=== PATIENT | male | born 1965 | race Caucasian/White ===

== ENCOUNTER → 2020-11-19 13:01 | Outpatient (CLI) | payer OTHER, SELFPAY ==
--- NOTE | 2020-11-19 13:12 | ECG_ITS ---
APPROVED REPORT Exam: Resting ECG HR:83 bpm ECG Measurements Heart Rate 83 AXES NE 128 P 78 QRSd 96 QRS 72 QT 342 T 61 QTc 401 Conclusion Normal sinus rhythm Minimal voltage criteria for LVH, may be normal variant Borderline ECG Electronically signed by : Emanuel Vital, 12/02/2020 16:45:05
== END ==
PROVIDERS: PCP Internal Medicine; Visit Provider Internal Medicine
DX: R07.89 Other chest pain (principal)
CPT/HCPCS: 93005

== ENCOUNTER → 2021-02-20 10:19 | Outpatient (CLI) | payer OTHER, SELFPAY ==
--- NOTE | 2021-02-20 10:23 | XR_ITS ---
PROCEDURE INFORMATION: Exam: XR Left Forearm Exam date and time: 02/20/2021 10:23 AM Age: 55 years old Clinical indication: Injury or trauma; Fall; Sprain or strain; Elbow; Left; Additional info: S/P fall on lt elbow region/lt forearm TECHNIQUE: Imaging protocol: XR Left forearm. Views: 2 views. COMPARISON: No relevant prior studies available. FINDINGS: Bones/joints: Normal. Soft tissues: Normal. IMPRESSION: No acute findings.
--- NOTE | 2021-02-20 10:23 | XR_ITS ---
PROCEDURE INFORMATION: Exam: XR Left Elbow Exam date and time: 02/20/2021 10:23 AM Age: 55 years old Clinical indication: Injury or trauma; Fall; Sprain or strain; Elbow; Left; Additional info: S/P fall on lt elbow region/lt forearm TECHNIQUE: Imaging protocol: XR Left elbow. Views: 3 or more views. COMPARISON: No relevant prior studies available. FINDINGS: Bones/joints: Normal. Soft tissues: Normal. IMPRESSION: No acute findings.
== END ==
LOC: RAD 10:20
PROVIDERS: PCP Internal Medicine; Visit Provider Internal Medicine
DX: M79.632 Pain in left forearm (principal); M25.522 Pain in left elbow; W19.XXXA Unspecified fall, initial encounter
CPT/HCPCS: 73080; 73090

== ENCOUNTER → 2021-02-26 14:11 | Outpatient (CLI) | payer OTHER, SELFPAY ==
--- NOTE | 2021-02-26 14:24 | MR_ITS ---
PROCEDURE INFORMATION: Exam: MR Right Upper Extremity Other Than Joint Without Contrast, Humerus. Exam date and time: 02/26/2021 2:24 PM Age: 55 years old Clinical indication: Pain; Additional info: Strain of bicep. Unable to lift arm and weakness in arm. Bruising on anterior aspect of arm x2wks ago. Knot on arm. Put marker on knot. No prior. TECHNIQUE: Imaging protocol: MR of the Right upper extremity other than joint without intravenous contrast. Exam focused on the Humerus. COMPARISON: No relevant prior studies available. FINDINGS: Bones/joints: Small amount of fluid involving the elbow joint. No concerning marrow signal alterations. Bursae: Small amount of fluid signal in the subacromial/subdeltoid bursa can be seen with bursitis. Tendons: Torn and retracted long head of the biceps tendon. Remaining visualized tendons are unremarkable. Muscles: Normal muscles. Soft tissues: Unremarkable. IMPRESSION: Torn and retracted long head of the biceps tendon.
== END ==
LOC: RAD 14:12
PROVIDERS: PCP Internal Medicine; Visit Provider Internal Medicine
DX: S46.211A Strain of muscle, fascia and tendon of other parts of biceps, right arm, initial encounter (principal); S50.02XA Contusion of left elbow, initial encounter
CPT/HCPCS: 73218

== ENCOUNTER 2021-06-20 14:18 | Emergency (ER) | payer OTHER, SELFPAY ==
[2021-06-20 14:19] VITALS: BP 155/95; PULSE 97; RESP 18; TEMP 36.6; O2SAT 98; BMI 23.4
--- NOTE | 2021-06-20 14:30 | HMH.EDGENADL ---
ED Disposition Clinical Impression: Postoperative pain Disposition: Home, Self-Care Condition on Discharge: Fair Additional Instructions: Continue oxycodone as prescribed. Contact your orthopedic provider if severe pain persist tomorrow or worsens or if numbness or weakness of hand or if fever or swelling of hand develops. Referrals: Emanuel Vital [Primary Care Provider] - - Critical Care Critical Care Time: No Attestation: On , the high probability of a clinically significant, sudden or life threatening deterioration of the following system(s) required my full and direct attention, intervention and personal management. The time I documented below is in addition to time spent performing reported procedures but includes the following listed in this critical care notation. Medical Decision Making - Car Inquiry Pt receiving controlled substance: Yes Car was queried for this patient: Yes Risks and benefits of using a controlled substance: were discussed with pt by me Vital Signs: 06/20/21 14:19 06/20/21 15:22 Temperature 98 F 98 F Temperature Source Oral Oral Pulse Rate 85 Pulse Rate [Radial] 97 H Respiratory Rate 18 16 Blood Pressure 152/97 H Blood Pressure [Right Arm] 155/95 H Blood Pressure Mean [Right Arm] 115 Blood Pressure Position [Right Arm] Sitting 02 Sat by Pulse Oximetry 98 Oxygen Delivery Method Room Air Room Air Orders (Tests/Meds): ED MEDICATIONS Discontinued Medications Generic Name Dose Route Start Last Admin Trade Name Leoq PRN Reason Stop Dose Admin Hydromorphone HCl 2 mg 06/20/21 14:42 06/20/21 14:49 Hydromorphone 2mg/Ml Syringe IM 06/20/21 14:43 2 mg ONCE ONE Administration Ketorolac Tromethamine 60 mg 06/20/21 14:42 06/20/21 14:48 Ketorolac 60mg/2ml Vial IM 06/20/21 14:43 60 mg ONCE ONE Administration Ondansetron HCl 4 mg 06/20/21 14:42 06/20/21 14:49 Ondansetron 4mg/2ml Vial IM 06/20/21 14:43 4 mg ONCE ONE Administration Medical Decision Narrative: Splint and bandage not removed. Patient states that he was told by his orthopedic physician not to remove the splint or bandage unless it was an emergency such as infection or loss of circulation due to it being too tight. No signs of circulatory compromise or infection at this time. I do not perform nerve blocks of the extremity and therefore this is not an option. I offered him an injection of Toradol and Dilaudid and he is agreeable with this. Advised close follow-up and keeping in contact with his orthopedic physician if symptoms are not improving or if worsening. General Adult HPI - General Stated complaint: in pain Time Seen by Provider: 06/20/21 14:30 - History of Present Illness HPI narrative: States that he had surgery yesterday at [facility] in [facility] by [facility] to repair his left biceps tendon. He had a nerve block done at the time. He was told that when his nerve block wore off that he would have severe pain, but he says the pain is worse than anything he could have imagined. He has called his orthopedic provider and I have advised him to take an extra oxycodone 5 mg that he was prescribed after surgery. He has done this without relief. They have been advised him to come to the emergency department for evaluation. His orthopedic office called beforehand and said that he could receive a dose of Toradol and a one-time nerve block . I have told him that they would see him in their office on Tuesday. He has not had any swelling of his hand. No fever. No redness. He does not have any numbness of his hands since his nerve block wore off. He is able to move all of his fingers. He states he does not feel like the splint/Jorge wrap is too tight. - Related Data Allergies Allergy/AdvReac Type Severity Reaction Status Date / Time INGREDIENT: NO KNOWN - NO Allergy Unknown Uncoded 04/26/17 15:08 KNOWN DRUG ALLERGY NO K
[2021-06-20 15:22] VITALS: BP 152/97; PULSE 85; RESP 16; TEMP 36.6; O2SAT 98
== END 2021-06-20 15:23 | disposition home or self-care (01) ==
PROVIDERS: Emergency Provider Emergency Medicine; PCP Internal Medicine
DX: G89.18 Other acute postprocedural pain (principal); S46.222D Laceration of muscle, fascia and tendon of other parts of biceps, left arm, subsequent encounter
CPT/HCPCS: 96372; 99281; J2405

== ENCOUNTER → 2021-08-25 10:26 | Outpatient (CLI) | payer OTHER, SELFPAY ==
--- NOTE | 2021-08-25 11:22 | XR_ITS ---
FINAL REPORT CLINICAL HISTORY: LUQ ABD PAIN,LT FLANK PAIN FINDINGS: Chest: Single view was obtained. The heart and mediastinum are within normal limits. Disease. There is no pneumothorax. Abdomen: 2 views were obtained. There is a nonobstructive bowel gas pattern with a moderate amount of stool in the colon. There are no abnormally dilated loops of bowel. There is no free air. There are no abnormal calcifications. IMPRESSION: Nonobstructive bowel gas pattern with a moderate amount of stool. Reviewed, Interpreted and Dictated by Manjit Up III, MD Transcribed by Dede Champion Authenticated by Manjit Up III, MD on 08/25/2021 12:36:18 PM [facility]
[2021-08-25 11:24] LABS: Basophils # 0.1 K/mm3 (0-0.2); Basophils % 0.9 % (0.1-2.0); Eosinophils # 0.2 K/mm3 (0.0-0.4); Eosinophils % 1.6 % (0.1-12.0); Hematocrit 43.3 % (42.0-52.0); Hemoglobin 13.6 g/dL (14.1-18.0); Lymphocytes # 1.2 K/mm3 (0.7-4.5); Mean Corpuscular HGB Conc 31.4 g/dL (31.8-35.4); Mean Corpuscular Hemoglobin 29.9 pg (27.0-31.2); Mean Corpuscular Volume 95.2 fl (80-94); Mean Platelet Volume 7.2 fl (7.4-10.4); Monocytes # 0.8 K/mm3 (0.1-1.0); Monocytes % 5.4 % (1.7-9.3); Neutrophils # 11.5 K/mm3 (1.8-7.8); Neutrophils % 83.1 % (37.0-80.0); Platelet Count 341 K/mm3 (142-424); Red Blood Count 4.55 M/mm3 (4.60-6.20); Red Cell Distribution Width 13.7 % (11.5-17.5); White Blood Count 13.8 K/mm3 (4.8-10.8)
[2021-08-25 12:08] LABS: Alanine Aminotransferase 22 U/L (12-78); Albumin Level 4.2 g/dl (3.5-5.0); Albumin/Globulin Ratio 1.8 (1.1-1.8); Alkaline Phosphatase 80 U/L (38-126); Amylase 71 U/L (30-110); Anion Gap 7.6 mEq/L (5-15); Aspartate Amino Transferase 27 U/L (17-59); Bilirubin,Total 0.3 mg/dl (0.2-1.3); Blood Urea Nitrogen 21 mg/dl (9-20); Calcium 8.8 mg/dl (8.4-10.2); Carbon Dioxide 29 mmol/L (22.0-30.0); Chloride 107 mmol/L (98-107); Estimated Glomerular Filt Rate 88 ml/min (>60); GFR (African American) 107 ML/MIN (>60); Globulin 2.4 g/dL (1.3-3.2); Glucose 111 mg/dl (74-100); Potassium 4.6 mmoL/L (3.5-5.1); Sodium 139 mmol/L (136-145); Total Protein,Serum 6.6 g/dl (6.3-8.2)
--- NOTE | 2021-08-25 12:38 | CT_ITS ---
FINAL REPORT CLINICAL HISTORY: LUQ ABD PAIN,LT FLANK PAIN,HEMATURIA FINDINGS: Axial CT images of the abdomen and pelvis were obtained without intravenous contrast. Coronal reformatted images were also obtained.This study was performed with techniques to keep radiation doses as low as reasonably achievable (ALARA). Individualized dose reduction techniques using automated exposure control or adjustment of mA and/or kV according to the patient's size were employed. Abdomen: The lung bases are clear. There is no renal stone. There is mild left hydronephrosis, hydroureter, and perinephric stranding. The gallbladder is present. The liver, spleen and pancreas have an unremarkable, unenhanced appearance. No mass or adenopathy is seen. No inflammatory process is identified. Pelvis: Images of the pelvis reveal a 1 mm stone at the left UVJ. No mass or abnormal fluid collection is identified. The appendix is normal. IMPRESSION: Mild left hydronephrosis, hydroureter, and perinephric stranding secondary to a 1 mm left UVJ stone. Reviewed, Interpreted and Dictated by Manjit Up III, MD Transcribed by Fco Terry Authenticated by Manjit Up III, MD on 08/25/2021 02:18:42 PM [facility]
== END ==
PROVIDERS: PCP Internal Medicine; Visit Provider Internal Medicine
DX: R10.2 Pelvic and perineal pain (principal); R10.9 Unspecified abdominal pain; R31.29 Other microscopic hematuria
CPT/HCPCS: 36415; 74021; 74176; 80053; 82150; 85025

== ENCOUNTER → 2022-06-21 10:21 | Outpatient (CLI) | payer OTHER, SELFPAY ==
--- NOTE | 2022-06-21 10:33 | ECG_ITS ---
APPROVED REPORT Exam: Resting ECG HR:89 bpm ECG Measurements Heart Rate 89 AXES RI 138 P 76 QRSd 89 QRS 69 QT 330 T 72 QTc 377 Conclusion SINUS RHYTHM WITH OCCASIONAL SUPRAVENTRICULAR PREMATURE COMPLEXES OTHERWISE NORMAL EKG Electronically signed by : Emanuel Vital MD 06/21/2022 11:37:29
== END ==
LOC: RT 10:23
PROVIDERS: PCP Internal Medicine; Visit Provider Internal Medicine
DX: R55 Syncope and collapse (principal); R42 Dizziness and giddiness
CPT/HCPCS: 93005

== ENCOUNTER → 2022-07-01 12:38 | Outpatient (CLI) | payer OTHER, SELFPAY ==
--- NOTE | 2022-07-01 | CA_ITS ---
APPROVED REPORT EXAM: Comprehensive 2D, Doppler, and color-flow Echocardiogram Joiner Helper: Korin Tipton RDCS Ht: 5 ft 10 in Wt: 180lbs BSA: 2.00 BP: 152/97 mmHg Indications: dIZZINESS, htn, pre-op 2D Dimensions LVOT 1.95 cm (M/F) 1.5-2.5 LA Volume 34.70 mL LA Volume Index 17.602568 mL/m2 (M/F) 16-34 M-Mode Dimensions RVDd 2.75 cm (0.9-2.6) LA Diam 3.39 cm (1.9-4.0) LVDd 4.95 cm (3.5-5.7) Ao Diam 3.59 cm (2.0-3.7) LVDs 3.64 cm (3.5-5.7) IVSd 1.05 cm (0.6-1.1) PWd 0.68 cm (0.6-1.1) EF (Teich) 51.60% FS 26.50% EDV (Teich) 115.50 mL TAPSE 2.34 (<1.7) ESV (Teich) 55.90 mL LV Diastology E Decel Time 190.00 (160-240 msec) E/A Ratio 0.80 MED E' 9.30 (< 7 cm/sec) MED A' 10.50 cm/s E'/MED E' Ratio 5.33 (>14) LAT E' 6.50 (<10 cm/sec) LAT A' 11.00 cm/s E/LAT E' Ratio 7.63 (>14) Aortic Valve AO Peak GR. 5.90 mmHg Mitral Valve MV A Velocity 62.00 (40-130 cm/s) E/A Ratio 0.80 MV Decel. Time 190.00 (160-240 ms) Pulmonary Valve PV Peak Velocity 104.00 (50-150 cm/s) Tricuspid Valve TR P. Velocity 174.00 cm/s RAP Estimate 10.00 mmHg RVSP 22.00 mmHg Left Ventricle Left atrium is mildly enlarged, left ventricle is normal size mild concentric left ventricular hypertrophy, estimated ejection fraction 55% with no regional wall motion abnormality, grade 1 diastolic dysfunction seen without tissue Doppler evidence of raise left atrial pressure. Right Ventricle Right atrium and right ventricular normal size and contractility. Aortic Valve Aortic valve is grossly normal there is no aortic stenosis aortic insufficiency. Mitral Valve Mitral valve is grossly normal, there is trace mitral regurgitation. Tricuspid Valve Tricuspid valve grossly normal, there is trace tricuspid regurgitation, tricuspid regurgitation jet velocity is inadequate for calculation of the right ventricular systolic pressure. Pulmonic Valve Pulmonic valve is poorly visualized. Great Vessels Aortic root is normal size. Inferior vena cava is normal size with normal inspiratory collapse. Pericardium No significant pericardial effusion noted. Conclusion 1. Mildly enlarged left atrium, normal left ventricular size, mild concentric left ventricular hypertrophy, estimated ejection fraction 55% with no regional wall motion abnormality, grade 1 diastolic dysfunction seen without tissue Doppler evidence of raise left atrial pressure. 2. Trace mitral and tricuspid regurgitation. 3. No significant pericardial effusion noted. 4. Inferior vena cava is normal size with normal inspiratory collapse. Electronically signed by : Clayton Berry MD 07/02/2022 15:08:29
--- NOTE | 2022-07-01 | CA_ITS ---
FINAL REPORT TECHNIQUE: Color Doppler, duplex Doppler and mckeon scale sonography of the bilateral neck arterial vasculature was performed. Velocities were measured in the carotid arteries. Stenosis evaluation based on the validated velocity criteria. CLINICAL HISTORY: DIZZINESS,SYNCOPE FINDINGS: The peak systolic velocity of the right common carotid artery is 80 cm/s. The peak systolic velocity of the right internal carotid artery is 79 cm/s and end diastolic velocity 35 cm/s. The ICA/CCA ratio is 1.1. A small amount of plaque is present. The right external carotid artery is patent. The right vertebral artery is patent with antegrade flow. The peak systolic velocity of the left common carotid artery is 104 cm/s. The peak systolic velocity of the left internal carotid artery is 92 cm/s and end diastolic velocity 37 cm/s. The ICA/CCA ratio is 1.3. A small amount of plaque is present. The left external carotid artery is patent.The left vertebral artery is patent with antegrade flow. IMPRESSION: Less than 50% bilateral carotid stenoses. Bilateral patent vertebral arteries with antegrade flow. If indicated, CTA or MRA could further evaluate. Reviewed, Interpreted and Dictated by Manjit Up III, MD Transcribed by Alyse Hawkins Authenticated and [facility]
== END ==
LOC: RT 12:41
PROVIDERS: PCP Internal Medicine; Visit Provider Internal Medicine
DX: R55 Syncope and collapse (principal); R42 Dizziness and giddiness
CPT/HCPCS: 93225; 93226; 93306; 93880

== ENCOUNTER → 2022-07-15 14:27 | Outpatient (CLI) | payer OTHER, SELFPAY ==
--- NOTE | 2022-07-15 | CA_ITS ---
APPROVED REPORT Exam: Exercise Treadmill Technologist: Jody Alegria Ht: 5 ft 10 in Wt: 180 lbs BSA: 2.00 m2 HR: 89 bpm BP: 160/94 mmHg Rhythm: NSR, normal Medical History Medications: Aspirin,,,,, Trazadone,,,,, Naproxen,,,,, Cardiac Risk Factors: Smoking Stress Test Details Test: Angelica HR Resting HR: 98 bpm Max Heart Rate (APMHR): 166.540958 bpm Max HR Achieved: 153 bpm Target HR (85% APMHR): 141.429358 bpm % of APMHR: 92.17 Recovery HR: 133 bpm BP Resting BP: 144/98 mmHg Max BP: 208/100 mmHg Recovery BP: 187.0/103.0 mmHg ECG Resting ECG: NSR, normal Clinical Exercise duration: 04:13 min Highest Stage Achieved: Exercise capacity: 7.0 METs Stress ECG Conclusion During angelica protocol pt walked total of 4:13 minutes into stage 2. Pt experinced dyspnea, mild dizzy at peak exercise. No arrhythmias noted. Within normal ST response to exercise. Within normal GXT. GXT only. Test Summary REST . . . . . . . Sitting REST . . . . . . . Standing REST 03:38 0.0 0.0 98 . 144/ 98 . . Stage 1 01:00 10.0 1.7 121 . . . . Stage 1 02:00 10.0 1.7 141 . . . . Stage 1 03:00 10.0 1.7 145 . 208/100 . . Stage 2 01:00 12.0 2.5 150 . . . . Stage 2 01:13 12.0 2.5 152 . . . Stop exercise at 04:13 RECOVERY 01:00 0.0 0.0 144 . . . . RECOVERY 02:00 0.0 0.0 120 . 187/103 . . RECOVERY 03:00 0.0 0.0 114 . 162/102 . . RECOVERY 04:00 0.0 0.0 109 . 162/102 . . RECOVERY 05:00 0.0 0.0 104 . 168/104 . . RECOVERY 05:18 0.0 0.0 100 . 168/104 . . Electronically signed by : Emanuel Vital MD 07/23/2022 18:04:27
== END ==
PROVIDERS: PCP Internal Medicine; Visit Provider Internal Medicine
DX: R07.9 Chest pain, unspecified (principal); R55 Syncope and collapse; R42 Dizziness and giddiness
CPT/HCPCS: 93017

== ENCOUNTER → 2022-08-27 12:04 | Outpatient (CLI) | payer OTHER, SELFPAY | LOC: LAB 12:05 | PROVIDERS: PCP Internal Medicine; Visit Provider Orthopaedic Surgery | DX: Z01.812 Encounter for preprocedural laboratory examination (principal); M54.2 Cervicalgia | CPT/HCPCS: 36415; 86850 ==

== ENCOUNTER → 2022-11-30 12:15 | Outpatient (CLI) | payer OTHER, SELFPAY ==
--- NOTE | 2022-11-30 12:22 | XR_ITS ---
FINAL REPORT CLINICAL HISTORY: consistent headache FINDINGS: SPINE CERVICAL COMPLETE/FLEXION & EXT Seven views demonstrate no acute fracture. There are postoperative changes from fusion of C3-5 There is moderate disc space narrowing at C6-7. The neural foramina are widely patent. There is no instability or malalignment with flexion and extension maneuvers. IMPRESSION: Degenerative and postoperative changes as above. Reviewed, Interpreted and Dictated by Louis Pérez MD Transcribed by Alyse Hawkins Authenticated and [facility]
== END ==
PROVIDERS: PCP Internal Medicine; Visit Provider Specialist
DX: M54.12 Radiculopathy, cervical region (principal); R51.9 Headache, unspecified
CPT/HCPCS: 72052

== ENCOUNTER → 2022-12-13 13:34 | Outpatient (CLI) | payer OTHER, SELFPAY ==
[2022-12-13 13:41] LABS: MANUAL DIFFERENTIAL MANUAL DIFFERENTIAL (MANUAL DIFF)
[2022-12-13 14:38] LABS: Basophils # 0.1 K/mm3 (0-0.2); Basophils % 0.7 % (0.1-2.0); Eosinophils # 0.2 K/mm3 (0.0-0.4); Eosinophils % 2.8 % (0.1-12.0); Hematocrit 45.7 % (42.0-52.0); Lymphocytes # 1.8 K/mm3 (0.7-4.5); Lymphocytes % 22.2 % (10-50); Mean Corpuscular HGB Conc 30.6 g/dL (31.8-35.4); Mean Corpuscular Hemoglobin 27.6 pg (27.0-31.2); Mean Corpuscular Volume 90.2 fl (80-94); Mean Platelet Volume 7.2 fl (7.4-10.4); Monocytes # 0.4 K/mm3 (0.1-1.0); Monocytes % 4.9 % (1.7-9.3); Neutrophils # 5.7 K/mm3 (1.8-7.8); Neutrophils % 69.4 % (37.0-80.0); Platelet Count 391 K/mm3 (142-424); Red Blood Count 5.07 M/mm3 (4.60-6.20); Red Cell Distribution Width 14.1 % (11.5-17.5); White Blood Count 8.3 K/mm3 (4.8-10.8)
[2022-12-13 15:05] LABS: Alanine Aminotransferase 23 U/L (12-78); Albumin Level 4.7 g/dl (3.5-5.0); Albumin/Globulin Ratio 1.7 (1.1-1.8); Alkaline Phosphatase 108 U/L (38-126); Anion Gap 13.6 mEq/L (5-15); Aspartate Amino Transferase 26 U/L (17-59); Blood Urea Nitrogen 21 mg/dl (9-20); Calcium 9.6 mg/dl (8.4-10.2); Carbon Dioxide 28 mmol/L (22.0-30.0); Chloride 105 mmol/L (98-107); Estimated Glomerular Filt Rate 100 ml/min (>60); GFR (African American) 121 ML/MIN (>60); Globulin 2.8 g/dL (1.3-3.2); Glucose 112 mg/dl (74-100); Potassium 4.6 mmoL/L (3.5-5.1); Sodium 142 mmol/L (136-145); Total Protein,Serum 7.5 g/dl (6.3-8.2)
[2022-12-13 15:07] LABS: Bilirubin,Total 0.1 mg/dl (0.2-1.3)
[2022-12-13 15:09] LABS: Eosinophils % 2 % (0-3); Lymphocytes % 21 % (10-50); Monocytes % 3 % (2-9); Neutrophils % 73 % (42-76); Total Cells Counted 100
[2022-12-13 15:10] LABS: Hypochromasia 1+; Platelet Estimate Normal
== END ==
LOC: LAB 13:35
PROVIDERS: PCP Internal Medicine; Visit Provider Specialist
DX: R51.9 Headache, unspecified (principal); M54.81 Occipital neuralgia; D58.2 Other hemoglobinopathies
CPT/HCPCS: 36415; 80053; 85007; 85014; 85018; 85048; 85049

== ENCOUNTER → 2022-12-13 13:47 | Outpatient (POV) | payer OTHER, SELFPAY ==
--- NOTE | 2022-12-13 14:37 | EXP.PAIN.OV ---
HPI Data of Consult Patient: new to practice Consult date: 12/13/22 Requesting Physician: Josie Davis APRN Primary Care Provider: Emanuel Vital MD Consult Narrative Reason for consult: Headache, neck pain History of present illness: Mr. Rosibel Rodríguez) is a 57 year old male who presents today as a new patient. He is a referral from Dr. Altman's office. Today he rates his pain a 3 out of 10. Patient states his pain is all in his neck and the back of his head along the left side. Patient states this has been going on for longer than 6 months. He states he did initially go to a doctor for his left arm pain who stated that he needed to have a procedure to remove some bone spurs however then ended up finding he had a frozen shoulder. Patient states that he later went to [facility] where Dr. Spears did do 2 injections including 1 and his upper back and one around his left shoulder. Patient states that he was then transferred over to [facility] who ended up doing a cervical fusion on C3-4 and C4-5 back in August. Patient states he did have some resolution of his neck pain after this surgery however he continued to have constant headaches. Patient has tried [id number] medications such as Tylenol and ibuprofen along with Excedrin. Patient also has tried heat and ice with no additional relief. Patient does state that he typically will take anywhere from 7 to 8 pills of the Excedrin Migraine and that previously he had been on more around 15/day. Patient does describe his pain as a constant pain that is worse with any random movements. He states it is unrelated to any specific activity and changes from 1 minute to the next. Patient has also tried physical therapy with no additional relief. Patient did go to Dr. Altman's office and had an EMG where it was found that he had carpal tunnel. Patient is currently managed on gabapentin 300 mg 3 times a day. His Car is [phone]. Its been reviewed and appropriate. Patient is interested in any help we may be able to provide. CC: Josie Davis APRN [facility] Disclaimer: The information contained in this section may have been updated after the patient was seen, as this information can be updated by other users. Medical History Anxiety Cervical radiculopathy Depression Fixation hardware in spine Frozen shoulder GERD (gastroesophageal reflux disease) Headache Heart attack Heart palpitations History of arterial dissection Osteoarthritis Surgical History History of cervical discectomy Social History (Updated 12/13/22 @ 15:07 by Radha Eastman RN) Smoking Status: Never smoker alcohol intake: never current occupational status: unemployed Travel in the last 8 weeks: None marital status: Review of Systems Review of Systems Review of systems:: pertinent systems reviewed and negative unless documented below Review of systems (narrative): Review of Systems: General: No recent weight changes, no fever, no sleep disturbances Respiratory: No cough, no shortness of air, no recurring pulmonary infections Cardiovascular/peripheral vascular: No chest pain, no palpitations, no edema, no shortness of breath Gastrointestinal: No new onset incontinence, normal bowel movements reported Genitourinary: No new onset incontinence Musculoskeletal: Left-sided occipital headaches Psychiatric: [Normal mood/affect] Neurological: [Denies weakness in extremities], [denies balance issues] Meds Home Medications and Allergies Home Medications Medication Instructions Recorded Confirmed Type bisoprolol fumarate 5 mg tablet 5 mg PO DAILY BLOOD PRESSURE 11/30/22 12/13/22 History bupropion HCl 200 mg tablet,12 hr 200 mg PO DIRECTED MOOD 11/30/22 12/13/22 History sustained-release cyclobenzaprine 5 mg tablet 5 mg PO TID PRN Pain 11/30/22 12/13/22 History escit
[2022-12-13 15:06] VITALS: BP 162/100; PULSE 91; RESP 18; O2SAT 97; BMI 25.2
== END ==
LOC: SC.PAIN 13:49
PROVIDERS: PCP Internal Medicine; Visit Provider Nurse Practitioner Family
DX: M54.81 Occipital neuralgia (principal); M50.10 Cervical disc disorder with radiculopathy, unspecified cervical region; G44.86 Cervicogenic headache
CPT/HCPCS: 99202; G0463

== ENCOUNTER 2022-12-21 09:08 | Day surgery (SDC) | payer OTHER, SELFPAY ==
[2022-12-21 09:27] VITALS: BP 158/91; PULSE 91; RESP 16; TEMP 36.9; O2SAT 97; BMI 25.1
[2022-12-21 09:53] VITALS: BP 136/88; PULSE 89; RESP 18; O2SAT 98
[2022-12-21 09:55] VITALS: BP 136/88; PULSE 89; RESP 18; O2SAT 98
[2022-12-21 10:00] VITALS: BP 162/89; PULSE 89; RESP 16; O2SAT 97
--- NOTE | 2022-12-21 10:12 | EXP.PAIN.PRO ---
Procedure Date: 12/21/22 Time: 09:50 Anesthesiologist:: Femi Temple CRNA Complications:: None Pre-procedure Diagnosis:: Left occipital neuritis. Post-procedure Diagnosis:: Same. Indications for Procedure:: Patient is a very pleasant 57-year-old male that comes our clinic today for left occipital nerve block. Patient complains of chronic headaches. Patient states headache pain typically from the left occipital area to left parietal area. Not much pain on the right according to the patient. Procedure Details:: Details of the procedure explained to the patient. Patient taken to procedure room placed in sitting position. The area over the left occipital was cleaned using chlorhexidine as a cleansing solution. Using a 25-gauge inch and half needle the left occipital nerve was accessed with ease. After negative aspiration, 10 cc of a solution containing 0.25% Marcaine +1% lidocaine and 40 mg of Depo-Medrol was injected in a fanning fashion over the left occipital nerve area. Patient tolerated procedure without difficulty. There are no complications. Plan and Disposition:: Patient was discharged without incident.
== END 2022-12-21 10:00 | disposition home or self-care (01) ==
PROVIDERS: PCP Internal Medicine; Visit Provider Nurse Anesthetist, Certified Registered
DX: M54.81 Occipital neuralgia (principal); R51.9 Headache, unspecified
CPT/HCPCS: 64405; J1040

== ENCOUNTER → 2023-01-03 12:41 | Outpatient (CLI) | payer OTHER, SELFPAY ==
--- NOTE | 2023-01-03 12:41 | CT_ITS ---
FINAL REPORT TECHNIQUE: Multiple axial CT sections were performed from the foramen magnum to the vertex. Coronal reformatted images were also obtained. Postcontrast injection images were obtained. This study was performed with technique to keep radiation doses as low as reasonably achievable, (ALARA). Individualized dose reduction techniques using automated exposure control or adjustment of mA and/or kV according to the patient size were employed. CLINICAL HISTORY: consistent headache with contrast only COMPARISON: None FINDINGS: CT HEAD WITH CONTRAST: The ventricles are normal in size and configuration. No extra-axial fluid collections are noted. The brain parenchyma is unremarkable. No evidence of intracranial hemorrhage is seen. Note is made of a small left transverse sinus, with a prominent right transverse sinus, most likely a normal variant. IMPRESSION: No acute intracranial abnormality identified. Reviewed, Interpreted and Dictated by Tha Whitt MD Transcribed by Peggy Reyez Authenticated and [facility]
== END ==
LOC: RAD 12:41
PROVIDERS: PCP Internal Medicine; Visit Provider Specialist
DX: R51.9 Headache, unspecified (principal); M54.12 Radiculopathy, cervical region
CPT/HCPCS: 70460; Q9966

== ENCOUNTER → 2023-01-06 10:44 | Outpatient (POV) | payer OTHER, SELFPAY ==
--- NOTE | 2023-01-06 11:11 | A.OFFVIS_ITS ---
[facility] Pain Management SOAP Note Subjective:: Patient is a pleasant 57-year-old male who presents today for follow-up of left occipital nerve block on 12/21/2022. We are currently treating the patient for degenerative disc disease of cervical spine with cervical radiculopathy symptoms, occipital neuralgia, headache. Today he rates his pain a 5 out of 10. Patient denies any new trauma or injury. Patient does state that he had 100% improvement following this injection however it only lasted 2 days. Patient does state that he is back to his baseline today and describes the pain as a aching sensation that does worsen his headaches. Patient does state that the constant pain does interfere with his ability perform activities of daily living such as cooking and cleaning. Patient did have a brain CT with contrast that had no acute findings. His Car is [id number]. Its been reviewed and appropriate. Review of Systems: General: No recent weight changes, no fever, no sleep disturbances Respiratory: No cough, no shortness of air, no recurring pulmonary infections Cardiovascular/peripheral vascular: No chest pain, no palpitations, no edema, no shortness of breath Gastrointestinal: No new onset incontinence, normal bowel movements reported Genitourinary: No new onset incontinence Musculoskeletal: Left occipital pain Psychiatric: [Normal mood/affect] Neurological: [Denies weakness in extremities], [denies balance issues] Objective:: Physical Exam: General: Alert and oriented x3, no acute distress, pleasant and cooperative Lungs: Respirations even and unlabored, symmetrical chest expansion Eyes: PERRL Musculoskeletal: Flexion and extension of cervical [spine] somewhat guarded secondary to pain, [antalgic gait noted] Neurological: Speech clear, no gross sensory deficit Assessment:: Degenerative disc disease of cervical spine with cervical radiculopathy symptoms, occipital neuralgia, headache Plan:: Patient had 100% improvement following his first occipital nerve block. Patient is back to his baseline today and has limited range of motion of his cervical spine with worsening pain symptoms. I have discussed with the patient that he may benefit from a repeat occipital nerve block. Risk and benefits were explained to the patient and he would like to proceed forward with this plan of care. Patient will be scheduled for his second left occipital nerve block. Patient has been instructed to contact the clinic with any concerns before the next appointment. Dr. Michaels has reviewed this note and agrees with this plan of care. This note was dictated using voice recognition software and make contain errors or omissions. [facility] Disclaimer: The information contained in this section may have been updated after the patient was seen, as this information can be updated by other users. Medical History Anxiety Cervical radiculopathy Depression Fixation hardware in spine Frozen shoulder GERD (gastroesophageal reflux disease) Headache Heart attack Heart palpitations History of arterial dissection Osteoarthritis Surgical History History of cervical discectomy Family History (Updated 12/21/22 @ 09:30 by Sharon Piedra RN) Other No significant family history Social History Smoking Status: Never smoker alcohol intake: never current occupational status: unemployed Travel in the last 8 weeks: None marital status:
[2023-01-06 13:05] VITALS: BP 130/95; PULSE 86; RESP 18; O2SAT 94; BMI 24.4
== END ==
PROVIDERS: PCP Internal Medicine; Visit Provider Nurse Practitioner Family
DX: M50.10 Cervical disc disorder with radiculopathy, unspecified cervical region (principal); M54.81 Occipital neuralgia; R51.9 Headache, unspecified
CPT/HCPCS: 99212; G0463

== ENCOUNTER 2023-01-18 09:15 | Day surgery (SDC) | payer OTHER, SELFPAY ==
[2023-01-18 09:29] VITALS: BP 154/81; PULSE 93; RESP 16; TEMP 36.8; O2SAT 98; BMI 25.1
[2023-01-18 09:40] VITALS: BP 128/91; PULSE 95; RESP 18; O2SAT 99
[2023-01-18 09:41] VITALS: BP 128/91; PULSE 95; RESP 18; O2SAT 99
--- NOTE | 2023-01-18 09:45 | EXP.PAIN.PRO ---
Procedure Date: 01/18/23 Time: 09:35 Anesthesiologist:: Femi Temple CRNA Complications:: None Pre-procedure Diagnosis:: Left greater occipital neuralgia Post-procedure Diagnosis:: Same Indications for Procedure:: Patient is a very pleasant 57-year-old male that comes our clinic today for repeat left occipital nerve block. Patient had bilateral occipital nerve blocks several months ago with significant improvement in his overall occipital pain as well as frequent headaches. Procedure Details:: Details of the procedure explained to the patient. The patient taken to procedure room placed in the sitting position. The area over the left occipital area was cleaned using chlorhexidine as a cleansing solution. Using a 25-gauge inch and half needle the left occipital area was infiltrated after negative aspiration with a solution containing 0.25% Marcaine +1% lidocaine and 40 mg of Depo-Medrol. Patient tolerated procedure without difficulty. There are no complications. Plan and Disposition:: Patient was discharged without incident.
[2023-01-18 09:51] VITALS: BP 149/77; PULSE 95; RESP 20
== END 2023-01-18 09:52 | disposition home or self-care (01) ==
PROVIDERS: PCP Internal Medicine; Visit Provider Nurse Anesthetist, Certified Registered
DX: M54.81 Occipital neuralgia (principal)
CPT/HCPCS: 64405; J1040

== ENCOUNTER → 2023-02-02 10:36 | Outpatient (POV) | payer OTHER, SELFPAY ==
[2023-02-02 11:28] VITALS: BP 132/89; PULSE 86; RESP 20; O2SAT 99; BMI 24.7
--- NOTE | 2023-02-02 11:57 | EXP.PAIN.SOA ---
[facility] Pain Management SOAP Note Subjective:: Patient is a pleasant 57-year-old male who presents today for follow-up of left occipital nerve block on 01/18/2023. We are currently treating the patient for degenerative disc disease of cervical spine with cervical radiculopathy symptoms, occipital neuralgia, headache. Today he rates his pain a 6 out of 10. Patient states that he had no additional improvement with the second occipital nerve block. Patient did have 100% relief lasting 2 days with his first occipital nerve block. Patient denies any new trauma or injury or any change to location or type of pain he experiences. Patient does state that he continues to have daily pain in his neck with numbness and tingling into his upper arms and hands as well as the headaches every day. Patient has continued to neurologist with no acute findings. His Car is [id number]. Its been reviewed and appropriate. Review of Systems: General: No recent weight changes, no fever, no sleep disturbances Respiratory: No cough, no shortness of air, no recurring pulmonary infections Cardiovascular/peripheral vascular: No chest pain, no palpitations, no edema, no shortness of breath Gastrointestinal: No new onset incontinence, normal bowel movements reported Genitourinary: No new onset incontinence Musculoskeletal: Neck pain, headache bilateral arm pain Psychiatric: [Normal mood/affect] Neurological: [Denies weakness in extremities], [denies balance issues] Objective:: physical Exam: General: Alert and oriented x3, no acute distress, pleasant and cooperative Lungs: Respirations even and unlabored, symmetrical chest expansion Eyes: PERRL Musculoskeletal: Flexion and extension of cervical [spine] somewhat guarded secondary to pain, [antalgic gait noted] Neurological: Speech clear, no gross sensory deficit Assessment:: Degenerative disc disease of cervical spine with cervical radiculopathy symptoms, occipital neuralgia, headache Plan:: Patient continues to experience significant pain in his neck and upper extremities along with daily headaches. I have discussed with the patient that he may benefit from a spinal cord stimulator trial. Risk and benefits and educational handouts were given during today's visit. Patient would like to proceed forward with this plan of care. I will order the patient a psychological evaluation and if he is deemed an appropriate candidate for the device we will proceed forward with a trial in the future. Patient will return to clinic in 1 month following his psych eval for reevaluation of symptoms and plan of care. Patient has been instructed to contact the clinic with any concerns before the next appointment. Dr. Michaels has reviewed this note and agrees with this plan of care. This note was dictated using voice recognition software and make contain errors or omissions. [facility] Disclaimer: The information contained in this section may have been updated after the patient was seen, as this information can be updated by other users. Medical History Analgesic overuse headache Anxiety Cervical radiculopathy Depression Fixation hardware in spine Frozen shoulder GERD (gastroesophageal reflux disease) Headache Heart attack Heart palpitations History of arterial dissection Osteoarthritis Surgical History History of cervical discectomy Family History Other No significant family history Social History (Updated 02/01/23 @ 09:32 by Mattie Penaloza) Smoking Status: Former smoker alcohol intake: never substance use type: denies use current occupational status: other Travel in the last 8 weeks: None household members: spouse housing: house marital status:
== END ==
PROVIDERS: PCP Internal Medicine; Visit Provider Nurse Practitioner Family
DX: M50.10 Cervical disc disorder with radiculopathy, unspecified cervical region (principal); M54.81 Occipital neuralgia; R51.9 Headache, unspecified
CPT/HCPCS: 99212; G0463

== ENCOUNTER → 2023-03-03 10:00 | Outpatient (POV) | payer OTHER, SELFPAY ==
--- NOTE | 2023-03-03 10:32 | EXP.PAIN.SOA ---
[facility] Pain Management SOAP Note Subjective:: Patient is a pleasant 57-year-old male who presents today for follow-up. We are currently treating the patient for degenerative disc disease of cervical spine with cervical radiculopathy symptoms, occipital neuralgia, headache. Today he rates his pain a 5 out of 10. Patient denies any new trauma or injury from our last visit. He states he continues to have headaches on a regular basis and soreness into his neck with radiating symptoms. He does describe this as an aching, throbbing sensation with pressure along the left side of his head. Patient does state the pain interferes with his ability perform activities of daily living such as cooking and cleaning. Patient did previously have a left occipital nerve block back at the middle of January that did provide 100% relief lasting 2 days. Patient is interested in repeating this injection. Patient states that he did go see the neurologist Dr. Altman yesterday and that she is wanting to make some adjustments to help with his anxiety and states that she would like to hold off on the spinal cord stimulator if possible. At her last visit we did send him for a psych eval for possible spinal cord stimulator trial in the future. Patient states he has not heard from this office. Patient is currently prescribed gabapentin 300 mg 3 times a day, Arona 5 mg up to 6 times per day with a 7-day supply and temazepam 15 mg daily from outside providers. He denies any side effects from this medication. His Car has been reviewed and is appropriate. Review of Systems: General: No recent weight changes, no fever, no sleep disturbances Respiratory: No cough, no shortness of air, no recurring pulmonary infections Cardiovascular/peripheral vascular: No chest pain, no palpitations, no edema, no shortness of breath Gastrointestinal: No new onset incontinence, normal bowel movements reported Genitourinary: No new onset incontinence Musculoskeletal: Left occipital neuralgia, neck pain Psychiatric: [Normal mood/affect] Neurological: [Denies weakness in extremities], [denies balance issues] Objective:: Physical Exam: General: Alert and oriented x3, no acute distress, pleasant and cooperative Lungs: Respirations even and unlabored, symmetrical chest expansion Eyes: PERRL Musculoskeletal: Flexion and extension of cervical [spine] somewhat guarded secondary to pain, [antalgic gait noted] Neurological: Speech clear, no gross sensory deficit Assessment:: Degenerative disc disease of cervical spine with cervical radiculopathy symptoms, left-sided occipital neuralgia, headache Plan:: Patient continues to experience significant pain related to occipital neuralgia. Patient did have limited range of motion of his cervical spine during today's visit. I have discussed with the patient that he may benefit from a repeat occipital neuralgia nerve block. Risk and benefits were discussed with patient and he would like to proceed forward with this plan of care. Patient did previously have 100% relief from his last occipital nerve block. I have also discussed with the patient that we will follow-up for his psych eval between now and his next visit. I have went over the risk and benefits of the trial and explained to him that if he is an appropriate candidate we can proceed forward with this at a later date. Patient will be scheduled for a left occipital nerve block. Patient has been instructed to contact the clinic with any concerns before the next appointment. Dr. Michaels has reviewed this note and agrees with this plan of care. This note was dictated using voice recognition software and make contain errors or omissions. [facility] Disclaimer: The information contained in this section may have been updated after the patient was seen, as this information can be updated by other users. Medical History Analgesic overuse headache Anxiety Cervical radiculopat
[2023-03-03 12:05] VITALS: BP 145/82; PULSE 87; RESP 18; O2SAT 97; BMI 24.1
== END ==
PROVIDERS: PCP Internal Medicine; Visit Provider Nurse Practitioner Family
DX: M50.10 Cervical disc disorder with radiculopathy, unspecified cervical region (principal); M54.81 Occipital neuralgia; R51.9 Headache, unspecified
CPT/HCPCS: 99212; G0463

== ENCOUNTER 2023-03-15 08:15 | Day surgery (SDC) | payer OTHER, SELFPAY ==
[2023-03-15 08:43] VITALS: BP 139/76; PULSE 85; RESP 18; TEMP 36.5; O2SAT 98; BMI 24.0
[2023-03-15 08:48] VITALS: BP 127/85; PULSE 80; RESP 18; O2SAT 96
[2023-03-15 08:55] VITALS: BP 127/85; PULSE 82; RESP 20; O2SAT 98
--- NOTE | 2023-03-15 08:59 | EXP.PAIN.PRO ---
Procedure Date: 03/15/23 Time: 08:50 Anesthesiologist:: Femi Temple CRNA Complications:: None Pre-procedure Diagnosis:: Myofascial pain left cervical paraspinous muscle. Post-procedure Diagnosis:: Same. Indications for Procedure:: Very pleasant 57-year-old male that responded very well to previous trigger point injections of the left cervical paraspinous muscle. Patient reports having 2 days of complete relief. Patient's main complaint is superior margin of the left cervical paraspinous muscle near the occipital area. He rates his pain 7/10. Procedure Details:: Details of the procedure explained to the patient. The patient taken to procedure room placed in the sitting position. The area over the superior left cervical paraspinous muscle was cleaned using chlorhexidine as a cleansing solution. Using a 25-gauge 1 inch needle the superior margin of the left cervical paraspinous muscle was accessed. After negative aspiration 3 cc of 1% lidocaine and 20 mg of Depo-Medrol was injected. Patient tolerated procedure without difficulty. There are no complications. Plan and Disposition:: Patient was discharged without incident.
[2023-03-15 09:00] VITALS: BP 140/81; PULSE 78; RESP 18; O2SAT 98
== END 2023-03-15 09:00 | disposition home or self-care (01) ==
PROVIDERS: PCP Internal Medicine; Visit Provider Nurse Anesthetist, Certified Registered
DX: M79.18 Myalgia, other site (principal)
CPT/HCPCS: 20552; J1040

== ENCOUNTER → 2023-04-06 08:52 | Outpatient (POV) | payer OTHER, SELFPAY ==
[2023-04-06 09:07] VITALS: BP 120/92; PULSE 92; RESP 18; O2SAT 96; BMI 23.7
--- NOTE | 2023-04-06 09:31 | EXP.PAIN.SOA ---
[facility] Pain Management SOAP Note Subjective:: Patient is a pleasant 57-year-old male who presents today for follow-up of trigger point injections of left cervical paraspinous muscles on 03/15/2023. We are currently treating the patient for degenerative disc disease of cervical spine with cervical radiculopathy symptoms, occipital neuralgia, headache. Today he rates his pain a 5 out of 10. Patient denies any new injury or trauma. He does state that he has not noticed any improvement following these trigger point injections. He states from our last visit he did go to Dr. Altman's office who took him off of his naproxen and added tizanidine 2 mg at night. He states he has not noticed any additional improvement from this medication. He states that he did feel like his pain is worsened due to being no longer on the naproxen. He states he does have a follow-up appointment with her office coming up in April. Patient does state that his pain continues to be throughout his neck with radiating numbness and tingling into his upper extremities and increased headaches. Patient does state today is a pretty bad day and has been interfering with his ability perform activities of daily living such as cooking and cleaning. Patient has previously had 2 occipital nerve blocks that did provide significant relief however only short-term. Patient was sent for a psychological evaluation for possible spinal cord stimulator trial however he has not heard from this office. Patient has been tried on gabapentin and Rincon in the past. His Car has been reviewed and is appropriate. Review of Systems: General: No recent weight changes, no fever, no sleep disturbances Respiratory: No cough, no shortness of air, no recurring pulmonary infections Cardiovascular/peripheral vascular: No chest pain, no palpitations, no edema, no shortness of breath Gastrointestinal: No new onset incontinence, normal bowel movements reported Genitourinary: No new onset incontinence Musculoskeletal: Neck pain, bilateral arm pain numbness tingling/pain, headache Psychiatric: [Normal mood/affect] Neurological: [Denies weakness in extremities], [denies balance issues] Objective:: Physical Exam: General: Alert and oriented x3, no acute distress, pleasant and cooperative Lungs: Respirations even and unlabored, symmetrical chest expansion Eyes: PERRL Musculoskeletal: Flexion and extension of cervical [spine] somewhat guarded secondary to pain, [antalgic gait noted] Neurological: Speech clear, no gross sensory deficit Assessment:: Degenerative disc disease of cervical spine with cervical radiculopathy symptoms, headache, occipital neuralgia Plan:: Patient continues to experience significant pain in his neck and upper extremities with weakness. Patient did have limited range of motion of his cervical spine during today's visit. Previous x-ray imaging did show disc loss most prominent at C6-C7. I have discussed with the patient that he may benefit from a cervical epidural. Risk and benefits were discussed with patient and he would like to proceed forward with this plan of care. Patient is not on any blood thinners. We will schedule the patient for a NAUN C6-C7. All epidurals are done under fluoroscopic guidance to confirm placement. Patient has been counseled to contact our office with any questions or concerns before their next appointment date. This note has been dictated using voice recognition software and may contain errors or omissions. Dr. Michaels has read this note and agrees with this plan of care. [facility] Disclaimer: The information contained in this section may have been updated after the patient was seen, as this information can be updated by other users. Medical History Analgesic overuse headache Anxiety Cervical radiculopathy Depression Fixation hardware in spine Frozen shoulder GERD (gastroesophageal reflux disease) Headache Transformed aldo
== END ==
PROVIDERS: PCP Internal Medicine; Visit Provider Nurse Practitioner Family
DX: M50.123 Cervical disc disorder at C6-C7 level with radiculopathy (principal); R51.9 Headache, unspecified; M54.81 Occipital neuralgia
CPT/HCPCS: 99212; G0463

== ENCOUNTER → 2023-04-18 11:36 | Outpatient (CLI) | payer OTHER, SELFPAY ==
[2023-04-18 12:28] LABS: Basophils % 0.6 % (0.1-2.0); Eosinophils # 0.2 K/mm3 (0.0-0.4); Eosinophils % 2.5 % (0.1-12.0); Hematocrit 41.4 % (42.0-52.0); Hemoglobin 13.9 g/dL (14.1-18.0); Lymphocytes # 1.8 K/mm3 (0.7-4.5); Lymphocytes % 25.2 % (10-50); Mean Corpuscular HGB Conc 33.6 g/dL (31.8-35.4); Mean Corpuscular Hemoglobin 30.3 pg (27.0-31.2); Mean Corpuscular Volume 90.3 fl (80-94); Mean Platelet Volume 7.4 fl (7.4-10.4); Monocytes # 0.5 K/mm3 (0.1-1.0); Monocytes % 6.9 % (1.7-9.3); Neutrophils # 4.5 K/mm3 (1.8-7.8); Neutrophils % 64.8 % (37.0-80.0); Platelet Count 298 K/mm3 (142-424); Red Blood Count 4.59 M/mm3 (4.60-6.20); Red Cell Distribution Width 13.9 % (11.5-17.5)
[2023-04-18 12:31] LABS: Activated Partial Thrombo Time 27.1 seconds (22.8-30.6); INR 0.96 (0.9-1.1); Prothrombin Time 10.4 seconds (10.1-12.5)
== END ==
PROVIDERS: PCP Internal Medicine; Visit Provider Internal Medicine
DX: R23.8 Other skin changes (principal); R55 Syncope and collapse
CPT/HCPCS: 85025; 85610; 85730

== ENCOUNTER 2023-04-22 08:46 | Day surgery (SDC) | payer OTHER, SELFPAY ==
[2023-04-22 08:55] VITALS: BP 143/90; RESP 16; BMI 25.1
[2023-04-22 08:57] VITALS: BP 145/98; PULSE 93; PULSE 96; O2SAT 98; O2SAT 99
[2023-04-22 09:05] VITALS: BP 162/89; PULSE 89; RESP 18; O2SAT 99
--- NOTE | 2023-04-22 09:10 | P.PCN_ITS ---
Procedure Date: 04/22/23 Time: 09:00 Anesthesiologist:: Femi Temple CRNA Complications:: None Pre-procedure Diagnosis:: Degenerative disc cervical spine multilevels. Cervical radiculopathy. Cervical postlaminectomy syndrome. Cervical spondylosis Post-procedure Diagnosis:: Same. Indications for Procedure:: Patient is a pleasant 57-year-old male comes our clinic today for cervical epidural steroid injection. Patient complains of posterior cervical spine pain as well as bilateral arm radicular symptoms. Patient is status post 3 level anterior cervical fusion. Patient rates his pain 6/10. Procedure Details:: Procedure:Cervical epidural steroid injection Informed consent was obtained and the risks and benefits of the procedure were explained to the patient. The patient was taken to the procedure room and noninvasive monitors placed, including noninvasive blood pressure cuff and pulse oximeter. The neck was prepped using Chloraprep as a cleansing solution. The C6- C7 interspace was viewed using fluroscopy. The skin and subcutaneous tissues were anesthetized using lidocaine 1.5% and a 25-gauge needle. After this an 18- gauge Touhy epidural needle was placed into the C6-C7 interspace under fluroscopy guidance and advanced using loss of resistance to air until the epidural space was encountered. After confirmation of needle placement in the epidural space using contrast dye, a solution containing normal saline, 2 mL and Depo-Medrol 80 mg was incrementally injected into the cervical epidural space.~ The patient tolerated the procedure well with no complications. The patient was observed in the Pain Clinic and then discharged home neurologically intact. Plan and Disposition:: Patient was discharged without incident.
== END 2023-04-22 09:05 | disposition home or self-care (01) ==
PROVIDERS: PCP Internal Medicine; Visit Provider Nurse Anesthetist, Certified Registered
DX: M50.123 Cervical disc disorder at C6-C7 level with radiculopathy (principal); M47.22 Other spondylosis with radiculopathy, cervical region; M96.1 Postlaminectomy syndrome, not elsewhere classified
CPT/HCPCS: 62321; J1040; Q9966

== ENCOUNTER → 2023-05-04 16:09 | Outpatient (CLI) | payer OTHER, SELFPAY | LOC: RT 16:10 | PROVIDERS: PCP Internal Medicine; Visit Provider Physician Assistant | DX: R55 Syncope and collapse (principal) | CPT/HCPCS: 93270 ==

== ENCOUNTER → 2023-05-10 10:15 | Outpatient (POV) | payer OTHER, SELFPAY ==
[2023-05-10 11:00] VITALS: BP 137/106; PULSE 92; RESP 18; O2SAT 98; BMI 25.1
--- NOTE | 2023-05-10 11:02 | A.OFFVIS_ITS ---
[facility] Pain Management SOAP Note Subjective:: This patient is a very pleasant 57-year-old male that comes to clinic today for follow-up visit after receiving cervical epidural steroid injection on 04/22/2023. Patient reports significant improvement terms of his overall cervical neck pain, bilateral arm radiculopathy. However, patient continues with multiple headaches daily. Injection did not improve severity of headaches. Patient describes the headaches as intermittent, dull, sharp, stabbing, occipital and parietal in nature. He reports pain is overall 6/10. We are awaiting for spinal cord stimulator psychiatric evaluation and approval. My recommendation is repeat cervical epidural for some increased improvement while waiting for spinal cord stimulator. Discussed in detail with the patient regarding the second injection. He wishes to proceed. Objective:: Patient is awake alert [place] x 3. No acute distress. Flexion-extension cervical spine somewhat guarded secondary to pain. Deep tendon reflexes upper and lower extremities normal. Motor strength upper and lower extremities normal. There is no gross sensory deficit. Gait is normal. Assessment:: Degenerative disc cervical spine multilevels. Cervical radiculopathy. Cervical postlaminectomy syndrome. Occipital neuritis. Plan:: Patient has tried and failed multiple occipital nerve blocks. However, patient did receive 50 to 75% improvement terms of his overall cervical spine symptoms as well as bilateral arm radicular symptoms with 1 cervical epidural steroid injection C6-7 level. I recommend a second cervical epidural steroid injection while waiting for spinal cord stimulator approval. He wishes to proceed. Patient's Car #[id number] has been reviewed and appropriate. Patient continues with naproxen and tizanidine daily from his PCP. [facility] Disclaimer: The information contained in this section may have been updated after the patient was seen, as this information can be updated by other users. Medical History Analgesic overuse headache Anxiety Cervical radiculopathy Depression Fixation hardware in spine Frozen shoulder GERD (gastroesophageal reflux disease) Headache Transformed migraine. Heart attack Heart palpitations History of arterial dissection Osteoarthritis Surgical History History of cervical discectomy Family History Other No significant family history Social History (Reviewed 05/04/23 @ 15:11 by Lisa Denise Smoking Status: Former smoker alcohol intake: never substance use type: denies use current occupational status: other Travel in the last 8 weeks: None household members: spouse housing: house marital status:
== END ==
LOC: SC.PAIN 10:16
PROVIDERS: PCP Internal Medicine; Visit Provider Nurse Anesthetist, Certified Registered
DX: M50.123 Cervical disc disorder at C6-C7 level with radiculopathy (principal); M96.1 Postlaminectomy syndrome, not elsewhere classified; M54.81 Occipital neuralgia
CPT/HCPCS: 99212; G0463

== ENCOUNTER 2023-05-11 13:13 | Outpatient (CLI) | payer OTHER, SELFPAY ==
[2023-05-11 17:30] LABS: Anion Gap 12.4 mEq/L (5-15); Blood Urea Nitrogen 22 mg/dl (9-20); Calcium 8.4 mg/dl (8.4-10.2); Carbon Dioxide 28 mmol/L (22.0-30.0); Chloride 101 mmol/L (98-107); Estimated Glomerular Filt Rate 88 ml/min (>60); GFR (African American) 106 ML/MIN (>60); Glucose 87 mg/dl (74-100); Potassium 4.4 mmoL/L (3.5-5.1); Sodium 137 mmol/L (136-145)
== END 2023-05-11 23:59 ==
LOC: LAB.DROPOF 13:14
PROVIDERS: PCP Internal Medicine; Visit Provider Internal Medicine
DX: K59.00 Constipation, unspecified (principal); R07.9 Chest pain, unspecified; S20.219A Contusion of unspecified front wall of thorax, initial encounter; Y99.9 Unspecified external cause status
CPT/HCPCS: 80048

== ENCOUNTER 2023-05-31 12:41 | Day surgery (SDC) | payer OTHER, SELFPAY ==
[2023-05-31 12:53] VITALS: BP 137/84; BP 144/94; PULSE 97; PULSE 98; RESP 16; RESP 18; TEMP 36.9; O2SAT 97; O2SAT 98; BMI 25.0
[2023-05-31] MEDS: methylPREDNISolone ACETATE 80MG/ML VIAL 80 MG (12:59)
--- NOTE | 2023-05-31 13:03 | P.PCN_ITS ---
Procedure Date: 05/31/23 Time: 13:00 Anesthesiologist:: Femi Temple CRNA Complications:: None Pre-procedure Diagnosis:: Degenerative disc cervical spine multilevels. Cervical radiculopathy. Cervical postlaminectomy syndrome. Cervical disc bulge multilevel. Cervical spondylosis Post-procedure Diagnosis:: Same. Indications for Procedure:: Patient is a very pleasant 57-year-old male that comes our clinic today for cervical epidural steroid injection C6-7 level. Patient responded well in the past to this injection. He has gone through a plethora of occipital nerve blocks as well. He reports posterior cervical neck pain as well as bilateral arm radicular symptoms at times. Chronic headaches. Procedure Details:: Procedure:Cervical epidural steroid injection Informed consent was obtained and the risks and benefits of the procedure were explained to the patient. The patient was taken to the procedure room and noninvasive monitors placed, including noninvasive blood pressure cuff and pulse oximeter. The neck was prepped using Chloraprep as a cleansing solution. The C6- C7 interspace was viewed using fluroscopy. The skin and subcutaneous tissues were anesthetized using lidocaine 1.5% and a 25-gauge needle. After this an 18- gauge Touhy epidural needle was placed into the C6-C7 interspace under fluroscopy guidance and advanced using loss of resistance to air until the epidural space was encountered. After confirmation of needle placement in the epidural space using contrast dye, a solution containing normal saline, 2 mL and Depo-Medrol 80 mg was incrementally injected into the cervical epidural space.~ The patient tolerated the procedure well with no complications. The patient was observed in the Pain Clinic and then discharged home neurologically intact. Plan and Disposition:: Patient was discharged without incident.
[2023-05-31] MEDS: IOPAMIDOL-200 (41%);10ML VIAL 10 ML IV (13:04)
[2023-05-31 13:15] VITALS: BP 146/90; PULSE 95; RESP 18; O2SAT 98
== END 2023-05-31 13:15 | disposition home or self-care (01) ==
PROVIDERS: PCP Internal Medicine; Visit Provider Nurse Anesthetist, Certified Registered
DX: M50.123 Cervical disc disorder at C6-C7 level with radiculopathy (principal); M96.1 Postlaminectomy syndrome, not elsewhere classified; M50.20 Other cervical disc displacement, unspecified cervical region; M47.22 Other spondylosis with radiculopathy, cervical region
CPT/HCPCS: 62321; J1040; Q9966

== ENCOUNTER 2023-06-03 09:24 | Outpatient (CLI) | payer OTHER, SELFPAY ==
[2023-06-02 16:30] VITALS: BMI 24.3
--- NOTE | 2023-06-03 09:25 | CT_ITS ---
APPROVED REPORT Compressor Service Technician: CLINICAL INDICATION Chest Pain TECHNIQUE Image Acquisition: A 128 slice MDCT scanner (Venturepaxa View) was used for data acquisition. A noncontrast coronary calcium scan was performed. A CT attenuation threshold of 130 Hounsfield units (HU) was used for the detection of calcium in contiguous voxels of 1 sq mm in area to be counted as individual lesions. Bolus tracking in the ascending aorta with a threshold of 180 HU was performed. Immediately afterwards, ECG synchronized cardiac CT was then performed from the cardiac base to apex using retrospective gating with ECG tube current modulation. A total of 85 mL of Isovue 370 mg/mL contrast medium was administered at 5 mL/sec followed by a saline flush using a biphasic injection protocol. A tube voltage of 120 KVp was used. The patient received the following medications prior to the cardiac CT. 75 mg of oral metoprolol 10 mg of intravenous metoprolol 15 mg of oral ivabradine 0.8 mg of sublingual nitroglycerin The average heart rate at the time of acquisition was 62 bpm and regular. Image Reconstruction Transaxial images were reconstructed at 0.67 mm slide thickness. Data was reviewed interactively on an advanced workstation capable of 2 and 3-dimensional displays in all conventional reconstruction formats, including multiplanar reformations, maximum intensity projections, curved multiplanar reformations, and volume rendered reconstructions. When applicable, selected routine images describing the relevant coronary anatomy and pathology were saved and sent to PACS. Complications None Technical Quality Overall image quality was good. Coronary artery opacification was adequate. Total DLP (Dose-Length Product) is 1343.7 mGy-cm. The reported value represents the total of one or more individual components during the CT acquisition of this date and at this time, and as such, the same value may appear in more than one CT report depending on the interpreting/reporting physicians. COMPARISON None FINDINGS CT Coronary Calcium Scoring LMA (Left Main Artery) = 14 LAD (Left Anterior Descending) = 55 LCX (Left Coronary Circumflex) = 16 RCA (Right Coronary Artery) = 112 Total Calcium Score = 197 using the AJ-130 method. The observed calcium score of 197 is at 88th percentile for subjects of the same age, sex, and race/ethnicity. The interpretation of the calcium heart score is based on the following continuum*: 0 = no calcified plaque detected (risk of coronary artery disease is very low ??? less than 5%) 1-10 = calcium detected in extremely minimal levels (risk of coronary diseases is still low ??? less than 10%) 11-100 = mild levels of plaque detected with certainty (mild or minimal narrowing of heart arteries is likely) 101-400 = definite,at least moderate levels of plaque detected (relatively high risk of a heart attack within 3-5 years) >401-999 = extensive levels of plaque detected (high risk of heart attack, high levels of vascular disease are present, high likelihood of at least one significant coronary narrowing) *The calcium heart score quantifies the burden of coronary calcification/plaque in the coronary arteries. The calcium heart score is not able to evaluate the presence or burden of non-calcified (i.e. soft) plaque. There is no identifiable calcification in the aortic valve, mitral annulus or mitral valve, pericardium, or myocardium. Coronary CT Angiography The coronary arterial system is right dominant. Quantitative Stenosis Grading: Left Main (LM): The left main originates normally from the left sinus of Valsalva. The LM bifurcates into the left anterior descending artery and left circumflex artery. There is calcified plaque in the distal LM, but no evidence of luminal stenosis. Left Anterior Descending (LAD) and Diagonal Branches: The LAD gives off 2 diagonal branch(es). There is mixed plaque in the proximal and mid-LAD, with mild 30-50% luminal stenosis in the mid-segment. There is no evidence of LAD bridge. Ramus-intermedius (RI): The RI is calcified at the ostial and proximal segment, but with no evidence of luminal stenosis. Left Circumflex (LCX) and Obtuse Marginals (OM): The LCX gives off 2 Obtuse Marginal (OM) branch(es). There is mixed plaque in the proximal LCX with approximately 30-50% luminal stenosis. Right Coronary Artery (RCA): The RCA originates normally from the right sinus of Valsalva. The RCA gives off a posterior descending artery (PDA) and posterolateral (PL) branches. There is mixed plaque in the ostial RCA, as well as in the proximal and mid-RCA segments with up to 30-50% luminal stenosis. Non-Coronary Cardiac Findings: Analysis of the left ventricular (LV) structure and function was performed after 3-D reconstruction of the LV from axial images, with user-corrected automatic contouring for assessment of LV volumes and user-defined reconstruction from oblique planes for measurement of 3-D cardiac structure and function. LVEDV: 183 mL LVESV: 105 mL SV: 78 mL LVEF: 43% -The left ventricle is normal in size with mildly reduced left ventricular systolic function. There is moderate hypokinesis of the septal and anteroseptal LV farrell. -Filling defec in the distal LA appendage. This likely represents absence of distal contrast flow during image acquisition, but true MANPREET thrombus cannot be entirely ruled out. Two right pulmonary veins and two left pulmonary veins drain normally into the left atrium. -No pericardial thickening or calcification. -Central and branch pulmonary arteries in the [id number] are unremarkable. -Thoracic aorta within the visualized thoracic aortic-branches in the [id number] is unremarkable. Extracardiac Structures No significant extra-cardiac findings. Note, however, that this study is focused on the cardiac findings. IMPRESSION -Presence of coronary calcification with an Agatston score = 197 using the AJ-130 method. -The observed calcium score of 197 is at 88th percentile for subjects of the same age, sex, and race/ethnicity. -Multivessel disease with plaque up to 50% luminal stenosis, but no CT evidence of significant flow-limiting atherosclerosis of the coronary arteries. -CAD-RADS 3 (functional testing is recommended in the setting of multivessel disease along with possible reduced LVEF). Management recommendations per ACC/AHA guidelines*, as clinically appropriate. -Mildly reduced left ventricular systolic function (LVEF 43%). There is moderate hypokinesis of the septal and anteroseptal LV farrell. Correlation with new or recent TTE is recommended. *Recommendations: CAD RADS 0: Reassurance. Consider non-atherosclerotic causes of chest pain. CAD RADS 1: Consider non-atherosclerotic causes of chest pain. Consider preventive therapy and risk factor modification. CAD RADS 2: Consider non-atherosclerotic causes of chest pain. Consider preventive therapy and risk factor modification, particularly for patients with nonobstructive plaque in multiple segments. CAD RADS 3: Consider further functional testing. Consider symptom-guided anti-ischemic and preventive pharmacotherapy as well as risk factor modification per published guideline statements. CAD RADS 4A: Consider further functional testing or invasive coronary angiography with revascularization per published guideline statements. Consider symptom-guided anti-ischemic and preventive pharmacotherapy as well as risk factor modification per published guideline statements. CAD RADS 4B: Invasive coronary angiography recommended with revascularization per published guideline statements. Consider symptom-guided anti-ischemic and preventive pharmacotherapy as well as risk factor modification per published guideline statements. CAD RADS 5: Consider invasive angiography and/or viability assessment with revascularization per published guideline statements. Consider symptom-guided anti-ischemic and preventive pharmacotherapy as well as risk factor modification per published guideline statements. CRITICAL RESULT None COMMUNICATION Per this written report The coronary and cardiac findings of this CCTA were reviewed, reported, and signed by Bridger Dubon MD (Security Systems Administrator) Conclusion Electronically signed by : Zandra Dubon MD 06/09/2023 16:21:37
[2023-06-03 09:46] VITALS: BP 132/83; PULSE 75; RESP 18; TEMP 36.3; O2SAT 98
[2023-06-03] MEDS: IVABRADINE HCL 7.5MG TABLET *IVABRADINE+METOPROLOL REGIMINE 15 MG PO (09:58)
[2023-06-03] MEDS: METOPROLOL TARTRATE 50MG TABLET *IVABRADINE+METOPROLOL REGIMINE 75 MG PO (09:59)
[2023-06-03 10:01] VITALS: PULSE 88
--- NOTE | 2023-06-03 10:02 | PC.NURSE ---
PT'S HR IS 88, PER CTA PROTOCOL IVABRADINE 15MG PO AND METOPROLOL 75MG PO GIVEN.
[2023-06-03 11:10] VITALS: BP 160/107; PULSE 68
[2023-06-03] MEDS: METOPROLOL TARTRATE 5MG/5ML VIAL *IVABRADINE+METOPROLOL REGIMINE 5 MG IV ×2 (11:10→11:19)
[2023-06-03] MEDS: 0.9 % SODIUM CHLORIDE 50 ML VIAL IV (11:15)
[2023-06-03] MEDS: SODIUM CHLORIDE 0.9% 10ML SYR (RAD ONLY) 10 ML IV (11:15)
[2023-06-03] MEDS: IOPAMIDOL-370 (76%);100ML BOTTLE 85 ML IV (11:16)
[2023-06-03] MEDS: NITROGLYCERIN 0.4MG SL TABLET 0.400000000000000022 MG SL (11:19)
[2023-06-03 11:28] VITALS: BP 117/80; PULSE 57; RESP 18; O2SAT 98
--- NOTE | 2023-06-03 11:35 | PC.NURSE ---
NITRO 0.8MG GIVEN IN CT ROOM AT 1119, MAR WOULD NOT ALLOW ME TO DOCUMENT 0.8 ONLY 0.4MG SL
--- NOTE | 2023-06-03 11:37 | PC.NURSE ---
PT ARRIVED TO POST OP FOR RECOVERY. VSS, NO C/O OF ANY KIND. DRINKING MT DEW.
[2023-06-03 11:45] VITALS: BP 134/83; PULSE 57; RESP 18
[2023-06-03 12:07] VITALS: BP 135/87; PULSE 59; O2SAT 98
--- NOTE | 2023-06-03 12:07 | PC.NURSE ---
NO C/O OF ANY KIND, VSS. DISCHARGED.
== END 2023-06-03 23:59 | disposition home or self-care (01) ==
PROVIDERS: PCP Internal Medicine; Visit Provider Physician Assistant
DX: R55 Syncope and collapse (principal)
CPT/HCPCS: 75571; 75574; Q9967

== ENCOUNTER → 2023-06-22 13:09 | Outpatient (POV) | payer OTHER, SELFPAY ==
--- NOTE | 2023-06-22 14:14 | A.OFFVIS_ITS ---
[facility] Pain Management SOAP Note Subjective:: Patient is a pleasant 57-year-old male who presents today for follow-up of cervical epidural steroid injection C6-C7 on 05/31/2023. We are currently treating the patient for degenerative disc disease of cervical spine with cervical radiculopathy symptoms, cervical spondylosis, cervical postlaminectomy syndrome. Today he rates his pain a 4 out of 10. Patient does state that he had approximately 60 to 70% improvement following this injection and that it did provide really good relief at least 8 days but by around 12 it was starting to wear off. Patient does state that he is basically back to his baseline today. He does state that for the first week after this injection he did feel much more functional with no headaches for that entire week. He states today that he does have more tightness and pulling sensations into his shoulders which typically aggravates his headache symptoms. Patient was sent for psychological evaluation however he states that the online eval was rather extensive and did not give for additional responses for some of the questions. He states he would like to see the provider here at [facility] instead for this psychological evaluation. His Car has been reviewed and is appropriate. Review of Systems: General: No recent weight changes, no fever, no sleep disturbances Respiratory: No cough, no shortness of air, no recurring pulmonary infections Cardiovascular/peripheral vascular: No chest pain, no palpitations, no edema, no shortness of breath Gastrointestinal: No new onset incontinence, normal bowel movements reported Genitourinary: No new onset incontinence Musculoskeletal: Neck pain, shoulder pain, headache Psychiatric: [Normal mood/affect] Neurological: [Denies weakness in extremities], [denies balance issues] Objective:: Physical Exam: General: Alert and oriented x3, no acute distress, pleasant and cooperative Lungs: Respirations even and unlabored, symmetrical chest expansion Eyes: PERRL Musculoskeletal: Flexion and extension of cervical [spine] somewhat guarded secondary to pain, [antalgic gait noted] Neurological: Speech clear, no gross sensory deficit Assessment:: Degenerative disc disease of cervical spine with cervical radiculopathy symptoms, cervical spondylosis, cervical postlaminectomy syndrome Plan:: Patient continues to experience significant pain in his neck with radiating symptoms to his shoulders and increased headaches. I have discussed with patient that I will order him a compounded cream and I will also resend the psychological evaluation to the provider here at [facility]. Patient will return to clinic in 1 month for reevaluation of symptoms and plan of care. Patient has been instructed to contact the clinic with any concerns before the next appointment. Dr. Michaels has reviewed this note and agrees with this plan of care. This note was dictated using voice recognition software and make contain errors or omissions. [facility] Disclaimer: The information contained in this section may have been updated after the patient was seen, as this information can be updated by other users. Medical History Analgesic overuse headache Anxiety Cervical radiculopathy Depression Fixation hardware in spine Frozen shoulder GERD (gastroesophageal reflux disease) Headache Transformed migraine. Heart attack Heart palpitations History of arterial dissection Osteoarthritis Surgical History History of cervical discectomy Family History Other No significant family history Social History Smoking Status: Former smoker alcohol intake: never substance use type: denies use current occupational status: other Travel in the last 8 weeks: None household members: spouse housing: house marital status:
[2023-06-22 14:31] VITALS: BP 142/103; PULSE 99; RESP 20; O2SAT 98; BMI 11.2
== END ==
LOC: SC.PAIN 13:09
PROVIDERS: PCP Internal Medicine; Visit Provider Nurse Practitioner Family
DX: M50.123 Cervical disc disorder at C6-C7 level with radiculopathy (principal); M47.22 Other spondylosis with radiculopathy, cervical region; M96.1 Postlaminectomy syndrome, not elsewhere classified; R51.9 Headache, unspecified
CPT/HCPCS: 99212; G0463

== ENCOUNTER 2023-06-23 08:44 | Day surgery (SDC) | payer OTHER, SELFPAY ==
[2023-06-23] VITALS (11 sets, daily range): BP systolic 117–143; BP diastolic 57–92; PULSE 75–93; RESP 15–18; TEMP 36.7; O2SAT 93–100; BMI 22.9
--- NOTE | 2023-06-23 07:20 | IR_ITS ---
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 COMPLICATIONS NONE Estimated Blood Loss: LESS THAN 10 ML TECHNIQUE One percent lidocaine used to anesthetize the right anterior aspect of the wrist. The right radial artery was accessed via the Seldinger technique. A 6 Arabic sheath was placed in the right radial artery. 2.5 mg of Verapamil, 800 mcg of nitroglycerin, 1mg Lidocaine and 5000 U Heparin were given through the arterial sheath. The papa catheter was also used to perform left heart catheterization, left ventriculogram and selective coronary angiogram. At the end of the procedure the sheath was removed good hemostasis was achieved using Traclet band, patient was transferred to the postop holding area in stable condition. ANGIOGRAPHIC RESULTS The left main artery Normal The left anterior descending artery Has proximal and mid vessel 10 to 20% luminal irregularities The circumflex artery There is a medium sized ramus intermedius which appears to originate from the LAD side of the vessel. This vessel has mild 10% luminal irregularities. The circumflex artery is nondominant and has an ostial concentric 80% to 90% stenosis followed by a proximal calcified 30% stenosis The right coronary artery Is dominant and has proximal mid vessel and distal eccentric 30% stenoses. The posterior descending artery is a large vessel and has an ostial concentric 40% calcified stenosis The REY ventriculogram reveals Normal 65% The left ventricular end-diastolic pressure 10 mmHg IMPRESSION Coronary disease as described above most notably with severe stenosis and a fairly large nondominant ostial circumflex artery. Normal ejection fraction Normal left ventricular end-diastolic pressure PLAN 1. I strongly favor medical management. Although an ostial stent could be placed in the nondominant circumflex artery this should be a last resort and only performed should recalcitrant and intolerable angina the present 2. A stent could be placed in the ostial circumflex artery and probably would not encroach upon the ramus intermedius. While technically feasible I would still prefer medical management 3. LDL less than 55 to be achieved with high intensity statin 4. Avoidance of tobacco products 5. Risk factor modification Electronically signed by : Fernie Jama MD 06/23/2023 12:05:22
[2023-06-23 09:17] LABS: Basophils # 0.1 K/mm3 (0-0.2); Basophils % 0.7 % (0.1-2.0); Eosinophils # 0.2 K/mm3 (0.0-0.4); Eosinophils % 2.9 % (0.1-12.0); Hematocrit 45.3 % (42.0-52.0); Hemoglobin 15.1 g/dL (14.1-18.0); Lymphocytes # 2.2 K/mm3 (0.7-4.5); Lymphocytes % 30.5 % (10-50); Mean Corpuscular HGB Conc 33.3 g/dL (31.8-35.4); Mean Corpuscular Hemoglobin 29.9 pg (27.0-31.2); Mean Corpuscular Volume 89.7 fl (80-94); Mean Platelet Volume 7.2 fl (7.4-10.4); Monocytes # 0.4 K/mm3 (0.1-1.0); Monocytes % 5.1 % (1.7-9.3); Neutrophils # 4.4 K/mm3 (1.8-7.8); Neutrophils % 60.8 % (37.0-80.0); Platelet Count 281 K/mm3 (142-424); Red Blood Count 5.06 M/mm3 (4.60-6.20); Red Cell Distribution Width 13.8 % (11.5-17.5); White Blood Count 7.3 K/mm3 (4.8-10.8)
[2023-06-23 09:31] LABS: Anion Gap 10.9 mEq/L (5-15); Blood Urea Nitrogen 21 mg/dl (9-20); Calcium 9.1 mg/dl (8.4-10.2); Carbon Dioxide 30 mmol/L (22.0-30.0); Chloride 105 mmol/L (98-107); Creatinine Clearance Estimated 93 mL/min (50-200); Estimated Glomerular Filt Rate 78 ml/min (>60); GFR (African American) 94 ML/MIN (>60); Glucose 112 mg/dl (74-100); Potassium 3.9 mmoL/L (3.5-5.1); Sodium 142 mmol/L (136-145)
[2023-06-23] MEDS: diphenhydrAMINE 50MG/ML VIAL 50 MG IV (11:21)
[2023-06-23] MEDS: LIDOCAINE 1% 10ML MDV 20 ML IJ (11:21)
[2023-06-23] MEDS: NITROGLYCERIN 800MCG/8ML SYR (CATH LAB) 800 MCG IA (11:22)
[2023-06-23] MEDS: HEPARIN 1,000 UNITS/ML 10ML VIAL (CATH LAB) 10000 UNIT IV (11:22)
[2023-06-23] MEDS: VERAPAMIL 2.5MG/ML 2ML VIAL 2.5 MG IV (11:22)
[2023-06-23] MEDS: 0.9 % SODIUM CHLORIDE 500 ML 25 ML IV (11:22)
[2023-06-23] MEDS: HEPARIN 1,000 UNITS/500ML NS (CATH LAB) 3000 UNIT IV (11:22)
[2023-06-23] MEDS: MIDAZOLAM HCL 1MG/1ML 5ML VIAL 1 MG IV (12:02)
[2023-06-23] MEDS: FENTANYL 100MCG/2ML VIAL 50 MCG IV (12:03)
[2023-06-23] MEDS: IOPAMIDOL-370 (76%);100ML BOTTLE 70 ML IV (12:50)
== END 2023-06-23 14:56 | disposition home or self-care (01) ==
PROVIDERS: PCP Internal Medicine; Visit Provider Internal Medicine
DX: R93.1 Abnormal findings on diagnostic imaging of heart and coronary circulation (principal); Z87.891 Personal history of nicotine dependence; I25.118 Atherosclerotic heart disease of native coronary artery with other forms of angina pectoris; Z79.899 Other long term (current) drug therapy; M54.81 Occipital neuralgia; F41.9 Anxiety disorder, unspecified; R55 Syncope and collapse; R06.00 Dyspnea, unspecified
CPT/HCPCS: 80048; 85025; 93458; 99152; C1725; C1769; J1644; Q9967

== ENCOUNTER 2023-07-06 10:04 | Outpatient (CLI) | payer OTHER, SELFPAY ==
--- NOTE | 2023-07-06 10:05 | CT_ITS ---
FINAL REPORT TECHNIQUE: Thin section axial images were obtained from the lung apices through the upper abdomen without contrast. This study was performed with techniques to keep radiation doses as low as reasonably achievable (ALARA). Individualized dose reduction techniques using automated exposure control or adjustment of mA and/or kV according to the patient's size were employed. CLINICAL HISTORY: ex smoker COMPARISON: None FINDINGS: There is no mediastinal or hilar lymphadenopathy. Small bilateral axillary nodes are present. No pleural or pericardial effusion. Severe changes of emphysema are present. Biapical pleural scarring is noted. There is a 4 mm left upper lobe nodule seen on image #28. There is a 5 mm left lower lobe nodule seen on image #63. There is evidence of prior granulomatous disease. There is a small hypodense lesion in the anterior aspect of the right lobe of the liver, favor a cyst. There is no acute osseous abnormality. IMPRESSION: Severe changes of emphysema with biapical pleural scarring. 2 noncalcified nodules as described, recommend 6 to 12-month follow-up CT of the chest for further evaluation. Reviewed, Interpreted and Dictated by Zoya Iglesias MD Transcribed by Peggy Reyez Authenticated and [facility]
== END 2023-07-06 23:59 ==
LOC: RAD 10:05
PROVIDERS: PCP Internal Medicine; Visit Provider Physician Assistant
DX: R55 Syncope and collapse (principal); R06.00 Dyspnea, unspecified; M54.81 Occipital neuralgia; R93.1 Abnormal findings on diagnostic imaging of heart and coronary circulation; F41.9 Anxiety disorder, unspecified; Z87.891 Personal history of nicotine dependence
CPT/HCPCS: 71250

== ENCOUNTER 2023-07-18 06:33 | Outpatient (CLI) | payer OTHER, SELFPAY ==
--- NOTE | 2023-07-18 06:37 | CT_ITS ---
FINAL REPORT TECHNIQUE: Thin-section axial CT with IV contrast supplemented with multi planar reconstruction under CT angiogram protocol was performed of the neck. This study was performed technique to keep radiation doses as low as reasonably achievable, (ALARA). NASCET criteria was utilized during interpretation. CLINICAL HISTORY: syncope COMPARISON: None FINDINGS: Aortic arch: Arch shows no significant narrowing. Great vessel origins are widely patent. Right carotid: No significant stenosis is seen at the cervical common or internal carotid artery. Left carotid: No significant stenosis is seen at the cervical common or internal carotid artery. Vertebrals: The vertebral arteries are codominant. No significant stenosis is present. Severe changes of emphysema are noted in the lung apices. There has been a prior anterior cervical fusion at the C3-4 and C4-5 levels. There is bilateral degenerative change present in the cervical spine. There is a skin and subcutaneous nodule in the posterior midline of the upper neck that measures up to 12 mm in greatest diameter. IMPRESSION: No evidence of significant stenosis or major branch occlusion. Severe changes of emphysema. Skin and subcutaneous nodule in the posterior midline of the upper neck that measures up to 12 mm in greatest diameter. Reviewed, Interpreted and Dictated by Manjit Up III, MD Transcribed by Peggy Reyez Authenticated and [facility]
[2023-07-18] MEDS: 0.9 % SODIUM CHLORIDE 50 ML VIAL IV (07:24)
[2023-07-18] MEDS: SODIUM CHLORIDE 0.9% 10ML SYR (RAD ONLY) 10 ML IV (07:24)
[2023-07-18] MEDS: IOPAMIDOL-370 (76%);100ML BOTTLE 100 ML IV (07:24)
--- NOTE | 2023-07-18 07:27 | US_ITS ---
FINAL REPORT CLINICAL HISTORY: .VARIANT B/P IN ARMS FINDINGS: BILATERAL ANKLE BRACHIAL INDICES Pressure indices are as follows are: RIGHT LOWER EXTREMITY Ankle brachial pressure index: 1.0 Toe brachial pressure index: 0.79 COMMENTS: Normal LEFT LOWER EXTREMITY Ankle brachial pressure index: 1.0 Toe brachial pressure index: 0.70 COMMENTS: Normal IMPRESSION: No evidence of significant obstructive peripheral vascular disease of the lower extremities. Reviewed, Interpreted and Dictated by Manjit Up III, MD Transcribed by Dede Champion Authenticated and [facility]
== END 2023-07-18 23:59 ==
LOC: RAD 06:33
PROVIDERS: PCP Internal Medicine; Visit Provider Nurse Practitioner
DX: R55 Syncope and collapse (principal)
CPT/HCPCS: 70498; 93923; Q9967

== ENCOUNTER 2023-07-21 13:32 | Outpatient (POV) | payer OTHER, SELFPAY ==
[2023-07-21 14:20] VITALS: BP 117/80; PULSE 92; RESP 20; O2SAT 98; BMI 24.1
--- NOTE | 2023-07-21 14:58 | EXP.PAIN.SOA ---
[facility] Pain Management SOAP Note Subjective:: Patient is a pleasant 57-year-old male who presents today for psychological follow-up. Today he rates his pain a 4 out of 10. Patient denies any nasal trauma or injury. He does state he continues to have his neck pain with radiating symptoms to his upper extremities and headaches. Patient at our last visit was ordered compounded cream and he states this does help. He does also states that he has reviewed over the material for the spinal cord stimulator trial and he still would like to proceed forward with this plan of care. Patient has tried and failed conservative treatment such as oral medication, heat and ice, topicals, injection therapy, physical therapy, at home stretching exercise for longer than 12 weeks. His Car has been reviewed and is appropriate. Review of Systems: General: No recent weight changes, no fever, no sleep disturbances Respiratory: No cough, no shortness of air, no recurring pulmonary infections Cardiovascular/peripheral vascular: No chest pain, no palpitations, no edema, no shortness of breath Gastrointestinal: No new onset incontinence, normal bowel movements reported Genitourinary: No new onset incontinence Musculoskeletal: Neck pain, bilateral shoulder pain, headaches Psychiatric: [Normal mood/affect] Neurological: [Denies weakness in extremities], [denies balance issues] Objective:: Physical Exam: General: Alert and oriented x3, no acute distress, pleasant and cooperative Lungs: Respirations even and unlabored, symmetrical chest expansion Eyes: PERRL Musculoskeletal: Flexion and extension of cervical [spine] somewhat guarded secondary to pain, [antalgic gait noted] positive Spurling test Neurological: Speech clear, no gross sensory deficit Assessment:: Chronic pain syndrome, degenerative disc disease of cervical spine with cervical radiculopathy symptoms, cervical postlaminectomy syndrome, cervical spondylosis, shoulder pain Plan:: Patient continues to have chronic pain throughout his cervical spine with radiating symptoms and worsening headaches. I have reviewed over the risk and benefits of the spinal cord stimulator trial and gone over the findings of his psychological evaluation. Patient was deemed an appropriate candidate and would like to proceed forward with the spinal cord stimulator trial. Patient will be submitted to insurance for the spinal cord stimulator trial and we will contact the patient with official date and time once we have approval. Patient is not on any blood thinners. Patient has tried and failed conservative therapy included oral medication, heat and ice, topicals, physical therapy, at home stretching exercise longer than 12 weeks and injection therapy and previous back surgery. Patient has been instructed to contact the clinic with any concerns before the next appointment. Dr. Michaels has reviewed this note and agrees with this plan of care. This note was dictated using voice recognition software and make contain errors or omissions. [facility] Disclaimer: The information contained in this section may have been updated after the patient was seen, as this information can be updated by other users. Medical History Analgesic overuse headache Headache Transformed migraine. Fixation hardware in spine Frozen shoulder History of arterial dissection GERD (gastroesophageal reflux disease) Depression Heart palpitations Heart attack Anxiety Cervical radiculopathy Osteoarthritis Surgical History History of cervical discectomy Family History Other No significant family history Social History Smoking Status: Former smoker alcohol intake: never substance use type: denies use current occupational status: other Travel in the last 8 weeks: None household members: spouse housing: house marital status:
== END 2023-07-21 23:59 ==
LOC: SC.PAIN 13:32
PROVIDERS: PCP Internal Medicine; Visit Provider Nurse Practitioner Family
DX: G89.4 Chronic pain syndrome (principal); M50.10 Cervical disc disorder with radiculopathy, unspecified cervical region; M96.1 Postlaminectomy syndrome, not elsewhere classified; M47.22 Other spondylosis with radiculopathy, cervical region; M25.519 Pain in unspecified shoulder
CPT/HCPCS: 99212; G0463

== ENCOUNTER 2023-08-09 07:43 | Day surgery (SDC) | payer OTHER, SELFPAY ==
[2023-08-09 08:04] VITALS: BMI 24.1
[2023-08-09] MEDS: LACTATED RINGERS 1000ML 1,000 ML 25 ML IV (08:07)
[2023-08-09] MEDS: VANCOMYCIN/WATER FOR INJ (PEG) 1.25 GM/250 ML PIGGYBACK IV (08:08)
[2023-08-09 08:12] VITALS: BP 124/77; PULSE 72; RESP 18; TEMP 36.4; O2SAT 98
[2023-08-09 08:17] LABS: Basophils # 0.1 K/mm3 (0-0.2); Basophils % 1.6 % (0.1-2.0); Eosinophils # 0.2 K/mm3 (0.0-0.4); Eosinophils % 2.9 % (0.1-12.0); Hematocrit 41.3 % (42.0-52.0); Hemoglobin 12.8 g/dL (14.1-18.0); Lymphocytes % 26.3 % (10-50); Mean Corpuscular Hemoglobin 29.3 pg (27.0-31.2); Mean Corpuscular Volume 94.5 fl (80-94); Mean Platelet Volume 7.3 fl (7.4-10.4); Monocytes # 0.4 K/mm3 (0.1-1.0); Monocytes % 5.4 % (1.7-9.3); Neutrophils # 4.9 K/mm3 (1.8-7.8); Neutrophils % 63.8 % (37.0-80.0); Platelet Count 387 K/mm3 (142-424); Red Blood Count 4.37 M/mm3 (4.60-6.20); White Blood Count 7.7 K/mm3 (4.8-10.8)
[2023-08-09 08:23] LABS: Chloride 110 mmol/L (98-107); Potassium 3.9 mmoL/L (3.5-5.1); Sodium 140 mmol/L (136-145)
[2023-08-09 08:26] LABS: Blood Urea Nitrogen 20 mg/dl (9-20); Creatinine Clearance Estimated 116 mL/min (50-200); Estimated Glomerular Filt Rate 100 ml/min (>60); GFR (African American) 121 ML/MIN (>60)
[2023-08-09 08:27] LABS: Anion Gap 4.9 mEq/L (5-15); Calcium 8.9 mg/dl (8.4-10.2); Carbon Dioxide 29 mmol/L (22.0-30.0); Glucose 111 mg/dl (74-100)
--- NOTE | 2023-08-09 09:31 | EXP.ANES.CKL ---
[facility] Disclaimer: The information contained in this section may have been updated after the patient was seen, as this information can be updated by other users. Medical History Analgesic overuse headache Headache Fixation hardware in spine Frozen shoulder History of arterial dissection GERD (gastroesophageal reflux disease) Depression Heart palpitations Heart attack Anxiety Cervical radiculopathy Osteoarthritis Surgical History History of surgery on arm History of cervical discectomy Family History Other No significant family history Social History Smoking Status: Former smoker alcohol intake: never substance use type: denies use current occupational status: disabled and other Travel in the last 8 weeks: None household members: spouse housing: house marital status: [facility] Anesthesia Checklist Patient Identification Patient Identification: Arm Band and Verbal (Name & ) Structural Data Admitted From: Home Planned Operative Procedure/s: Spinal cord trial stimulator Consent for Planned Operative Procedure(s) Verified: Yes NPO Status Verified Time NPO: 00:00 Additional verifications Anesthesia Reactions: No Hx Blood Transfusions: No Blood Transfusion Reaction: No Airway Assessment Mallampati Score:: Class II C-Spine Mobility Assessed: Yes TMJ Mobility Assessed: Yes Dentition: Edentulous Neurological Assessment Level of Consciousness: Awake Hx Seizures: No Numbness or tingling in extremities: No Anesthesia Plan Anesthesia Risk discussed: Yes Anesthesia Plan: Verified ASA Class: III Anesthesia Type: MAC
[2023-08-09] MEDS: LIDOCAINE 1% W/EPI 1:100,000 20ML VIAL 40 ML (10:23)
[2023-08-09 10:50] VITALS: BP 123/70; BP 123/74; PULSE 85; PULSE 87; RESP 18; TEMP 36.6; O2SAT 94
[2023-08-09 11:00] VITALS: BP 115/54; PULSE 73; RESP 18; TEMP 36.6; O2SAT 95
[2023-08-09 11:10] VITALS: BP 125/67; PULSE 81; RESP 18; TEMP 36.6; O2SAT 95
[2023-08-09 11:20] VITALS: BP 130/70; PULSE 86; RESP 18; TEMP 36.6; O2SAT 95
[2023-08-09 11:30] VITALS: BP 121/69; PULSE 81; RESP 18; TEMP 36.6; O2SAT 95
--- NOTE | 2023-08-09 13:22 | P.OP_ITS ---
Date of procedure: 08/09/23 Pre-op Diagnosis:: Degenerative disc disease of cervical spine with previous anterior cervical disc fusion and headaches with cervical radiculopathy symptoms Post-op Diagnosis:: Same Procedure performed:: Spinal cord stimulator trial with epidural lead placement x 2 Surgeon:: Eder Michaels MD SLIVER HANDLER:: Marilin Dunbar Anesthesia: MAC Estimated blood loss (mL): 1 Clinical Note:: This patient is a pleasant 57-year-old white male who we have been treating for neck pain with cervical radiculopathy symptoms and headaches. He has failed all previous conservative treatments including injections, oral medications, physical therapy and he is not a candidate for any further surgery. He has had a previous anterior cervical disc fusion. He had a successful psychological evaluation. He presents for spinal cord stimulator trial today. Operative findings:: None Operative note:: Informed consent was obtained risk and benefits of the procedure were explained to the patient. Patient was taken the operating room placed prone on the procedure table. He was prepped and draped in sterile fashion. C-arm fluoroscopy was used to view the lumbar spine. The skin and subcutaneous tissues were anesthetized using lidocaine. A 17-gauge epidural needle was inserted and advanced into the L1-L2 interspace. After confirmation of needle placement in the epidural space a stimulating lead was inserted and advanced very easily to the C2-C3-C4 interspace. A second needle was inserted advanced again into the L1-L2 interspace. Again after confirmation of needle placement in the epidural space a second stimulating lead was inserted and advanced again very easily to the C2-C3-C4 interspace. Leads were checked in AP and lateral view and found to be posterior and in good position. The stylette's and needles were removed. The leads were secured in place. The patient was taken recovery and programmed by the [employer] parts sales representative. The patient had good stimulation in all areas of pain. He was put on several different programs including a combo program to help with headaches. Patient was discharged home neurologic intact with good relief of pain symptoms. Will follow-up with this patient in 1 week for lead pull. Will assess efficacy of this trial at that time. Condition: stable Disposition: PACU Complications:: None
== END 2023-08-09 11:45 | disposition home or self-care (01) ==
PROVIDERS: PCP Internal Medicine; Visit Provider Anesthesiology
PROC: (CPT 63650; principal; 2023-08-09 09:30)
DX: M54.12 Radiculopathy, cervical region (principal); M43.22 Fusion of spine, cervical region; R51.9 Headache, unspecified
CPT/HCPCS: 63650; 80048; 85025; 96374; C1778

== ENCOUNTER 2023-08-15 14:23 | Outpatient (POV) | payer OTHER, SELFPAY ==
[2023-08-15 14:28] VITALS: BP 141/83; PULSE 70; RESP 20; O2SAT 96; BMI 24.1
--- NOTE | 2023-08-15 15:02 | EXP.PAIN.SOA ---
[facility] Pain Management SOAP Note Subjective:: Patient is a pleasant 57-year-old male who presents today for follow-up of spinal cord stimulator trial on 08/09/2023. Today he rates his pain a 4 out of 10. Patient denies any new trauma or injury. He does state that he has had significant improvement following this procedure. He states that he would at least state 75 to 80% relief following the trial. He states that he has been able to increase his activity and even go walk around without requiring him to stop and lay down multiple times during the day due to worsening neck and headache pains. He states that overall this has given him better quality of life and he feels more functional and would like to proceed forward with the spinal cord stimulator implant. Patient has tried and failed conservative therapies including oral medications, heat and ice, topicals, physical therapy and at home stretching exercise for longer than 6 weeks. Patient has had prior cervical fusions and is not a surgical candidate at this time. His Car has been reviewed and is appropriate. Review of Systems: General: No recent weight changes, no fever, no sleep disturbances Respiratory: No cough, no shortness of air, no recurring pulmonary infections Cardiovascular/peripheral vascular: No chest pain, no palpitations, no edema, no shortness of breath Gastrointestinal: No new onset incontinence, normal bowel movements reported Genitourinary: No new onset incontinence Musculoskeletal: Neck pain, headaches Psychiatric: [Normal mood/affect] Neurological: [Denies weakness in extremities], [denies balance issues] Objective:: Physical Exam: General: Alert and oriented x3, no acute distress, pleasant and cooperative Lungs: Respirations even and unlabored, symmetrical chest expansion Eyes: PERRL Musculoskeletal: Flexion and extension of cervical [spine] somewhat guarded secondary to pain, [antalgic gait noted] Neurological: Speech clear, no gross sensory deficit Assessment:: Degenerative disc disease of cervical spine with cervical radiculopathy symptoms, prior cervical fusion, headaches Plan:: Patient has had significant improvement following his spinal cord stimulator trial with at least 75 to 80% improvement in his overall neck and headache symptoms. Patient has been able to increase his activity with decreased pains and would like to proceed forward with the implant. Risk and benefits of this procedure were explained to the patient and he would like to proceed forward with this plan of care. Patient is not on any blood thinners. We will submit to insurance for the spinal cord stimulator implant and contact the patient with official date and time of this procedure once we have approval. Patient has tried and failed conservative therapy as well as previous neck surgery. Patient has been instructed to contact the clinic with any concerns before the next appointment. Dr. Michaels has reviewed this note and agrees with this plan of care. This note was dictated using voice recognition software and make contain errors or omissions. [facility] Disclaimer: The information contained in this section may have been updated after the patient was seen, as this information can be updated by other users. Medical History Analgesic overuse headache Headache Fixation hardware in spine Frozen shoulder History of arterial dissection GERD (gastroesophageal reflux disease) Depression Heart palpitations Heart attack Anxiety Cervical radiculopathy Osteoarthritis Surgical History History of surgery on arm History of cervical discectomy Family History Other No significant family history Social History Smoking Status: Former smoker alcohol intake: never substance use type: denies use current occupational status: unemployed Travel in the last 8 weeks: None household members: spouse housing: house marital status:
== END 2023-08-15 23:59 ==
LOC: SC.PAIN 14:23
PROVIDERS: PCP Internal Medicine; Visit Provider Nurse Practitioner Family
DX: M50.10 Cervical disc disorder with radiculopathy, unspecified cervical region (principal); M43.22 Fusion of spine, cervical region; R51.9 Headache, unspecified
CPT/HCPCS: 99212; G0463

== ENCOUNTER 2023-09-06 14:49 | Outpatient (CLI) | payer OTHER, SELFPAY ==
[2023-09-06 15:49] LABS: Basophils # 0.1 K/mm3 (0-0.2); Basophils % 1.2 % (0.1-2.0); Eosinophils # 0.1 K/mm3 (0.0-0.4); Eosinophils % 1.9 % (0.1-12.0); Hematocrit 41.1 % (42.0-52.0); Hemoglobin 13.3 g/dL (14.1-18.0); Lymphocytes # 1.8 K/mm3 (0.7-4.5); Lymphocytes % 25.4 % (10-50); Mean Corpuscular HGB Conc 32.4 g/dL (31.8-35.4); Mean Corpuscular Hemoglobin 29.6 pg (27.0-31.2); Mean Corpuscular Volume 91.3 fl (80-94); Mean Platelet Volume 7.8 fl (7.4-10.4); Monocytes # 0.4 K/mm3 (0.1-1.0); Monocytes % 5.8 % (1.7-9.3); Neutrophils # 4.7 K/mm3 (1.8-7.8); Neutrophils % 65.7 % (37.0-80.0); Platelet Count 274 K/mm3 (142-424); Red Cell Distribution Width 14.3 % (11.5-17.5); White Blood Count 7.1 K/mm3 (4.8-10.8)
[2023-09-06 16:16] LABS: Alanine Aminotransferase 23 U/L (12-78); Albumin Level 4.5 g/dl (3.5-5.0); Alkaline Phosphatase 85 U/L (38-126); Aspartate Amino Transferase 28 U/L (17-59); Bilirubin,Direct 0.1 mg/dl (0.0-0.4); Bilirubin,Indirect 0.4 mg/dL (0.0-0.9); Bilirubin,Total 0.5 mg/dl (0.2-1.3); Bilirubin,Unconjugated 0.4 mg/dL (0.0-1.1); Blood Urea Nitrogen 18 mg/dl (9-20); Calcium 9.8 mg/dl (8.4-10.2); Carbon Dioxide 28 mmol/L (22.0-30.0); Chloride 108 mmol/L (98-107); Chol/HDL Ratio 2.2 (1-3.5); Cholesterol 114 mg/dl (140-200); Estimated Glomerular Filt Rate 100 ml/min (>60); GFR (African American) 121 ML/MIN (>60); Glucose 99 mg/dl (74-100); HDL Cholesterol 52 mg/dl (40-60); Magnesium 1.8 mg/dl (1.6-2.3); Sodium 144 mmol/L (136-145); Total Protein,Serum 6.9 g/dl (6.3-8.2); Triglycerides 107 mg/dl (30-150); VLDL Cholesterol 21 mg/dL (0-40)
[2023-09-06 16:27] LABS: Direct LDL Cholesterol 57.08 mg/dL (100-129)
[2023-09-06 16:30] LABS: Free T4 (Free Thyroxine) 1.25 ng/dl (0.78-2.19)
[2023-09-06 16:46] LABS: Thyroid Stimulating Hormone 0.35 uIU/mL (0.465-4.68)
[2023-09-12 16:12] LABS: Alpha-1-Antitrypsin 168 mg/dL (101-187)
== END 2023-09-06 23:59 | disposition home or self-care (01) ==
LOC: LAB 14:50
PROVIDERS: Nurse Practitioner; PCP Internal Medicine; Visit Provider Internal Medicine Pulmonary Disease
DX: I25.10 Atherosclerotic heart disease of native coronary artery without angina pectoris (principal); J43.9 Emphysema, unspecified; Z87.891 Personal history of nicotine dependence
CPT/HCPCS: 36415; 80048; 80061; 80076; 82103; 82104; 83735; 84439; 84443; 85025

== ENCOUNTER 2023-09-16 06:31 | Day surgery (SDC) | payer OTHER, SELFPAY ==
[2023-09-15 10:05] VITALS: BP 149/86; PULSE 96; RESP 14; TEMP 37; O2SAT 96
[2023-09-15 12:06] VITALS: BMI 24.5
[2023-09-16 07:23] VITALS: BP 125/72; PULSE 70; RESP 18; TEMP 36.5; O2SAT 98; BMI 24.4
[2023-09-16] MEDS: LACTATED RINGERS 1000ML 1,000 ML 25 ML IV (07:34)
[2023-09-16] MEDS: VANCOMYCIN/WATER FOR INJ (PEG) 1.5 GM/300 ML PIGGYBACK IV (07:34)
[2023-09-16] MEDS: LIDOCAINE 1% W/EPI 1:100,000 20ML VIAL 40 ML (09:00)
[2023-09-16] MEDS: SODIUM CHLORIDE 0.9% 20ML VIAL 40 ML IV (09:01)
[2023-09-16] MEDS: GENTAMICIN 80 MG/2 ML VIAL (09:02)
[2023-09-16 09:55] VITALS: BP 164/76; PULSE 103; RESP 18; TEMP 37; O2SAT 97
[2023-09-16 10:05] VITALS: BP 149/86; PULSE 96; RESP 14; TEMP 37; O2SAT 96
[2023-09-16 10:15] VITALS: BP 152/84; PULSE 89; RESP 14; TEMP 37; O2SAT 98
--- NOTE | 2023-09-16 10:18 | P.OP_ITS ---
Date of procedure: 09/16/23 Pre-op Diagnosis:: Degenerative disc disease of cervical spine with cervical radiculopathy symptoms and headaches Post-op Diagnosis:: Same Procedure performed:: Permanent placement spinal cord stimulator with epidural lead placement x 2 and stimulator generator placement Surgeon:: Eder Michaels MD DRAWING CHECKER:: Marilin Dunbar Anesthesia: MAC Estimated blood loss (mL): 25 Clinical Note:: This patient is a pleasant 58-year-old white male who we are treating for neck pain with cervical radicular symptoms and headaches. He has failed all previous conservative treatments including injections, oral medications, physical therapy and he is not a candidate for surgery. He had a successful psychological evaluation and a successful spinal cord stimulator trial. He presents for permanent placement of his spinal cord stimulator today. Operative findings:: None Operative note:: Informed consent was obtained risk and benefits of the procedure were explained to the patient. Patient was taken the operating room placed prone on the procedure table. He was prepped and draped in sterile fashion. C-arm fluoroscopy was used to view the lumbar spine. The skin and subcutaneous tissues adjacent to the L1-2 and L2-L3 interspace were anesthetized using lidocaine. I made an incision dissected down to the lumbar paraspinous fascia. A 17-gauge epidural needle was inserted and advanced into the L1-L2 interspace. After confirmation needle placement in the epidural space a stimulating lead was inserted and advanced very easily to the C2-C3-C4 vertebral bodies. A second needle was inserted advanced again into the L1-L2 interspace. Again after confirmation of needle placement in the epidural space a second stimulating lead was inserted and advanced very easily to the C2-C3-C4 vertebral levels. This was done with the aid of a percutaneous lead introducer kit. The leads were found to be in good position. There are posterior and 1 was midline and one was left of midline. The needles and stylets were removed. The leads were secured to the fascia with anchor device and 2-0 Prolene. I tunneled leads from the back to the generator pocket created on the right flank. I attached the leads to the generator. Impedances were checked and found to be okay. Both incisions were then irrigated with antibiotic solution and closed with 2-0 Vicryl followed by winnie. Patient tolerated procedure well no complications Patient was programmed by the [employer] reimbursement representative with good stimulation in all areas pain. Patient was discharged home neurologic intact with good relief of pain symptoms. Plan and disposition: We will follow-up with this patient in 1 week for wound check and reprogram. Will follow-up in 2 to 3 weeks for staple removal. Condition: stable Disposition: PACU Complications:: None
[2023-09-16 10:25] VITALS: BP 146/90; PULSE 90; RESP 14; TEMP 37; O2SAT 97
[2023-09-16 10:35] VITALS: BP 139/95; PULSE 75; RESP 14; TEMP 37; O2SAT 95
== END 2023-09-16 10:43 | disposition home or self-care (01) ==
PROVIDERS: PCP Internal Medicine; Visit Provider Anesthesiology
PROC: (CPT 63685; principal; 2023-09-16 08:30)
DX: M50.10 Cervical disc disorder with radiculopathy, unspecified cervical region (principal); R51.9 Headache, unspecified
CPT/HCPCS: 63685; 63650 ×2; 96374; C1778; C1820

== ENCOUNTER 2023-09-22 08:07 | Outpatient (POV) | payer OTHER, SELFPAY ==
[2023-09-22 08:27] VITALS: BP 116/75; PULSE 61; RESP 18; O2SAT 98; BMI 24.0
--- NOTE | 2023-09-22 08:47 | A.OFFVIS_ITS ---
[facility] Pain Management SOAP Note Subjective:: Patient is a pleasant 58-year-old male who presents today for 1 week postop spinal cord stimulator implant on 09/16/2023. Today he rates his pain a 3 out of 10. Patient denies any new trauma or injury from this procedure. He does state that this has been a game changer and he feels like his quality of life is much better. Patient does present today for additional reprogramming with [employer] sales representative. Patient does state that he has been using his abdominal binder and brace and even sleeping in the 80s. Patient states that the brace did cause a lot of discomfort while sleeping. He is prescribed compounded cream from our office. His Car has been reviewed and is [employer]. Review of Systems: General: No recent weight changes, no fever, no sleep disturbances Respiratory: No cough, no shortness of air, no recurring pulmonary infections Cardiovascular/peripheral vascular: No chest pain, no palpitations, no edema, no shortness of breath Gastrointestinal: No new onset incontinence, normal bowel movements reported Genitourinary: No new onset incontinence Musculoskeletal: Neck pain Psychiatric: [Normal mood/affect] Neurological: [Denies weakness in extremities], [denies balance issues] Objective:: Physical Exam: General: Alert and oriented x3, no acute distress, pleasant and cooperative Lungs: Respirations even and unlabored, symmetrical chest expansion Eyes: PERRL Musculoskeletal: Flexion and extension of cervical [spine] somewhat guarded secondary to pain, [antalgic gait noted] Neurological: Speech clear, no gross sensory deficit Assessment:: Degenerative disc disease of cervical spine with cervical radiculopathy symptoms, prior cervical fusion, headaches Plan:: Patient has had significant improvement following his stimulator implant. Patient was able to be reprogrammed by [employer] sales representative with better coverage. I have counseled the patient that he is to continue his full 6-week postop restrictions of minimal bending, twisting or lifting, no submerging in water until his incisions are fully healed and to continue to use his abdominal binder to prevent seroma formation. Patient was counseled that he does not have to sleep in his brace and that he can take breaks with this even during the day. Patient's incision is clean, dry, well-approximated with winnie intact and minimal erythema noted. I have counseled the patient that he will return to clinic in 2 weeks for staple removal. Patient acknowledges understanding and agrees with plan of care. Patient will return to clinic in 2 weeks for reevaluation of symptoms and plan of care. Patient has been instructed to contact the clinic with any concerns before the next appointment. Dr. Michaels has reviewed this note and agrees with this plan of care. This note was dictated using voice recognition software and make contain errors or omissions. [facility] Disclaimer: The information contained in this section may have been updated after the patient was seen, as this information can be updated by other users. Medical History COPD (chronic obstructive pulmonary disease) Multiple lung nodules on CT Dyspnea on exertion History of smoking 30 or more pack years Pulmonary emphysema Analgesic overuse headache Headache Fixation hardware in spine Frozen shoulder History of arterial dissection GERD (gastroesophageal reflux disease) Depression Heart palpitations Heart attack Anxiety Cervical radiculopathy Osteoarthritis Surgical History History of surgery on arm History of cervical discectomy Family History Other No significant family history Social History Smoking Status: Former smoker smoking status stop date: 08/27/2022 alcohol intake: never substance use type: denies use current occupational status: other Travel in the last 8 weeks: None household members: spouse housing: house marital status:
== END 2023-09-22 23:59 | disposition home or self-care (01) ==
LOC: SC.PAIN 08:07
PROVIDERS: PCP Internal Medicine; Visit Provider Nurse Practitioner Family
DX: M50.10 Cervical disc disorder with radiculopathy, unspecified cervical region (principal); M43.22 Fusion of spine, cervical region; R51.9 Headache, unspecified
CPT/HCPCS: 99212; G0463

== ENCOUNTER 2023-10-10 08:27 | Outpatient (POV) | payer OTHER, SELFPAY ==
[2023-10-10 08:37] VITALS: BP 136/79; PULSE 85; RESP 18; O2SAT 100; BMI 23.0
--- NOTE | 2023-10-10 08:47 | A.OFFVIS_ITS ---
[facility] Pain Management SOAP Note Subjective:: Patient is a pleasant 58-year-old male who presents today for follow-up. Today he rates his pain a 5 out of 10. Patient states he continues to do well with his stimulator implant. He states that 100% of his headaches are completely gone since having this device implanted. He states he has more quality of life and feels like he can do more with the decreased pain. He does state recently he did have an episode where he was outside and got hot and he is unsure if this played a role in it or not but he did pass out. Patient does state he has a history of passing out however normally he comes to rather quickly and this time he did not even really remember being on the ground. Patient denies any other episodes. He does state that neurology and cardiology are both reviewing possible causes. He is prescribed compounded cream from our office. His Car has been reviewed and is appropriate. Review of Systems: General: No recent weight changes, no fever, no sleep disturbances Respiratory: No cough, no shortness of air, no recurring pulmonary infections Cardiovascular/peripheral vascular: No chest pain, no palpitations, no edema, no shortness of breath Gastrointestinal: No new onset incontinence, normal bowel movements reported Genitourinary: No new onset incontinence Musculoskeletal: Neck pain Psychiatric: [Normal mood/affect] Neurological: [Denies weakness in extremities], [denies balance issues] Objective:: Physical Exam: General: Alert and oriented x3, no acute distress, pleasant and cooperative Lungs: Respirations even and unlabored, symmetrical chest expansion Eyes: PERRL Musculoskeletal: Flexion and extension of cervical [spine] somewhat guarded secondary to pain, [antalgic gait noted] Neurological: Speech clear, no gross sensory deficit Skin: Incisions are clean, dry, well-approximated with winnie intact Assessment:: Degenerative disc disease of cervical spine with cervical radiculopathy symptoms, prior cervical fusion, headaches Plan:: We did remove all of his winnie except for about 5. I have counseled the patient to continue his postop restrictions and that we will see him back in 1 week to remove the remainder winnie. We will plan on applying Steri-Strips at this visit. Patient agrees with this plan of care. I have also discussed with the patient to keep us posted if he has any more episodes of passing out. Patient was counseled to make sure that he is drinking plenty of fluids during the warmer weather and to pay attention so he does not get overheated which may possibly aggravate his prior symptoms. Patient will return to clinic in 1 week for reevaluation of symptoms and plan of care. Patient has been instructed to contact the clinic with any concerns before the next appointment. Dr. Michaels has reviewed this note and agrees with this plan of care. This note was dictated using voice recognition software and make contain errors or omissions. [facility] Disclaimer: The information contained in this section may have been updated after the patient was seen, as this information can be updated by other users. Medical History COPD (chronic obstructive pulmonary disease) Multiple lung nodules on CT Dyspnea on exertion History of smoking 30 or more pack years Pulmonary emphysema Analgesic overuse headache Headache Fixation hardware in spine Frozen shoulder History of arterial dissection GERD (gastroesophageal reflux disease) Depression Heart palpitations Heart attack Anxiety Cervical radiculopathy Osteoarthritis Surgical History History of surgery on arm History of cervical discectomy Family History Other No significant family history Social History Smoking Status: Former smoker smoking status stop date: 08/27/2022 alcohol intake: never substance use type: denies use current occupational status: other Travel in the last 8 weeks: None household members: spouse housing: house marital status:
== END 2023-10-10 23:59 | disposition home or self-care (01) ==
LOC: SC.PAIN 08:28
PROVIDERS: PCP Internal Medicine; Visit Provider Nurse Practitioner Family
DX: M50.10 Cervical disc disorder with radiculopathy, unspecified cervical region (principal); M43.22 Fusion of spine, cervical region; R51.9 Headache, unspecified
CPT/HCPCS: 99212; 99213; G0463

== ENCOUNTER 2023-10-27 10:25 | Outpatient (POV) | payer OTHER, SELFPAY ==
--- NOTE | 2023-10-27 10:44 | A.OFFVIS_ITS ---
[facility] Pain Management SOAP Note Subjective:: Is a pleasant 58-year-old male who presents today for follow-up. Today he rates his pain a 3 out of 10. Patient states he continues to do well with his stimulation of his [place] [employer] stimulator. He does state he has a history of left frozen shoulder and that it is starting to bother him a little bit more. Patient is asking whether or not if we can possibly alter his stimulation to include that. Patient states he did have an intra-articular injection in the past with [facility] and did not really get significant relief with it. Patient does state that they have talked about having to have surgery however he would really like to avoid this option. Patient states that he does have some lung issues due to chronic smoking and that he does see a dental biller for. His Car has been reviewed and is appropriate. Review of Systems: General: No recent weight changes, no fever, no sleep disturbances Respiratory: No cough, no shortness of air, no recurring pulmonary infections Cardiovascular/peripheral vascular: No chest pain, no palpitations, no edema, no shortness of breath Gastrointestinal: No new onset incontinence, normal bowel movements reported Genitourinary: No new onset incontinence Musculoskeletal: Left shoulder pain Psychiatric: [Normal mood/affect] Neurological: [Denies weakness in extremities], [denies balance issues] Objective:: Physical Exam: General: Alert and oriented x3, no acute distress, pleasant and cooperative Lungs: Respirations even and unlabored, symmetrical chest expansion Eyes: PERRL Musculoskeletal: Flexion and extension of left shoulder somewhat guarded secondary to pain, [antalgic gait noted] Neurological: Speech clear, no gross sensory deficit Skin: Incision sites are clean, dry, well-approximated with mild erythema noted Assessment:: Degenerative disc disease of cervical spine with cervical radiculopathy symptoms, cervical fusion history, headaches, left shoulder pain Plan:: Patient is experiencing worsening pain in his left shoulder due to prior injury. I have discussed with patient that I will reach out to [employer] [facility] to make sure they are here at his next follow-up to see if they can include his left shoulder and the stimulation. I am also discussed with patient in future he may benefit from suprascapular nerve block. We will follow-up with this at his next visit. Patient will return to clinic in 2 weeks for reevaluation of symptoms and spinal cord stimulator reprogramming. Patient has been instructed to contact the clinic with any concerns before the next appointment. Dr. Michaels has reviewed this note and agrees with this plan of care. This note was dictated using voice recognition software and make contain errors or omissions. [facility] Disclaimer: The information contained in this section may have been updated after the patient was seen, as this information can be updated by other users. Medical History COPD (chronic obstructive pulmonary disease) Multiple lung nodules on CT Dyspnea on exertion History of smoking 30 or more pack years Pulmonary emphysema Analgesic overuse headache Headache Fixation hardware in spine Frozen shoulder History of arterial dissection GERD (gastroesophageal reflux disease) Depression Heart palpitations Heart attack Anxiety Cervical radiculopathy Osteoarthritis Surgical History History of surgery on arm History of cervical discectomy Family History Other No significant family history Social History Smoking Status: Former smoker smoking status stop date: 08/27/2022 alcohol intake: never substance use type: denies use current occupational status: other Travel in the last 8 weeks: None household members: spouse housing: house marital status:
[2023-10-27 10:58] VITALS: BP 154/92; PULSE 111; RESP 19; O2SAT 98; BMI 23.3
== END 2023-10-27 23:59 | disposition home or self-care (01) ==
LOC: SC.PAIN 10:26
PROVIDERS: PCP Internal Medicine; Visit Provider Nurse Practitioner Family
DX: M50.10 Cervical disc disorder with radiculopathy, unspecified cervical region (principal); M43.22 Fusion of spine, cervical region; R51.9 Headache, unspecified; M25.512 Pain in left shoulder; Z96.82 Presence of neurostimulator
CPT/HCPCS: 99213; G0463

== ENCOUNTER 2023-11-17 10:56 | Outpatient (CLI) | payer OTHER, SELFPAY ==
[2023-11-17 10:20] LABS: Basophils # 0.1 K/mm3 (0-0.2); Basophils % 1.7 % (0.1-2.0); Eosinophils # 0.2 K/mm3 (0.0-0.4); Eosinophils % 2.7 % (0.1-12.0); Hematocrit 41.3 % (42.0-52.0); Hemoglobin 13.3 g/dL (14.1-18.0); Lymphocytes # 1.4 K/mm3 (0.7-4.5); Lymphocytes % 20.6 % (10-50); Mean Corpuscular HGB Conc 32.2 g/dL (31.8-35.4); Mean Corpuscular Hemoglobin 29.7 pg (27.0-31.2); Mean Corpuscular Volume 92.5 fl (80-94); Mean Platelet Volume 7.4 fl (7.4-10.4); Monocytes # 0.5 K/mm3 (0.1-1.0); Monocytes % 7.2 % (1.7-9.3); Neutrophils # 4.5 K/mm3 (1.8-7.8); Platelet Count 271 K/mm3 (142-424); Red Blood Count 4.47 M/mm3 (4.60-6.20); Red Cell Distribution Width 14.3 % (11.5-17.5); White Blood Count 6.6 K/mm3 (4.8-10.8)
[2023-11-17 11:08] LABS: Alanine Aminotransferase 24 U/L (12-78); Albumin Level 4.1 g/dl (3.5-5.0); Alkaline Phosphatase 76 U/L (38-126); Anion Gap 9.3 mEq/L (5-15); Aspartate Amino Transferase 26 U/L (17-59); Bilirubin,Indirect 0.2 mg/dL (0.0-0.9); Bilirubin,Total 0.2 mg/dl (0.2-1.3); Bilirubin,Unconjugated 0.3 mg/dL (0.0-1.1); Blood Urea Nitrogen 17 mg/dl (9-20); Calcium 9.4 mg/dl (8.4-10.2); Carbon Dioxide 28 mmol/L (22.0-30.0); Chloride 108 mmol/L (98-107); Chol/HDL Ratio 3.9 (1-3.5); Cholesterol 158 mg/dl (140-200); Estimated Glomerular Filt Rate 87 ml/min (>60); GFR (African American) 106 ML/MIN (>60); Glucose 110 mg/dl (74-100); HDL Cholesterol 41 mg/dl (40-60); Potassium 4.3 mmoL/L (3.5-5.1); Sodium 141 mmol/L (136-145); Total Protein,Serum 6.7 g/dl (6.3-8.2); Triglycerides 274 mg/dl (30-150); VLDL Cholesterol 55 mg/dL (0-40)
[2023-11-17 11:20] LABS: Direct LDL Cholesterol 77.98 mg/dL (100-129)
[2023-11-17 11:40] LABS: Thyroid Stimulating Hormone 1.92 uIU/mL (0.465-4.68)
== END 2023-11-17 23:59 | disposition home or self-care (01) ==
LOC: LAB.DROPOF 11-21 10:56
PROVIDERS: PCP Internal Medicine; Visit Provider Nurse Practitioner
DX: R55 Syncope and collapse (principal); R06.09 Other forms of dyspnea; R93.1 Abnormal findings on diagnostic imaging of heart and coronary circulation; F41.9 Anxiety disorder, unspecified; Z87.891 Personal history of nicotine dependence; I25.10 Atherosclerotic heart disease of native coronary artery without angina pectoris
CPT/HCPCS: 36415; 80048; 80061; 80076; 83735; 84439; 84443; 85025

== ENCOUNTER → 2023-11-30 09:57 | Day surgery (SDC) | payer OTHER, SELFPAY ==
[2023-11-30 10:06] VITALS: BP 141/96; PULSE 70; RESP 18; TEMP 36.8; O2SAT 97
--- NOTE | 2023-11-30 11:46 | EXP.TILT ---
Findings:: PROCEDURE: Tilt table test REQUESTING PROVIDER: Amina Altman MD INDICATION: Recurrent syncope and near syncope BETA BLOCKERS: Held for 2 days prior to procedure PRE-TEST VITAL SIGNS (supine): BP 167/91, HR 76 and sinus rhythm, O2 Sats 98% PROCEDURE SUMMARY: Patient was prepped per protocol, IV started, connected to heart, blood pressure and oxygen saturation monitors. Safety straps were applied and he was then tilted upright at 70 degrees for a total of 30 minutes. He complained of being briefly and mildly dizzy when initially raised to the upright position. He was otherwise asymptomatic during the test except for feeling mildly dizzy again, when he was returned to the supine position at the end of the test. He had not episodes of syncope or near syncope. His blood pressure dropped from 167/91 (HR 76 bpm) in the supine position to 120/92 (HR 88 bpm) when he was tilted upright. This corresponded with his initial complaints of mild dizziness. Still in the upright position, his blood pressure serene to 138/90 (HR 88 bpm) two minutes later and then to 147/95 (HR 95 bpm) five minutes after that. His blood pressure remained relatively unchanged for the next 15 minutes while upright, ranging from 139/94 (HR 93 bpm) to 145/96 (HR 95 bpm). His last blood pressure while in the upright position had risen to 160/98 (HR 95 bpm). After being returned to the supine position and experiencing some mild dizziness, his blood pressure was 157/93 (HR 68 bpm). Five minutes after being returned to the supine position his blood pressure was 157/92 (HR 67 bpm). His heart rhythm was normal sinus throughout and his oxygen saturation was 96 - 99% during the test. CONCLUSIONS: Profound drop in systolic blood pressure, after being raised from supine to upright position, indicative of initial orthostatic hypotension.
== END | disposition home or self-care (01) ==
PROVIDERS: PCP Internal Medicine; Visit Provider Specialist
DX: R55 Syncope and collapse (principal)

== ENCOUNTER 2023-12-08 07:30 | Day surgery (SDC) | payer OTHER, SELFPAY ==
--- NOTE | 2023-12-08 07:16 | SUR.PREOP ---
attempted to call patient in regards to not being here for procedure, no answer.
[2023-12-08 07:48] VITALS: BP 131/81; PULSE 84; RESP 18; O2SAT 96
[2023-12-08 08:42] VITALS: BMI 24.1
[2023-12-08 08:45] VITALS: BP 143/69; PULSE 83; RESP 17; TEMP 36.6; O2SAT 98
--- NOTE | 2023-12-08 10:26 | EXP.LOOP ---
[facility] Loop Recorder Date: 12/08/23 Time: 10:26 Procedure Performed:: Implantation of loop recorder Indication:: Syncope Technique:: Patient was brought to the cardiac Pickle Cutter. After informed consent obtained, 1% lidocaine with epinephrine was used to anesthetize the site along the left anterior aspect of the chest near the sternal border. Using the preformed scalpel, an incision was made and using the supplied preloaded apparatus, the loop recorder was placed subcutaneously without difficulty. Following the deployment of the loop recorder interrogation of the device was performed to ensure appropriate voltage was being detected. Once this was verified, Steri-Strips were placed over the incision and the patient was prepped to discharge home. Patient tolerated the procedure well with minimal discomfort. Impression:: Successful implantation of loop recorder Serial Number:: [employer]-IQ EL plus Model number [id number] Serial #[id number] Plan:: Routine postop care
== END 2023-12-08 09:21 | disposition home or self-care (01) ==
PROVIDERS: PCP Internal Medicine; Visit Provider Internal Medicine
DX: R55 Syncope and collapse (principal); R07.89 Other chest pain; Z79.899 Other long term (current) drug therapy; J44.9 Chronic obstructive pulmonary disease, unspecified; I25.10 Atherosclerotic heart disease of native coronary artery without angina pectoris; Z87.891 Personal history of nicotine dependence
CPT/HCPCS: 33285; C1764

== ENCOUNTER 2023-12-13 09:38 | Outpatient (CLI) | payer OTHER, SELFPAY ==
[2023-12-13] MEDS: ALBUTEROL 0.083% 2.5 MG/3 ML NEB IH (10:29)
--- NOTE | 2023-12-13 10:29 | PC.NURSE ---
PFT and 6 Minute Walk Test completed without incident. Albuterol 0.083% given via HHN, per written protocol, Pt tolerated tx well.
== END 2023-12-13 23:59 | disposition home or self-care (01) ==
LOC: RT 09:38
PROVIDERS: PCP Internal Medicine; Visit Provider Internal Medicine Pulmonary Disease
DX: R06.09 Other forms of dyspnea (principal)
CPT/HCPCS: 94060; 94618; 94726; 94729; J7613

== ENCOUNTER 2023-12-21 09:50 | Outpatient (POV) | payer OTHER, SELFPAY ==
[2023-12-21 10:13] VITALS: BP 140/88; PULSE 83; RESP 18; O2SAT 99; BMI 24.4
--- NOTE | 2023-12-21 12:12 | EXP.PAIN.SOA ---
[facility] Disclaimer: The information contained in this section may have been updated after the patient was seen, as this information can be updated by other users. Medical History Hyperlipidemia Hypertension COPD (chronic obstructive pulmonary disease) Multiple lung nodules on CT Dyspnea on exertion History of smoking 30 or more pack years Pulmonary emphysema Analgesic overuse headache Headache Transformed migraine. Fixation hardware in spine Frozen shoulder History of arterial dissection GERD (gastroesophageal reflux disease) Depression Heart palpitations Heart attack Anxiety Cervical radiculopathy Osteoarthritis Surgical History History of back surgery History of surgery on arm History of cervical discectomy Family History Other No significant family history Social History Smoking Status: Former smoker smoking status stop date: 08/27/2022 alcohol intake: never substance use type: denies use current occupational status: other Travel in the last 8 weeks: None household members: spouse housing: house marital status: PM Subjective & Objective Subjective Subjective:: Patient is a pleasant 58-year-old male who presents today for spinal cord stimulator reprogramming and follow-up. Today he rates his pain a 5 out of 10. Patient denies any new trauma or injury. He does state that he still having the right shoulder pain as well as some low back pain. He does state that the low back pain is more prominent with bending, twisting. He does state that it will come and go however when it is more severe it is very bothersome. He is interested in any options we may be able to provide. Patient does also state that he is still experiencing difficulty eating certain foods due to swallowing issues. Patient did previously have a ACDF procedure from [facility] and states that they did end up having to go in and stretch some of that area but he is having to watch what he eats and do more applesauce or foods of that consistency rather than hamburger.. His Car has been reviewed and is appropriate. Review of Systems: General: No recent weight changes, no fever, no sleep disturbances Respiratory: No cough, no shortness of air, no recurring pulmonary infections Cardiovascular/peripheral vascular: No chest pain, no palpitations, no edema, no shortness of breath Gastrointestinal: No new onset incontinence, normal bowel movements reported Genitourinary: No new onset incontinence Musculoskeletal: Low back pain Psychiatric: [Normal mood/affect] Neurological: [Denies weakness in extremities], [denies balance issues] Pain at rest (0-10 scale): 5 Objective Objective:: Physical Exam: General: Alert and oriented x3, no acute distress, pleasant and cooperative Lungs: Respirations even and unlabored, symmetrical chest expansion Eyes: PERRL Musculoskeletal: Flexion and extension of lumbar [spine] somewhat guarded secondary to pain, [antalgic gait noted] Neurological: Speech clear, no gross sensory deficit Has patient had previous pain injection?: No Conservative treatment options previously tried: Home exercise plan Length of treatment: Longer than 6 weeks Meds Home Medications and Allergies Home Medications ?Medication ?Instructions ?Recorded ?Confirmed ?Type escitalopram oxalate 10 mg tablet 10 mg PO DAILY MOOD 11/30/22 12/21/23 History famotidine 20 mg tablet 20 mg PO DAILY 05/18/23 12/21/23 History mecobalamin (vitamin B12) 500 mcg 500 mcg PO DAILY 08/25/23 12/21/23 History chewable tablet trazodone 100 mg tablet 200 mg (2 x 100 mg) PO HS SLEEP 10/24/23 12/21/23 Rx #30 tabs bisoprolol fumarate 5 mg tablet See Rx Instructions .Route 11/01/23 12/21/23 Rx .COMPLEX #90 tabs bupropion HCl 200 mg tablet,12 hr See Rx Instructions .Route 11/01/23 12/21/23 Rx sustained-release .COMPLEX #60 tabs cetirizine 10 mg tablet 10 mg PO DAILY PRN ALLERGIES 11/17/23 12/21/23 History aspirin 81 mg tablet,delayed See Rx Instructions .Route 12/05/23 12/21/23 Rx release .COMPLEX #90 tabs rosuvastatin 40 mg tablet See Rx Instructions .Route 12/05/23 12/21/23 Rx .COMPLEX #90 tabs sildenafil 100 mg tablet 100 mg PO NEEDED PRN Edema #30 12/09/23 12/21/23 Rx tabs Spiriva with HandiHaler 18 mcg and 1 cap inhalation DAILY #90 puffs 12/14/23 12/21/23 Rx inhalation capsules (tiotropium bromide) albuterol sulfate 90 mcg/actuation See Rx Instructions .Route 12/15/23 12/21/23 Rx aerosol inhaler (Ventolin HFA) .COMPLEX #18 grams New Prescriptions to Start Prescriptions: Allergies Allergy/AdvReac Type Severity Reaction Status Date / Time No Known Allergies Allergy Verified 12/20/23 13:31 Assessment and Plan *Assessment and plan (1) Difficulty swallowing: Status: Acute Qualifiers: Dysphagia type: unspecified Qualified Code(s): R13.10 - Dysphagia, unspecified Category: Medical Code(s): R13.10 - Dysphagia, unspecified (2) Cervical spondylosis without myelopathy: Status: Acute Category: Medical Code(s): M47.812 - Spondylosis without myelopathy or radiculopathy, cervical region (3) Low back pain: Status: Acute Qualifiers: Chronicity: chronic Back pain laterality: bilateral Sciatica presence: without sciatica Qualified Code(s): M54.50 - Low back pain, unspecified; G89.29 - Other chronic pain Category: Medical Code(s): M54.50 - Low back pain, unspecified Plan I did discuss at length with the patient that he may benefit from lumbar medial branch blocks in the future. Patient does have consistent symptoms for axial pain that does not radiate into his lower extremities. We will follow-up with this at future visits. I did discuss with the patient due to his difficulty swallowing and symptoms of dysphagia that I would recommend he follow-up with a GI specialist for possible EGD with dilation. Patient states he would like to proceed forward with this option. I will refer him to a GI specialist here at [facility] to rule out possible esophageal stricture. I will send in a temporary dose of baclofen 5 mg 3 times daily as needed to see if this helps with his overall back pain at this time. Patient will return to clinic in 1 month for reevaluation of symptoms and plan of care. Patient has been instructed to contact the clinic with any concerns before the next appointment. Dr. Michaels has reviewed this note and agrees with this plan of care. This note was dictated using voice recognition software and make contain errors or omissions. All injections are used with Lidocaine or Bupivacaine and Depo Medrol.
== END 2023-12-21 23:59 | disposition home or self-care (01) ==
PROVIDERS: PCP Internal Medicine; Visit Provider Nurse Practitioner Family
DX: R13.10 Dysphagia, unspecified (principal); M47.812 Spondylosis without myelopathy or radiculopathy, cervical region; M54.50 Low back pain, unspecified; G89.29 Other chronic pain; Z79.899 Other long term (current) drug therapy; Z96.82 Presence of neurostimulator
CPT/HCPCS: 99212; G0463

== ENCOUNTER 2024-01-19 09:37 | Outpatient (POV) | payer OTHER, SELFPAY ==
[2024-01-19 09:42] VITALS: BP 128/57; PULSE 81; RESP 18; O2SAT 98; BMI 23.6
--- NOTE | 2024-01-19 09:58 | EXP.PAIN.SOA ---
[facility] Disclaimer: The information contained in this section may have been updated after the patient was seen, as this information can be updated by other users. Medical History (Updated 01/19/24 @ 10:00 by Josie Davis APRN) Hyperlipidemia Hypertension COPD (chronic obstructive pulmonary disease) Multiple lung nodules on CT Dyspnea on exertion History of smoking 30 or more pack years Pulmonary emphysema Analgesic overuse headache Headache Fixation hardware in spine Frozen shoulder History of arterial dissection GERD (gastroesophageal reflux disease) Depression Heart palpitations Heart attack Anxiety Cervical radiculopathy Osteoarthritis Surgical History History of back surgery History of surgery on arm History of cervical discectomy Family History Other No significant family history Social History Smoking Status: Former smoker smoking status stop date: 08/27/2022 alcohol intake: never substance use type: denies use current occupational status: other Travel in the last 8 weeks: None household members: spouse housing: house marital status: PM Subjective & Objective Subjective Subjective:: Patient is a pleasant 58-year-old male who presents today for follow-up. Today he rates his pain a 6 out of 10. Patient does state that he is continue to have significant improvement with his headaches and really has not had any since the implant of his [employer] spinal cord stimulator. He does state that he is still having the same swallowing issues however he states that from our referral to that he does have an appointment scheduled on February [address] Pedroza. Patient does also state he has been still having more low back pain that does go into his hips and buttocks area. He describes this as a fairly constant pain that is worse with increased activity or certain positions. Patient does state the pain interferes with his ability perform activities of daily living such as cooking and cleaning. 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 Patient does also state from her last visit he did get reprogrammed however the programming did not seem to work as well to include his shoulder. He is planning on meeting back with sales representative [employer] here soon for additional reprogramming. Patient does state that the baclofen we tried him on did not seem to work as well for him and caused more fatigue. His Car has been reviewed and is appropriate. Review of Systems: General: No recent weight changes, no fever, no sleep disturbances Respiratory: No cough, no shortness of air, no recurring pulmonary infections Cardiovascular/peripheral vascular: No chest pain, no palpitations, no edema, no shortness of breath Gastrointestinal: No new onset incontinence, normal bowel movements reported Genitourinary: No new onset incontinence Musculoskeletal: Low back pain, hip pain Psychiatric: [Normal mood/affect] Neurological: [Denies weakness in extremities], [denies balance issues] Pain at rest (0-10 scale): 6 Objective Objective:: Physical Exam: General: Alert and oriented x3, no acute distress, pleasant and cooperative Lungs: Respirations even and unlabored, symmetrical chest expansion Eyes: PERRL Musculoskeletal: Flexion and extension of lumbar [spine] somewhat guarded secondary to pain, [antalgic gait noted] point tenderness along bilateral SIs with positive bilateral Luann's, Sadia's, Gaenslen's, compression and distraction exam Neurological: Speech clear, no gross sensory deficit Has patient had previous pain injection?: No Conservative treatment options previously tried: Home exercise plan Length of treatment: Longer than 12 weeks Meds Home Medications and Allergies Home Medications ?Medication ?Instructions ?Recorded ?Confirmed ?Type escitalopram oxalate 10 mg tablet 10 mg PO DAILY MOOD 11/30/22 12/22/23 History famotidine 20 mg tablet 20 mg PO DAILY 05/18/23 12/22/23 History mecobalamin (vitamin B12) 500 mcg 500 mcg PO DAILY 08/25/23 12/22/23 History chewable tablet bisoprolol fumarate 5 mg tablet See Rx Instructions .Route 11/01/23 12/22/23 Rx .COMPLEX #90 tabs bupropion HCl 200 mg tablet,12 hr See Rx Instructions .Route 11/01/23 12/22/23 Rx sustained-release .COMPLEX #60 tabs cetirizine 10 mg tablet 10 mg PO DAILY PRN ALLERGIES 11/17/23 12/22/23 History aspirin 81 mg tablet,delayed See Rx Instructions .Route 12/05/23 12/21/23 Rx release .COMPLEX #90 tabs rosuvastatin 40 mg tablet See Rx Instructions .Route 12/05/23 12/22/23 Rx .COMPLEX #90 tabs sildenafil 100 mg tablet 100 mg PO NEEDED PRN Edema #30 12/09/23 12/22/23 Rx tabs Spiriva with HandiHaler 18 mcg and 1 cap inhalation DAILY #90 puffs 12/14/23 12/22/23 Rx inhalation capsules (tiotropium bromide) albuterol sulfate 90 mcg/actuation See Rx Instructions .Route 12/15/23 12/21/23 Rx aerosol inhaler (Ventolin HFA) .COMPLEX #18 grams baclofen 5 mg tablet 5 mg PO TID PRN muscle spasm #42 12/21/23 12/22/23 Rx tabs polyethylene glycol 3350 17 17 g PO DAILY #510 grams 12/22/23 12/22/23 Rx gram/dose oral powder trazodone 100 mg tablet See Rx Instructions PO HS SLEEP 12/30/23 Rx #60 tabs New Prescriptions to Start Prescriptions: Allergies Allergy/AdvReac Type Severity Reaction Status Date / Time No Known Allergies Allergy Verified 12/22/23 10:56 Assessment and Plan *Assessment and plan (1) Bilateral sacroiliitis: Status: Acute Category: Medical Code(s): M46.1 - Sacroiliitis, not elsewhere classified Plan Patient had extreme point tenderness along his bilateral SIs and a positive bilateral Luann's, Sadia's, Gaenslen's, compression and distraction exam. I did discuss with the patient that he may benefit from bilateral SI injections. Risk and benefits were discussed with patient and he would like to proceed forward with this plan of care. Patient has tried and failed conservative therapy including continued at home stretching exercise for longer than 12 weeks. We will schedule the patient for bilateral SI injections under fluoroscopy. I will also send in a 2-week dose of methocarbamol 500 mg twice daily as needed. Patient has been instructed to contact the clinic with any concerns before the next appointment. Dr. Michaels has reviewed this note and agrees with this plan of care. This note was dictated using voice recognition software and make contain errors or omissions. All injections are used with Lidocaine or Bupivacaine and Depo Medrol.
== END 2024-01-19 23:59 | disposition home or self-care (01) ==
PROVIDERS: PCP Internal Medicine; Visit Provider Nurse Practitioner Family
DX: M46.1 Sacroiliitis, not elsewhere classified (principal); Z96.82 Presence of neurostimulator; Z95.811 Presence of heart assist device; Z87.891 Personal history of nicotine dependence; Z73.89 Other problems related to life management difficulty; Z79.899 Other long term (current) drug therapy
CPT/HCPCS: 99212; G0463

== ENCOUNTER 2024-01-31 08:17 | Day surgery (SDC) | payer OTHER, SELFPAY ==
[2024-01-31 08:39] VITALS: BP 123/84; PULSE 73; RESP 16; TEMP 36.2; O2SAT 98; BMI 24.1
[2024-01-31] MEDS: methylPREDNISolone ACETATE 80MG/ML VIAL 80 MG (08:47)
[2024-01-31 08:48] VITALS: BP 154/82; PULSE 81; RESP 18; O2SAT 98
[2024-01-31] MEDS: BUPIVACAINE 0.25% 10ML INJ 25 MG IJ (08:48)
[2024-01-31] MEDS: LIDOCAINE 1% 5ML PF VIAL 5 ML (08:48)
--- NOTE | 2024-01-31 08:51 | P.PCN_ITS ---
Procedure Date: 01/31/24 Time: 08:25 Anesthesiologist:: Femi Temple CRNA Complications:: None Pre-procedure Diagnosis:: Bilateral sacroiliitis Post-procedure Diagnosis:: Same Indications for Procedure:: Patient is a very pleasant 58-year-old male comes our clinic today for bilateral sacroiliac joint injection cortisone and local anesthetic. Patient describes low lumbar back pain off the midline bilaterally. Bilateral posterior hip pain. Difficulty transitioning from sitting to standing. He rates his pain 8/10. Procedure Details:: Procedure: Bilateral sacroiliac joint injections under fluoroscopy Informed consent was obtained and the risks and benefits of the procedure were explained to the patient.~ The patient was taken to the procedure room and noninvasive monitors were placed including a noninvasive blood pressure cuff and pulse oximeter.~ The patient was placed prone on the procedure table. Both hips were cleansed using Betadine as a cleansing solution. C-arm fluoroscopy was used to view the right sacroiliac joint.~ The skin and subcutaneous tissues were anesthetized using lidocaine 1.5% and a 25-gauge needle.~ After this, a 22-gauge spinal needle was inserted under fluoroscopic guidance into the inferior aspect of the right sacroiliac joint.~ Omnipaque dye was injected and good spread was seen throughout the joint.~ After this, approximately 5 mL of bupivacaine, 0.25% and Depo-Medrol, 40 mg was incrementally injected into the right sacroiliac joint. We then moved to the left sacroiliac joint.~ The skin and subcutaneous tissues were anesthetized using lidocaine 1.5% and a 25-gauge needle.~ After this, a 22- gauge spinal needle was inserted under fluoroscopic guidance into the inferior aspect of the left sacroiliac joint.~ Omnipaque dye was injected and good spread was seen throughout the joint. After this, approximately 5 mL of bupivacaine, 0.25% and Depo-Medrol, 40 mg was incrementally injected into the left sacroiliac joint.~ The patient tolerated the procedure well with no complications. The patient was observed in the Pain Clinic and then was discharged home neurologically intact. Plan and Disposition:: Patient was discharged without incident.
[2024-01-31 08:52] VITALS: BP 149/95; PULSE 79; RESP 18; O2SAT 97
[2024-01-31 08:53] VITALS: BP 154/82; PULSE 81; RESP 18; O2SAT 98
== END 2024-01-31 08:52 | disposition home or self-care (01) ==
PROVIDERS: PCP Internal Medicine; Visit Provider Nurse Anesthetist, Certified Registered
DX: M46.1 Sacroiliitis, not elsewhere classified (principal)
CPT/HCPCS: 27096; G0260; J1010

== ENCOUNTER 2024-02-22 12:47 | Outpatient (POV) | payer OTHER, SELFPAY ==
--- NOTE | 2024-02-22 14:05 | EXP.PAIN.SOA ---
[facility] Disclaimer: The information contained in this section may have been updated after the patient was seen, as this information can be updated by other users. Medical History (Updated 02/14/24 @ 09:47 by Jose Pedroza II, MD) Difficulty swallowing Hyperlipidemia Hypertension COPD (chronic obstructive pulmonary disease) Multiple lung nodules on CT Dyspnea on exertion History of smoking 30 or more pack years Pulmonary emphysema Analgesic overuse headache Headache Fixation hardware in spine Frozen shoulder History of arterial dissection GERD (gastroesophageal reflux disease) Depression Heart palpitations Heart attack Anxiety Cervical radiculopathy Osteoarthritis Surgical History History of back surgery History of surgery on arm History of cervical discectomy Family History Other No significant family history Social History Smoking Status: Former smoker smoking status stop date: 08/27/2022 alcohol intake: never substance use type: denies use current occupational status: other Travel in the last 8 weeks: None household members: spouse housing: house marital status: PM Subjective & Objective Subjective Subjective:: Patient is a pleasant 58-year-old male who presents today for follow-up of bilateral SI injections on 01/31/2024. Today he rates his pain a 5 out of 10. He states that he has had at least 80% improvement and that these injections are still helping. He states he has been able to move around easier with overall decreased pain and that his low back is doing much better. He did state that it took about 3 days for them really to kick in. Patient does state he still been having some issues with dizziness and passing out. Patient is going through a complete cardiac workup and does have a loop recorder in place currently. Patient states that his last visit with Dr. Jama they did add a new medication to help with a blockage he does have. He states that Dr. Jama's office was not recommending any stent placement. Patient does also state he has had a lot going on and was even diagnosed with the orthostatic hypotension as well as COPD. Patient does state that his stimulator is still working well and he has no headaches. Patient does state he really did not seem to get much additional coverage on his right shoulder but overall it is doing well. Patient denies any other changes. Patient was prescribed methocarbamol 500 mg twice a day from our office. His Car has been reviewed and is appropriate. Review of Systems: General: No recent weight changes, no fever, no sleep disturbances Respiratory: No cough, no shortness of air, no recurring pulmonary infections Cardiovascular/peripheral vascular: No chest pain, no palpitations, no edema, no shortness of breath Gastrointestinal: No new onset incontinence, normal bowel movements reported Genitourinary: No new onset incontinence Musculoskeletal: Right shoulder pain Psychiatric: [Normal mood/affect] Neurological: [Denies weakness in extremities], [denies balance issues] Pain at rest (0-10 scale): 5 Objective Objective:: Physical Exam: General: Alert and oriented x3, no acute distress, pleasant and cooperative Lungs: Respirations even and unlabored, symmetrical chest expansion Eyes: PERRL Musculoskeletal: Flexion and extension of right shoulder somewhat guarded secondary to pain, [antalgic gait noted] Neurological: Speech clear, no gross sensory deficit Has patient had previous pain injection?: Yes Percent improvement in pain since last injection: 80% Conservative treatment options previously tried: Home exercise plan Length of treatment: Longer than 6 weeks Meds Home Medications and Allergies Home Medications ?Medication ?Instructions ?Recorded ?Confirmed ?Type escitalopram oxalate 10 mg tablet 10 mg PO DAILY MOOD 11/30/22 02/14/24 History famotidine 20 mg tablet 20 mg PO DAILY 05/18/23 02/14/24 History mecobalamin (vitamin B12) 500 mcg 500 mcg PO DAILY 08/25/23 02/14/24 History chewable tablet bisoprolol fumarate 5 mg tablet See Rx Instructions .Route 11/01/23 02/14/24 Rx .COMPLEX #90 tabs bupropion HCl 200 mg tablet,12 hr See Rx Instructions .Route 11/01/23 02/14/24 Rx sustained-release .COMPLEX #60 tabs cetirizine 10 mg tablet 10 mg PO DAILY PRN ALLERGIES 11/17/23 02/14/24 History aspirin 81 mg tablet,delayed See Rx Instructions .Route 12/05/23 02/14/24 Rx release .COMPLEX #90 tabs rosuvastatin 40 mg tablet See Rx Instructions .Route 12/05/23 02/14/24 Rx .COMPLEX #90 tabs sildenafil 100 mg tablet 100 mg PO NEEDED PRN Edema #30 12/09/23 02/14/24 Rx tabs Spiriva with HandiHaler 18 mcg and 1 cap inhalation DAILY #90 puffs 12/14/23 02/14/24 Rx inhalation capsules (tiotropium bromide) albuterol sulfate 90 mcg/actuation See Rx Instructions .Route 12/15/23 02/14/24 Rx aerosol inhaler (Ventolin HFA) .COMPLEX #18 grams baclofen 5 mg tablet 5 mg PO TID PRN muscle spasm #42 12/21/23 02/14/24 Rx tabs polyethylene glycol 3350 17 17 g PO DAILY #510 grams 12/22/23 02/14/24 Rx gram/dose oral powder trazodone 100 mg tablet See Rx Instructions PO HS SLEEP 12/30/23 02/14/24 Rx #60 tabs methocarbamol 500 mg tablet 500 mg PO BID PRN muscle pain #28 01/19/24 02/14/24 Rx tabs omeprazole 40 mg capsule,delayed 40 mg PO DAILY #30 caps 02/14/24 02/14/24 Rx release New Prescriptions to Start Prescriptions: Allergies Allergy/AdvReac Type Severity Reaction Status Date / Time No Known Allergies Allergy Verified 02/14/24 09:17 Assessment and Plan *Assessment and plan (1) Frozen shoulder: Status: Acute Category: Medical Code(s): M75.00 - Adhesive capsulitis of unspecified shoulder Plan Patient has had significant improvement following his SI injections and does not require any additional injection therapy at this time. Patient will return to clinic in 2 months for reevaluation of symptoms and plan of care. Patient has been instructed to contact the clinic with any concerns before the next appointment. Dr. Michaels has reviewed this note and agrees with this plan of care. This note was dictated using voice recognition software and make contain errors or omissions. All injections are used with Lidocaine or Bupivacaine and Depo Medrol.
[2024-02-22 14:07] VITALS: BP 123/71; PULSE 76; RESP 16; O2SAT 98; BMI 23.7
== END 2024-02-22 23:59 | disposition home or self-care (01) ==
LOC: SC.PAIN 12:47
PROVIDERS: PCP Internal Medicine; Visit Provider Nurse Practitioner Family
DX: M75.00 Adhesive capsulitis of unspecified shoulder (principal); Z79.899 Other long term (current) drug therapy
CPT/HCPCS: 99212; G0463

== ENCOUNTER 2024-04-12 07:22 | Day surgery (SDC) | payer OTHER, SELFPAY ==
[2024-04-11 14:44] VITALS: BMI 24.3
[2024-04-12] MEDS: LACTATED RINGERS 1000ML 1,000 ML 25 ML IV (07:54)
--- NOTE | 2024-04-12 07:54 | P.PNANES_ITS ---
[facility] Disclaimer: The information contained in this section may have been updated after the patient was seen, as this information can be updated by other users. Medical History Dizziness Difficulty swallowing Hyperlipidemia Hypertension COPD (chronic obstructive pulmonary disease) Multiple lung nodules on CT Dyspnea on exertion History of smoking 30 or more pack years Pulmonary emphysema Analgesic overuse headache Headache Transformed migraine. Fixation hardware in spine Frozen shoulder History of arterial dissection GERD (gastroesophageal reflux disease) Depression Heart palpitations Heart attack Anxiety Cervical radiculopathy Osteoarthritis Surgical History History of loop recorder History of back surgery History of surgery on arm History of cervical discectomy Family History Other No significant family history Social History (Updated 04/11/24 @ 14:41 by Paty Melgar RN) Smoking Status: Former smoker smoking status stop date: 08/27/2022 alcohol intake: never substance use type: denies use current occupational status: other Travel in the last 8 weeks: None household members: spouse housing: house marital status: [facility] Anesthesia Checklist Patient Identification Patient Identification: Arm Band and Verbal (Name & ) Structural Data Admitted From: Home Planned Operative Procedure/s: EGD Consent for Planned Operative Procedure(s) Verified: Yes Verified Documents: Surgical Consent and History and Physical NPO Status Verified Time NPO: 06:30 Chart Verification Results Verified: CBC, BMP and ECG Additional verifications Patient : No Anesthesia Reactions: No Hx Blood Transfusions: No Blood Transfusion Reaction: No Cardiovascular Assessment Heart Sounds: S1 & S2 Pulse Rhythm: Irregular Peripheral Edema: No Airway Assessment Mallampati Score:: Class II C-Spine Mobility Assessed: Yes (Limited flexion/extension d/t ACDF) TMJ Mobility Assessed: Yes Dentition: Edentulous Neurological Assessment Level of Consciousness: Awake, Alert, Appropriate and Follows Commands Hx Seizures: No Numbness or tingling in extremities: No Anesthesia Plan Anesthesia Risk discussed: Yes Anesthesia Plan: Verified ASA Class: III Anesthesia Type: MAC
[2024-04-12 07:56] VITALS: BP 147/92; PULSE 90; RESP 18; TEMP 36.9; O2SAT 98
--- NOTE | 2024-04-12 08:23 | P.HP_ITS ---
History of Present Illness *Admission Date: 04/12/24 *Reason for visit:: Dysphagia *History of present illness: Mr. Gleason is a 58-year-old gentleman who is here for dysphagia. The examination is deemed medically necessary for EGD. The patient has been seen, interviewed and examined prior to the procedure by both myself and the anesthesia provider. [facility] Disclaimer: The information contained in this section may have been updated after the patient was seen, as this information can be updated by other users. Medical History Dizziness Difficulty swallowing Hyperlipidemia Hypertension COPD (chronic obstructive pulmonary disease) Multiple lung nodules on CT Dyspnea on exertion History of smoking 30 or more pack years Pulmonary emphysema Analgesic overuse headache Headache Transformed migraine. Fixation hardware in spine Frozen shoulder History of arterial dissection GERD (gastroesophageal reflux disease) Depression Heart palpitations Heart attack Anxiety Cervical radiculopathy Osteoarthritis Surgical History History of loop recorder History of back surgery History of surgery on arm History of cervical discectomy Family History Other No significant family history Social History Smoking Status: Former smoker smoking status stop date: 08/27/2022 alcohol intake: never substance use type: denies use current occupational status: other Travel in the last 8 weeks: None household members: spouse housing: house marital status: Other Medical History Have you received the Flu Vaccine for this season: Yes Have you received the Pneumonia Vaccine: No Review of Systems Review of Systems Review of systems (narrative): Negative *Cardiovascular Comments: Negative *Gastrointestinal Comments: Negative *Genitourinary Comments: Negative *Musculoskeletal Comments: Negative *Neurologic Comments: Negative Meds Home Medications and Allergies Home Medications ?Medication ?Instructions ?Recorded ?Confirmed ?Type escitalopram oxalate 10 mg tablet 10 mg PO DAILY MOOD 11/30/22 04/11/24 History (Lexapro) famotidine 20 mg tablet 20 mg PO DAILY 05/18/23 04/11/24 History mecobalamin (vitamin B12) 500 mcg 500 mcg PO DAILY 08/25/23 04/11/24 History chewable tablet bisoprolol fumarate 5 mg tablet See Rx Instructions .Route 11/01/23 04/11/24 Rx .COMPLEX #90 tabs aspirin 81 mg tablet,delayed See Rx Instructions .Route 12/05/23 03/26/24 Rx release .COMPLEX #90 tabs rosuvastatin 40 mg tablet See Rx Instructions .Route 12/05/23 04/11/24 Rx .COMPLEX #90 tabs Spiriva with HandiHaler 18 mcg and 1 cap inhalation DAILY #90 puffs 12/14/23 03/26/24 Rx inhalation capsules (tiotropium bromide) baclofen 5 mg tablet 5 mg PO TID PRN muscle spasm #42 12/21/23 04/11/24 Rx tabs polyethylene glycol 3350 17 17 g PO DAILY #510 grams 12/22/23 04/11/24 Rx gram/dose oral powder methocarbamol 500 mg tablet 500 mg PO BID PRN muscle pain #28 01/19/24 04/11/24 Rx tabs omeprazole 40 mg capsule,delayed 40 mg PO DAILY #30 caps 02/14/24 04/11/24 Rx release albuterol sulfate 90 mcg/actuation See Rx Instructions .Route 03/26/24 04/11/24 Rx aerosol inhaler (Ventolin HFA) .COMPLEX #18 grams cetirizine 10 mg tablet See Rx Instructions .Route 03/26/24 04/11/24 Rx .COMPLEX #90 tabs trazodone 100 mg tablet See Rx Instructions PO HS SLEEP 03/29/24 04/11/24 Rx #60 tabs bupropion HCl 200 mg tablet,12 hr See Rx Instructions .Route .COMPLEX 04/11/24 04/11/24 History sustained-release (Wellbutrin SR) sildenafil 100 mg tablet (Viagra) 100 mg PO NEEDED PRN Edema 04/11/24 04/11/24 History New Prescriptions to Start Prescriptions: Allergies Allergy/AdvReac Type Severity Reaction Status Date / Time No Known Allergies Allergy Verified 03/26/24 10:21 Exam Data for Last 24 hours Vital signs and Labs for Last 24 Hours: Temp Pulse Resp BP Pulse Ox O2 Del Method 98.5 F 90 18 147/92 H 98 Room Air 04/12/24 07:56 04/12/24 07:56 04/12/24 07:56 04/12/24 07:56 04/12/24 07:56 04/12/24 07:56 I & O for Last 24 hours: Intake & Output 04/09/24 04/10/24 04/11/24 04/12/24 23:59 23:59 23:59 23:59 Weight 170 lb *Routine HEENT Exam Head: Present normocephalic Eye: Present EOMI and PERRL ENT: Present mucous membranes moist *Routine Neck Exam Neck: Present supple *Routine Respiratory Exam Respiratory: Present CTA bilaterally *Routine Cardiovascular Exam Cardiovascular: Present RRR *Routine Abdominal Exam Abdominal: Present soft and normoactive bowel sounds; Absent tenderness *Routine Rectal Exam Rectal:: deferred *Routine Genitalia Exam Genitalia:: deferred *Routine Extremities Exam Extremities: Absent cyanosis, clubbing or edema *Routine Skin Exam Skin: Present warm; Absent rash *Routine Neurological Exam Neurological: Present alert and oriented X3 Assessment and Plan *Assessment and plan (1) Dysphagia: Status: Acute Category: Medical Code(s): R13.10 - Dysphagia, unspecified Plan A/P: 1. Dysphagia is the preprocedural diagnosis. The patient will be anesthetized/sedated using MAC sedation. The patient has been seen and examined. Cardiac and lung assessment prior to the examination is stable. Proceed with planned EGD
[2024-04-12 08:25] VITALS: O2SAT 100
--- NOTE | 2024-04-12 08:28 | P.PCN_ITS ---
[facility] Procedure Note Date: 04/12/24 Time: 08:38 Procedure Note:: Upper Endoscopy Procedure Report: Esophagogastroduodenoscopy with cold biopsies and TTS balloon dilation Endoscopost: Jose Pedroza II, MD Referring Physician: Emanuel Vital MD Date of Procedure: April 12, 2024 Equipment: Olympus GIF 190 standard upper endoscope Sedation: MAC sedation Indications: Mr. Gleason is a 58-year-old gentleman who is here for diagnostic upper endoscopy secondary to dysphagia. He did have Anterior cervical neck surgery (ACDF) in 2022 and this began subsequently and has not improved. He also has had longstanding GERD for 10 to 12 years that occurs primarily when he lies supine but also happens after certain foods. He has been on famotidine. He has never had an EGD. He quit smoking in 2022 and reports no alcohol. He does get moderate belching with some bloating. He also has some chronic constipation and started MiraLAX. He has never had a colonoscopy. He had a negative Cologuard in 2021. His mother had Crohn's disease and he is uncertain whether there is any family history of colon cancer. The patient does report regular heartburn and bitter bilious taste regularly. He does get some globus sensation or lump in the throat. He reports no weight loss. He has no abdominal pain. In the office, I did place him on omeprazole. Procedure: Prior to the procedure, a history and physical exam was performed, and patient's medications and allergies were reviewed. The risks, benefits and alternatives of the sedation and procedure were discussed with the patient. All questions were answered and informed consent was obtained. The patient was brought to the procedure room. Patient identification and proposed procedure were verified by the physician and the nurse. The patient was placed in a left lateral decubitus position and the scope was passed under direct vision. Throughout the procedure, the patient's blood pressure, pulse, and oxygen saturations were monitored continuously. The upper GI endoscopy was accomplished without difficulty. The patient tolerated the procedure well. Findings: The scope was passed directly into the upper esophagus and advanced to the third portion of the duodenum. There was evidence of mild duodenal lymphoid stasis of the post bulbar duodenum. Biopsies were obtained. There was no scalloping of the conniventes. The duodenal bulb was normal. The ampulla appeared normal. The scope was withdrawn through a normal bulb and pylorus into the stomach. There was very mild linear reactive gastropathy of the antrum with bile reflux. The remainder of the body and fundus of the stomach were normal. Upon retroflexion there was a small 2 cm hiatal hernia. Biopsies were taken from the antrum. The scope was then withdrawn into the esophagus. There was no evidence of reflux esophagitis or Mora's. There was no rings, webs, corrugation or furrowing. Biopsies were taken from the distal and proximal esophagus to rule out EOE. The entire esophagus was dilated to 60 Kisw[place]ili/20 mm with a TTS hydrostatic balloon. There was mild resistance at the cricopharyngeus. There was no proximal esophageal inlet patch. There were tertiary contractions and mild esophageal dysmotility. The remainder of the esophageal mucosa was normal. Impression: 1. Nonerosive GERD with mild esophageal dysmotility, cricopharyngeal spasm and small 2 cm hiatal hernia 2. Bile reflux with mild linear reactive gastropathy Plan: I will follow-up the biopsies. The patient does have some functional GERD/nonerosive uncomplicated GERD. We will discuss additional treatment options for this and his globus sensation. I would encourage him to continue the fiber bowel regimen (MiraLAX plus Citrucel). I will have him initiate Iberogast.
[2024-04-12 08:40] VITALS: BP 123/76; PULSE 88; RESP 16; TEMP 36.8; O2SAT 96
[2024-04-12 08:50] VITALS: BP 122/78; PULSE 88; RESP 18; O2SAT 97
[2024-04-12 09:00] VITALS: BP 138/73; PULSE 82; RESP 18; O2SAT 98
[2024-04-12 09:10] VITALS: BP 137/76; PULSE 80; RESP 16; TEMP 36.6; O2SAT 98
== END 2024-04-12 09:12 | disposition home or self-care (01) ==
PROVIDERS: PCP Internal Medicine; Visit Provider Internal Medicine Gastroenterology
PROC: 0DJ08ZZ Inspection of Upper Intestinal Tract, Via Natural or Artificial Opening Endoscopic (ICD-10-PCS; CPT 43235; principal; 2024-04-12 09:00)
DX: R13.10 Dysphagia, unspecified (principal); K21.9 Gastro-esophageal reflux disease without esophagitis; K44.9 Diaphragmatic hernia without obstruction or gangrene; K22.4 Dyskinesia of esophagus; J39.2 Other diseases of pharynx; K31.9 Disease of stomach and duodenum, unspecified
CPT/HCPCS: 43239; 43249; C1726; J7120

== ENCOUNTER 2024-04-23 11:01 | Outpatient (POV) | payer OTHER, SELFPAY ==
--- NOTE | 2024-04-23 11:25 | A.OFFVIS_ITS ---
[facility] Disclaimer: The information contained in this section may have been updated after the patient was seen, as this information can be updated by other users. Medical History Dizziness Difficulty swallowing Hyperlipidemia Hypertension COPD (chronic obstructive pulmonary disease) Multiple lung nodules on CT Dyspnea on exertion History of smoking 30 or more pack years Pulmonary emphysema Analgesic overuse headache Headache Transformed migraine. Fixation hardware in spine Frozen shoulder History of arterial dissection GERD (gastroesophageal reflux disease) Depression Heart palpitations Heart attack Anxiety Cervical radiculopathy Osteoarthritis Surgical History History of loop recorder History of back surgery History of surgery on arm History of cervical discectomy Family History Other No significant family history Social History Smoking Status: Former smoker smoking status stop date: 08/27/2022 alcohol intake: never substance use type: denies use current occupational status: other Travel in the last 8 weeks: None household members: spouse housing: house marital status: PM Subjective & Objective Subjective Subjective:: Patient is a pleasant 58-year-old male who presents today for 2 months follow- up. He rates his pain today a 6 out of 10. Patient did previously have SI injections that did provide at least 80% improvement back in January however states that it has officially worn off. Patient does describe it as an aching, throbbing sensation that is worse with prolonged positioning such as sitting, standing or walking. Patient does state it is the same pain that he had prior to and that he would like to see about getting back in for injections because they did provide such significant relief and lasted nearly the full 3 months. Patient does state the pain is getting much worse and is starting to interfere with his ability to perform activities of daily living such as cooking and cleaning. Patient does have a [id number] spinal cord stimulator in place and states this is working well with the current programming. He states he still has had significant relief of his daily headaches. Patient states the only other things going on is that he does have occasional lung follow-ups to monitor some nodules. Patient was prescribed methocarbamol 500 mg twice a day from our office. His Car has been reviewed and is appropriate. Review of Systems: General: No recent weight changes, no fever, no sleep disturbances Respiratory: No cough, no shortness of air, no recurring pulmonary infections Cardiovascular/peripheral vascular: No chest pain, no palpitations, no edema, no shortness of breath Gastrointestinal: No new onset incontinence, normal bowel movements reported Genitourinary: No new onset incontinence Musculoskeletal: Low back pain, bilateral hip pain Psychiatric: Normal mood/affect Neurological: Denies weakness in extremities, denies balance issues Pain at rest (0-10 scale): 6 Objective Objective:: Physical Exam: General: Alert and oriented x3, no acute distress, pleasant and cooperative Lungs: Respirations even and unlabored, symmetrical chest expansion Eyes: PERRL Musculoskeletal: Flexion and extension of lumbar [spine] somewhat guarded secondary to pain, [antalgic gait noted] point tenderness along bilateral SIs with positive bilateral Luann's, Sadia's, Gaenslen's, compression and distraction exam Neurological: Speech clear, no gross sensory deficit Has patient had previous pain injection?: No Conservative treatment options previously tried: Home exercise plan Length of treatment: Longer than 12 weeks Meds Home Medications and Allergies Home Medications ?Medication ?Instructions ?Recorded ?Confirmed ?Type escitalopram oxalate 10 mg tablet 10 mg PO DAILY MOOD 11/30/22 04/11/24 History (Lexapro) famotidine 20 mg tablet 20 mg PO DAILY 05/18/23 04/11/24 History mecobalamin (vitamin B12) 500 mcg 500 mcg PO DAILY 08/25/23 04/11/24 History chewable tablet bisoprolol fumarate 5 mg tablet See Rx Instructions .Route 11/01/23 04/11/24 Rx .COMPLEX #90 tabs aspirin 81 mg tablet,delayed See Rx Instructions .Route 12/05/23 03/26/24 Rx release .COMPLEX #90 tabs rosuvastatin 40 mg tablet See Rx Instructions .Route 12/05/23 04/11/24 Rx .COMPLEX #90 tabs Spiriva with HandiHaler 18 mcg and 1 cap inhalation DAILY #90 puffs 12/14/23 03/26/24 Rx inhalation capsules (tiotropium bromide) baclofen 5 mg tablet 5 mg PO TID PRN muscle spasm #42 12/21/23 04/11/24 Rx tabs polyethylene glycol 3350 17 17 g PO DAILY #510 grams 12/22/23 04/11/24 Rx gram/dose oral powder methocarbamol 500 mg tablet 500 mg PO BID PRN muscle pain #28 01/19/24 04/11/24 Rx tabs omeprazole 40 mg capsule,delayed 40 mg PO DAILY #30 caps 02/14/24 04/11/24 Rx release albuterol sulfate 90 mcg/actuation See Rx Instructions .Route 03/26/24 04/11/24 Rx aerosol inhaler (Ventolin HFA) .COMPLEX #18 grams cetirizine 10 mg tablet See Rx Instructions .Route 03/26/24 04/11/24 Rx .COMPLEX #90 tabs trazodone 100 mg tablet See Rx Instructions PO HS SLEEP 03/29/24 04/11/24 Rx #60 tabs bupropion HCl 200 mg tablet,12 hr See Rx Instructions .Route .COMPLEX 04/11/24 04/11/24 History sustained-release (Wellbutrin SR) sildenafil 100 mg tablet (Viagra) 100 mg PO NEEDED PRN Edema 04/11/24 04/11/24 History New Prescriptions to Start Prescriptions: Allergies Allergy/AdvReac Type Severity Reaction Status Date / Time No Known Allergies Allergy Verified 03/26/24 10:21 Assessment and Plan *Assessment and plan (1) Low back pain: Status: Chronic Qualifiers: Back pain laterality: bilateral Chronicity: chronic Sciatica presence: without sciatica Qualified Code(s): M54.50 - Low back pain, unspecified; G89.29 - Other chronic pain Category: Medical Code(s): M54.50 - Low back pain, unspecified (2) Bilateral sacroiliitis: Status: Acute Category: Medical Code(s): M46.1 - Sacroiliitis, not elsewhere classified (3) Degenerative disc disease, cervical: Status: Chronic Category: Medical Code(s): M50.30 - Other cervical disc degeneration, unspecified cervical region (4) Occipital neuralgia: Status: Chronic Qualifiers: Laterality: left Qualified Code(s): M54.81 - Occipital neuralgia Category: Medical Code(s): M54.81 - Occipital neuralgia Plan Patient is experiencing worsening pain along the low back and bilateral hips. They did have limited range of motion of the lumbar spine along with point tenderness along bilateral SI joints and a positive bilateral Luann's, Sadia's, Gaenslen's, compression and distraction exam. I did discuss with the patient that I do believe they would benefit from bilateral SI injections. Risk and benefits were discussed with the patient and they would like to proceed forward with this option. Patient has tried and failed conservative therapy including continued at home stretching exercise for longer than 12 weeks. Patient had his last SI injections on 01/31/2024 that did provide 80% relief and have lasted up until the last week. Patient had improved function with overall decreased pain through these interventions. Patient will be scheduled for bilateral SI injections under fluoroscopy. Patient has been instructed to contact the clinic with any concerns before the next appointment. Dr. Michaels has reviewed this note and agrees with this plan of care. This note was dictated using voice recognition software and make contain errors or omissions. All injections are used with Lidocaine or Bupivacaine and Depo Medrol. Patient has been instructed to contact the clinic with any concerns before the next appointment. Dr. Michaels has reviewed this note and agrees with this plan of care. This note was dictated using voice recognition software and make contain errors or omissions. All injections are used with Lidocaine, Bupivacaine and Depo Medrol. Occasionally urine drug screen is needed to verify patient's compliance with our office pain contract. This is ordered based off specific treatments related to chronic pain with the potential to abuse certain medications.
[2024-04-23 13:06] VITALS: BP 106/84; PULSE 92; RESP 14; O2SAT 97; BMI 22.8
== END 2024-04-23 23:59 | disposition home or self-care (01) ==
LOC: SC.PAIN 11:02
PROVIDERS: PCP Internal Medicine; Visit Provider Nurse Practitioner Family
DX: M54.50 Low back pain, unspecified (principal); G89.29 Other chronic pain; M46.1 Sacroiliitis, not elsewhere classified; M50.30 Other cervical disc degeneration, unspecified cervical region; Z73.89 Other problems related to life management difficulty; Z79.899 Other long term (current) drug therapy
CPT/HCPCS: 99212; G0463

== ENCOUNTER 2024-05-15 11:30 | Day surgery (SDC) | payer OTHER, SELFPAY ==
[2024-05-15 11:58] VITALS: BP 159/83; PULSE 75; RESP 15; TEMP 36.7; O2SAT 97; BMI 19.6
[2024-05-15] MEDS: methylPREDNISolone ACETATE 80MG/ML VIAL 80 MG (12:17)
[2024-05-15 12:18] VITALS: BP 180/88; PULSE 87; RESP 18; O2SAT 97
[2024-05-15] MEDS: LIDOCAINE 1% 5ML PF VIAL 5 ML (12:18)
[2024-05-15] MEDS: BUPIVACAINE 0.25% 10ML INJ 25 MG IJ (12:18)
[2024-05-15 12:20] VITALS: BP 180/88; PULSE 87; RESP 18; O2SAT 97
--- NOTE | 2024-05-15 12:24 | P.PCN_ITS ---
Procedure Date: 05/15/24 Time: 12:15 Anesthesiologist:: Femi Temple CRNA Complications:: None Pre-procedure Diagnosis:: Bilateral sacroiliitis Post-procedure Diagnosis:: Same Indications for Procedure:: Patient is a pleasant 58-year-old male who comes our clinic today for bilateral sacroiliac joint injection of cortisone and local anesthetic. He describes low lumbar back pain off the midline bilaterally. Bilateral posterior hip pain. Upon examination he has extreme point tenderness over the bilateral sacroiliac joints. He rates his pain 8/10. Procedure Details:: Procedure: Bilateral sacroiliac joint injections under fluoroscopy Informed consent was obtained and the risks and benefits of the procedure were explained to the patient.~ The patient was taken to the procedure room and noninvasive monitors were placed including a noninvasive blood pressure cuff and pulse oximeter.~ The patient was placed prone on the procedure table. Both hips were cleansed using Betadine as a cleansing solution. C-arm fluoroscopy was used to view the right sacroiliac joint.~ The skin and subcutaneous tissues were anesthetized using lidocaine 1.5% and a 25-gauge needle.~ After this, a 22-gauge spinal needle was inserted under fluoroscopic guidance into the inferior aspect of the right sacroiliac joint.~ Omnipaque dye was injected and good spread was seen throughout the joint.~ After this, approximately 5 mL of bupivacaine, 0.25% and Depo-Medrol, 40 mg was incrementally injected into the right sacroiliac joint. We then moved to the left sacroiliac joint.~ The skin and subcutaneous tissues were anesthetized using lidocaine 1.5% and a 25-gauge needle.~ After this, a 22- gauge spinal needle was inserted under fluoroscopic guidance into the inferior aspect of the left sacroiliac joint.~ Omnipaque dye was injected and good spread was seen throughout the joint. After this, approximately 5 mL of bupivacaine, 0.25% and Depo-Medrol, 40 mg was incrementally injected into the left sacroiliac joint.~ The patient tolerated the procedure well with no complications. The patient was observed in the Pain Clinic and then was discharged home neurologically intact. Plan and Disposition:: Patient was discharged without incident.
[2024-05-15 12:25] VITALS: BP 166/93; PULSE 77; RESP 16; TEMP 36.8; O2SAT 98
== END 2024-05-15 12:25 | disposition home or self-care (01) ==
PROVIDERS: PCP Internal Medicine; Visit Provider Nurse Anesthetist, Certified Registered
DX: M46.1 Sacroiliitis, not elsewhere classified (principal)
CPT/HCPCS: 27096; G0260; J1010

== ENCOUNTER 2024-05-29 13:33 | Outpatient (POV) | payer OTHER, SELFPAY ==
[2024-05-29 14:10] VITALS: BP 131/87; PULSE 85; RESP 16; TEMP 36.8; O2SAT 98; BMI 23.7
--- NOTE | 2024-05-29 14:21 | EXP.PAIN.SOA ---
[facility] Disclaimer: The information contained in this section may have been updated after the patient was seen, as this information can be updated by other users. Medical History Dizziness Difficulty swallowing Hyperlipidemia Hypertension COPD (chronic obstructive pulmonary disease) Multiple lung nodules on CT Dyspnea on exertion History of smoking 30 or more pack years Pulmonary emphysema Analgesic overuse headache Headache Transformed migraine. Fixation hardware in spine Frozen shoulder History of arterial dissection GERD (gastroesophageal reflux disease) Depression Heart palpitations Heart attack Anxiety Cervical radiculopathy Osteoarthritis Surgical History History of loop recorder History of back surgery History of surgery on arm History of cervical discectomy Family History Other No significant family history Social History Smoking Status: Former smoker smoking status stop date: 08/27/2022 alcohol intake: never substance use type: denies use current occupational status: other Travel in the last 8 weeks: None household members: spouse housing: house marital status: PM Subjective & Objective Subjective Subjective:: Patient is a pleasant 58-year-old male who presents today for follow-up of bilateral SI injections on 05/15/2024. He does state that he has had at least 80% improvement following these injections and feels like it is still working well. He does state that in this cold weather the snow and ice he did end up having a fall. He does state that he feels like that may have aggravated some of his headache symptoms in addition to the cold weather itself. He states that he is not having them daily but is having a little bit more increased frequency. He does state due to that he would rate his pain more of an 8 out of 10. He denies any other changes. Patient does have a [employer] spinal cord stimulator in place and denies reaching out to see about reprogramming. His Car has been reviewed and is appropriate. Review of Systems: General: No recent weight changes, no fever, no sleep disturbances Respiratory: No cough, no shortness of air, no recurring pulmonary infections Cardiovascular/peripheral vascular: No chest pain, no palpitations, no edema, no shortness of breath Gastrointestinal: No new onset incontinence, normal bowel movements reported Genitourinary: No new onset incontinence Musculoskeletal: Increased headaches Psychiatric: [Normal mood/affect] Neurological: [Denies weakness in extremities], [denies balance issues] Pain at rest (0-10 scale): 8 Objective Objective:: Physical Exam: General: Alert and oriented x3, no acute distress, pleasant and cooperative Lungs: Respirations even and unlabored, symmetrical chest expansion Eyes: PERRL Musculoskeletal: Flexion and extension of cervical [spine] somewhat guarded secondary to pain, [antalgic gait noted] Neurological: Speech clear, no gross sensory deficit Has patient had previous pain injection?: Yes Percent improvement in pain since last injection: 80% Conservative treatment options previously tried: Home exercise plan Length of treatment: Longer than 12 weeks Meds Home Medications and Allergies Home Medications ?Medication ?Instructions ?Recorded ?Confirmed ?Type famotidine 20 mg tablet 20 mg PO DAILY 05/18/23 05/29/24 History mecobalamin (vitamin B12) 500 mcg 500 mcg PO DAILY 08/25/23 05/29/24 History chewable tablet bisoprolol fumarate 5 mg tablet See Rx Instructions .Route 11/01/23 05/29/24 Rx .COMPLEX #90 tabs aspirin 81 mg tablet,delayed See Rx Instructions .Route 12/05/23 05/29/24 Rx release .COMPLEX #90 tabs rosuvastatin 40 mg tablet See Rx Instructions .Route 12/05/23 05/29/24 Rx .COMPLEX #90 tabs Spiriva with HandiHaler 18 mcg and 1 cap inhalation DAILY #90 puffs 12/14/23 05/29/24 Rx inhalation capsules (tiotropium bromide) baclofen 5 mg tablet 5 mg PO TID PRN muscle spasm #42 12/21/23 05/29/24 Rx tabs polyethylene glycol 3350 17 17 g PO DAILY #510 grams 12/22/23 05/29/24 Rx gram/dose oral powder methocarbamol 500 mg tablet 500 mg PO BID PRN muscle pain #28 01/19/24 05/29/24 Rx tabs omeprazole 40 mg capsule,delayed 40 mg PO DAILY #30 caps 02/14/24 05/29/24 Rx release albuterol sulfate 90 mcg/actuation See Rx Instructions .Route 03/26/24 05/29/24 Rx aerosol inhaler (Ventolin HFA) .COMPLEX #18 grams cetirizine 10 mg tablet See Rx Instructions .Route 03/26/24 05/29/24 Rx .COMPLEX #90 tabs trazodone 100 mg tablet See Rx Instructions PO HS SLEEP 03/29/24 05/29/24 Rx #60 tabs sildenafil 100 mg tablet (Viagra) 100 mg PO NEEDED PRN Edema 04/11/24 05/29/24 History escitalopram oxalate 10 mg tablet See Rx Instructions .Route 05/11/24 05/29/24 Rx .COMPLEX #90 tabs bupropion HCl 200 mg tablet,12 hr See Rx Instructions .Route 05/14/24 05/29/24 Rx sustained-release (Wellbutrin SR) .COMPLEX #180 ea New Prescriptions to Start Prescriptions: Allergies Allergy/AdvReac Type Severity Reaction Status Date / Time No Known Allergies Allergy Verified 03/26/24 10:21 Assessment and Plan *Assessment and plan (1) Occipital neuralgia: Status: Chronic Qualifiers: Laterality: left Qualified Code(s): M54.81 - Occipital neuralgia Category: Medical Code(s): M54.81 - Occipital neuralgia (2) Headache: Problem Comment: Transformed migraine. Status: Chronic Qualifiers: Headache type: cervicogenic headache Qualified Code(s): G44.86 - Cervicogenic headache Category: Medical Code(s): R51.9 - Headache, unspecified Plan Patient has had significant improvement following his SI injections and does not require any additional injection therapy at this time. I did discuss with him that I will reach out to [employer] and have them come for his appointment next week for reprogramming. I did also discuss with him that if the headaches do not improve we can look at doing occipital nerve blocks which she has had in the past with significant relief. Patient agrees with this plan of care. Patient has been instructed to contact the clinic with any concerns before the next appointment. Dr. Michaels has reviewed this note and agrees with this plan of care. This note was dictated using voice recognition software and make contain errors or omissions. All injections are used with Lidocaine, Bupivacaine and Depo Medrol. Occasionally urine drug screen is needed to verify patient's compliance with our office pain contract. This is ordered based off specific treatments related to chronic pain with the potential to abuse certain medications.
== END 2024-05-29 23:59 | disposition home or self-care (01) ==
LOC: SC.PAIN 13:33
PROVIDERS: PCP Internal Medicine; Visit Provider Nurse Practitioner Family
DX: M54.81 Occipital neuralgia (principal); G44.86 Cervicogenic headache; Z87.891 Personal history of nicotine dependence; Z79.899 Other long term (current) drug therapy
CPT/HCPCS: 99212; G0463

== ENCOUNTER 2024-06-04 10:08 | Outpatient (CLI) | payer OTHER, SELFPAY ==
--- NOTE | 2024-06-04 10:11 | XR_ITS ---
FINAL REPORT CLINICAL HISTORY: Fall, left humerus pain and bruising COMPARISON: None FINDINGS: 3 views of the left humerus were obtained. There is no acute fracture or dislocation. The joint spaces are well preserved. There is no acute soft tissue abnormality. IMPRESSION: No acute abnormality identified. Reviewed, Interpreted and Dictated by Tha Whitt MD Transcribed by Lissy Ivey Authenticated and . [facility]
--- NOTE | 2024-06-04 10:11 | XR_ITS ---
FINAL REPORT CLINICAL HISTORY: Fall, left elbow pain and swelling COMPARISON: 02/20/2021 FINDINGS: LEFT ELBOW 3 views were obtained. There is interval postsurgical change with a tendon anchor in the proximal radius, likely related to interval biceps tendon repair. There is no acute fracture or dislocation. There is no joint effusion. Mild hypertrophic changes of the coronoid process, more evident than on the previous exam. There is no soft tissue abnormality. IMPRESSION: No acute bony abnormality. Reviewed, Interpreted and Dictated by Tha Whitt MD Transcribed by Lissy Ivey Authenticated and . [facility]
== END 2024-06-04 23:59 | disposition home or self-care (01) ==
LOC: RAD 10:08
PROVIDERS: PCP Internal Medicine; Visit Provider Internal Medicine
DX: M25.522 Pain in left elbow (principal); M25.422 Effusion, left elbow; M79.602 Pain in left arm; M79.89 Other specified soft tissue disorders; W19.XXXA Unspecified fall, initial encounter
CPT/HCPCS: 73060; 73080

== ENCOUNTER 2024-06-06 08:50 | Outpatient (POV) | payer OTHER, SELFPAY | END 2024-06-06 09:00 | disposition home or self-care (01) | LOC: SC.PAIN 06-11 15:50 | PROVIDERS: PCP Internal Medicine; Visit Provider Nurse Practitioner Family | DX: Z53.8 Procedure and treatment not carried out for other reasons (principal) ==

== ENCOUNTER 2024-06-25 17:03 | Outpatient (CLI) | payer OTHER, SELFPAY ==
[2024-06-25 17:33] LABS: Basophils # 0.1 K/mm3 (0-0.2); Basophils % 1.1 % (0.1-2.0); Eosinophils # 0.4 K/mm3 (0.0-0.4); Hematocrit 42.6 % (42.0-52.0); Hemoglobin 14.3 g/dL (14.1-18.0); Lymphocytes # 1.8 K/mm3 (0.7-4.5); Mean Corpuscular HGB Conc 33.6 g/dL (31.8-35.4); Mean Corpuscular Hemoglobin 29.9 pg (27.0-31.2); Mean Corpuscular Volume 88.9 fl (80-94); Mean Platelet Volume 10.2 fl (7.4-10.4); Monocytes # 0.4 K/mm3 (0.1-1.0); Monocytes % 5.6 % (1.7-9.3); Neutrophils # 3.8 K/mm3 (1.8-7.8); Neutrophils % 59.1 % (37.0-80.0); Platelet Count 274 K/mm3 (142-424); Red Blood Count 4.79 M/mm3 (4.60-6.20); Red Cell Distribution Width 12.4 % (11.5-17.5); White Blood Count 6.5 K/mm3 (4.8-10.8)
[2024-06-25 17:44] LABS: Alanine Aminotransferase 37 U/L (12-78); Albumin Level 5.1 g/dl (3.5-5.0); Albumin/Globulin Ratio 2.4 (1.1-1.8); Alkaline Phosphatase 77 U/L (38-126); Anion Gap 16.6 mEq/L (5-15); Aspartate Amino Transferase 38 U/L (17-59); Bilirubin,Total 0.5 mg/dl (0.2-1.3); Blood Urea Nitrogen 15 mg/dl (9-20); Calcium 9.6 mg/dl (8.4-10.2); Carbon Dioxide 29 mmol/L (22.0-30.0); Chloride 100 mmol/L (98-107); Chol/HDL Ratio 4.4 (1-3.5); Cholesterol 179 mg/dl (140-200); Estimated Glomerular Filt Rate 117 ml/min (>60); GFR (African American) 141 ML/MIN (>60); Globulin 2.1 g/dL (1.3-3.2); Glucose 87 mg/dl (74-100); HDL Cholesterol 41 mg/dl (40-60); Potassium 4.6 mmoL/L (3.5-5.1); Sodium 141 mmol/L (136-145); Total Protein,Serum 7.2 g/dl (6.3-8.2); Triglycerides 255 mg/dl (30-150); VLDL Cholesterol 51 mg/dL (0-40)
[2024-06-25 17:55] LABS: Direct LDL Cholesterol 87.02 mg/dL (100-129)
[2024-06-25 18:14] LABS: Prostate Specific Ag Screen < 0.1 ng/ml (0.0-4.0)
== END 2024-06-25 23:59 | disposition home or self-care (01) ==
LOC: LAB.DROPOF 17:03
PROVIDERS: PCP Internal Medicine; Visit Provider Internal Medicine
DX: Z12.5 Encounter for screening for malignant neoplasm of prostate (principal); I25.10 Atherosclerotic heart disease of native coronary artery without angina pectoris; E78.5 Hyperlipidemia, unspecified; I95.1 Orthostatic hypotension
CPT/HCPCS: 80053; 80061; 85025; G0103

== ENCOUNTER 2024-07-05 15:00 | Outpatient (CLI) | payer OTHER, SELFPAY ==
--- NOTE | 2024-07-05 15:03 | CT_ITS ---
FINAL REPORT CLINICAL HISTORY: lung cancer screening former smoker,quit 2 yrs ago 2 ppd x 45 yrs DLP 102.64 COMPARISON: CT chest 07/06/2023 FINDINGS: CT CHEST LOW DOSE SCREENING HISTORY: Screening exam for lung cancer. 58-year-old male, former smoker quit 2 years ago, [id number] history DOSE: CTDI vol: 2.9 mGy, DLP: 102.64 mGy*cm TECHNIQUE: Axial CT without IV contrast administration using low dose protocol. This study was performed with techniques to keep radiation doses as low as reasonably achievable, (ALARA). Individualized dose reduction techniques using automated exposure control or adjustment of mA and/or kV according to the patient's size were employed. No acute lung disease is present. There is a 3 mm left upper lobe nodule seen on image #26 of series 3, stable. There is also a 3 mm peripheral nodule in the left lower lobe best seen on image #61, also stable. Moderate changes of emphysema are present. There is evidence of prior granulomatous disease. No pleural or pericardial effusion is seen. No adenopathy or mass lesion is present. IMPRESSION: No evidence of lung cancer LUNG RADS CATEGORY 2 RECOMMENDATION: 12 month LDCT follow up Reviewed, Interpreted and Dictated by Louis Pérez MD Transcribed by Peggy Reyez Authenticated and [facility]
== END 2024-07-05 23:59 | disposition home or self-care (01) ==
LOC: RAD 15:00
PROVIDERS: PCP Internal Medicine; Visit Provider Internal Medicine Pulmonary Disease
DX: F17.210 Nicotine dependence, cigarettes, uncomplicated (principal)
CPT/HCPCS: 71271

== ENCOUNTER 2024-07-09 09:14 | Day surgery (SDC) | payer OTHER, SELFPAY ==
[2024-06-25 17:34] VITALS: BMI 24.1
[2024-07-09 09:39] VITALS: BP 131/83; PULSE 80; RESP 18; TEMP 36.3; O2SAT 99
--- NOTE | 2024-07-09 10:39 | EXP.ANES.CKL ---
[facility] Disclaimer: The information contained in this section may have been updated after the patient was seen, as this information can be updated by other users. Medical History Dizziness Difficulty swallowing Hyperlipidemia Hypertension COPD (chronic obstructive pulmonary disease) Multiple lung nodules on CT Dyspnea on exertion History of smoking 30 or more pack years Pulmonary emphysema Analgesic overuse headache Headache Fixation hardware in spine Frozen shoulder History of arterial dissection GERD (gastroesophageal reflux disease) Depression Heart palpitations Heart attack Anxiety Cervical radiculopathy Osteoarthritis Surgical History History of loop recorder History of back surgery History of surgery on arm History of cervical discectomy Family History Other No significant family history Social History (Updated 07/09/24 @ 09:47 by Staci Petersen RN) Smoking Status: Former smoker smoking status stop date: 08/27/2022 alcohol intake: never substance use type: denies use current occupational status: employed and disabled Travel in the last 8 weeks: None household members: spouse housing: house marital status: caffeine: Yes Have you lived/traveled outside [place] in past 30 days?: No Contact w/someone who lives/traveled outside US past 30 days?: No Exposure to someone with infectious disease in past 14 days?: No Do you have a fever (greater than 100.4 F or 38 C)?: No Have you tested positive for COVID-19: No Exposed to someone with COVID-19 in past 14 days?: No Do you have a sore throat?: No Do you have a cough?: No Do you have any weakness?: No Do you have any diarrhea?: No Are you experiencing any unusual bleeding?: No Do you have any muscle aches/pain?: No Do you have any abdominal pain?: No Are you experiencing loss of taste or smell?: No [facility] Anesthesia Checklist Patient Identification Patient Identification: Arm Band Structural Data Admitted From: Home Planned Operative Procedure/s: Colonoscopy Consent for Planned Operative Procedure(s) Verified: Yes Verified Documents: Surgical Consent and History and Physical NPO Status Verified Time NPO: 06:00 (finished prep) Additional verifications Anesthesia Reactions: No Hx Blood Transfusions: No Blood Transfusion Reaction: No Airway Assessment Mallampati Score:: Class II C-Spine Mobility Assessed: Yes TMJ Mobility Assessed: Yes Dentition: Edentulous Neurological Assessment Level of Consciousness: Awake, Alert and Appropriate Anesthesia Plan Anesthesia Risk discussed: Yes Anesthesia Plan: Verified ASA Class: III Anesthesia Type: MAC
[2024-07-09 11:06] VITALS: O2SAT 100
--- NOTE | 2024-07-09 11:09 | P.HP_ITS ---
History of Present Illness *Admission Date: 07/09/24 *Reason for visit:: Screening for colon cancer *History of present illness: Mr. Gleason is a 58-year-old gentleman who is here for initial screening colonoscopy. He did have a negative Cologuard 3 years ago. The examination is deemed medically necessary for screening colonoscopy. The patient has been seen, interviewed and examined prior to the procedure by both myself and the anesthesia provider. [facility] Disclaimer: The information contained in this section may have been updated after the patient was seen, as this information can be updated by other users. Medical History (Updated 07/09/24 @ 11:10 by Jose Pedroza II, MD) Dizziness Difficulty swallowing Hyperlipidemia Hypertension COPD (chronic obstructive pulmonary disease) Multiple lung nodules on CT Dyspnea on exertion History of smoking 30 or more pack years Pulmonary emphysema Analgesic overuse headache Headache Fixation hardware in spine Frozen shoulder History of arterial dissection GERD (gastroesophageal reflux disease) Depression Heart palpitations Heart attack Anxiety Cervical radiculopathy Osteoarthritis Surgical History History of loop recorder History of back surgery History of surgery on arm History of cervical discectomy Family History Other No significant family history Social History (Updated 07/09/24 @ 09:47 by Staci Petersen RN) Smoking Status: Former smoker smoking status stop date: 08/27/2022 alcohol intake: never substance use type: denies use current occupational status: employed and disabled Travel in the last 8 weeks: None household members: spouse housing: house marital status: caffeine: Yes Have you lived/traveled outside US in past 30 days?: No Contact w/someone who lives/traveled outside US past 30 days?: No Exposure to someone with infectious disease in past 14 days?: No Do you have a fever (greater than 100.4 F or 38 C)?: No Have you tested positive for COVID-19: No Exposed to someone with COVID-19 in past 14 days?: No Do you have a sore throat?: No Do you have a cough?: No Do you have any weakness?: No Do you have any diarrhea?: No Are you experiencing any unusual bleeding?: No Do you have any muscle aches/pain?: No Do you have any abdominal pain?: No Are you experiencing loss of taste or smell?: No Other Medical History Have you received the Flu Vaccine for this season: Yes Have you received the Pneumonia Vaccine: No Review of Systems Review of Systems Review of systems (narrative): Negative *Cardiovascular Comments: Negative *Gastrointestinal Comments: Negative *Genitourinary Comments: Negative *Musculoskeletal Comments: Negative *Neurologic Comments: Negative Meds Home Medications and Allergies Home Medications ?Medication ?Instructions ?Recorded ?Confirmed ?Type famotidine 20 mg tablet 20 mg PO DAILY 05/18/23 06/25/24 History mecobalamin (vitamin B12) 500 mcg 500 mcg PO DAILY 08/25/23 06/25/24 History chewable tablet Spiriva with HandiHaler 18 mcg and 1 cap inhalation DAILY #90 puffs 12/14/23 06/25/24 Rx inhalation capsules (tiotropium bromide) omeprazole 40 mg capsule,delayed 40 mg PO DAILY #30 caps 02/14/24 06/25/24 Rx release sildenafil 100 mg tablet (Viagra) 100 mg PO NEEDED PRN ED #10 tabs 06/04/24 06/25/24 Rx sodium,potassium,mag sulfates 17.5 See Rx Instructions PO .COMPLEX 06/15/24 06/25/24 Rx gram-3.13 gram-1.6 gram oral soln #354 mL (Suprep Bowel Prep Kit) albuterol sulfate 90 mcg/actuation 90 inh inhalation DAILY 06/25/24 06/25/24 History aerosol inhaler (Ventolin HFA) aspirin 81 mg tablet,delayed 81 mg PO DAILY 06/25/24 06/25/24 History release bisoprolol fumarate 5 mg tablet 5 mg PO DAILY 06/25/24 06/25/24 History bupropion HCl 200 mg tablet,12 hr 200 mg PO DAILY 06/25/24 06/25/24 History sustained-release (Wellbutrin SR) cetirizine 10 mg tablet 10 mg PO DAILY 06/25/24 06/25/24 History escitalopram oxalate 10 mg tablet 10 mg PO DAILY 06/25/24 06/25/24 History methylprednisolone 4 mg tablet 4 mg PO DAILY 06/25/24 06/25/24 History rosuvastatin 40 mg tablet 40 mg PO DAILY 06/25/24 06/25/24 History spironolactone 25 mg tablet 25 mg PO DAILY 06/25/24 06/25/24 History trazodone 100 mg tablet 100 mg PO HS SLEEP #60 tabs 07/05/24 Rx New Prescriptions to Start Prescriptions: Allergies Allergy/AdvReac Type Severity Reaction Status Date / Time No Known Allergies Allergy Verified 06/25/24 17:26 Exam Data for Last 24 hours Vital signs and Labs for Last 24 Hours: Temp Pulse Resp BP Pulse Ox O2 Del Method O2 Flow Rate 97.3 F L 80 18 131/83 99 Nasal Cannula 5 07/09/24 09:39 07/09/24 09:39 07/09/24 09:39 07/09/24 09:39 07/09/24 09:39 07/09/24 11:06 07/09/24 11:06 *Routine HEENT Exam Head: Present normocephalic Eye: Present EOMI and PERRL ENT: Present mucous membranes moist *Routine Neck Exam Neck: Present supple *Routine Respiratory Exam Respiratory: Present CTA bilaterally *Routine Cardiovascular Exam Cardiovascular: Present RRR *Routine Abdominal Exam Abdominal: Present soft and normoactive bowel sounds; Absent tenderness *Routine Rectal Exam Rectal:: deferred *Routine Genitalia Exam Genitalia:: deferred *Routine Extremities Exam Extremities: Absent cyanosis, clubbing or edema *Routine Skin Exam Skin: Present warm; Absent rash *Routine Neurological Exam Neurological: Present alert and oriented X3 Assessment and Plan *Assessment and plan (1) Screening for colon cancer: Status: Acute Category: Medical Code(s): Z12.11 - Encounter for screening for malignant neoplasm of colon Plan A/P: 1. Screening for colon cancer is the preprocedural diagnosis. The patient will be anesthetized/sedated using MAC sedation. The patient has been seen and examined. Cardiac and lung assessment prior to the examination is stable. Proceed with planned screening colonoscopy
--- NOTE | 2024-07-09 11:10 | P.PCN_ITS ---
[facility] Procedure Note Date: 07/09/24 Time: 11:25 Procedure Note:: Colonoscopy Procedure Report: Colonoscopy Endoscopist: Jose Pedroza II, MD Referring physician: Emanuel Vital MD Date of Procedure: July 09, 2024 Equipment: Olympus 190 variable stiffness pediatric colonoscope Sedation: MAC sedation Indication: Mr. Gleason is a 58-year-old gentleman who is here for initial screening colonoscopy. He did have a negative Cologuard 3 years ago. He reports no abdominal pain, weight loss, change in his bowel habits or rectal bleeding. He reports no family history of colon cancer. His mother had Crohn's disease. Procedure: Prior to the procedure, a history and physical exam was performed, and patient's medications and allergies were reviewed. The risks, benefits and alternatives of the sedation and procedure were discussed with the patient. All questions were answered and informed consent was obtained. The patient was brought to the procedure room. Patient identification and proposed procedure were verified by the physician and the nurse. The patient was placed in a left lateral decubitus position and the scope was passed under direct vision. Throughout the procedure, the patient's blood pressure, pulse, and oxygen saturations were monitored continuously. The colonoscopy was accomplished without difficulty. The patient tolerated the procedure well. Findings: On digital rectal examination there was normal rectal tone. There were no external hemorrhoids. The prostate was 2+, smooth, soft, symmetric without nodules. The colonoscope was introduced through the anal canal to the rectum and advanced to the cecum. The ileocecal valve and appendiceal orifice were identified. The scope was advanced a short distance into the ileum which appeared grossly normal. The scope was then withdrawn into the colon. The cecum, ascending, transverse and descending were grossly normal. There were mildly scattered diverticuli throughout the sigmoid colon (LEFT colon). The rectum itself was normal. Upon retroflexion within the rectum there were grade 1-2 internal hemorrhoids. The preparation was excellent throughout with [place] Preparation Score of 9. The cecal time was 10 minutes. Impression: 1. Mild sigmoid diverticulosis Plan: The patient will not require surveillance colonoscopy again for 10 years by ACS guidelines. I would encourage the patient to continue the combined fiber bowel regimen (MiraLAX plus Citrucel) daily.
[2024-07-09 11:27] VITALS: BP 98/71; PULSE 82; RESP 20; TEMP 36.4; O2SAT 99
[2024-07-09 11:37] VITALS: BP 99/72; PULSE 79; RESP 20; O2SAT 97
[2024-07-09 11:47] VITALS: BP 104/69; PULSE 72; RESP 20; O2SAT 97
[2024-07-09 12:05] VITALS: BP 121/83; PULSE 78; RESP 18; O2SAT 99
== END 2024-07-09 12:05 | disposition home or self-care (01) ==
PROVIDERS: PCP Internal Medicine; Visit Provider Internal Medicine Gastroenterology
PROC: 0DJD8ZZ Inspection of Lower Intestinal Tract, Via Natural or Artificial Opening Endoscopic (ICD-10-PCS; CPT 45378; principal; 2024-07-09 11:00)
DX: K57.30 Diverticulosis of large intestine without perforation or abscess without bleeding (principal); K64.8 Other hemorrhoids; Z12.11 Encounter for screening for malignant neoplasm of colon
CPT/HCPCS: 45378

== ENCOUNTER 2024-07-19 10:24 | Outpatient (POV) | payer OTHER, SELFPAY ==
--- NOTE | 2024-07-19 10:39 | A.OFFVIS_ITS ---
[facility] Disclaimer: The information contained in this section may have been updated after the patient was seen, as this information can be updated by other users. Medical History (Updated 07/19/24 @ 10:38 by Josie Davis APRN) Asthma Dizziness Difficulty swallowing Hyperlipidemia Hypertension COPD (chronic obstructive pulmonary disease) Multiple lung nodules on CT Dyspnea on exertion History of smoking 30 or more pack years Pulmonary emphysema Analgesic overuse headache Headache Fixation hardware in spine Frozen shoulder History of arterial dissection GERD (gastroesophageal reflux disease) Depression Heart palpitations Heart attack Anxiety Cervical radiculopathy Osteoarthritis Surgical History History of loop recorder History of back surgery History of surgery on arm History of cervical discectomy Family History Other No significant family history Social History Smoking Status: Former smoker smoking status stop date: 08/27/2022 alcohol intake: never substance use type: denies use current occupational status: employed and disabled Travel in the last 8 weeks: None household members: spouse housing: house marital status: caffeine: Yes PM Subjective & Objective Subjective Subjective:: Patient is a pleasant 58-year-old male who presents [facility] for follow-up of his spinal cord stimulator reprogramming. Today he rates back pain is 0 out of 10. He states that they did get him reprogrammed and had complete resolution of his headaches that he was experiencing he denies any other new falls or injuries. He does state that he is still having chronic pain in his bilateral knees and right hip. He does state that the right knee is the worst. He describes these as a aching, grinding sensation that is fairly constant. He does state that he feels like he is not as stable when he is up walking and frequently has to sit down multiple times. Patient does state that he has never had any of these looked at but does feel like that there could be more going on. 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 Patient is interested in future interventions regarding this. Patient has been prescribed compounded cream in the past. His Car has been reviewed and is appropriate. Review of Systems: General: No recent weight changes, no fever, no sleep disturbances Respiratory: No cough, no shortness of air, no recurring pulmonary infections Cardiovascular/peripheral vascular: No chest pain, no palpitations, no edema, no shortness of breath Gastrointestinal: No new onset incontinence, normal bowel movements reported Genitourinary: No new onset incontinence Musculoskeletal: Bilateral knee pain, right hip pain Psychiatric: [Normal mood/affect] Neurological: [Denies weakness in extremities], [denies balance issues] Pain at rest (0-10 scale): 5 Objective Objective:: Physical Exam: General: Alert and oriented x3, no acute distress, pleasant and cooperative Lungs: Respirations even and unlabored, symmetrical chest expansion Eyes: PERRL Musculoskeletal: Flexion and extension of bilateral knees somewhat guarded secondary to pain, [antalgic gait noted] Neurological: Speech clear, no gross sensory deficit Has patient had previous pain injection?: No Conservative treatment options previously tried: Home exercise plan Length of treatment: Longer than 12 weeks Meds Home Medications and Allergies Home Medications ?Medication ?Instructions ?Recorded ?Confirmed ?Type famotidine 20 mg tablet 20 mg PO DAILY 05/18/23 06/25/24 History mecobalamin (vitamin B12) 500 mcg 500 mcg PO DAILY 08/25/23 06/25/24 History chewable tablet omeprazole 40 mg capsule,delayed 40 mg PO DAILY #30 caps 02/14/24 06/25/24 Rx release sildenafil 100 mg tablet (Viagra) 100 mg PO NEEDED PRN ED #10 tabs 06/04/24 06/25/24 Rx albuterol sulfate 90 mcg/actuation 90 inh inhalation DAILY 06/25/24 06/25/24 History aerosol inhaler (Ventolin HFA) aspirin 81 mg tablet,delayed 81 mg PO DAILY 06/25/24 06/25/24 History release bisoprolol fumarate 5 mg tablet 5 mg PO DAILY 06/25/24 06/25/24 History bupropion HCl 200 mg tablet,12 hr 200 mg PO DAILY 06/25/24 06/25/24 History sustained-release (Wellbutrin SR) cetirizine 10 mg tablet 10 mg PO DAILY 06/25/24 06/25/24 History escitalopram oxalate 10 mg tablet 10 mg PO DAILY 06/25/24 06/25/24 History rosuvastatin 40 mg tablet 40 mg PO DAILY 06/25/24 06/25/24 History spironolactone 25 mg tablet 25 mg PO DAILY 06/25/24 06/25/24 History trazodone 100 mg tablet 100 mg PO HS SLEEP #60 tabs 07/05/24 Rx budesonide-formoterol HFA 160 2 puff inhalation BID 90 days 07/12/24 07/12/24 Rx mcg-4.5 mcg/actuation aerosol #10.2 grams inhaler (Symbicort) New Prescriptions to Start Prescriptions: Allergies Allergy/AdvReac Type Severity Reaction Status Date / Time No Known Allergies Allergy Verified 07/12/24 10:10 Assessment and Plan *Assessment and plan (1) Right knee pain: Status: Acute Category: Medical Code(s): M25.561 - Pain in right knee (2) Chronic right hip pain: Status: Acute Category: Medical Code(s): M25.551 - Pain in right hip; G89.29 - Other chronic pain (3) Left knee pain: Status: Acute Category: Medical Code(s): M25.562 - Pain in left knee Plan I did discuss with the patient that we will plan on ordering some x-ray imaging of his bilateral knees and right hip due to the chronic pain. I will go ahead and plan for an MRI without contrast of his his right knee due to that being the worst joint pain. Patient will be reordered the compounded cream. Patient will return to clinic in 1 month. Patient has been instructed to contact the clinic with any concerns before the next appointment. Dr. Michaels has reviewed this note and agrees with this plan of care. This note was dictated using voice recognition software and make contain errors or omissions. All injections are used with Lidocaine, Bupivacaine and Depo Medrol. Occasionally urine drug screen is needed to verify patient's compliance with our office pain contract. This is ordered based off specific treatments related to chronic pain with the potential to abuse certain medications.
--- NOTE | 2024-07-19 10:40 | XR_ITS ---
FINAL REPORT CLINICAL HISTORY: bilateral knee pain COMPARISON: None FINDINGS: LEFT KNEE Three views demonstrate no acute fracture or dislocation. The joint spaces appear normal. No acute soft tissue abnormality is seen. IMPRESSION: No acute bony abnormality. Reviewed, Interpreted and Dictated by Tha Whitt MD Transcribed by Cailin Barker Authenticated and . [facility]
--- NOTE | 2024-07-19 10:40 | XR_ITS ---
FINAL REPORT CLINICAL HISTORY: Right hip pain COMPARISON: None FINDINGS: RIGHT HIP Two views of the right hip and an AP pelvis view were obtained. There is no acute fracture or dislocation. The joint spaces are well-preserved. The visualized bony structures are well aligned. There is no acute soft tissue abnormality. IMPRESSION: No acute abnormality identified. Reviewed, Interpreted and Dictated by Tha Whitt MD Transcribed by Cailin Barker Authenticated and [facility]
--- NOTE | 2024-07-19 10:40 | XR_ITS ---
FINAL REPORT CLINICAL HISTORY: bilateral knee pain COMPARISON: None FINDINGS: RIGHT KNEE Three views demonstrate no acute fracture or dislocation. The joint spaces appear normal. No acute soft tissue abnormality is seen. IMPRESSION: No acute bony abnormality. Reviewed, Interpreted and Dictated by Tha Whitt MD Transcribed by Cailin Barker Authenticated and [facility]
[2024-07-19 10:46] VITALS: BP 122/71; PULSE 88; RESP 18; O2SAT 100; BMI 23.7
== END 2024-07-19 23:59 | disposition home or self-care (01) ==
PROVIDERS: PCP Internal Medicine; Visit Provider Nurse Practitioner Family
DX: M25.562 Pain in left knee (principal); M25.551 Pain in right hip; G89.29 Other chronic pain; M25.561 Pain in right knee; Z87.891 Personal history of nicotine dependence
CPT/HCPCS: 73502; 73562; 99212; G0463

== ENCOUNTER 2024-07-26 16:12 | Outpatient (CLI) | payer OTHER, SELFPAY ==
--- NOTE | 2024-07-26 16:14 | XR_ITS ---
PROCEDURE INFORMATION: Exam: XR Right Hand Exam date and time: 07/26/2024 4:15 PM Age: 58 years old Clinical indication: Pain; Hand; Right; Additional info: Right hand pain post injury. Hand caught between tire and fender TECHNIQUE: Imaging protocol: Radiologic exam of the right hand. Views: 3 or more views. COMPARISON: No relevant prior studies available. FINDINGS: Bones/joints: There is no evidence of acute fracture or dislocation. Mild degenerative changes involve the 1st carpometacarpal joint. Soft tissues: No significant soft tissue edema. No subcutaneous emphysema or radiopaque foreign bodies. IMPRESSION: No acute posttraumatic osseous injury.
== END 2024-07-26 23:59 | disposition home or self-care (01) ==
LOC: RAD 16:12
PROVIDERS: PCP Internal Medicine; Visit Provider Internal Medicine
DX: M79.641 Pain in right hand (principal)
CPT/HCPCS: 73130

== ENCOUNTER 2024-07-30 09:42 | Outpatient (CLI) | payer OTHER, SELFPAY ==
[2024-07-30 10:51] LABS: Basophils # 0.1 K/mm3 (0-0.2); Basophils % 0.9 % (0.1-2.0); Eosinophils # 0.2 K/mm3 (0.0-0.4); Eosinophils % 2.3 % (0.1-12.0); Hematocrit 45.7 % (42.0-52.0); Hemoglobin 14.5 g/dL (14.1-18.0); Lymphocytes # 1.7 K/mm3 (0.7-4.5); Lymphocytes % 19.7 % (10-50); Mean Corpuscular HGB Conc 31.7 g/dL (31.8-35.4); Mean Corpuscular Hemoglobin 28.5 pg (27.0-31.2); Mean Platelet Volume 9.1 fl (7.4-10.4); Monocytes # 0.7 K/mm3 (0.1-1.0); Monocytes % 8.4 % (1.7-9.3); Neutrophils # 5.9 K/mm3 (1.8-7.8); Neutrophils % 68.5 % (37.0-80.0); Platelet Count 378 K/mm3 (142-424); Red Blood Count 5.08 M/mm3 (4.60-6.20); Red Cell Distribution Width 13.4 % (11.5-17.5); White Blood Count 8.6 K/mm3 (4.8-10.8)
[2024-07-30 11:16] LABS: Albumin Level 4.4 g/dl (3.5-5.0)
[2024-07-30 11:17] LABS: Chloride 103 mmol/L (98-107); Potassium 4.6 mmoL/L (3.5-5.1); Sodium 138 mmol/L (136-145)
[2024-07-30 11:19] LABS: Alanine Aminotransferase 22 U/L (12-78); Anion Gap 8.6 mEq/L (5-15); Aspartate Amino Transferase 26 U/L (17-59); Bilirubin,Unconjugated 0.2 mg/dL (0.0-1.1); Blood Urea Nitrogen 23 mg/dl (9-20); Carbon Dioxide 31 mmol/L (22.0-30.0); Estimated Glomerular Filt Rate 100 ml/min (>60); GFR (African American) 121 ML/MIN (>60)
[2024-07-30 11:20] LABS: Alkaline Phosphatase 81 U/L (38-126); Bilirubin,Direct 0.1 mg/dl (0.0-0.4); Bilirubin,Indirect 0.1 mg/dL (0.0-0.9); Bilirubin,Total 0.2 mg/dl (0.2-1.3); Calcium 9.7 mg/dl (8.4-10.2); Chol/HDL Ratio 4.6 (1-3.5); Cholesterol 188 mg/dl (140-200); Glucose 118 mg/dl (74-100); HDL Cholesterol 41 mg/dl (40-60); Magnesium 1.8 mg/dl (1.6-2.3); Total Protein,Serum 6.5 g/dl (6.3-8.2); Triglycerides 375 mg/dl (30-150); VLDL Cholesterol 75 mg/dL (0-40)
[2024-07-30 11:31] LABS: Direct LDL Cholesterol 112.71 mg/dL (100-129)
[2024-07-30 11:51] LABS: Free T4 (Free Thyroxine) 1.22 ng/dl (0.78-2.19)
[2024-07-30 11:55] LABS: Thyroid Stimulating Hormone 1.57 uIU/mL (0.465-4.68)
== END 2024-07-30 23:59 | disposition home or self-care (01) ==
LOC: LAB 09:43
PROVIDERS: PCP Internal Medicine; Visit Provider Nurse Practitioner
DX: I25.10 Atherosclerotic heart disease of native coronary artery without angina pectoris (principal); E78.5 Hyperlipidemia, unspecified; R07.9 Chest pain, unspecified
CPT/HCPCS: 36415; 80048; 80061; 80076; 83735; 84439; 84443; 85025

== ENCOUNTER 2024-08-15 06:52 | Outpatient (CLI) | payer OTHER, SELFPAY ==
--- NOTE | 2024-08-15 | CA_ITS ---
APPROVED REPORT Exam: Pharmacologic Technologist: Misty Soto Ht: 5 ft 11 in Wt: 179 lbs BSA: 2.01 m2 HR: 80 bpm BP: 117/85 mmHg Stress Test Details Test: Lexiscan Reason for pharmacologic stress test: physical limitation. HR Resting HR: 80 bpm Max Heart Rate (APMHR): 164.949084 bpm Max HR Achieved: 101 bpm Target HR (85% APMHR): 139.716248 bpm % of APMHR: 61.59 Recovery HR: 85 bpm BP Resting BP: 117.0/85.0 mmHg Max BP: 133.0/81.0 mmHg Recovery BP: 121.0/79.0 mmHg ECG Stress ECG Conclusion Symptoms: SOA. Arrhythmias/Ectopy: None. ST-T Changes: EKG nondiagnostic-Iesha Electronically signed by : Zandra Dubon MD 08/15/2024 12:14:34
--- NOTE | 2024-08-15 | CA_ITS ---
APPROVED REPORT EXAM: Comprehensive 2D, Doppler, and color-flow Echocardiogram Track Mechanic: ADAN Alejandro, RVS Ht: 5 ft 11 in Wt: 179lbs BSA: 2.01 BP: 121/86 mmHg Indications: CAD, COPD,SOA, SVT, HX-MA Echo Enhancing Agent Comments: Lung impedance throughout exam 2D Dimensions Left Atrium 3.01 cm M-Mode Dimensions RVDd 0.96 cm (0.9-2.6) LA Diam 3.01 cm (1.9-4.0) LVDd 5.35 cm (3.5-5.7) LVDs 3.68 cm (3.5-5.7) IVSd 0.86 cm (0.6-1.1) PWd 1.04 cm (0.6-1.1) EF (Teich) 58.50% EPSs 0.75 cm FS 31.20% EDV (Teich) 138.30 mL TAPSE 1.94 (<1.7) ESV (Teich) 57.40 mL LV Diastology E Decel Time 280 (160-240 msec) E/A Ratio 0.89 MED A' 9.70 cm/s LAT A' 12.10 cm/s Aortic Valve ARY Index 1.50 cm2/m2 AoV Peak Geovany. 85.0 (50-130 cm/s) AO Peak GR. 2.90 mmHg AO Mean GR. 1.50 (<5 mmHg) AO VTI 12.5 (18-25 cm) ARY (VTI) 3.09 (2.5-4.5 cm2) Mitral Valve MV A Velocity 56.0 (40-130 cm/s) E/A Ratio 0.89 Left Ventricle The left ventricle is normal size. The left ventricular systolic function is low normal. There is increased LV wall thickness. There is normal LV segmental wall motion. The left ventricular diastolic function is normal. LVEF is 50%. Right Ventricle The right ventricle is normal size. The right ventricular systolic function is normal. Atria The left atrium size is normal. The right atrium size is normal. There is no Doppler evidence of interatrial shunt. Aortic Valve Aortic valve is mildly thickened. There is no aortic valvular stenosis. No aortic regurgitation is present. Mitral Valve The mitral valve is normal in structure. No evidence of mitral valve stenosis. There is no mitral valve regurgitation noted. Tricuspid Valve Tricuspid valve is grossly normal in structure and function. Trace mitral regurgitation. There is insufficient TR jet to estimate RVSP. Pulmonic Valve The pulmonary valve is normal in structure. Trace pulmonic regurgitation. Great Vessels The aortic root is normal in size. IVC is normal in size and collapses >50% with inspiration. Pericardium There is no pericardial effusion. Other Information Study Quality: Fair Conclusion Low normal LV systolic function (LVEF 50%). Normal RV size and function. No significant valvular stenosis or regurgitation. Electronically signed by : Zandra Dubon MD 08/20/2024 00:08:46
--- NOTE | 2024-08-15 07:00 | NM_ITS ---
APPROVED REPORT Exam: Nuclear Stress Test Indication: htn, hyperlipidemia, c.p., sob, palpitations, syncope, fatigue Patient Location: Outpatient Stress Tech: Misty Parrish [place] Tech:FATOUMATA Denise RT (R)(N)(M) Ht: 5 ft 10 in Wt: 170 lbs HR: 80 bpm BP: 117/85 mmHg BSA: 1.95 m2 TID: 1.04 BMI: 24.3 History: htn, hyperlipidemia, c.p., sob, palpitations, syncope, fatigue patient could not lay on stomach for prone images Procedure: Patient received 0.4 mg of intravenous Lexiscan, resting heart rate 80 bpm, resting blood pressure 117/85 mmHg, with Lexiscan maximum heart rate achieved was 101 bpm which is % of the maximum predicted heart rate and blood pressure was 123/78 mmHg. With Lexiscan, patient denied any complaint of chest pain. Cardiac Stress and Resting SPECT Images: Cardiac Stress and Resting SPECT images were obtained using technetium 99m Myoview 30.7 mCi stress and 10.11 mCi at rest. The patient could not lie on his abdomen. Therefore, prone stress imaging could not be performed. This may affect the diagnostic interpretation of the study findings. Resting and stress imaging in supine positions demonstrate a medium sized, mild, partially reversible perfusion defect in the basal to mid septal LV wall. Gated imaging demonstrates low-normal global LV systolic function. the VEF is calculated at 50%. Conclusion: Medium sized, mild, partially reversible perfusion defect in the basal to mid septal LV wall. Findings are suggestive of partial reversible ischemia. Gated imaging demonstrates low-normal global LV systolic function. the VEF is calculated at 50%. Electronically signed by : Zandra Dubon MD 08/15/2024 12:13:37
[2024-08-15] MEDS: SODIUM CHLORIDE 0.9% 10ML SYR (RAD ONLY) 10 ML IV ×2 (07:10→08:30)
[2024-08-15] MEDS: REGADENOSON 0.4MG/5ML SYRINGE 0.4 MG IV (08:30)
[2024-08-15] MEDS: ISOTOPE MYOVIEW (PER STUDY) 1 DOSE IV (09:37)
--- OUTSIDE RECORDS SUMMARY | 2024-08-16 21:41 | XMS_ITS | Clinical Summary ---
Author Organization [facility] , [facility] Address [address] [place] [address] Phone Care Team Providers Care Insurance Loss Control Surveyor Name Role Phone JILL GLOVER, LITA Green Primary Care Provider [phone] Kate GLOVER, Chris Jansen [phone] Reason for Visit and Chief Complaint The Chief Complaint is: Neck pain Problems Includes: Problems addressed during this encounter and other active Problems All Visits Onset Date Resolved Date Provider Condition S tatus Neck Pain 04/05/2022 Chris Love MD Active Last Documented On 2 9:10AM ; [facility] Plan of Treatment Pending Tests Order Diagnosis Results Due Ordering P rovider Procedure/Tests EMG 04/19/22 Chris Turcios MD Last Documented On 2 11:09AM ; [facility] Procedure/Tests Nerve Conduction Study 04/19/22 Chris Love MD Last Documented On 2 11:09AM ; [facility] Radiology - MRI MRI Cervical Spine 04/19/22 Christoph Love MD Last Documented On 2 11:09AM ; [facility] Radiology - MRI MRI Cervical Spine 05/10/22 G gabby Love MD Last Documented On 2 1:50PM ; [facility] Instructions to patient Lose weight Last Documented On 3 10:04AM ; [facility], [facility] Assessments Includes: Assessments from this encounter Findings This is a 57-year-old man 6 weeks status post C3-4 and C5-6 anterior cervical discectomy and fusion overall doing very well - Last Documented On 10/11/2022 12:50PM ; [facility], [facility] I told Royal that everything looks great for now. He and I are both very pleased with his pain relief in the left arm and the stabilization of his loss of fine motor control. Watching him walk up and down the halls in the office today, he certainly appears steady on his feet, so I suspect these issues with his balance that he brought up are more related to orthostatic hypotension or something similar. I told him that I want him to discuss orthostatic hypotension with his primary care physician and he voiced understanding. He is going to follow-up with me in 6 weeks which will constitute his 3-month postoperative visit at which time we will again obtain AP and lateral views of the cervical spine. - Last Documented On 10/11/2022 12:50PM ; [facility], [facility] Instructions Includes: Instructions from this encounter Instructions to patient Lose weight Last Documented On 3 10:04AM ; [facility] Medical Equipment - Implanted Devices Includes: Current Devices No Medical Equipment Recorded Medications Includes: Medications discussed during this encounter and other current Medications Current Medications (continue as prescribed) traZODone HCl 100 MG Oral Tablet 06/12/2022 Provider : LITA MELCHOR MD Diagnosis: Last Documented On 3 10:25AM By Chris Love ; [facility] Sildenafil Citrate 100 MG Oral Tablet 06/07/2022 Pro vider: LITA MELCHOR MD Diagnosis: Last Documented On 3 10:25AM By Chris Love ; [facility], [facility] Cyclobenzaprine HCl 5 MG Oral Tablet 06/04/2022 Prov ider: LITA MELCHOR MD Diagnosis: Last Documented On 3 10:25AM By Chris Love ; [facility], [facility] Escitalopram Oxalate 10 MG Oral Tablet 06/03/2022 Pr ovider: LITA MELCHOR MD Diagnosis: Last Documented On 3 10:25AM By Chris Love ; [facility], [facility] Naproxen 500 MG Oral Tablet 06/03/2022 Provider: LITA MELCHOR MD Diagnosis: Last Documented On 3 10:25AM By Chris Love ; [facility] Famotidine 20 MG Oral Tablet 04/23/2022 Provider: LITA MELCHOR MD Diagnosis: Last Documented On 3 10:25AM By Chris Love ; [facility], [facility] buPROPion HCl ER (SR) 200 MG Oral Tablet Extended Release 12 Hour 04/14/2022 Provider: LITA MELCHOR MD Diagnosis: Last Documented On 3 10:26AM By Chris Love ; [facility], [facility] Past Medications on file Gabapentin 300 MG Oral Capsule 09/13/2022 - 10/13/2022 Provider: Chris Mims MD Diagnosis: Take 1 capsule PO up to thre e times a day, NEEDED Last Documented On 3 5:22PM By Chris Love ; [facility], [facility] Voltaren 1% External Gel 01/27/2022 - 02/26/2022 Provi vincent: Roman Spears MD Diagnosis: use as directed APPLY 1-2 GR AMS TO THE AFFECTED AREA PRN Last Documented On 2 9:04AM By Eliane Joaquin ; [facility], [facility] Mobic 15 MG Oral Tablet 01/27/2022 - 02/26/2022 Provid er: Roman Spears MD Diagnosis: once a day 1 TABLET BY MOUTH ONCE A DAY Last Documented On 2 9:04AM By Eliane Joaquin ; [facility], [facility] Ondansetron HCl 4 MG Oral Tablet 06/19/2021 - 06/29/2021 Provider: Roman escalante MD Diagnosis: 1 q 8 hours prn post op nausea Last Documented On 2 8:29AM By Roman Spears ; [facility], [facility] oxyCODONE HCl 5 MG Oral Tablet 06/19/2021 - 06/24/2021 Provider: Roman escalante MD Diagnosis: 1-2 po q 4-6h prn post op pain Last Documented On 2 8:29AM By Roman Spears ; [facility], [facility] Ondansetron HCl 4 MG Oral Tablet 06/11/2021 - 06/21/2021 Provider: Roman escalante MD Diagnosis: 1 q 8 hours prn post op nausea Last Documented On 2 8:05AM By Roman Spears ; [facility], [facility] oxyCODONE HCl 5 MG Oral Tablet 06/11/2021 - 06/16/2021 Provider: Roman escalante MD Diagnosis: 1-2 po q 4-6h prn post op pain Last Documented On 2 8:05AM By Roman Spears ; [facility], [facility] Medrol 4 MG Oral Tablet Therapy Pack 04/08/2021 - 04/15/2021 Provider: Roman escalante MD Diagnosis: take as directed Last Documented On 3:40PM By Elsy Mcgowan ; [facility], [facility] Medications Administered Includes: Administered Medications from this encounter No Administered Medications Recorded Vital Signs Includes: Vital Signs from this encounter Vital Name 10/11/2022 10:07A Height (in) 71 Weight (lb) 182 Body Mass Index 25.4 Body Surface Area 2 Note: bb Last Documented: On 10/11/2022 10:08A M ; [facility], [facility] Results Includes: Results discussed during this encounter No Results Recorded For Specified Dates History of Present Illness Includes: History of Present Illness from this encounter CHERIE Gleason is a 57 year old male. - Allergy list reviewed - Problem list reviewed - Medication list reviewed - Previous history of new onset pain Injury is not work related or an automotive accident - Patient pain level from 1-10: 5 - Yes, previous treatment. - History of Physical Therapy - History of Home Exercise Medications used for this condition: This is a very pleasant 57-year-old man following up with mn status post C3-5 anterior cervical discectomy and fusion. He is about 6 weeks out at this point. He continues to do very well. The pain that began in his left scapular area radiating down his left arm into his deltoid and biceps area is completely gone and he is very happy with that. He is also noted a stabilization of his hand function. Prior to the surgery he felt a significant deterioration in his ability to complete fine motor tasks in his hands and he is very happy to state that he feels not only as though it has not gotten any worse but that he has in fact regained a bit of fine motor control in his hands. Overall he said a few times today that he is very pleased that we got this done. He does state that he is having some issues with his balance, but this sounds very much like orthostatic hypotension. He said anytime he first stands up from a seated position when he is been seated for a while he feels dizzy and as though he is going to fall over. Denies any fevers, chills, chest pain, shortness of breath. denies any drainage from his incision. Social History Description Last Updated Tobacco non-user 09/16/2022 Last Documented On 3 10:04AM ; [facility], [facility] No recent change in diet 04/05/2022 Last Documented On 3 10:04AM ; [facility] Not a current smoker. 04/05/2022 Last Documented On 3 10:04AM ; [facility] Caffeine use 03/18/2021 Last Documented On 3 10:04AM ; [facility] Exercising regularly 03/18/2021 Last Documented On 3 10:04AM ; [facility] Not using alcohol 03/18/2021 Last Documented On 3 10:04AM ; [facility] Not using drugs 03/18/2021 Last Documented On 3 10:04AM ; [facility] Smoking Status Unknown Procedures and Surgical History Includes: Procedures from this encounter Procedures Code Diagnosis Performing Provider Service L ocation Service Date use of tobacco assessment performed 1000F Last Documented On 3 10:04AM ; [facility] an X-ray was performed 04/05/2022 Neck @ [facility] ~ [place] [facility] [id number] Last Documented On 3 12:50PM ; [facility] an MRI was performed 06/15/2022 CSpine @ [facility] [id number] Last Documented On 3 10:04AM ; [facility], [facility] Surgical History Last Updated Past Surgical History: 09/03/2022 C3-5 A CDF @ [facility] ~ 09/16/2022 Last Documented On 3 10:04AM ; [facility], [facility] Medical History Includes: Medical History addressed during this encounter Description Last Updated Past medical history non-contributory Last Documented On 3 12:50PM ; [facility], [facility] Recent immunization for flu 03/22/2022 1 06/05/2021 Last Documented On 3 10:04AM ; [facility] No recent immunization for pneumococcal pneumonia 03/18/2021 Last Documented On 3 10:04AM ; [facility], [facility] Previous Fractures 03/18/2021 Last Documented On 3 10:04AM ; [facility], [facility] Family History Includes: Family History addressed during this encounter Description Last Updated No significant family history 03/18/2021 Last Documented On 3 10:04AM ; [facility] Review of Systems Includes: Review of Systems from this encounter Systemic: Not feeling tired, no recent weight loss, and no recent weight gain. Head: No headache and no sinus pain. Eyes: No vision problems, no Cataracts, no Glasses/Contacts, and no Glaucoma. Otolaryngeal: No hearing loss and no tinnitus. Cardiovascular: No chest pain or discomfort, no palpitations, no Hypertension, and no High Cholesterol. Pulmonary: No daytime asthma symptoms and no chronic cough. No wheezing. Gastrointestinal: No heartburn and no abdominal pain. No Indigestion, no Acid Reflux, no Peptic Ulcer, no GI Stomach Bleed, and no Ulcers. Endocrine: No hot flashes, no muscle weakness, no Diabetes, no Hypothyroid, and no Hyperthyroid. Hematologic: No easy bleeding, no tendency for easy bruising, and no Anemia. Musculoskeletal: Arthritis. No lower back pain. No soft tissue swelling. Pain localized to one or more joints. Neurological: No dizziness, no convulsions, and no numbness. Psychological: Anxiety. No emotional lability. Depression. No insomnia. Not crying for no reason. Skin: No dry skin. No Ulcers, no Scars, and no rash. Allergic and Immunologic: No complaint of seasonal allergic reaction. Reviewed on 10-11-2022 Mental Status Includes: Mental Status from this encounter Description Anxiety Functional Status Includes: Functional Status from this encounter No Functional Status Recorded Physical Exam Includes: Physical Exam from this encounter Allergies Includes: Active Allergies No Known Allergies Encounters Encounter Provider Location Date Check-In Time Check- Out Time Diagnosis Post Op Chris ricardo MD [facility] [place] 3 10:03AM 11:18AM Insurance Includes: Active Insurance Policies Plan Name Member ID Group # Subscriber Relationship Effect mita Dates 1 - [facility] [id number] Royal Gleason Self 05/09/2022 - Unknown Clinical Notes Includes: Clinical Notes from this encounter * Progress note Date Encounter Last Documented by 10/11/2022 Post Op Last documented on 10/11/2022; 12:50 PM, Chris Farfan MD; [facility], [facility] Active Problems & Conditions - Neck Pain Chief Complaint The Chief Complaint is: Neck pain. Referred Here Referred by [facility]. History of Present Illness Royal Gleason is a 57 year old male. - Allergy list reviewed - Problem list reviewed - Medication list reviewed - Previous history of new onset pain Injury is not work related or an automotive accident - Patient pain level from 1-10: 5 - Yes, previous treatment. - History of Physical Therapy - History of Home Exercise Medications used for this condition: This is a very pleasant 57-year-old man following up with me status post C3-5 anterior cervical discectomy and fusion. He is about 6 weeks out at this point. He continues to do very well. The pain that began in his left scapular area radiating down his left arm into his deltoid and biceps area is completely gone and he is very happy with that. He is also noted a stabilization of his hand function. Prior to the surgery he felt a significant deterioration in his ability to complete fine motor tasks in his hands and he is very happy to state that he feels not only as though it has not gotten any worse but that he has in fact regained a bit of fine motor control in his hands. Overall he said a few times today that he is very pleased that we got this done. He does state that he is having some issues with his balance, but this sounds very much like orthostatic hypotension. He said anytime he first stands up from a seated position when he is been seated for a while he feels dizzy and as though he is going to fall over. Denies any fevers, chills, chest pain, shortness of breath. denies any drainage from his incision. Current Medication - buPROPion HCl ER (SR) 200 MG Oral Tablet Extended Release 12 Hour 90 days, 0 refills - Cyclobenzaprine HCl 5 MG Oral Tablet 20 days, 0 refills - Escitalopram Oxalate 10 MG Oral Tablet 30 days, 0 refills - Famotidine 20 MG Oral Tablet 90 days, 0 refills - Gabapentin 300 MG Oral Capsule Take 1 capsule PO up to three times a day, NEEDED, 30 days, 0 refills - Naproxen 500 MG Oral Tablet 30 days, 0 refills - Sildenafil Citrate 100 MG Oral Tablet 3 days, 0 refills - traZODone HCl 100 MG Oral Tablet 30 days, 0 refills Past Medical/Surgical History Reported: Immunization History: Recent immunization for flu 03/22/2022. No recent immunization for pneumococcal pneumonia. Past medical history non-contributory. Procedural: - Previous Fractures Surgical: - Past Surgical History: 09/03/2022 C3-5 ACDF @ [facility] Social History Not a current smoker. Current diet: No recent change in diet. Caffeine use: Caffeine use. Tobacco use: Tobacco non-user. Alcohol: Not using alcohol. Drug Use: Not using drugs. Habits: Exercising regularly. Allergies - No Known Allergies Family History No significant family history Review Of Systems Systemic: Not feeling tired, no recent weight loss, and no recent weight gain. Head: No headache and no sinus pain. Eyes: No vision problems, no Cataracts, no Glasses/Contacts, and no Glaucoma. Otolaryngeal: No hearing loss and no tinnitus. Cardiovascular: No chest pain or discomfort, no palpitations, no Hypertension, and no High Cholesterol. Pulmonary: No daytime asthma symptoms and no chronic cough. No wheezing. Gastrointestinal: No heartburn and no abdominal pain. No Indigestion, no Acid Reflux, no Peptic Ulcer, no GI Stomach Bleed, and no Ulcers. Endocrine: No hot flashes, no muscle weakness, no Diabetes, no Hypothyroid, and no Hyperthyroid. Hematologic: No easy bleeding, no tendency for easy bruising, and no Anemia. Musculoskeletal: Arthritis. No lower back pain. No soft tissue swelling. Pain localized to one or more joints. Neurological: No dizziness, no convulsions, and no numbness. Psychological: Anxiety. No emotional lability. Depression. No insomnia. Not crying for no reason. Skin: No dry skin. No Ulcers, no Scars, and no rash. Allergic and Immunologic: No complaint of seasonal allergic reaction. Reviewed on 10-11-2022 Physical Findings - Vitals taken 10/11/2022 10:07 am bb Height 71 in Weight 182 lbs Body Mass Index 25.4 kg/m2 Body Surface Area 2 m2 Standard Measurements: - Patient was overweight. General: Alert and Oriented ? 3 Focused Musculoskeletal Exam of the Spine: No focal tenderness in the cervical, thoracic, or lumbar spine Motor EF WE T FF HI Right 5/5 5/5 5/5 5/5 5/5 Left 5/5 5/5 5/5 5/5 5/5 Sensation C5 C6 C7 C8 T1 Right 2 2 2 2 2 Left 2 2 2 2 2 Biceps reflex is 2+ bilaterally Brachioradialis reflex is 2+ bilaterally Triceps reflex is 2+ bilaterally Patient is able to ambulate in the room without assistive device Symmetric, palpable radial pulses bilaterally Patellar reflex is 2+ bilaterally Achilles reflex is 2+ bilaterally No ankle clonus Symmetric, palpable posterior tibialis pulse bilaterally Tests 2v X-ray cervical spine AP and lateral views of the cervical spine were obtained and reviewed in the office today There is evidence of instrumentation at C3-4 and C4-5 with no evidence of early hardware failure or subsidence User Defined 5 This is a 57-year-old man 6 weeks status post C3-4 and C5-6 anterior cervical discectomy and fusion overall doing very well I told Royal that everything looks great for now. He and I are both very pleased with his pain relief in the left arm and the stabilization of his loss of fine motor control. Watching him walk up and down the halls in the office today, he certainly appears steady on his feet, so I suspect these issues with his balance that he brought up are more related to orthostatic hypotension or something similar. I told him that I want him to discuss orthostatic hypotension with his primary care physician and he voiced understanding. He is going to follow-up with me in 6 weeks which will constitute his 3-month postoperative visit at which time we will again obtain AP and lateral views of the cervical spine. Previous Tests Imaging: X-Ray: An X-ray was performed 04/05/2022 Neck @ [facility] 10/11/2022 Neck @ [facility]. MRI Scan: An MRI was performed 06/15/2022 Mary @ [facility]. Counseling/Education - Lose weight Practice Management Use of tobacco assessment performed. Care Team - LITA MELCHOR MD - [employer] QA ANALYST Notes This dictation was done with voice recognition software and may contain errors and omissions.
--- OUTSIDE RECORDS SUMMARY | 2024-08-16 21:41 | XMS_ITS | Clinical Summary ---
Author Organization [facility] , [facility] Address [address] [place] [address] Phone Care Team Providers Care Clinical Trials Manager Name Role Phone JILL GLOVER, LITA Green Primary Care Provider [phone] Kate GLOVER, Chris [facility] [phone] Reason for Visit and Chief Complaint The Chief Complaint is: Neck pain Problems Includes: Problems addressed during this encounter and other active Problems All Visits Onset Date Resolved Date Provider Condition S tatus Neck Pain 04/05/2022 Chris Love MD Active Last Documented On 2 9:10AM ; [facility], [facility] Plan of Treatment Pending Tests Order Diagnosis Results Due Ordering P rovider Procedure/Tests EMG 04/19/22 Chris Turcios MD Last Documented On 2 11:09AM ; [facility] Procedure/Tests Nerve Conduction Study 04/19/22 Chris Love MD Last Documented On 2 11:09AM ; [facility] Radiology - MRI MRI Cervical Spine 04/19/22 Christoph Love MD Last Documented On 2 11:09AM ; [facility] Radiology - MRI MRI Cervical Spine 05/10/22 G gabby Love MD Last Documented On 2 1:50PM ; [facility], [facility] Instructions to patient Lose weight Last Documented On 3 3:18PM ; [facility], [facility] Assessments Includes: Assessments from this encounter Findings This is a 57-year-old man approximately 2 weeks status post C3-4 and 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 I told him that he is still under a 15 pound lifting restriction and I still want him to be careful with repetitive bending and twisting motions of his neck. I told him he is free to drive when he is able to safely transition from gas to brake in the event of an emergency, when he is no longer taking any narcotic pain medication, and when he can safely check all of his mirrors while driving.[address] 09/08/2024 since being discharged from the hospital so he is hopeful to start driving in the near future. Otherwise, he will see me back in 4 weeks which will constitute a 6-week postoperative visit. At that time we will get AP and lateral views of the neck. - Last Documented On 09/17/2022 10:59AM ; [facility] Instructions Includes: Instructions from this encounter Instructions to patient Lose weight Last Documented On 3:18PM ; [facility], [facility] Medical Equipment - Implanted Devices Includes: Current Devices No Medical Equipment Recorded Medications Includes: Medications discussed during this encounter and other current Medications New / Renewed during this visit Chris Love MD on 09/13/2022 Gabapentin 300 MG Oral Capsule Provider: Chris heller MD 30 day supply: 90 capsule, 0 refills Diagnosis: Take 1 capsule PO up to thre e times a day, NEEDED Pharmacy: [facility] [address] [place] [address], [phone] - Last Documented On 5:22PM By Chris Love ; [facility] Current Medications (continue as prescribed) traZODone HCl 100 MG Oral Tablet 06/12/2022 Provider : LITA MELCHOR MD Diagnosis: Last Documented On 3 10:25AM By Chris [facility], [facility] Sildenafil Citrate 100 MG Oral Tablet 06/07/2022 Pro vider: LITA MELCHOR MD Diagnosis: Last Documented On 10:25AM By Chris Love ; [facility] Cyclobenzaprine HCl 5 MG Oral Tablet 06/04/2022 Prov ider: LITA MELCHOR MD Diagnosis: Last Documented On 3 10:25AM By Chris Love ; [facility], [facility] Escitalopram Oxalate 10 MG Oral Tablet 06/03/2022 Pr ovider: LITA MELCHOR MD Diagnosis: Last Documented On 3 10:25AM By Chris Love ; [facility], [facility] Naproxen 500 MG Oral Tablet 06/03/2022 Provider: LITA MELCHOR MD Diagnosis: Last Documented On 3 10:25AM By Chris Love ; [facility], [facility] Famotidine 20 MG Oral Tablet 04/23/2022 Provider: LITA MELCHOR MD Diagnosis: Last Documented On 3 10:25AM By Chris Love ; [facility], [facility] buPROPion HCl ER (SR) 200 MG Oral Tablet Extended Release 12 Hour 04/14/2022 Provider: LITA MELCHOR MD Diagnosis: Last Documented On 3 10:26AM By Chris Love ; [facility], [facility] Past Medications on file Voltaren 1% External Gel 01/27/2022 - 02/26/2022 Provi vincent: Roman Spears MD Diagnosis: use as directed APPLY 1-2 GR AMS TO THE AFFECTED AREA PRN Last Documented On 2 9:04AM By Eliane Joaquin ; [facility], [facility] Mobic 15 MG Oral Tablet 01/27/2022 - 02/26/2022 Provid er: Roman Spears MD Diagnosis: once a day 1 TABLET BY MOUTH ONCE A DAY Last Documented On 2 9:04AM By Eliane Joaquin ; [facility], [facility] Ondansetron HCl 4 MG Oral Tablet 06/19/2021 - 06/29/2021 Provider: Roman escalante MD Diagnosis: 1 q 8 hours prn post op nausea Last Documented On 2 8:29AM By Roman Spears ; [facility], [facility] oxyCODONE HCl 5 MG Oral Tablet 06/19/2021 - 06/24/2021 Provider: Roman escalante MD Diagnosis: 1-2 po q 4-6h prn post op pain Last Documented On 2 8:29AM By Roman Spears ; [facility], [facility] Ondansetron HCl 4 MG Oral Tablet 06/11/2021 - 06/21/2021 Provider: Roman escalante MD Diagnosis: 1 q 8 hours prn post op nausea Last Documented On 2 8:05AM By Roman Spears ; [facility], [facility] oxyCODONE HCl 5 MG Oral Tablet 06/11/2021 - 06/16/2021 Provider: Roman escalante MD Diagnosis: 1-2 po q 4-6h prn post op pain Last Documented On 2 8:05AM By Roman Hayward [facility] Medrol 4 MG Oral Tablet Therapy Pack 04/08/2021 - 04/15/2021 Provider: Roman escalante MD Diagnosis: take as directed Last Documented On 1 3:40PM By Elsy Mcgowan ; [facility], [facility] Medications Administered Includes: Administered Medications from this encounter No Administered Medications Recorded Vital Signs Includes: Vital Signs from this encounter Vital Name 09/13/2022 04:04P Height (in) 71 Weight (lb) 182 Body Mass Index 25.4 Body Surface Area 2 Note: bb Last Documented: On 09/13/2022 4:04PM ; [facility], [facility] Results Includes: Results discussed during this encounter No Results Recorded For Specified Dates History of Present Illness Includes: History of Present Illness from this encounter HPI Royal Gleason is a 57 year old male. - Allergy list reviewed - Problem list reviewed - Medication list reviewed - Previous history of new onset pain Injury is not work related or an automotive accident - Patient pain level from 1-10: 5 - No previous treatment. This is a very pleasant 57-year-old man here for his 2-week postoperative visit status post C3-4 and C4-5 anterior cervical discectomy and fusion. Overall, Royal is doing very well. He says that the big pain is gone. He describes this as [id number] begins in his left scapular area and radiates down his left arm into his deltoid and biceps area. He also says that he feels as though his balance has improved, Stating that he did not realize that he felt a little bit wobbly on his feet until he got up after his surgery. He was also very happy to tell me today that he filled out his own paperwork and said that prior to having his surgery, he felt as though his right hand was so uncontrollable that his handwriting was illogical and he and his fill out all of his documentation. He says overall things have gotten a lot better. He was pretty honest saying that he still having headaches, but hopes that as he relaxes more his headaches improved. He said multiple times during the interview today that he is very happy to have this done. He denies any fevers, chills, chest pain, shortness of breath, or drainage from the incision. He denies any ongoing issues with dysphagia. Social History Description Last Updated Tobacco non-user 09/16/2022 Last Documented On 3 10:59AM ; [facility], [facility] No recent change in diet 04/05/2022 Last Documented On 3 3:18PM ; [facility] Not a current smoker. 04/05/2022 Last Documented On 3 3:18PM ; [facility] Caffeine use 03/18/2021 Last Documented On 3 3:18PM ; [facility] Exercising regularly 03/18/2021 Last Documented On 3 3:18PM ; [facility] Not using alcohol 03/18/2021 Last Documented On 3 3:18PM ; [facility] Not using drugs 03/18/2021 Last Documented On 3 3:18PM ; [facility] Smoking Status Unknown Procedures and Surgical History Includes: Procedures from this encounter Procedures Code Diagnosis Performing Provider Service L ocation Service Date use of tobacco assessment performed 1000F Last Documented On 3 4:05PM ; [facility], [facility] an X-ray was performed 04/05/2022 Neck @ [facility] [id number] Last Documented On 3 3:18PM ; [facility] an MRI was performed 06/15/2022 CSpine @ [facility] [id number] Last Documented On 3 4:00PM ; [facility] Surgical History Last Updated Past Surgical History: 09/03/2022 C3-5 A CDF @ [facility] ~ 09/16/2022 Last Documented On 3 10:59AM ; [facility] Medical History Includes: Medical History addressed during this encounter Description Last Updated Recent immunization for flu 03/22/2022 1 06/05/2021 Last Documented On 3 3:18PM ; [facility] No recent immunization for pneumococcal pneumonia 03/18/2021 Last Documented On 3 3:18PM ; [facility] Previous Fractures 03/18/2021 Last Documented On 3 3:18PM ; [facility] Family History Includes: Family History addressed during this encounter Description Last Updated No significant family history 03/18/2021 Last Documented On 3 3:18PM ; [facility] Review of Systems Includes: Review of Systems [...] complaint of seasonal allergic reaction. Reviewed on 09-13-2022 Mental Status Includes: Mental Status from this encounter Description Anxiety Functional Status Includes: Functional Status from this encounter No Functional Status Recorded Physical Exam Includes: Physical Exam from this encounter Allergies Includes: Active Allergies No Known Allergies Encounters Encounter Provider Location Date Check-In Time Check- Out Time Diagnosis Post Op Chris ricardo MD [facility] [place] 3 3:17PM 5:06PM Insurance Includes: Active Insurance Policies Plan Name Member ID Group # Subscriber Relationship Effect mita Dates 1 - [facility] [id number] Royal Gleason Self 05/09/2022 - Unknown Clinical Notes Includes: Clinical Notes from this encounter * Progress note Date Encounter Last Documented by 09/13/2022 Post Op Last documented on 09/17/2022; 10:59 AM, Chris Farfan MD; [facility], [facility] Active Problems & Conditions - [...] Patient pain level from 1-10: 5 - No previous treatment. This is a very pleasant 57-year-old man here for his 2-week postoperative visit status post C3-4 and C4-5 anterior cervical discectomy and fusion. Overall, Royal is doing very well. He says that the big pain is gone. He describes this as [id number] begins in his left scapular area and radiates down his left arm into his deltoid and biceps area. He also says that he feels as though his balance has improved, Stating that he did not realize that he felt a little bit wobbly on his feet until he got up after his surgery. He was also very happy to tell me today that he filled out his own paperwork and said that prior to having his surgery, he felt as though his right hand was so uncontrollable that his handwriting was illogical and he and his fill out all of his documentation. He says overall things have gotten a lot better. He was pretty honest saying that he still having headaches, but hopes that as he relaxes more his headaches improved. He said multiple times during the interview today that he is very happy to have this done. He denies any fevers, chills, chest pain, shortness of breath, or drainage from the incision. He denies any ongoing issues with dysphagia. Current Medication - buPROPion HCl ER (SR) 200 MG Oral Tablet Extended Release 12 Hour 90 days, 0 refills - Cyclobenzaprine HCl 5 MG Oral Tablet 20 days, 0 refills - Escitalopram Oxalate 10 MG Oral Tablet 30 days, 0 refills - Famotidine 20 MG Oral Tablet 90 days, 0 refills - Naproxen 500 MG Oral Tablet 30 days, 0 refills - Sildenafil Citrate 100 MG Oral Tablet 3 days, 0 refills - traZODone HCl 100 MG Oral Tablet 30 days, 0 refills Past Medical/Surgical History Reported: Immunization History: Recent immunization for flu 03/22/2022. No recent immunization for pneumococcal pneumonia. Procedural: - Previous Fractures Surgical: - Past Surgical History: 09/03/2022 C3-5 [address]F [address] [facility] Social History Not a current smoker. Current [...] complaint of seasonal allergic reaction. Reviewed on 09-13-2022 Physical Findings - Vitals taken 09/13/2022 04:04 pm bb Height 71 in Weight 182 lbs Body Mass Index 25.4 kg/m2 Body Surface Area 2 m2 Standard Measurements: - Patient was overweight. General: Alert and oriented x3 Focused musculoskeletal exam of the spine: Surgical incision is well-healed and clean, dry, and intact. 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 I told him that he is still under a 15 pound lifting restriction and I still want him to be careful with repetitive bending and twisting motions of his neck. I told him he is free to drive when he is able to safely transition from gas to brake in the event of an emergency, when he is no longer taking any narcotic pain medication, and when he can safely check all of his mirrors while driving.[address] [place] 09/08/2024 since being discharged from the hospital so he is hopeful to start driving in the near future. Otherwise, he will see me back in 4 weeks which will constitute a 6-week postoperative visit. At that time we will get AP and lateral views of the neck. Previous Tests Imaging: X-Ray: An X-ray was performed 04/05/2022 Neck @ [facility] MRI Scan: An MRI was performed 06/15/2022 CSpine @ [facility]. Counseling/Education - Lose weight Plan StartCited - Other Gabapentin 300 MG capsule Take 1 capsule PO up to three times a day, NEEDED, 30 days, 0 refills EndCited Practice Management Use of tobacco assessment performed. Care Team - LITA E JILL, MD - [employer]UEST [employer] Notes This dictation was done with voice recognition software and may contain errors and omissions.
--- OUTSIDE RECORDS SUMMARY | 2024-08-16 21:41 | XMS_ITS | Clinical Summary ---
Author Organization [facility] , [facility] Address [address] [place] [address] Phone Care Team Providers Care Assembly And Packing Supervisor Name Role Phone JILL GLOVER, LITA Green Primary Care Provider [phone] Kate GLOVER, Chris Jansen [phone] Reason for Visit and Chief Complaint [Patient Encounter] Problems Includes: Problems addressed during this encounter and other active Problems All Visits Onset Date Resolved Date Provider Condition S tatus Neck Pain 04/05/2022 Chris Love MD Active Last Documented On 2 9:10AM ; [facility] Plan of Treatment Pending Tests Order Diagnosis Results Due Ordering P rovider Procedure/Tests EMG 04/19/22 Chris Turcios MD Last Documented On 2 11:09AM ; [facility] Procedure/Tests Nerve Conduction Study 04/19/22 Chris Love MD Last Documented On 2 11:09AM ; [facility] Radiology - MRI MRI Cervical Spine 04/19/22 Christoph Love MD Last Documented On 2 11:09AM ; [facility] Radiology - MRI MRI Cervical Spine 05/10/22 G gabby Love MD Last Documented On 2 1:50PM ; [facility] Assessments Includes: Assessments from this encounter No Assessments Recorded Medical Equipment - Implanted Devices Includes: Current Devices No Medical Equipment Recorded Medications Includes: Medications discussed during this encounter and other current Medications Current Medications (continue as prescribed) traZODone HCl 100 MG Oral Tablet 06/12/2022 Provider : LITA MELCHOR MD Diagnosis: Last Documented On 3 10:25AM By Chris Love ; [facility], [facility] Sildenafil Citrate 100 MG Oral Tablet 06/07/2022 Pro vider: LITA MELCHOR MD Diagnosis: Last Documented On 3 10:25AM By Chris Love ; [facility], [facility] Cyclobenzaprine HCl 5 MG Oral Tablet 06/04/2022 Prov ider: LITA MELCHOR MD Diagnosis: Last Documented On 3 10:25AM By Chris Love ; [facility], [facility] Escitalopram Oxalate 10 MG Oral Tablet 06/03/2022 Pr ovider: LITA MELCHOR MD Diagnosis: Last Documented On 3 10:25AM By Chris Love ; [facility], [facility] Naproxen 500 MG Oral Tablet 06/03/2022 Provider: LITA MELCHOR MD Diagnosis: Last Documented On 3 10:25AM By Chris Love ; [facility], [facility] Famotidine 20 MG Oral Tablet 04/23/2022 Provider: LITA MELCHOR MD Diagnosis: Last Documented On 3 10:25AM By Chris Love ; [facility], [facility] buPROPion HCl ER (SR) 200 MG Oral Tablet Extended Release 12 Hour 04/14/2022 Provider: LITA MELCHOR MD Diagnosis: Last Documented On 3 10:26AM By Chris Love ; [facility], [facility] Medications Administered Includes: Administered Medications from this encounter No Administered Medications Recorded Results Includes: Results discussed during this encounter No Results Recorded For Specified Dates History of Present Illness Includes: History of Present Illness from this encounter No History of Present Illness Recorded Social History No Social History Recorded - Smoking Status Unknown Medical History Includes: Medical History addressed during this encounter No Medical History Recorded Family History Includes: Family History addressed during this encounter No Family History Recorded Review of Systems Includes: Review of Systems from this encounter No Review of Systems Recorded Mental Status Includes: Mental Status from this encounter No Mental Status Recorded Functional Status Includes: Functional Status from this encounter No Functional Status Recorded Physical Exam Includes: Physical Exam from this encounter No Physical Exam Recorded Allergies Includes: Active Allergies No Known Allergies Encounters Encounter Provider Location Date Check-In Time Check-Out Time Diagnosis [Patient Encounter] Chris Love MD 02/28/2023 6:27PM 11:59PM Insurance Includes: Active Insurance Policies Plan Name Member ID Group # Subscriber Relationship Effect mita Dates 1 - [facility] [id number] Royal Khan 05/09/2022 - Unknown Clinical Notes Includes: Clinical Notes from this encounter No Clinical Notes Recorded
--- OUTSIDE RECORDS SUMMARY | 2024-08-16 21:42 | XMS_ITS | Clinical Summary ---
Author Organization [facility] , [facility] Address [address] [place] [address] Phone Care Team Providers Care Medical Record Administrator Name Role Phone JILL GLOVER, LITA Green Primary Care Provider [phone] Kate GLOVER, Chris Jansen [phone] Reason for Visit and Chief Complaint The Chief Complaint is: Neck pain Problems Includes: Problems addressed during this encounter and other active Problems All Visits Onset Date Resolved Date Provider Condition S tatus Neck Pain 04/05/2022 Chris Love MD Active Last Documented On 2 9:10AM ; [facility], [facility] Plan of Treatment Pending Tests Order Diagnosis Results Due Ordering P rovider Procedure/Tests EMG 04/19/22 Chris Turcios MD Last Documented On 2 11:09AM ; [facility], [facility] Procedure/Tests Nerve Conduction Study 04/19/22 Chris Love MD Last Documented On 2 11:09AM ; [facility], [facility] Radiology - MRI MRI Cervical Spine 04/19/22 Christoph Love MD Last Documented On 2 11:09AM ; [facility], [facility] Radiology - MRI MRI Cervical Spine 05/10/22 G gabby Love MD Last Documented On 2 1:50PM ; [facility], [facility] Instructions to patient Lose weight Last Documented On 3 10:42AM ; [facility], [facility] Assessments Includes: Assessments from this encounter Findings this is a 57-year-old man who is approximately 3 months status post C3-4 and C4- 5 anterior cervical discectomy and fusion - Last Documented On 12/05/2022 3:36PM ; [facility], [facility] I think overall Royal has done very well postoperatively. I told him that in about a week, he can come off of any lingering restrictions and may resume normal activities slowly as tolerated. He can then resume taking any anti-inflammatory medications at his discretion as well. Otherwise, he can follow-up with me in 3 months which will constitute a 6-month postoperative follow-up or sooner if the need arises. - Last Documented On 12/05/2022 3:36PM ; [facility], [facility] Instructions Includes: Instructions from this encounter Instructions to patient Lose weight Last Documented On 3 10:42AM ; [facility], [facility] Medical Equipment - Implanted Devices Includes: Current Devices No Medical Equipment Recorded Medications Includes: Medications discussed during this encounter and other current Medications Current Medications (continue as prescribed) traZODone HCl 100 MG Oral Tablet 06/12/2022 Provider : LITA MELCHOR MD Diagnosis: Last Documented On 3 10:25AM By Chris Love ; [facility] Sildenafil Citrate 100 MG Oral Tablet 06/07/2022 Pro vider: LITA MELCHOR MD Diagnosis: Last Documented On 3 10:25AM By Chris Love ; [facility] Cyclobenzaprine HCl 5 MG Oral Tablet 06/04/2022 Prov ider: LITA MELCHOR MD Diagnosis: Last Documented On 3 10:25AM By Chris Love ; [facility] Escitalopram Oxalate 10 MG Oral Tablet 06/03/2022 Pr ovider: LITA MELCHOR MD Diagnosis: Last Documented On 3 10:25AM By Chris Love ; [facility] Naproxen 500 MG Oral Tablet 06/03/2022 Provider: LITA MELCHOR MD Diagnosis: Last Documented On 3 10:25AM By Chris Love ; [facility] Famotidine 20 MG Oral Tablet 04/23/2022 Provider: LITA MELCHOR MD Diagnosis: Last Documented On 3 10:25AM By Chris Love ; [facility], [facility] buPROPion HCl ER (SR) 200 MG Oral Tablet Extended Release Hour 04/14/2022 Provider: LITA MELCHOR MD Diagnosis: Last Documented On 3 10:26AM By Chris Love ; [facility], [facility] Past Medications on file Gabapentin 300 MG Oral Capsule 09/13/2022 - 10/13/2022 Provider: Chris Mims MD Diagnosis: Take 1 capsule PO up to thre e times a day, NEEDED Last Documented On 3 5:22PM By Chris Love ; [facility], [facility] Voltaren 1% External Gel 01/27/2022 - 02/26/2022 Provi vincent: Roman Spears MD Diagnosis: use as directed APPLY 1-2 GR AMS TO THE AFFECTED AREA PRN Last Documented On 2 9:04AM By Eliane Joaquin ; [facility], [facility] Mobic 15 MG Oral Tablet 01/27/2022 - 02/26/2022 Provid er: Roman Spears MD Diagnosis: once a day 1 TABLET BY MOUTH ONCE A DAY Last Documented On 2 9:04AM By Eliane Joaquin ; [facility], [facility] Ondansetron HCl 4 MG Oral Tablet 06/19/2021 - 06/29/2021 Provider: Roman escalante MD Diagnosis: 1 q 8 hours prn post op nausea Last Documented On 2 8:29AM By Roman Spears ; [facility], [facility] oxyCODONE HCl 5 MG Oral Tablet 06/19/2021 - 06/24/2021 Provider: Roman escalante MD Diagnosis: 1-2 po q 4-6h prn post op pain Last Documented On 2 8:29AM By Rmoan Spears ; [facility], [facility] Ondansetron HCl 4 MG Oral Tablet 06/11/2021 - 06/21/2021 Provider: Roman escalante MD Diagnosis: 1 q 8 hours prn post op nausea Last Documented On 2 8:05AM By Roman Spears ; [facility], [facility] oxyCODONE HCl 5 MG Oral Tablet 06/11/2021 - 06/16/2021 Provider: Roman escalante MD Diagnosis: 1-2 po q 4-6h prn post op pain Last Documented On 2 8:05AM By Roman Spears ; [facility] Medrol 4 MG Oral Tablet Therapy Pack 04/08/2021 - 04/15/2021 Provider: Roman escalante MD Diagnosis: take as directed Last Documented On 1 3:40PM By Elsy Mcgowan ; [facility] Medications Administered Includes: Administered Medications from this encounter No Administered Medications Recorded Vital Signs Includes: Vital Signs from this encounter Vital Name 11/22/2022 10:55A Height (in) 71 Weight (lb) 174 Body Mass Index 24.3 Body Surface Area 2 Note: bb Last Documented: On 11/22/2022 10:55A M ; [facility], [facility] Results Includes: Results discussed during this [...] accident - Patient pain level from 1-10: 2 - Yes, previous treatment. - History of Physical Therapy - History of Home Exercise Medications used for this condition: This is a 57-year-old man who is here approximately 3 months status post C3-4 and C4-5 anterior cervical discectomy and fusion. Royal is very happy to inform me that he continues to do very well. He said during multiple points during today's encounter that he is very happy that we got this done. He said he notices a big difference in the burning in the bilateral hands, indicates that his fine motor control has indeed improved and his handwriting looks more like his own. He is pleased with that. He did not mention any issues with his balance today. He did tell me that he is going to see a neurologist about occasional headaches he is having, but he did mention today that they are at least not as common as they were before surgery. I reminded him today that the goal of the surgery is not to relieve his headaches. Otherwise, he has no new complaints today. Social History Description Last Updated Tobacco non-user 09/16/2022 Last Documented On 3 10:42AM ; [facility], [facility] No recent change in diet 04/05/2022 Last Documented On 3 10:42AM ; [facility], [facility] Not a current smoker. 04/05/2022 Last Documented On 3 10:42AM ; [facility], [facility] Caffeine use 03/18/2021 Last Documented On 3 10:42AM ; [facility], [facility] Exercising regularly 03/18/2021 Last Documented On 3 10:42AM ; [facility], [facility] Not using alcohol 03/18/2021 Last Documented On 3 10:42AM ; [facility], [facility] Not using drugs 03/18/2021 Last Documented On 3 10:42AM ; [facility], [facility] Smoking Status Unknown Procedures and Surgical History Includes: Procedures from this encounter Procedures Code Diagnosis Performing Provider Service L ocation Service Date use of tobacco assessment performed 1000F Last Documented On 3 10:42AM ; [facility], [facility] an X-ray was performed 04/05 Neck @ [facility] ~10/11/2022 Neck @ [facility] ~11/22/2022 Neck @ [facility] [id number] Last Documented On 3 10:43AM ; [facility], [facility] an MRI was performed 06/15/2022 [facility]Spine @ [facility] [id number] Last Documented On 3 10:42AM ; [facility], [facility] Surgical History Last Updated Past Surgical History: 09/03/2022 C3-5 A CDF @ [facility] ~ 09/16/2022 Last Documented On 3 10:42AM ; [facility], [facility] Medical History Includes: Medical History addressed during this encounter Description Last Updated Past medical history non-contributory Last Documented On 3 10:42AM ; [facility], [facility] Recent immunization for flu 03/22/2022 1 06/05/2021 Last Documented On 3 10:42AM ; [facility], [facility] No recent immunization for pneumococcal pneumonia 03/18/2021 Last Documented On 3 10:42AM ; [facility], [facility] Previous Fractures 03/18/2021 Last Documented On 3 10:42AM ; [facility] Family History Includes: Family History addressed during this encounter Description Last Updated No significant family history 03/18/2021 Last Documented On 3 10:42AM ; [facility] Review of Systems Includes: Review of [...] complaint of seasonal allergic reaction. Reviewed on 11-22-2022 Mental Status Includes: Mental Status from this encounter Description Anxiety Functional Status Includes: Functional Status from this encounter No Functional Status Recorded Physical Exam Includes: Physical Exam from this encounter Allergies Includes: Active Allergies No Known Allergies Encounters Encounter Provider Location Date Check-In Time Check- Out Time Diagnosis Post Op Chris ricardo MD [facility] 3 10:40AM 12:04PM Insurance Includes: Active Insurance Policies Plan Name Member ID Group # Subscriber Relationship Effect mita Dates 1 - [facility] [id number] Royal Khan 05/09/2022 - Unknown Clinical Notes Includes: Clinical Notes from this encounter * Progress note Date Encounter Last Documented by 11/22/2022 Post Op Last documented on 12/05/2022; 3:36 PM, Chris Farfan MD; [facility], [facility] Active Problems & Conditions - Neck [...] accident - Patient pain level from 1-10: 2 - Yes, previous treatment. - History of Physical Therapy - History of Home Exercise Medications used for this condition: This is a 57-year-old man who is here approximately 3 months status post C3-4 and C4-5 anterior cervical discectomy and fusion. Royal is very happy to inform me that he continues to do very well. He said during multiple points during today's encounter that he is very happy that we got this done. He said he notices a big difference in the burning in the bilateral hands, indicates that his fine motor control has indeed improved and his handwriting looks more like his own. He is pleased with that. He did not mention any issues with his balance today. He did tell me that he is going to see a neurologist about occasional headaches he is having, but he did mention today that they are at least not as common as they were before surgery. I reminded him today that the goal of the surgery is not to relieve his headaches. Otherwise, he has no new complaints today. Current Medication - buPROPion HCl ER (SR) [...] Past Surgical History: 09/03/2022 C3-5 ACDF @ [facility] Social History Not a current smoker. Current [...] complaint of seasonal allergic reaction. Reviewed on 11-22-2022 Physical Findings - Vitals taken 11/22/2022 10:55 am bb Height 71 in Weight 174 lbs Body Mass Index 24.3 kg/m2 Body Surface Area 2 m2 General: Alert and Oriented ? 3 Focused [...] Symmetric, palpable posterior tibialis pulse bilaterally Tests X-ray cervical spine AP and lateral views of the cervical spine were obtained and reviewed in the office today There is redemonstration of anterior cervical instrumentation at C3, 4, and [address] grafts in [address]. There is again no evidence of early subsidence or hardware failure User Defined 5 this is a 57-year-old man who is approximately 3 months status post C3-4 and C4- 5 anterior cervical discectomy and fusion I think overall Royal has done very well postoperatively. I told him that in about a week, he can come off of any lingering restrictions and may resume normal activities slowly as tolerated. He can then resume taking any anti-inflammatory medications at his discretion as well. Otherwise, he can follow-up with me in 3 months which will constitute a 6-month postoperative follow-up or sooner if the need arises. Previous Tests Imaging: X-Ray: An X-ray was performed 04/05/2022 Neck @ [facility] 10/11/2022 Neck @ [facility] 11/22/2022 Neck @ [facility]. MRI Scan: An MRI was performed 06/15/2022 Mary @ [facility]. Counseling/Education - Lose weight Practice Management Use of tobacco assessment performed. Care Team - LITA MELCHOR MD - [address] SQL DEVELOPER Notes This dictation was done with voice recognition software and may contain errors and omissions.
--- OUTSIDE RECORDS SUMMARY | 2024-08-16 21:42 | XMS_ITS | Clinical Summary ---
Author Organization [facility] , [facility] Address [address] [place] [address] Phone Care Team Providers Care Rope Cutter Name Role Phone JILL GLOVER, LITA Green Primary Care Provider [phone] Kate GLOVER, Chris Jansen [phone] Reason for Visit and Chief Complaint [facility] Problems Includes: Problems addressed during this encounter and other active Problems All Visits Onset Date Resolved Date Provider Condition S tatus Neck Pain 04/05/2022 Chris Love MD Active Last Documented On 2 9:10AM ; [facility] Plan of Treatment Pending Tests [...] MD Last Documented On 2 1:50PM ; [facility] Assessments Includes: Assessments from this encounter No Assessments Recorded Medical Equipment - Implanted Devices Includes: Current Devices No Medical Equipment Recorded Medications Includes: Medications discussed during this encounter and other current Medications Current Medications (continue as prescribed) traZODone HCl 100 MG Oral Tablet 06/12/2022 Provider : LITA MELCHOR MD Diagnosis: Last Documented On 3 10:25AM By Chris Love ; [facility], [facility] Sildenafil Citrate 100 MG Oral Tablet 06/07/2022 Pro vider: LITA MELCHOR MD Diagnosis: Last Documented On 3 10:25AM By Chris Love ; [facility], [facility] Cyclobenzaprine HCl 5 MG Oral Tablet 06/04/2022 Prov ider: LITA MELCHOR MD Diagnosis: Last Documented On 3 10:25AM By Chris Love ; [facility], [facility] Escitalopram Oxalate 10 MG Oral Tablet 06/03/2022 Pr ovider: LITA MELCHOR MD Diagnosis: Last Documented On 3 10:25AM By Chris Love ; [facility], [facility] Naproxen 500 MG Oral Tablet 06/03/2022 Provider: LITA MELCHOR MD Diagnosis: Last Documented On 3 10:25AM By Chris Love ; [facility], [facility] Famotidine 20 MG Oral Tablet 04/23/2022 Provider: LITA MELCHOR MD Diagnosis: Last Documented On 3 10:25AM By Chris Love ; [facility], [facility] buPROPion HCl ER (SR) 200 MG Oral Tablet Extended Release 12 Hour 04/14/2022 Provider: LITA MELCHOR MD Diagnosis: Last Documented On 3 10:26AM By Chris Love ; [facility], [facility] Medications Administered Includes: Administered Medications from this [...] Location Date Check-In Time Check-Out Time Diagnosis [facility] Chris Love MD Surgery 09/03/2022 09/02/2022 8:13AM 11:59PM Insurance Includes: Active Insurance Policies Plan Name Member ID Group # Subscriber Relationship Effect mita Dates 1 - [facility] [id number] Royal Gleason [facility] 05/09/2022 - Unknown Clinical Notes Includes: Clinical Notes from this encounter No Clinical Notes Recorded
--- OUTSIDE RECORDS SUMMARY | 2024-08-16 21:42 | XMS_ITS ---
Author Organization [facility] Address [address] [place] [phone] Phone Care Team Providers Care Airplane Cover Maker Name Role Phone JILL GLOVER, LITA Green Primary Care Provider [phone] Kate GLOVER, Chris Jansen [phone] Reason for Referral Date Encounter Description Provider Reason for Referral 04/26/22 Follow Up Chris Love MD Re ferral To Physician 03/12/22 Follow Up Roman Spears MD Refe rral To Physician 01/27/22 Follow Up Cheslee Mak Bloyd PA-C Refe rral To Physician 12/09/21 Follow Up Cheslee Mak Bloyd PA-C Refe rral To Physician 10/21/21 Follow Up Roman Spears MD Refe rral To Physician - PCP for BP ~ 10/01/21 Follow Up Cheslee Mak Bloyd PA-C Refe rral To Physician - PCP for BP ~ 07/31/21 Post Op Cheslee Mak Bloyd PA-C Refe rral To Physician - PCP for BP ~ 07/02/21 Post Op Cheslee Mak Bloyd PA-C Refe rral To Physician - PCP for BP ~ 05/20/21 Follow Up Roman Spears MD Refe rral To Physician - PCP for BP ~ 04/08/21 Follow Up Roman Spears MD Refe rral To Physician - PCP for BP ~ Problems Includes: Active, inactive, and resolved Problems All Visits Onset Date Resolved Date Provider Condition S tatus Neck Pain 04/05/2022 Chris Love MD Active Last Documented On 2 9:10AM ; [facility] Joint Pain, Localized in the Left Shoulder 12/30/2021 03/12/2022 Chris Love MD Resol ed Last Documented On 3 10:02AM ; [facility] History of Left Elbow Joint Pain 04/08/2021 03/12/2022 Chirs Love MD Resol ed Last Documented On 3 10:02AM ; [facility] Plan of Treatment Pending Tests Order Diagnosis Results Due Ordering P rokevin Radiology - MRI MRI Elbow 04/01/21 Roman Spears MD Last Documented On 1 2:00PM ; [facility] Radiology - MRI MRI Shoulder 10/20/21 Roman Spears MD Last Documented On 2 4:29PM ; [facility] Radiology - MRI MRI Shoulder 12/23/21 Kera Silverman PA-C Last Documented On 2 1:37PM ; [facility] Procedure/Tests EMG 04/19/22 Chris Turcios MD Last Documented On 2 11:09AM ; [facility] Procedure/Tests Nerve Conduction Study 04/19/22 Chris Love MD Last Documented On 2 11:09AM ; [facility] Radiology - MRI MRI Cervical Spine 04/19/22 Christoph Love MD Last Documented On 2 11:09AM ; [facility] Radiology - MRI MRI Cervical Spine 05/10/22 Christoph Love MD Last Documented On 2 1:50PM ; [facility] Instructions to patient Lose weight Last Documented On 3 10:42AM ; [facility] Lose weight Last Documented On 3 10:04AM ; [facility] Lose weight Last Documented On 3 3:18PM ; [facility] Lose weight Last Documented On 3 8:34AM ; [facility] Lose weight Last Documented On 3 10:38AM ; [facility] No intervention and counseli ng on cessation of tobacco use Last Documented On 2 2:51PM ; [facility] No intervention and counseli ng on cessation of tobacco use Last Documented On 2 8:36AM ; [facility] No intervention and counseli ng on cessation of tobacco use Last Documented On 2 9:47AM ; [facility] Lose weight Last Documented On 2 10:59AM ; [facility] Lose weight Last Documented On 2 2:50PM ; [facility] Lose weight Last Documented On 2 11:49AM ; [facility] Lose weight Last Documented On 2 1:08PM ; [facility] Intervention and counseling on cessation of tobacco use Last Documented On 2 8:15AM ; [facility] Intervention and counseling on cessation of tobacco use Last Documented On 1 3:09PM ; [facility] Assessments Includes: Assessments for all patient encounters No Assessments Recorded Instructions Includes: Instructions for all patient encounters Instructions to patient Lose weight Last Documented On 3 10:42AM ; [facility] Lose weight Last Documented On 3 10:04AM ; [facility] Lose weight Last Documented On 3 3:18PM ; [facility] Lose weight Last Documented On 3 8:34AM ; [facility] Lose weight Last Documented On 3 10:38AM ; [facility] No intervention and counseli ng on cessation of tobacco use Last Documented On 2 2:51PM ; [facility] No intervention and counseli ng on cessation of tobacco use Last Documented On 2 8:36AM ; [facility] No intervention and counseli ng on cessation of tobacco use Last Documented On 2 9:47AM ; [facility] Lose weight Last Documented On 2 10:59AM ; [facility] Lose weight Last Documented On 2 2:50PM ; [facility] Lose weight Last Documented On 2 11:49AM ; [facility] Lose weight Last Documented On 2 1:08PM ; [facility] Intervention and counseling on cessation of tobacco use Last Documented On 2 8:15AM ; [facility] Intervention and counseling on cessation of tobacco use Last Documented On 1 3:09PM ; [facility] Medical Equipment - Implanted Devices Includes: Current and historical Devices No Medical Equipment Recorded Medications Includes: Current and historical Medications Current Medications (continue as prescribed) traZODone HCl 100 MG Oral Tablet 06/12/2022 Provider : LITA MELCHOR MD Diagnosis: Last Documented On 3 10:25AM By Chris Love ; [facility] Sildenafil Citrate 100 MG Oral Tablet 06/07/2022 Pro vider: LITA MELCHOR MD Diagnosis: Last Documented On 3 10:25AM By Chris Love ; [facility] Cyclobenzaprine HCl 5 MG Oral Tablet 06/04/2022 Prov ider: LITA MELCHOR MD Diagnosis: Last Documented On 3 10:25AM By Chris Love ; [facility] Escitalopram Oxalate 10 MG Oral Tablet 06/03/2022 Pr ovider: LITA MELCHOR MD Diagnosis: Last Documented On 3 10:25AM By Chris Love ; [facility] Naproxen 500 MG Oral Tablet 06/03/2022 Provider: LITA MELCHOR MD Diagnosis: Last Documented On 3 10:25AM By Chris Love ; [facility] Famotidine 20 MG Oral Tablet 04/23/2022 Provider: LITA MELCHOR MD Diagnosis: Last Documented On 3 10:25AM By Chris Love ; [facility] buPROPion HCl ER (SR) 200 MG Oral Tablet Extended Release 12 Hour 04/14/2022 Provider: LITA MELCHOR MD Diagnosis: Last Documented On 3 10:26AM By Chris Love ; [facility] Past Medications on file Gabapentin 300 MG Oral Capsule 09/13/2022 - 10/13/2022 Provider: Chris Mims MD Diagnosis: Take 1 capsule PO up to thre e times a day, NEEDED Last Documented On 3 5:22PM By Chris Love ; [facility] Cyclobenzaprine HCl 5 MG Ora l Tablet 03/22/2022 - 04/11/2022 Provider: LITA Stockton Diagnosis: Last Documented On 3 10:02AM By Chris Love ; [facility] Sildenafil Citrate 100 MG Or al Tablet 03/22/2022 - 03/31/2022 Provider: LITA Stockton Diagnosis: Last Documented On 3 10:24AM By Chris Love ; [facility] Naproxen 500 MG Oral Tablet 03/22/2022 - 04/21/2022 Pr ovider: LITA MELCHOR MD Diagnosis: Last Documented On 3 10:02AM By Chris Love ; [facility] Triamcinolone Acetonide 0.1% External Cream 02/19/2022 - 03/22/2022 Provider: LITA Stockton Diagnosis: Last Documented On 3 10:24AM By Chris Love ; [facility] Voltaren 1% External Gel 01/27/2022 - 02/26/2022 Provi vincent: Rmoan Spears MD Diagnosis: use as directed APPLY 1-2 GR AMS TO THE AFFECTED AREA PRN Last Documented On 2 9:04AM By Eliane Joaquin ; [facility] Mobic 15 MG Oral Tablet 01/27/2022 - 02/26/2022 Provid er: Roman Spears MD Diagnosis: once a day 1 TABLET BY MOUTH ONCE A DAY Last Documented On 2 9:04AM By Eliane Joaquin ; [facility] buPROPion HCl ER (SR) 200 MG Oral Tablet Extended Release 12 Hour 09/16/2021 - 10/17/2021 Provider: MARISOL MELCHOR MD Diagnosis: Last Documented On 3 10:24AM By Chris Love ; [facility] traZODone HCl 100 MG Oral Tablet 09/16/2021 - 10/18/19 Provider: LITA MELCHOR MD Diagnosis: Last Documented On 3 10:24AM By Chris Love ; [facility] HYDROcodone-Acetaminophen 5- 325 MG Oral Tablet 08/25/2021 - 08/28/2021 Provider: LITA MELCHOR MD Diagnosis: Last Documented On 3 9:37AM By Eliane Vega ; [facility] Sildenafil Citrate 100 MG Or al Tablet 08/19/2021 - 08/28/2021 Provider: LITA Stockton Diagnosis: Last Documented On 2 9:11AM By Eliane Vega ; [facility] Ondansetron HCl 4 MG Oral Tablet 06/19/2021 - 06/29/2021 Provider: Roman escalante MD Diagnosis: 1 q 8 hours prn post op nausea Last Documented On 2 8:29AM By oRman Spears ; [facility] oxyCODONE HCl 5 MG Oral Tablet 06/19/2021 - 06/24/2021 Provider: Roman escalante MD Diagnosis: 1-2 po q 4-6h prn post op pain Last Documented On 2 8:29AM By Roman Spears ; [facility] Ondansetron HCl 4 MG Oral Tablet 06/11/2021 - 06/21/2021 Provider: Roman escalante MD Diagnosis: 1 q 8 hours prn post op nausea Last Documented On 2 8:05AM By Roman Spears ; [facility] oxyCODONE HCl 5 MG Oral Tablet 06/11/2021 - 06/16/2021 Provider: Roman escalante MD Diagnosis: 1-2 po q 4-6h prn post op pain Last Documented On 2 8:05AM By Roman Spears ; [facility] Medrol 4 MG Oral Tablet Therapy Pack 04/08/2021 - 04/15/2021 Provider: Roman escalante MD Diagnosis: take as directed Last Documented On 1 3:40PM By Elsy Mcgowan ; [facility] Naproxen 500 MG Oral Tablet 03/18/2021 - 04/17/2021 Pr ovider: LITA MELCHOR MD Diagnosis: Last Documented On 2 9:10AM By Eliane Vega ; [facility] buPROPion HCl ER (SR) 150 MG Oral Tablet Extended Release 12 Hour 03/18/2021 - 04/17/2021 Provider: MARISOL MELCHOR MD Diagnosis: Last Documented On 2 9:10AM By Eliane Vega ; [facility] traZODone HCl 100 MG Oral Tablet 03/18/2021 - 04/17/20 21 Provider: LITA MELCHOR MD Diagnosis: Last Documented On 2 9:10AM By Eliane Vega ; [facility] Medications Administered Includes: Administered Medications in patient's chart No Administered Medications Recorded Results Includes: Results from 08/17/2023 through 08/16/2024 No Results Recorded For Specified Dates History of Present Illness History of Present Illness not supported for this document type No History of Present Illness Recorded Social History Description Last Updated Tobacco non-user 09/16/2022 Last Documented On 3 10:59AM ; [facility] No recent change in diet 04/05/2022 Last Documented On 2 9:43AM ; [facility] Not a current smoker. 04/05/2022 Last Documented On 2 9:43AM ; [facility] No tobacco use 12/30/2021 Last Documented On 2 11:32AM ; [facility] Not a smoker 12/09/2021 Last Documented On 2 1:37PM ; [facility] Non-smoker 07/02/2021 Last Documented On 2 2:18PM ; [facility] Caffeine use 03/18/2021 Last Documented On 1 2:00PM ; [facility] Exercising regularly 03/18/2021 Last Documented On 1 2:00PM ; [facility] No recent change in diet 03/18/2021 Last Documented On 1 2:00PM ; [facility] Not using alcohol 03/18/2021 Last Documented On 1 2:00PM ; [facility] Not using drugs 03/18/2021 Last Documented On 1 2:00PM ; [facility] Yes, current smoker. 03/18/2021 Last Documented On 1 2:00PM ; [facility] Smoking Status Unknown Procedures and Surgical History Surgical History Last Updated Past Surgical History: 09/03/2022 C3-5 A CDF @ [facility] ~ 09/16/2022 Last Documented On 3 10:59AM ; [facility] Medical History Includes: Medical History in patient's chart Description Last Updated Past medical history non-contributory Last Documented On 3 12:50PM ; [facility] Recent immunization for flu 03/22/2022 1 06/05/2021 Last Documented On 2 9:43AM ; [facility] No recent immunization for pneumococcal pneumonia 03/18/2021 Last Documented On 1 2:00PM ; [facility] Previous Fractures 03/18/2021 Last Documented On 1 2:00PM ; [facility] Family History Includes: Family History in patient's chart Description Last Updated No significant family history 03/18/2021 Last Documented On 1 2:00PM ; [facility] Review of Systems Review of Systems not supported for this document type No Review of Systems Recorded Mental Status No Mental Status Recorded Functional Status No Functional Status Recorded Physical Exam Physical Exam not supported for this document type No Physical Exam Recorded Immunizations Includes: Immunizations in patient's chart Vaccine Dose # Date Site Reaction(s) Status Source Influenza 1 02/06/2021 Complete (Reported) Patient Last Documented On 2 2:53PM ; [facility] Influenza 2 03/22/2022 Complete (Reported) Patient Last Documented On 2 1:49PM ; [facility] PCV (Pneumovax 23) 1 02/06/2021 Complete ( Reported) Patient Last Documented On 2 2:53PM ; [facility] PCV (Pneumovax 23) 2 03/22/2022 Complete ( Reported) Patient Last Documented On 2 11:09AM ; [facility] PCV (Pneumovax 23) 3 04/26/2022 Suspended (Contraindicated) [facility] Last Documented On 2 1:49PM ; [facility] Allergies Includes: Active, inactive, and resolved Allergies No Known Allergies Insurance Includes: Active Insurance Policies Plan Name Member ID Group # Subscriber Relationship Effect mita Dates 1 - [facility] [id number] Royal DamianGleason [facility] 05/09/2022 - Unknown Clinical Notes Includes: Signed Clinical Notes starting from 04/22/2022 No Clinical Notes Recorded
--- OUTSIDE RECORDS SUMMARY | 2024-08-16 21:42 | XMS_ITS ---
Care Plan - [facility], [facility] Created on: August 16, 2024 Rosibel Royal : 1965 Sex: Male Author Organization [facility] Address [address] [place] [id number] Phone Care Team Providers Care Property Loss Insurance Claim Adjuster Name Role Phone JILL GLOVER, LITA Green Primary Care Provider [phone] Kate GLOVER, [facility] [phone]
== END 2024-08-15 23:59 | disposition home or self-care (01) ==
LOC: RAD 06:53
PROVIDERS: PCP Internal Medicine; Visit Provider Nurse Practitioner
DX: I25.10 Atherosclerotic heart disease of native coronary artery without angina pectoris (principal); R06.09 Other forms of dyspnea; I47.10 Supraventricular tachycardia, unspecified
CPT/HCPCS: 78452; 93017; 93018; 93306; A9502; J2785

== ENCOUNTER 2024-08-16 10:39 | Outpatient (POV) | payer OTHER, SELFPAY ==
[2024-08-16 10:54] VITALS: BP 134/79; PULSE 98; RESP 14; O2SAT 99; BMI 24.3
--- NOTE | 2024-08-16 11:29 | A.OFFVIS_ITS ---
[facility] Disclaimer: The information contained in this section may have been updated after the patient was seen, as this information can be updated by other users. Medical History Asthma Dizziness Difficulty swallowing Hyperlipidemia Hypertension COPD (chronic obstructive pulmonary disease) Multiple lung nodules on CT Dyspnea on exertion History of smoking 30 or more pack years Pulmonary emphysema Analgesic overuse headache Headache Transformed migraine. Fixation hardware in spine Frozen shoulder History of arterial dissection GERD (gastroesophageal reflux disease) Depression Heart palpitations Heart attack Anxiety Cervical radiculopathy Osteoarthritis Surgical History History of loop recorder History of back surgery History of surgery on arm History of cervical discectomy Family History Other No significant family history Social History Smoking Status: Former smoker smoking status stop date: 08/27/2022 alcohol intake: never substance use type: denies use current occupational status: other Travel in the last 8 weeks: None household members: spouse housing: house marital status: caffeine: Yes PM Subjective & Objective Subjective Subjective:: Patient is a pleasant 58-year-old male who presents today for follow-up of x-ray imaging of his bilateral knees and right hip. Today he rates his pain a 5 out of 10. Patient does state that he is still having the worsening pain primarily in the mornings in his right hip and bilateral knees that does ease down as the day goes on. He does state that he still has some trouble sleeping due to the hip pain. He states overall his stimulator is working well. Patient does state that he ended up having a loop recorder that did monitor his heart rate and there were a few episodes of tachycardia where it went to 300 for about 3 seconds. He states they are still trying to figure out what is going on with this. Patient has been using his compounded cream and states this is significantly helping some of his overall joints. His Car has been reviewed and is appropriate. Review of Systems: General: No recent weight changes, no fever, no sleep disturbances Respiratory: No cough, no shortness of air, no recurring pulmonary infections Cardiovascular/peripheral vascular: No chest pain, no palpitations, no edema, no shortness of breath Gastrointestinal: No new onset incontinence, normal bowel movements reported Genitourinary: No new onset incontinence Musculoskeletal: Knee pain, right hip pain Psychiatric: [Normal mood/affect] Neurological: [Denies weakness in extremities], [denies balance issues] Pain at rest (0-10 scale): 5 Objective Objective:: Physical Exam: General: Alert and oriented x3, no acute distress, pleasant and cooperative Lungs: Respirations even and unlabored, symmetrical chest expansion Eyes: PERRL Musculoskeletal: Flexion and extension of lumbar [spine] somewhat guarded secondary to pain, [antalgic gait noted] Neurological: Speech clear, no gross sensory deficit Has patient had previous pain injection?: No Conservative treatment options previously tried: Home exercise plan Length of treatment: Longer than 12 weeks Meds Home Medications and Allergies Home Medications ?Medication ?Instructions ?Recorded ?Confirmed ?Type famotidine 20 mg tablet 20 mg PO DAILY 05/18/23 08/16/24 History mecobalamin (vitamin B12) 500 mcg 500 mcg PO DAILY 08/25/23 08/16/24 History chewable tablet omeprazole 40 mg capsule,delayed 40 mg PO DAILY #30 caps 02/14/24 08/16/24 Rx release albuterol sulfate 90 mcg/actuation 90 inh inhalation DAILY 06/25/24 08/16/24 History aerosol inhaler (Ventolin HFA) aspirin 81 mg tablet,delayed 81 mg PO DAILY 06/25/24 08/16/24 History release bisoprolol fumarate 5 mg tablet 5 mg PO DAILY 06/25/24 08/16/24 History bupropion HCl 200 mg tablet,12 hr 200 mg PO DAILY 06/25/24 08/16/24 History sustained-release (Wellbutrin SR) cetirizine 10 mg tablet 10 mg PO DAILY 06/25/24 08/16/24 History escitalopram oxalate 10 mg tablet 10 mg PO DAILY 06/25/24 08/16/24 History rosuvastatin 40 mg tablet 40 mg PO DAILY 06/25/24 08/16/24 History spironolactone 25 mg tablet 25 mg PO DAILY 06/25/24 08/16/24 History trazodone 100 mg tablet 100 mg PO HS SLEEP #60 tabs 07/05/24 08/16/24 Rx budesonide-formoterol HFA 160 2 puff inhalation BID 90 days 07/12/24 08/16/24 Rx mcg-4.5 mcg/actuation aerosol #10.2 grams inhaler (Symbicort) sildenafil 100 mg tablet (Viagra) 100 mg PO NEEDED PRN ED #10 tabs 07/24/24 08/16/24 Rx New Prescriptions to Start Prescriptions: Allergies Allergy/AdvReac Type Severity Reaction Status Date / Time No Known Allergies Allergy Verified 08/06/24 09:34 Assessment and Plan *Assessment and plan (1) Right knee pain: Status: Acute Category: Medical Code(s): M25.561 - Pain in right knee (2) Left knee pain: Status: Acute Category: Medical Code(s): M25.562 - Pain in left knee (3) Chronic right hip pain: Status: Acute Category: Medical Code(s): M25.551 - Pain in right hip; G89.29 - Other chronic pain Plan Patient did not have any acute findings on his updated x-ray imaging. I did discuss with the patient that we can always order additional advanced imaging. Patient was also counseled if it continues to be more bothersome that we can always try some injection therapy however at this time we are going to wait and see what is going on with the tachycardia. Patient will return to clinic in 3 months for evaluation and plan of care. Patient was counseled to call us if he needs us sooner. He agrees with this plan of care. Patient has been instructed to contact the clinic with any concerns before the next appointment. Dr. Michaels has reviewed this note and agrees with this plan of c are. This note was dictated using voice recognition software and make contain errors or omissions. All injections are used with Lidocaine, Bupivacaine and Depo Medrol. Occasionally urine drug screen is needed to verify patient's compliance with our office pain contract. This is ordered based off specific treatments related to chronic pain with the potential to abuse certain medications.
== END 2024-08-16 23:59 | disposition home or self-care (01) ==
LOC: SC.PAIN 10:40
PROVIDERS: PCP Internal Medicine; Visit Provider Nurse Practitioner Family
DX: M25.561 Pain in right knee (principal); M25.562 Pain in left knee; M25.551 Pain in right hip; G89.29 Other chronic pain; Z87.891 Personal history of nicotine dependence
CPT/HCPCS: 99212; G0463

== ENCOUNTER 2024-08-29 07:41 | Day surgery (SDC) | payer OTHER, SELFPAY ==
[2024-08-29] VITALS (13 sets, daily range): BP systolic 127–163; BP diastolic 57–94; PULSE 57–80; RESP 17–18; O2SAT 94–100; BMI 24.5
--- NOTE | 2024-08-29 07:02 | IR_ITS ---
APPROVED REPORT Patient Location: Outpatient Manufacturing Mechanic: Seth Negro, RT (R) PROCEDURES Left heart catheterization Left ventriculogram Selective coronary angiogram Drug-eluting stent deployment to the circumflex artery extending into a large first obtuse marginal artery INDICATION Coronary artery disease, Angina pectoris, Abnormal Myoview Informed consent was obtained prior to the procedure. COMPLICATIONS NONE Estimated Blood Loss: LESS THAN 10 ML TECHNIQUE One percent lidocaine used to anesthetize the right anterior aspect of the wrist. The right radial artery was accessed via the Seldinger technique. A 6 Telugu sheath was placed in the right radial artery. 2.5 mg of Verapamil, 800 mcg of nitroglycerin, 1mg Lidocaine and 5000 U Heparin were given through the arterial sheath. The 6 Telugu JL 3 guide catheter was also used to perform left heart catheterization, left ventriculogram and selective coronary angiogram. At the end the diagnostic angiogram therapeutic heparin was administered given a therapeutic ACT and the guide catheter was placed in left main artery followed by a Choice PT extra-support wire placed into the first obtuse marginal artery. A 3 mm x 22 mm [place] frontier stent was deployed at 18 catherine reducing the severe stenosis to 0%. SUSANA-3 flow was present before and after the procedure. At the end the procedure the apparatus was removed the sheath was removed and hemostasis was achieved using TR banding patient was transferred to the postop putting in stable condition ANGIOGRAPHIC RESULTS The left main artery Normal The left anterior descending artery Is widely patent with mild 10% proximal and mid vessel diffuse luminal irregularities The circumflex artery Nondominant gives rise to medium sized ramus intermedius which is widely patent. The circumflex artery itself is nondominant yet still large with an ostial 70 to 80% stenosis followed by concentric 70 to 80% stenosis in the large first obtuse marginal artery The right coronary artery Is dominant and has diffuse proximal and mid vessel 20 and 30% stenoses The REY ventriculogram reveals Normal 65% The left ventricular end-diastolic pressure 15 mmHg IMPRESSION Coronary artery disease as described above most notably in the ostial segment of the nondominant large circumflex artery Severe stenosis in the mid circumflex artery extending into a large first obtuse marginal artery Successful stenting of the circumflex artery extending to the first obtuse marginal artery severe disease reduced to 0% with 1 drug-eluting stent Normal ejection fraction Normal LVEDP PLAN 1. Continue medical management for the ostial circumflex artery stenosis 2. LDL less than 55 to be achieved with high intensity statin 3. Avoidance of tobacco products 4. Risk factor modification 5. Cardiac rehabilitation 6. Maximize antianginal medications. The circumflex artery is not an appropriate candidate for revascularization given the LAD is minimally diseased and the presence of a small to medium sized ramus intermedius which would almost certainly be jailed with stenting. Furthermore the dominant right coronary artery is minimally diseased Electronically signed by : Fernie Jama MD 08/29/2024 08:50:57
[2024-08-29 08:09] LABS: Basophils # 0.1 K/mm3 (0-0.2); Basophils % 1.2 % (0.1-2.0); Eosinophils # 0.2 Kmm3 (0.0-0.4); Eosinophils % 3.6 % (0.1-12.0); Hematocrit 40.4 % (42.0-52.0); Lymphocytes # 1.6 K/mm3 (0.7-4.5); Mean Corpuscular HGB Conc 32.2 g/dL (31.8-35.4); Mean Corpuscular Hemoglobin 28.6 pg (27.0-31.2); Mean Platelet Volume 8.8 fl (7.4-10.4); Monocytes # 0.5 K/mm3 (0.1-1.0); Monocytes % 8.7 % (1.7-9.3); Neutrophils # 3.4 K/mm3 (1.8-7.8); Neutrophils % 58.3 % (37.0-80.0); Nucleated Red Blood Cells # 0 10^3/uL; Nucleated Red Blood Cells % 0 %; Platelet Count 331 K/mm3 (142-424); Red Blood Count 4.54 M/mm3 (4.60-6.20); Red Cell Distribution Width 13.4 % (11.5-17.5); Red Cell Distribution Width-SD 43.3 fL; White Blood Count 5.8 K/mm3 (4.8-10.8)
[2024-08-29 08:12] LABS: Chloride 110 mmol/L (98-107); Potassium 3.8 mmoL/L (3.5-5.1); Sodium 143 mmol/L (136-145)
[2024-08-29 08:15] LABS: Anion Gap 9.8 mEq/L (5-15); Blood Urea Nitrogen 19 mg/dl (9-20); Calcium 8.6 mg/dl (8.4-10.2); Carbon Dioxide 27 mmol/L (22.0-30.0); Creatinine Clearance Estimated 115 mL/min (50-200); Estimated Glomerular Filt Rate 100 ml/min (>60); GFR (African American) 121 ML/MIN (>60); Glucose 117 mg/dl (74-100)
[2024-08-29] MEDS: NITROGLYCERIN 800MCG/8ML SYR (CATH LAB) 800 MCG IA (08:23)
[2024-08-29] MEDS: LIDOCAINE 1% 10ML MDV 10 ML IJ (08:23)
[2024-08-29] MEDS: HEPARIN 1,000 UNITS/ML 10ML VIAL (CATH LAB) 5000 UNIT IV (08:23)
[2024-08-29] MEDS: VERAPAMIL 2.5MG/ML 2ML VIAL 2.5 MG IV (08:23)
[2024-08-29] MEDS: diphenhydrAMINE 50MG/ML VIAL 50 MG IV (08:24)
[2024-08-29] MEDS: 0.9 % SODIUM CHLORIDE 500 ML 25 ML IV (08:24)
[2024-08-29] MEDS: HEPARIN 1,000 UNITS/500ML NS (CATH LAB) 3000 UNIT IV (08:24)
[2024-08-29] MEDS: FENTANYL 100MCG/2ML VIAL 50 MCG IV (08:55)
[2024-08-29] MEDS: MIDAZOLAM HCL 1MG/ML 5ML VIAL 1 MG IV (08:55)
[2024-08-29] MEDS: IOPAMIDOL-370 (76%);100ML BOTTLE 110 ML IV (12:25)
[2024-08-29 12:38] LABS: CATHL Activated Clotting Time 369 SEC (74-125)
== END 2024-08-29 11:53 | disposition home or self-care (01) ==
PROVIDERS: PCP Internal Medicine; Visit Provider Internal Medicine
DX: I25.118 Atherosclerotic heart disease of native coronary artery with other forms of angina pectoris (principal); I77.1 Stricture of artery; I47.10 Supraventricular tachycardia, unspecified; R93.1 Abnormal findings on diagnostic imaging of heart and coronary circulation; R06.02 Shortness of breath; F41.9 Anxiety disorder, unspecified; Z79.51 Long term (current) use of inhaled steroids; Z79.82 Long term (current) use of aspirin; I10 Essential (primary) hypertension; E78.5 Hyperlipidemia, unspecified; J45.909 Unspecified asthma, uncomplicated; Z87.891 Personal history of nicotine dependence; I95.1 Orthostatic hypotension; G47.33 Obstructive sleep apnea (adult) (pediatric)
CPT/HCPCS: 80048; 85025; 85347; 92928; 93458; 99152; C1725; C1769; C1874; C9600; J1200; J1644; J3010; Q9967

== ENCOUNTER 2024-09-01 04:52 | Emergency (ER) | payer OTHER, SELFPAY ==
[2024-09-01] VITALS (8 sets, daily range): BP systolic 126–150; BP diastolic 72–86; PULSE 85–109; RESP 16–21; TEMP 36.6–36.8; O2SAT 95–98; BMI 25.4
--- NOTE | 2024-09-01 04:55 | HMH.EDGENADL ---
Discharge Plan Disposition Patient Disposition: Home, Self-Care Prescriptions Prescriptions: New ranolazine 500 mg tablet extended release 12 hr 500 mg PO BID 30 Days Qty: 60 0RF isosorbide mononitrate 30 mg tablet extended release 24 hr 30 mg PO DAILY 30 Days Qty: 30 0RF No Action budesonide-formoterol [Symbicort] 160-4.5 mcg/actuation HFA aerosol inhaler 2 puff inhalation BID 90 Days Qty: 10.2 2RF omeprazole 40 mg capsule,delayed release(DR/EC) 40 mg PO DAILY Qty: 30 12RF Rx Instructions: Please take 1 capsule daily 30 minutes prior to evening meal/dinner famotidine 20 mg tablet 20 mg PO DAILY trazodone 100 mg tablet 100 mg PO HS Qty: 60 2RF Rx Instructions: 1 or 2 orally at bedtime nightly; sildenafil [Viagra] 100 mg tablet 100 mg PO NEEDED PRN (Reason: ED) Qty: 10 5RF bisoprolol fumarate 5 mg tablet 5 mg PO DAILY Qty: 90 3RF Rx Instructions: TAKE ONE TABLET BY MOUTH ONCE DAILY FOR heart beat AND anxiety cetirizine 10 mg tablet 10 mg PO DAILY Rx Instructions: TAKE ONE TABLET BY MOUTH EVERY DAY NEEDED FOR allergies. aspirin 81 mg tablet,delayed release (DR/EC) 81 mg PO DAILY Rx Instructions: TAKE ONE TABLET BY MOUTH EVERY DAY albuterol sulfate [Ventolin HFA] 90 mcg/actuation HFA aerosol inhaler 90 inh inhalation DAILY Rx Instructions: INHALE TWO PUFFS BY MOUTH FOUR TIMES DAILY NEEDED FOR SHORTNESS OF BREATH OR wheezing escitalopram oxalate 10 mg tablet 10 mg PO DAILY Rx Instructions: TAKE ONE TABLET BY MOUTH ONCE DAILY rosuvastatin 40 mg tablet 40 mg PO DAILY Rx Instructions: TAKE ONE TABLET BY MOUTH EVERY DAY spironolactone 25 mg Tablet 25 mg PO DAILY bupropion HCl 200 mg tablet sustained-release 12 hr 200 mg PO DAILY Patient Comments: TAKE ONE TABLET BY MOUTH TWICE DAILY prasugrel HCl [Effient] 10 mg Tablet 10 mg PO DAILY 30 Days Qty: 30 3RF ramipril [Altace] 2.5 mg Capsule 2.5 mg PO DAILY 30 Days Qty: 30 3RF Referrals Follow up/Referrals: Emanuel Vital MD [Primary Care Provider] - See instructions Activity Restrictions/Add. Instructions Additional Instructions/Restrictions: As discussed you have been prescribed 2 new medications including Ranexa and Imdur which should help with the anginal symptoms that you are experiencing. Please expect a possible headache as discussed with the Imdur which is a known side effect. Dr. Jama wanted to see you personally at his clinic on Tuesday at 11 AM. Clinical Impressions Clinical Impression: Chest pain, Myocardial injury Print Language Print Language: Upper Sorbian Discharge ED Provider: Juan Rivera General Adult HPI <Juan Rivera MD - Last Filed: 09/01/24 07:01> General Chief complaint: Chest Pain Stated complaint: heart cath 08/29, bruising, pain both forearms, JAY Time Seen by Provider: 09/01/24 04:55 History of Present Illness HPI narrative: 59-year-old male with history of COPD, coronary artery disease status post outpatient cath 3 days ago, hypertension, hyperlipidemia, anxiety presents for shortness of breath and intermittent chest pain. He reports that when he left the hospital after his cath on Tuesday he felt fine. But since then he has been having bilateral arm heaviness, feels generally weak and short of breath more so than normal, and has some chest heaviness/pain. He has been taking his medications as prescribed. This morning the shortness of breath seemed worse so he presented. Related Data Home Medications ?Medication ?Instructions ?Recorded ?Confirmed famotidine 20 mg tablet 20 mg PO DAILY 05/18/23 08/29/24 albuterol sulfate 90 mcg/actuation 90 inh inhalation DAILY 06/25/24 08/29/24 aerosol inhaler (Ventolin HFA) aspirin 81 mg tablet,delayed 81 mg PO DAILY 06/25/24 08/29/24 release cetirizine 10 mg tablet 10 mg PO DAILY 06/25/24 08/29/24 escitalopram oxalate 10 mg tablet 10 mg PO DAILY 06/25/24 08/29/24 rosuvastatin 40 mg tablet 40 mg PO DAILY 06/25/24 08/29/24 spironolactone 25 mg tablet 25 mg PO DAILY 06/25/24 08/29/24 bupropion HCl 200 mg tablet,12 hr 200 mg PO DAILY 08/29/24 08/29/24 sustained-release Previous Rx's ?Medication ?Instructions ?Recorded omeprazole 40 mg capsule,delayed 40 mg PO DAILY #30 caps 02/14/24 release trazodone 100 mg tablet 100 mg PO HS SLEEP #60 tabs 07/05/24 budesonide-formoterol HFA 160 2 puff inhalation BID 90 days 07/12/24 mcg-4.5 mcg/actuation aerosol #10.2 grams inhaler (Symbicort) sildenafil 100 mg tablet (Viagra) 100 mg PO NEEDED PRN ED #10 tabs 07/24/24 bisoprolol fumarate 5 mg tablet 5 mg PO DAILY #90 tabs 08/29/24 prasugrel HCl 10 mg tablet 10 mg PO DAILY 30 days #30 tabs 08/29/24 (Effient) ramipril 2.5 mg capsule (Altace) 2.5 mg PO DAILY 30 days #30 caps 08/29/24 isosorbide mononitrate 30 mg 30 mg PO DAILY 30 days #30 tabs 09/01/24 tablet,extended release 24 hr ranolazine 500 mg tablet,extended 500 mg PO BID 30 days #60 tabs 09/01/24 release,12 hr Allergies Allergy/AdvReac Type Severity Reaction Status Date / Time No Known Allergies Allergy Verified 08/29/24 07:59 [facility] <Juan Rivera MD - Last Filed: 09/01/24 07:01> [facility] Disclaimer: The information contained in this section may have been updated after the patient was seen, as this information can be updated by other users. Medical History (Updated 09/01/24 @ 08:52 by Avelina Lin MD) Abnormal nuclear cardiac imaging test Asthma Dizziness Difficulty swallowing Hyperlipidemia Hypertension COPD (chronic obstructive pulmonary disease) Multiple lung nodules on CT Dyspnea on exertion History of smoking 30 or more pack years Pulmonary emphysema Analgesic overuse headache Headache Fixation hardware in spine Frozen shoulder History of arterial dissection GERD (gastroesophageal reflux disease) Depression Heart palpitations Heart attack Anxiety Cervical radiculopathy Osteoarthritis Surgical History History of loop recorder History of back surgery History of surgery on arm History of cervical discectomy Family History Other No significant family history Social History Smoking Status: Former smoker smoking status stop date: 08/27/2022 alcohol intake: never substance use type: denies use current occupational status: other Travel in the last 8 weeks: None household members: spouse housing: house marital status: caffeine: Yes Other Medical History Have you received the Flu Vaccine for this season: Yes Have you received the Pneumonia Vaccine: No <Juan Rivera MD - Last Filed: 09/01/24 07:01> ROS Obtained: Yes All systems reviewed & no additional complaints except as documented Physical Exam <Juan Rivera MD - Last Filed: 09/01/24 07:01> General General appearance: alert and anxious Head Head exam: atraumatic and normocephalic Eye Eye exam: Present normal appearance, PERRL and EOMI ENT ENT exam: Present normal oropharynx and normal external ear exam Neck Neck exam: Present normal inspection and full ROM Chest Chest inspection: Present normal inspection and symmetric chest wall rise; Absent tenderness Respiratory Respiratory exam: Present normal lung sounds bilaterally; Absent respiratory distress Cardiovascular Cardiovascular exam: Present regular rate and normal rhythm Abdominal Exam Abdominal exam: Present soft; Absent distention, tenderness or guarding Extremities Exam Extremities exam: Present normal inspection; Absent edema or joint swelling Back Exam Back exam: Present normal inspection; Absent tenderness Neurological Exam Neurological exam: Present alert and oriented X3; Absent motor sensory deficit Psychiatric Psychiatric exam: Present normal affect and normal mood Skin Skin exam: Present warm, dry and normal color Lymphatic Lymphatic Findings: no adenopathy Medical Decision Making <Juan Rivera MD - Last Filed: 09/01/24 07:01> Medical Records Medical records reviewed: Yes I reviewed the patient's medical records. Screening: Per USPSTF and CDC recommendations, given the prevalence of disease in our region, it is our hospital?s policy to screen for HIV and viral Hepatitis for all patients aged 18 and over and those with ongoing risk factors. Car Inquiry Pt receiving controlled substance: No Car was queried for this patient: No Vital Signs: 09/01/24 05:01 09/01/24 05:02 09/01/24 05:30 Temperature 97.9 F 97.9 F Temperature Source Oral Pulse Rate 103 H Pulse Rate [Left] 98 H Respiratory Rate 18 16 Blood Pressure 137/86 150/78 H Blood Pressure [Right Arm] 150/85 H Blood Pressure Mean 97 Blood Pressure Mean [Right Arm] 106 02 Sat by Pulse Oximetry 97 98 Oxygen Delivery Method Room Air 09/01/24 06:00 09/01/24 07:01 09/01/24 07:30 Temperature Temperature Source Pulse Rate 85 109 H 91 H Pulse Rate [Left] Respiratory Rate 21 19 16 Blood Pressure 141/83 H 130/81 132/85 Blood Pressure [Right Arm] Blood Pressure Mean Blood Pressure Mean [Right Arm] 02 Sat by Pulse Oximetry 95 98 96 Oxygen Delivery Method Room Air Room Air 09/01/24 08:00 Temperature Temperature Source Pulse Rate 101 H Pulse Rate [Left] Respiratory Rate 19 Blood Pressure 126/72 Blood Pressure [Right Arm] Blood Pressure Mean Blood Pressure Mean [Right Arm] 02 Sat by Pulse Oximetry 97 Oxygen Delivery Method Room Air Lab Data Lab results reviewed: Yes I reviewed the patient's lab results. Lab Results 09/01/24 05:01: WBC 9.8 D, RBC 4.63, Hgb 13.0 L, Hct 40.2 L, MCV 86.8, MCH 28.1, MCHC 32.3, RDW 13.4, Plt Count 345, MPV 8.8, Neut % (Auto) 74.1, Lymph % (Auto) 17.4, [place] % (Auto) 6.2, Eos % (Auto) 1.4, Baso % (Auto) 0.7, Neut # (Auto) 7.2, Lymph # (Auto) 1.7, [place] # (Auto) 0.6, Eos # (Auto) 0.1, Baso # (Auto) 0.1, PT 10.7, INR 0.95, APTT 27.1, D-Dimer 0.77 H, Sodium 141, Potassium 3.7, Chloride 108 H, Carbon Dioxide 25, Anion Gap 11.7, BUN 20, Creatinine 1.00 D, Estimated Creat Clear 93, Estimated GFR 77, Est GFR ( Amer) 93 D, Glucose 111 H, Calcium 8.9, Total Bilirubin 0.6, AST 37, ALT 26, Alkaline Phosphatase 90, Troponin I 0.14 H, NT-Pro-B Natriuret Pep 40.5, Total Protein 7.5, Albumin 4.6, Globulin 2.9, Albumin/Globulin Ratio 1.6, HCV Ab MIKAYLA w/Rflx PCR Qn Negative, HIV Ag/Ab Combo Qual Negative 09/01/24 07:50: Troponin I 0.11 H 09/01/24 05:01 09/01/24 05:01 Orders (Tests/Meds): ED MEDICATIONS Generic Name Dose Route Start Last Admin Trade Name Frebreonna PRN Reason Stop Dose Admin Sodium Chloride 10 ml 09/01/24 06:13 Sodium Chloride 0.9% 10ml Syr (Rad Only) IV 10/01/24 06:12 NEEDED PRN Maintain IV Site Discontinued Medications Generic Name Dose Route Start Last Admin Trade Name Frebreonna PRN Reason Stop Dose Admin Acetaminophen 1,000 mg 09/01/24 05:03 09/01/24 05:25 Acetaminophen 500mg Tab PO 09/01/24 05:04 Not Given ONCE ONE Aspirin 324 mg 09/01/24 05:52 09/01/24 06:12 Aspirin 81mg Chewable Tablet PO 09/01/24 05:53 324 mg ONCE ONE Administration Belladonna Alkaloids 60 ml 09/01/24 05:03 09/01/24 05:20 Belladonna Alkaloids 60 Ml Ml PO 09/01/24 05:04 60 ml ONCE ONE Administration Iopamidol 70 ml 09/01/24 06:13 09/01/24 06:16 Iopamidol-370 (76%);100ml Bottle IV 09/01/24 06:14 70 ml ONCE ONE Administration Ondansetron HCl 4 mg 09/01/24 05:03 09/01/24 05:20 Ondansetron 4mg/2ml Vial IV 09/01/24 05:04 4 mg ONCE ONE Administration Sodium Chloride 50 ml 09/01/24 06:13 09/01/24 06:16 0.9 % Sodium Chloride 50 Ml Vial IV 09/01/24 06:14 50 ml ONCE ONE Administration ORDERS Category Date Time Status CT angio chest PE protocol Stat Cat Scan 09/01/24 05:53 Completed CXR --portable [XR chest portable] Stat Exams 09/01/24 05:03 Completed BNP [NT Pro Brain Natriuretic Pep.] Stat Lab 09/01/24 05:01 Completed CBC w/Auto Diff [Complete Blood Count Auto Diff] Stat Lab 09/01/24 05:01 Completed CMP [Comprehensive Metabolic Panel] Stat Lab 09/01/24 05:01 Completed D-Dimer Stat Lab 09/01/24 05:01 Completed HIV Combo Stat Lab 09/01/24 05:01 Completed Hepatitis C Ab Qual. W/ RFX Stat Lab 09/01/24 05:01 Completed INR [Prothrombin Time INR] Stat Lab 09/01/24 05:01 Completed PTT [Activated Partial Thrombo Time] Stat Lab 09/01/24 05:01 Completed Troponin I Q3H Lab 09/01/24 05:01 Completed Troponin I Q3H Lab 09/01/24 07:50 Completed ECG Data Tracing #1: I reviewed this ECG and interpreted as documented below: Sinus rhythm, rate of 99, low volume QRS, no significant ST elevation or depression, no T wave changes. ECG initial impression date: 09/01/24 ECG initial impression time: 05:00 Tracing #2: I reviewed this ECG and interpreted as documented below: Sinus rhythm, rate of 89, no ST elevation. Possible subtle ST depression in the inferior leads compared to prior EKG, though difficult to interpret given wandering baseline. ECG initial impression date: 09/01/24 ECG initial impression time: 05:57 HEART Score History (anamnesis): Moderately suspicious ECG: Non-specific disturbance Age: 45-65 years Risk factors: Atherosclerosis history Troponin: > 3x normal limit HEART Score: 7 Medical Decision Narrative: 59-year-old male with history of COPD, coronary artery disease status post outpatient cath with 1 stent to the left circumflex on 08/29, presents for several days of arm heaviness, shortness of breath, intermittent chest pain. History was obtained via interactive discussion with patient chart review. On arrival, patient is [afebrile, hemodynamically stable, satting appropriately, alert, oriented x4, GCS 15], moving all extremities spontaneously. Full physical exam performed and significant for clear lungs bilaterally without wheezing or prolonged expiratory phase Differential includes but is not limited to ACS, PE, heart failure, COPD exacerbation, pneumonia, pneumothorax. Patient was given aspirin, GI cocktail, Zofran for symptomatic management and correction of underlying abnormalities. Workup initiated including CBC CMP troponin EKG x 2 chest x-ray BNP D-dimer. On re-evaluation, patient [remains afebrile, HD stable.] Laboratory workup independently interpreted by me and significant for elevated troponin at 0.14. D-dimer also elevated at 0.76. Imaging independently interpreted by me and significant for severe emphysema, no evidence of PE, no pericardial effusion, no pneumothorax. See radiology read for full review of final results. At this time care handoff to oncoming physician pending second troponin. <Avelina Lin MD - Last Filed: 09/01/24 08:54> Vital Signs: 09/01/24 05:01 09/01/24 05:02 09/01/24 05:30 Temperature 97.9 F 97.9 F Temperature Source Oral Pulse Rate 103 H Pulse Rate [Left] 98 H Respiratory Rate 18 16 Blood Pressure 137/86 150/78 H Blood Pressure [Right Arm] 150/85 H Blood Pressure Mean 97 Blood Pressure Mean [Right Arm] 106 02 Sat by Pulse Oximetry 97 98 Oxygen Delivery Method Room Air 09/01/24 06:00 09/01/24 07:01 09/01/24 07:30 Temperature Temperature Source Pulse Rate 85 109 H 91 H Pulse Rate [Left] Respiratory Rate 21 19 16 Blood Pressure 141/83 H 130/81 132/85 Blood Pressure [Right Arm] Blood Pressure Mean Blood Pressure Mean [Right Arm] 02 Sat by Pulse Oximetry 95 98 96 Oxygen Delivery Method Room Air Room Air 09/01/24 08:00 Temperature Temperature Source Pulse Rate 101 H Pulse Rate [Left] Respiratory Rate 19 Blood Pressure 126/72 Blood Pressure [Right Arm] Blood Pressure Mean Blood Pressure Mean [Right Arm] 02 Sat by Pulse Oximetry 97 Oxygen Delivery Method Room Air Lab Data Lab results reviewed: Yes I reviewed the patient's lab results. Lab Results 09/01/24 05:01: WBC 9.8 D, RBC 4.63, Hgb 13.0 L, Hct 40.2 L, MCV 86.8, MCH 28.1, MCHC 32.3, RDW 13.4, Plt Count 345, MPV 8.8, Neut % (Auto) 74.1, Lymph % (Auto) 17.4, [place] % (Auto) 6.2, Eos % (Auto) 1.4, Baso % (Auto) 0.7, Neut # (Auto) 7.2, Lymph # (Auto) 1.7, [place] # (Auto) 0.6, Eos # (Auto) 0.1, Baso # (Auto) 0.1, PT 10.7, INR 0.95, APTT 27.1, D-Dimer 0.77 H, Sodium 141, Potassium 3.7, Chloride 108 H, Carbon Dioxide 25, Anion Gap 11.7, BUN 20, Creatinine 1.00 D, Estimated Creat Clear 93, Estimated GFR 77, Est GFR ( Amer) 93 D, Glucose 111 H, Calcium 8.9, Total Bilirubin 0.6, AST 37, ALT 26, Alkaline Phosphatase 90, Troponin I 0.14 H, NT-Pro-B Natriuret Pep 40.5, Total Protein 7.5, Albumin 4.6, Globulin 2.9, Albumin/Globulin Ratio 1.6, HCV Ab MIKAYLA w/Rflx PCR Qn Negative, HIV Ag/Ab Combo Qual Negative 09/01/24 07:50: Troponin I 0.11 H Orders (Tests/Meds): ED MEDICATIONS Generic Name Dose Route Start Last Admin Trade Name Freq PRN Reason Stop Dose Admin Sodium Chloride 10 ml 09/01/24 06:13 Sodium Chloride 0.9% 10ml Syr (Rad Only) IV 10/01/24 06:12 NEEDED PRN Maintain IV Site Discontinued Medications Generic Name Dose Route Start Last Admin Trade Name Freq PRN Reason Stop Dose Admin Acetaminophen 1,000 mg 09/01/24 05:03 09/01/24 05:25 Acetaminophen 500mg Tab PO 09/01/24 05:04 Not Given ONCE ONE Aspirin 324 mg 09/01/24 05:52 09/01/24 06:12 Aspirin 81mg Chewable Tablet PO 09/01/24 05:53 324 mg ONCE ONE Administration Belladonna Alkaloids 60 ml 09/01/24 05:03 09/01/24 05:20 Belladonna Alkaloids 60 Ml Ml PO 09/01/24 05:04 60 ml ONCE ONE Administration Iopamidol 70 ml 09/01/24 06:13 09/01/24 06:16 Iopamidol-370 (76%);100ml Bottle IV 09/01/24 06:14 70 ml ONCE ONE Administration Ondansetron HCl 4 mg 09/01/24 05:03 09/01/24 05:20 Ondansetron 4mg/2ml Vial IV 09/01/24 05:04 4 mg ONCE ONE Administration Sodium Chloride 50 ml 09/01/24 06:13 09/01/24 06:16 0.9 % Sodium Chloride 50 Ml Vial IV 09/01/24 06:14 50 ml ONCE ONE Administration ORDERS Category Date Time Status CT angio chest PE protocol Stat Cat Scan 09/01/24 05:53 Completed CXR --portable [XR chest portable] Stat Exams 09/01/24 05:03 Completed BNP [NT Pro Brain Natriuretic Pep.] Stat Lab 09/01/24 05:01 Completed CBC w/Auto Diff [Complete Blood Count Auto Diff] Stat Lab 09/01/24 05:01 Completed CMP [Comprehensive Metabolic Panel] Stat Lab 09/01/24 05:01 Completed D-Dimer Stat Lab 09/01/24 05:01 Completed HIV Combo Stat Lab 09/01/24 05:01 Completed Hepatitis C Ab Qual. W/ RFX Stat Lab 09/01/24 05:01 Completed INR [Prothrombin Time INR] Stat Lab 09/01/24 05:01 Completed PTT [Activated Partial Thrombo Time] Stat Lab 09/01/24 05:01 Completed Troponin I Q3H Lab 09/01/24 05:01 Completed Troponin I Q3H Lab 09/01/24 07:50 Completed HEART Score HEART Score: 7 Medical Decision Narrative: 59-year-old male with history of COPD, coronary artery disease status post outpatient cath with 1 stent to the left circumflex on 08/29, presents for several days of arm heaviness, shortness of breath, intermittent chest pain. History was obtained via interactive discussion with patient chart review. On arrival, patient is [afebrile, hemodynamically stable, satting appropriately, alert, oriented x4, GCS 15], moving all extremities spontaneously. Full physical exam performed and significant for clear lungs bilaterally without wheezing or prolonged expiratory phase Differential includes but is not limited to ACS, PE, heart failure, COPD exacerbation, pneumonia, pneumothorax. Patient was given aspirin, GI cocktail, Zofran for symptomatic management and correction of underlying abnormalities. Workup initiated including CBC CMP troponin EKG x 2 chest x-ray BNP D-dimer. On re-evaluation, patient [remains afebrile, HD stable.] Laboratory workup independently interpreted by me and significant for elevated troponin at 0.14. D-dimer also elevated at 0.76. Imaging independently interpreted by me and significant for severe emphysema, no evidence of PE, no pericardial effusion, no pneumothorax. See radiology read for full review of final results. At this time care handoff to oncoming physician pending second troponin. This is Dr. Lin at 8:52 AM I took over care from Dr. Rivera this morning. Serial troponins are persistently elevated above 99th percentile but no significant delta. EKGs were reviewed and were nonischemic. CT scan was performed which I personally interpreted shows no evidence of acute PE pericardial effusion or other acute cardiopulmonary emergency. Radiology read is consistent with this as well. Patient very comfortable on my clinical reassessment. I discussed the case with Dr. Jama given the persistent elevations and troponins which are consistent with a myocardial injury not an acute myocardial infarction, stent thrombosis etc. Multiple other reasons after recent cardiac intervention as to why he might have mild elevation in his troponins. Nonetheless he is stable for outpatient management Dr. Jama and I reviewed his specific anatomy on his cath report and the patient is not optimized from an antianginal standpoint and we will start him on Ranexa 500 twice daily and Imdur 300 extended release daily. Patient is made aware of this he understands that he may be having some headaches associated with the Imdur. Dr. Brown will see him at his clinic at 11 AM on Tuesday. Patient discharged in stable condition. Procedures <Juan Rivera MD - Last Filed: 09/01/24 07:01> Risk/Benefits of Procedure(s) Were Explained: Yes Critical Care <Juan Rivera MD - Last Filed: 09/01/24 07:01> Critical Care Time Critical Care Time: No <Avelina Lin MD - Last Filed: 09/01/24 08:54> Critical Care Time Critical Care Time: Yes Attestation: On 09/01/24, the high probability of a clinically significant, sudden or life threatening deterioration of the following system(s) required my full and direct attention, intervention and personal management. The time I documented below is in addition to time spent performing reported procedures but includes the following listed in this critical care notation. Total Time Total Critical Care Time: 35
--- NOTE | 2024-09-01 04:58 | ECG_ITS ---
APPROVED REPORT Exam: Resting ECG HR:99 bpm ECG Measurements Heart Rate 99 AXES MS 94 P 263 QRSd 101 QRS 67 QT 328 T 79 QTc 384 Conclusion ELECTRONIC ATRIAL PACEMAKER LOW QRS VOLTAGE IN PRECORDIAL LEADS [QRS DEFLECTION < 1.0 mV IN CHEST LEADS] POSSIBLE ANTERIOR MYOCARDIAL INFARCTION , PROBABLY OLD [30 ms Q WAVE IN V3/V4, OR R < 0.2 mV IN V4] ABNORMAL RHYTHM ECG UNCONFIRMED REPORT Electronically signed by : MARCIA ALEJANDRO, 09/03/2024 03:47:01
--- OUTSIDE RECORDS SUMMARY | 2024-09-01 04:58 | XMS_ITS | Clinical Summary ---
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 Role Phone JILL GLOVER, LITA Green Primary Care Provider [phone] Kate GLOVER, Chris Jansen [phone] Reason for Visit and Chief Complaint [Patient Encounter] Problems Includes: Problems addressed during this encounter and other active Problems All Visits Onset Date Resolved Date Provider Condition S tatus Neck Pain 04/05/2022 Chris Love MD Active Last Documented On 2 9:10AM ; [facility] Plan of Treatment Pending Tests Order Diagnosis Results Due Ordering P rovider Procedure/Tests EMG 04/19/22 Chris Turcios MD Last Documented On 2 11:09AM ; [facility] Procedure/Tests Nerve Conduction Study 04/19/22 Chris Love MD Last Documented On 2 11:09AM ; [facility] Radiology - MRI MRI Cervical Spine 04/19/22 Christoph Love MD Last Documented On 2 11:09AM ; [facility] Radiology - MRI MRI Cervical Spine 05/10/22 G gabby Love MD Last Documented On 2 1:50PM ; [facility] Assessments Includes: Assessments from this encounter No [...] ; [facility], [facility] Sildenafil Citrate 100 MG Oral Tablet 06/07/2022 Pro vider: LITA MELCHOR MD Diagnosis: Last Documented On 3 10:25AM By Chris Love ; [facility], [facility] Cyclobenzaprine HCl 5 MG Oral Tablet 06/04/2022 Prov ider: LITA MELCHOR MD Diagnosis: Last Documented On 3 10:25AM By Chris Love ; [facility], [facility] Escitalopram Oxalate 10 MG Oral Tablet 06/03/2022 Pr ovider: LITA MELCHOR MD Diagnosis: Last Documented On 3 10:25AM By Chris Love ; [facility], [facility] Naproxen 500 MG Oral Tablet 06/03/2022 Provider: LITA MELCHOR MD Diagnosis: Last Documented On 3 10:25AM By Chris Love ; [facility], [facility] Famotidine 20 MG Oral Tablet 04/23/2022 Provider: LITA MELCHOR MD Diagnosis: Last Documented On 3 10:25AM By Chris Love ; [facility], [facility] buPROPion HCl ER (SR) 200 MG Oral Tablet Extended Release 12 Hour 04/14/2022 Provider: LITA MELCHOR MD Diagnosis: Last Documented On 3 10:26AM By Chris Love ; [facility], [facility] Medications Administered Includes: Administered Medications [...] Subscriber Relationship Effect mita Dates 1 - [facility] [id number] Royal Khan 05/09/2022 - Unknown Clinical Notes Includes: Clinical Notes from this encounter No Clinical Notes Recorded
--- OUTSIDE RECORDS SUMMARY | 2024-09-01 04:58 | XMS_ITS | Clinical Summary ---
Author Organization [facility] Address [address] [place] [address] Phone Care Team Providers Care Die Attaching Machine Tender Name Role Phone JILL GLOVER, LITA Green Primary Care Provider [phone] Kate GLOVER, Chris [facility] [phone] Reason for Visit and Chief Complaint The Chief Complaint is: Neck pain Problems Includes: Problems addressed during this encounter and other active Problems All Visits Onset Date Resolved Date Provider Condition S tatus Neck Pain 04/05/2022 Chris Love MD Active Last Documented On 2 9:10AM ; [facility] Plan of Treatment Pending Tests Order Diagnosis Results Due Ordering P rovider Procedure/Tests EMG 04/19/22 Chris Turcios MD Last Documented On 2 11:09AM ; [facility] Procedure/Tests Nerve Conduction Study 04/19/22 Chris Love MD Last Documented On 2 11:09AM ; [facility] Radiology - MRI MRI Cervical Spine 04/19/22 Christoph Love MD Last Documented On 2 11:09AM ; [facility] Radiology - MRI MRI Cervical Spine 05/10/22 G gabby Love MD Last Documented On 2 1:50PM ; [facility], [facility] Instructions to patient Lose weight Last Documented On 3 3:18PM ; [facility], [facility] Assessments Includes: Assessments from this encounter [...] Last Documented On 3:18PM ; [facility], [facility] Medical Equipment - Implanted Devices Includes: [...] a day, NEEDED Pharmacy: [facility] [address] [place] [address], [id number] - Last Documented On 5:22PM By Chris [...] On 3 10:25AM By Chris Love ; [facility], [facility] Escitalopram Oxalate 10 MG Oral Tablet 06/03/2022 Pr ovider: LITA MELCHOR MD Diagnosis: Last Documented On 3 10:25AM By Chris Love ; [facility], [facility] Naproxen 500 MG Oral Tablet 06/03/2022 Provider: LITA MELCHOR MD Diagnosis: Last Documented On 3 10:25AM By Chris Love ; [facility], [facility] Famotidine 20 MG Oral Tablet 04/23/2022 Provider: LITA MELCHOR MD Diagnosis: Last Documented On 3 10:25AM By Chris Love ; [facility], [facility] buPROPion HCl ER (SR) 200 MG Oral Tablet Extended Release 12 Hour 04/14/2022 Provider: LITA MELCHOR MD Diagnosis: Last Documented On 3 10:26AM By Chris Love ; [facility], [facility] Past Medications on file Voltaren 1% External Gel 01/27/2022 - 02/26/2022 Provi vincent: Roman Spears MD Diagnosis: use as directed APPLY 1-2 GR AMS TO THE AFFECTED AREA PRN Last Documented On 2 9:04AM By Eliane Joaquin ; [facility], [facility] Mobic 15 MG Oral Tablet 01/27/2022 - 02/26/2022 Provid er: Roman Spears MD Diagnosis: once a day 1 TABLET BY MOUTH ONCE A DAY Last Documented On 2 9:04AM By Eliane Joaquin ; [facility], [facility] Ondansetron HCl 4 MG Oral Tablet 06/19/2021 - 06/29/2021 Provider: Roman escalante MD Diagnosis: 1 q 8 hours prn post op nausea Last Documented On 2 8:29AM By Roman Spears ; [facility], [facility] oxyCODONE HCl 5 MG Oral Tablet 06/19/2021 - 06/24/2021 Provider: Roman escalante MD Diagnosis: 1-2 po q 4-6h prn post op pain Last Documented On 2 8:29AM By Roman Spears ; [facility], [facility] Ondansetron HCl 4 MG Oral Tablet 06/11/2021 - 06/21/2021 Provider: Roman escalante MD Diagnosis: 1 q 8 hours prn post op nausea Last Documented On 2 8:05AM By Roman Spears ; [facility], [facility] oxyCODONE HCl 5 MG Oral Tablet 06/11/2021 - 06/16/2021 Provider: Roman escalante MD Diagnosis: 1-2 po q 4-6h prn post op pain Last Documented On 2 8:05AM By Roman Hayward [facility] Medrol 4 MG Oral Tablet Therapy Pack 04/08/2021 - 04/15/2021 Provider: Roman escalante MD Diagnosis: take as directed Last Documented On 1 3:40PM By Elsy Mcgowan ; [facility], [facility] Medications Administered Includes: Administered Medications from this encounter No Administered Medications Recorded Vital Signs Includes: Vital Signs from this encounter Vital Name 09/13/2022 04:04P Height (in) 71 Weight (lb) 182 Body Mass Index 25.4 Body Surface Area 2 Note: bb Last Documented: On 09/13/2022 4:04PM ; [facility], [facility] Results Includes: Results discussed during this [...] pain is gone. He describes this as [id number] begins in his left scapular area and [...] 09/16/2022 Last Documented On 3 10:59AM ; [facility], [facility] No recent change in diet 04/05/2022 Last Documented On 3 3:18PM ; [facility] Not a current smoker. 04/05/2022 Last Documented On 3 3:18PM ; [facility] Caffeine use 03/18/2021 Last Documented On 3 3:18PM ; [facility] Exercising regularly 03/18/2021 Last Documented On 3 3:18PM ; [facility] Not using alcohol 03/18/2021 Last Documented On 3 3:18PM ; [facility] Not using drugs 03/18/2021 Last Documented On 3 3:18PM ; [facility] Smoking Status Unknown Procedures and Surgical History Includes: Procedures from this encounter Procedures Code Diagnosis Performing Provider Service L ocation Service Date use of tobacco assessment performed 1000F Last Documented On 3 4:05PM ; [facility], [facility] an X-ray was performed 04/05/2022 Neck @ [facility] [id number] Last Documented On 3 3:18PM ; [facility] an MRI was performed 06/15/2022 CSpine @ [facility] [id number] Last Documented On 3 4:00PM ; [facility] Surgical History Last Updated Past Surgical History: 09/03/2022 C3-5 A CDF @ [facility] ~ 09/16/2022 Last Documented On 3 10:59AM ; [facility] Medical History Includes: Medical History addressed during this encounter Description Last Updated Recent immunization for flu 03/22/2022 1 06/05/2021 Last Documented On 3 3:18PM ; [facility] No recent immunization for pneumococcal pneumonia 03/18/2021 Last Documented On 3 3:18PM ; [facility] Previous Fractures 03/18/2021 Last Documented On 3 3:18PM ; [facility] Family History Includes: Family History addressed during this encounter Description Last Updated No significant family history 03/18/2021 Last Documented On 3 3:18PM ; [facility] Review of Systems Includes: Review [...] Time Diagnosis Post Op Chris ricardo MD [facility] TORRES MARTINEZ 3 3:17PM 5:06PM Insurance Includes: Active Insurance Policies Plan Name Member ID Group # Subscriber Relationship Effect mita Dates 1 - [facility] [id number] Royal Gleason Self 05/09/2022 - Unknown Clinical Notes Includes: Clinical Notes from this encounter * Progress note Date Encounter Last Documented by 09/13/2022 Post Op Last documented on 09/17/2022; 10:59 AM, Chris Farfan MD; [facility], [facility] Active Problems & Conditions - Neck [...] pain is gone. He describes this as [id number] begins in his left scapular area and [...] Past Surgical History: 09/03/2022 C3-5 ACDF @ [facility] Social History Not a current smoker. Current [...] of his mirrors while driving.[address] 09/08/2024 since being discharged from the hospital [...] An MRI was performed 06/15/2022 CSpine @ [facility]. Counseling/Education - Lose weight Plan StartCited - Other Gabapentin 300 MG capsule Take 1 capsule PO up to three times a day, NEEDED, 30 days, 0 refills EndCited Practice Management Use of tobacco assessment performed. Care Team - LITA E JILL, MD - BRAILLE OPERATOR Notes This dictation was done with voice recognition software and may contain errors and omissions.
--- OUTSIDE RECORDS SUMMARY | 2024-09-01 04:59 | XMS_ITS | Clinical Summary ---
Author Organization [facility] Address [address] [place] [address] Phone Care Team Providers Care Documentation Manager Name Role Phone JILL GLOVER, LITA Green Primary Care Provider [phone] Kate GLOVER, Chris Jansen [phone] Reason for Visit and Chief Complaint [facility] Problems Includes: Problems addressed during this encounter and other active Problems All Visits Onset Date Resolved Date Provider Condition S tatus Neck Pain 04/05/2022 Chris Love MD Active Last Documented On 2 9:10AM ; [facility] Plan of Treatment Pending Tests Order Diagnosis Results Due Ordering P rovider Procedure/Tests EMG 04/19/22 Chris Turcios MD Last Documented On 2 11:09AM ; [facility] Procedure/Tests Nerve Conduction Study 04/19/22 Chris Love MD Last Documented On 2 11:09AM ; [facility] Radiology - MRI MRI Cervical Spine 04/19/22 Christoph Love MD Last Documented On 2 11:09AM ; [facility] Radiology - MRI MRI Cervical Spine 05/10/22 G gabby Love MD Last Documented On 2 1:50PM ; [facility] Assessments Includes: Assessments from this encounter No Assessments Recorded Medical Equipment - Implanted Devices Includes: Current Devices No Medical Equipment Recorded Medications Includes: Medications discussed during this encounter and other current Medications Current Medications (continue as prescribed) traZODone HCl 100 MG Oral Tablet 06/12/2022 Provider : LITA MELCHOR MD Diagnosis: Last Documented On 3 10:25AM By Chris Love ; [facility] Sildenafil Citrate 100 MG Oral Tablet 06/07/2022 Pro vider: LITA MELCHOR MD Diagnosis: Last Documented On 3 10:25AM By Chris Love ; [facility] Cyclobenzaprine HCl 5 MG Oral Tablet 06/04/2022 Prov ider: LITA MELCHOR MD Diagnosis: Last Documented On 3 10:25AM By Chris Love ; [facility], [facility] Escitalopram Oxalate 10 MG Oral Tablet 06/03/2022 Pr ovider: LITA MELCHOR MD Diagnosis: Last Documented On 3 10:25AM By Chris Love ; [facility], [facility] Naproxen 500 MG Oral Tablet 06/03/2022 Provider: LITA MELCHOR MD Diagnosis: Last Documented On 3 10:25AM By Chris Love ; [facility], [facility] Famotidine 20 MG Oral Tablet 04/23/2022 Provider: LITA MELCHOR MD Diagnosis: Last Documented On 3 10:25AM By Chris Love ; [facility], [facility] buPROPion HCl ER (SR) 200 MG Oral Tablet Extended Release 12 Hour 04/14/2022 Provider: LITA MELCHOR MD Diagnosis: Last Documented On 3 10:26AM By Chris Love ; [facility], [facility] Medications Administered Includes: Administered Medications [...] Location Date Check-In Time Check-Out Time Diagnosis [facility] Chris Love MD Surgery 09/03/2022 09/02/2022 8:13AM 11:59PM Insurance Includes: Active Insurance Policies Plan Name Member ID Group # Subscriber Relationship Effect mita Dates 1 - [facility] [id number] Royal Gleason [facility] 05/09/2022 - Unknown Clinical Notes Includes: Clinical Notes from this encounter No Clinical Notes Recorded
--- OUTSIDE RECORDS SUMMARY | 2024-09-01 04:59 | XMS_ITS ---
Author Organization [facility] , [facility] Address [address] [place] [address] Phone Care Team Providers Care Perennial House Manager Name Role Phone JILL GLOVER, LITA Green Primary Care Provider [phone] Kate GLOVER, Chris Jansen [phone] Reason for Referral Date Encounter Description Provider [...] Active Last Documented On 2 9:10AM ; [facility] Joint Pain, Localized in the Left Shoulder 12/30/2021 03/12/2022 Chris Love MD Resol ed Last Documented On 3 10:02AM ; [facility] History of Left Elbow Joint Pain 04/08/2021 03/12/2022 Chris Love MD Resol ed Last Documented On 3 10:02AM ; [facility] Plan of Treatment Pending Tests Order Diagnosis Results Due Ordering P rokevin Radiology - MRI MRI Elbow 04/01/21 Roman Spears MD Last Documented On 1 2:00PM ; [facility] Radiology - MRI MRI Shoulder 10/20/21 Roman Spears MD Last Documented On 2 4:29PM ; [facility] Radiology - MRI MRI Shoulder 12/23/21 Kera Silverman PA-C Last Documented On 2 1:37PM ; [facility] Procedure/Tests EMG 04/19/22 Chris Turcios MD Last Documented On 2 11:09AM ; [facility] Procedure/Tests Nerve Conduction Study 04/19/22 Chris Love MD Last Documented On 2 11:09AM ; [facility] Radiology - MRI MRI Cervical Spine 04/19/22 Christoph Love MD Last Documented On 2 11:09AM ; [facility] Radiology - MRI MRI Cervical Spine 05/10/22 Christoph Love MD Last Documented On 2 1:50PM ; [facility] Instructions to patient Lose weight Last Documented On 3 10:42AM ; [facility] Lose weight Last Documented On 3 10:04AM ; [facility] Lose weight Last Documented On 3 3:18PM ; [facility] Lose weight Last Documented On 3 8:34AM ; [facility] Lose weight Last Documented On 3 10:38AM ; [facility] No intervention and counseli ng on cessation [...] weight Last Documented On 2 11:49AM ; [facility] Lose weight Last Documented On 2 1:08PM ; [facility] Intervention and counseling on cessation of tobacco use Last Documented On 2 8:15AM ; [facility] Intervention and counseling on cessation of tobacco use Last Documented On 1 3:09PM ; [facility] Medical Equipment - Implanted Devices Includes: Current and historical Devices No Medical Equipment Recorded Medications Includes: Current and historical Medications Current Medications (continue as prescribed) traZODone HCl 100 MG Oral Tablet 06/12/2022 Provider : LITA MELCHOR MD Diagnosis: Last Documented On 3 10:25AM By Chris Love ; [facility] Sildenafil Citrate 100 MG Oral Tablet 06/07/2022 Pro vider: LITA MELCHOR MD Diagnosis: Last Documented On 3 10:25AM By Chris Love ; [facility] Cyclobenzaprine HCl 5 MG Oral Tablet 06/04/2022 Prov ider: LITA MELCHOR MD Diagnosis: Last Documented On 3 10:25AM By Chris Love ; [facility] Escitalopram Oxalate 10 MG Oral Tablet 06/03/2022 Pr ovider: LITA MELCHOR MD Diagnosis: Last Documented On 3 10:25AM By Chris Love ; [facility] Naproxen 500 MG Oral Tablet 06/03/2022 Provider: LITA MELCHOR MD Diagnosis: Last Documented On 3 10:25AM By Chris Love ; [facility] Famotidine 20 MG Oral Tablet 04/23/2022 Provider: LITA MELCHOR MD Diagnosis: Last Documented On 3 10:25AM By Chris Love ; [facility] buPROPion HCl ER (SR) 200 MG Oral Tablet Extended Release 12 Hour 04/14/2022 Provider: LITA MELCHOR MD Diagnosis: Last Documented On 3 10:26AM By Chris Love ; [facility] Past Medications on file Gabapentin 300 MG Oral Capsule 09/13/2022 - 10/13/2022 Provider: Chris Mims MD Diagnosis: Take 1 capsule PO up to thre e times a day, NEEDED Last Documented On 3 5:22PM By Chris Love ; [facility] Cyclobenzaprine HCl 5 MG Ora l Tablet 03/22/2022 - 04/11/2022 Provider: LITA Stockton Diagnosis: Last Documented On 3 10:02AM By Chris Love ; [facility] Sildenafil Citrate 100 MG Or al Tablet 03/22/2022 - 03/31/2022 Provider: LITA Stockton Diagnosis: Last Documented On 3 10:24AM By Chris Love ; [facility] Naproxen 500 MG Oral Tablet 03/22/2022 - 04/21/2022 Pr ovider: LITA MELCHOR MD Diagnosis: Last Documented On 3 10:02AM By Chris Love ; [facility] Triamcinolone Acetonide 0.1% External Cream 02/19/2022 - 03/22/2022 Provider: LITA Stockton Diagnosis: Last Documented On 3 10:24AM By Chris Love ; [facility] Voltaren 1% External Gel 01/27/2022 - 02/26/2022 Provi vincent: Roman Spears MD Diagnosis: use as directed APPLY 1-2 GR AMS TO THE AFFECTED AREA PRN Last Documented On 2 9:04AM By Eliane Joaquin ; [facility] Mobic 15 MG Oral Tablet 01/27/2022 - 02/26/2022 Provid er: Roman Spears MD Diagnosis: once a day 1 TABLET BY MOUTH ONCE A DAY Last Documented On 2 9:04AM By Eliane Joaquin ; [facility] buPROPion HCl ER (SR) 200 MG Oral Tablet Extended Release 12 Hour 09/16/2021 - 10/17/2021 Provider: MARISOL MELCHOR MD Diagnosis: Last Documented On 3 10:24AM By Chris Love ; [facility] traZODone HCl 100 MG Oral Tablet 09/16/2021 - 10/18/19 Provider: LITA MELCHOR MD Diagnosis: Last Documented On 3 10:24AM By Chris Love ; [facility] HYDROcodone-Acetaminophen 5- 325 MG Oral Tablet 08/25/2021 - 08/28/2021 Provider: LITA MELCHOR MD Diagnosis: Last Documented On 3 9:37AM By Eliane Vega ; [facility] Sildenafil Citrate 100 MG Or al Tablet 08/19/2021 - 08/28/2021 Provider: LITA Stockton Diagnosis: Last Documented On 2 9:11AM By Eliane Vega ; [facility] Ondansetron HCl 4 MG Oral Tablet 06/19/2021 - 06/29/2021 Provider: Roman escalante MD Diagnosis: 1 q 8 hours prn post op nausea Last Documented On 2 8:29AM By Roman Spears ; [facility] oxyCODONE HCl 5 MG Oral Tablet 06/19/2021 - 06/24/2021 Provider: Roman escalante MD Diagnosis: 1-2 po q 4-6h prn post op pain Last Documented On 2 8:29AM By Roman Spears ; [facility] Ondansetron HCl 4 MG Oral Tablet 06/11/2021 - 06/21/2021 Provider: Roman escalante MD Diagnosis: 1 q 8 hours prn post op nausea Last Documented On 2 8:05AM By Roman Spears ; [facility] oxyCODONE HCl 5 MG Oral Tablet 06/11/2021 - 06/16/2021 Provider: Roman escalante MD Diagnosis: 1-2 po q 4-6h prn post op pain Last Documented On 2 8:05AM By Roman Spears ; [facility] Medrol 4 MG Oral Tablet [...] Administered Medications Recorded Results Includes: Results from 09/02/2023 through 09/01/2024 No Results Recorded For Specified Dates History [...] 03/18/2021 Last Documented On 1 2:00PM ; [facility] No recent change in diet 03/18/2021 Last Documented On 1 2:00PM ; [facility] Not using alcohol 03/18/2021 Last Documented On 1 2:00PM ; [facility] Not using drugs 03/18/2021 Last Documented On 1 2:00PM ; [facility] Yes, current smoker. 03/18/2021 Last Documented On 1 2:00PM ; [facility] Smoking Status Unknown Procedures and Surgical History Surgical History Last Updated Past Surgical History: 09/03/2022 C3-5 A CDF @ [facility] ~ 09/16/2022 Last Documented On 3 10:59AM ; [facility] Medical History Includes: Medical History in patient's chart Description Last Updated Past medical history non-contributory Last Documented On 3 12:50PM ; [facility] Recent immunization for flu 03/22/2022 1 06/05/2021 Last Documented On 2 9:43AM ; [facility] No recent immunization for pneumococcal pneumonia 03/18/2021 Last Documented On 1 2:00PM ; [facility] Previous Fractures 03/18/2021 Last Documented On 1 2:00PM ; [facility] Family History Includes: Family History in patient's chart Description Last Updated No significant family history 03/18/2021 Last Documented On 1 2:00PM ; [facility] Review of Systems Review of Systems not [...] Patient Last Documented On 2 2:53PM ; [facility] Influenza 2 03/22/2022 Complete (Reported) Patient Last Documented On 2 1:49PM ; [facility] PCV (Pneumovax 23) 1 02/06/2021 Complete ( Reported) Patient Last Documented On 2 2:53PM ; [facility] PCV (Pneumovax 23) 2 03/22/2022 Complete ( Reported) Patient Last Documented On 2 11:09AM ; [facility] PCV (Pneumovax 23) 3 04/26/2022 Suspended (Contraindicated) [facility] Last Documented On 2 1:49PM ; [facility] Allergies Includes: Active, inactive, and resolved Allergies No Known Allergies Insurance Includes: Active Insurance Policies Plan Name Member ID Group # Subscriber Relationship Effect mita Dates 1 - [facility] [id number] Royal DamianGleason [facility] 05/09/2022 - Unknown Clinical Notes Includes: Signed Clinical Notes starting from 04/22/2022 No Clinical Notes Recorded
--- OUTSIDE RECORDS SUMMARY | 2024-09-01 04:59 | XMS_ITS | Clinical Summary ---
Author Organization [facility] , [facility] Address [address] [place] [address] Phone Care Team Providers Care Almond Grinder Name Role Phone JILL GLOVER, LITA Green Primary Care Provider [phone] Kate GLOVER, Chris Jansen [phone] Reason for Visit and Chief Complaint The Chief Complaint is: Neck pain Problems Includes: Problems addressed during this encounter and other active Problems All Visits Onset Date Resolved Date Provider Condition S tatus Neck Pain 04/05/2022 Chris Love MD Active Last Documented On 2 9:10AM ; [facility], [facility] Plan of Treatment Pending Tests Order Diagnosis Results Due Ordering P rovider Procedure/Tests EMG 04/19/22 Chris Turcios MD Last Documented On 2 11:09AM ; [facility] Procedure/Tests Nerve Conduction Study 04/19/22 Chris Love MD Last Documented On 2 11:09AM ; [facility], [facility] Radiology - MRI MRI Cervical Spine 04/19/22 Christoph Love MD Last Documented On 2 11:09AM ; [facility], [facility] Radiology - MRI MRI Cervical Spine 05/10/22 G gabby Love MD Last Documented On 2 1:50PM ; [facility], [facility] Instructions to patient Lose weight Last Documented On 3 10:04AM ; [facility], [facility] Assessments Includes: Assessments from this encounter Findings This is a 57-year-old man 6 weeks status post C3-4 and C5-6 anterior cervical discectomy and fusion overall doing very well - Last Documented On 10/11/2022 12:50PM ; [facility], [facility] I told Royal that everything looks [...] Documented On 10/11/2022 12:50PM ; [facility], [facility] Instructions Includes: Instructions from this encounter Instructions to patient Lose weight Last Documented On 3 10:04AM ; [facility] Medical Equipment - Implanted Devices Includes: Current Devices No Medical Equipment Recorded Medications Includes: Medications discussed during this encounter and other current Medications Current Medications (continue as prescribed) traZODone HCl 100 MG Oral Tablet 06/12/2022 Provider : LITA MELCHOR MD Diagnosis: Last Documented On 3 10:25AM By Chris Love ; [facility] Sildenafil Citrate 100 MG Oral Tablet 06/07/2022 Pro vider: LITA MELCHOR MD Diagnosis: Last Documented On 3 10:25AM By Chris Love ; [facility], [facility] Cyclobenzaprine HCl 5 MG Oral Tablet 06/04/2022 Prov ider: LITA MELCHOR MD Diagnosis: Last Documented On 3 10:25AM By Chris Love ; [facility], [facility] Escitalopram Oxalate 10 MG Oral Tablet 06/03/2022 Pr ovider: LITA MELCHOR MD Diagnosis: Last Documented On 3 10:25AM By Chris Love ; [facility], [facility] Naproxen 500 MG Oral Tablet 06/03/2022 Provider: LITA MELCHOR MD Diagnosis: Last Documented On 3 10:25AM By Chris Love ; [facility] Famotidine 20 MG Oral Tablet 04/23/2022 Provider: LITA MELCHOR MD Diagnosis: Last Documented On 3 10:25AM By Chris Love ; [facility], [facility] buPROPion HCl ER (SR) 200 MG Oral Tablet Extended Release 12 Hour 04/14/2022 Provider: LITA MELCHOR MD Diagnosis: Last Documented On 3 10:26AM By Chris Love ; [facility], [facility] Past Medications on file Gabapentin 300 MG Oral Capsule 09/13/2022 - 10/13/2022 Provider: Chris Mims MD Diagnosis: Take 1 capsule PO up to thre e times a day, NEEDED Last Documented On 3 5:22PM By Chris Love ; [facility], [facility] Voltaren 1% External Gel 01/27/2022 - 02/26/2022 Provi vincent: Roman Spears MD Diagnosis: use as directed APPLY 1-2 GR AMS TO THE AFFECTED AREA PRN Last Documented On 2 9:04AM By Eliane Joaquin ; [facility], [facility] Mobic 15 MG Oral Tablet 01/27/2022 - 02/26/2022 Provid er: Roman Spears MD Diagnosis: once a day 1 TABLET BY MOUTH ONCE A DAY Last Documented On 2 9:04AM By Eliane Joaquin ; [facility], [facility] Ondansetron HCl 4 MG Oral Tablet 06/19/2021 - 06/29/2021 Provider: Roman escalante MD Diagnosis: 1 q 8 hours prn post op nausea Last Documented On 2 8:29AM By Roman Spears ; [facility], [facility] oxyCODONE HCl 5 MG Oral Tablet 06/19/2021 - 06/24/2021 Provider: Roman escalante MD Diagnosis: 1-2 po q 4-6h prn post op pain Last Documented On 2 8:29AM By Roman Spears ; [facility], [facility] Ondansetron HCl 4 MG Oral Tablet 06/11/2021 - 06/21/2021 Provider: Roman escalante MD Diagnosis: 1 q 8 hours prn post op nausea Last Documented On 2 8:05AM By Roman Spears ; [facility], [facility] oxyCODONE HCl 5 MG Oral Tablet 06/11/2021 - 06/16/2021 Provider: Roman escalante MD Diagnosis: 1-2 po q 4-6h prn post op pain Last Documented On 2 8:05AM By Roman Spears ; [facility], [facility] Medrol 4 MG Oral Tablet Therapy Pack 04/08/2021 - 04/15/2021 Provider: Roman escalante MD Diagnosis: take as directed Last Documented On 3:40PM By Elsy Mcgowan ; [facility], [facility] Medications Administered Includes: Administered Medications from this encounter No Administered Medications Recorded Vital Signs Includes: Vital Signs from this encounter Vital Name 10/11/2022 10:07A Height (in) 71 Weight (lb) 182 Body Mass Index 25.4 Body Surface Area 2 Note: bb Last Documented: On 10/11/2022 10:08A M ; [facility], [facility] Results Includes: Results discussed during this [...] very pleasant 57-year-old man following up with wv status post C3-5 anterior cervical discectomy and [...] 09/16/2022 Last Documented On 3 10:04AM ; [facility], [facility] No recent change in diet 04/05/2022 [...] [place] @ [facility] [place] [id number] Last Documented On 3 12:50PM ; [facility] an MRI was performed 06/15/2022 CSpine @ [facility] [id number] Last Documented On 3 10:04AM ; [facility], [facility] Surgical History Last Updated Past Surgical History: 09/03/2022 C3-5 A CDF @ [facility] ~ 09/16/2022 Last Documented On 3 10:04AM ; [facility], [facility] Medical History Includes: Medical History addressed during this encounter Description Last Updated Past medical history non-contributory Last Documented On 3 12:50PM ; [facility], [facility] Recent immunization for flu 03/22/2022 1 06/05/2021 Last Documented On 3 10:04AM ; [facility] No recent immunization for pneumococcal pneumonia 03/18/2021 Last Documented On 3 10:04AM ; [facility], [facility] Previous Fractures 03/18/2021 Last Documented On 3 10:04AM ; [facility], [facility] Family History Includes: Family History addressed [...] Time Diagnosis Post Op Chris ricardo MD [facility] [place] 3 10:03AM 11:18AM Insurance Includes: Active Insurance Policies Plan Name Member ID Group # Subscriber Relationship Effect mita Dates 1 - [facility] [id number] Royal Gleason Self 05/09/2022 - Unknown Clinical Notes Includes: Clinical Notes from this encounter * Progress note Date Encounter Last Documented by 10/11/2022 Post Op Last documented on 10/11/2022; 12:50 PM, Chris Farfan MD; [facility], [facility] Active Problems & Conditions - Neck [...] An X-ray was performed 04/05/2022 Neck @ [facility] 10/11/2022 Neck @ [facility]. MRI Scan: An MRI was performed 06/15/2022 Mary @ [facility]. Counseling/Education - Lose weight Practice Management Use of tobacco assessment performed. Care Team - LITA MELCHOR MD - STATISTICIAN MATHEMATICAL Notes This dictation was done with voice recognition software and may contain errors and omissions.
--- OUTSIDE RECORDS SUMMARY | 2024-09-01 04:59 | XMS_ITS ---
Care Plan - [facility], [facility] Created on: September 01, 2024 Rosibel Royal : 1965 Sex: Male Author Organization [facility] Address [address] [place] [id number] Phone Care Team Providers Care Manager Digital Ad Operations Name Role Phone JILL GLOVER, LITA Green Primary Care Provider [phone] Kate GLOVER, [facility] [phone]
--- OUTSIDE RECORDS SUMMARY | 2024-09-01 04:59 | XMS_ITS | Clinical Summary ---
Author Organization [facility] , [facility] Address [address] [place] [address] Phone Care Team Providers Care Turbine Operator Name Role Phone JILL GLOVER, LITA Green Primary Care Provider [phone] Kate GLOVER, Chris Jansen [phone] Reason for Visit and Chief Complaint The Chief Complaint is: Neck pain Problems Includes: Problems addressed during this encounter and other active Problems All Visits Onset Date Resolved Date Provider Condition S tatus Neck Pain 04/05/2022 Chris Love MD Active Last Documented On 2 9:10AM ; [facility], [facility] Plan of Treatment Pending Tests Order Diagnosis Results Due Ordering P rovider Procedure/Tests EMG 04/19/22 Chris Turcios MD Last Documented On 2 11:09AM ; [facility], [facility] Procedure/Tests Nerve Conduction Study 04/19/22 Chris Love MD Last Documented On 2 11:09AM ; [facility], [facility] Radiology - MRI MRI Cervical Spine 04/19/22 Christoph Love MD Last Documented On 2 11:09AM ; [facility] Radiology - MRI MRI Cervical Spine 05/10/22 G gabby Love MD Last Documented On 2 1:50PM ; [facility], [facility] Instructions to patient Lose weight Last Documented On 3 10:42AM ; [facility] Assessments Includes: Assessments from this encounter Findings this is a 57-year-old man who is approximately 3 months status post C3-4 and C4- 5 anterior cervical discectomy and fusion - Last Documented On 12/05/2022 3:36PM ; [facility], [facility] I think overall Royal has done very [...] - Last Documented On 12/05/2022 3:36PM ; [facility], [facility] Instructions Includes: Instructions from this encounter Instructions to patient Lose weight Last Documented On 3 10:42AM ; [facility], [facility] Medical Equipment - Implanted Devices Includes: Current Devices No Medical Equipment Recorded Medications Includes: Medications discussed during this encounter and other current Medications Current Medications (continue as prescribed) traZODone HCl 100 MG Oral Tablet 06/12/2022 Provider : LITA MELCHOR MD Diagnosis: Last Documented On 3 10:25AM By Chris Love ; [facility] Sildenafil Citrate 100 MG Oral Tablet 06/07/2022 Pro vider: LITA MELCHOR MD Diagnosis: Last Documented On 3 10:25AM By Chris Love ; [facility] Cyclobenzaprine HCl 5 MG Oral Tablet 06/04/2022 Prov ider: LITA MELCHOR MD Diagnosis: Last Documented On 3 10:25AM By Chris Love ; [facility] Escitalopram Oxalate 10 MG Oral Tablet 06/03/2022 Pr ovider: LITA MELCHOR MD Diagnosis: Last Documented On 3 10:25AM By Chris Love ; [facility] Naproxen 500 MG Oral Tablet 06/03/2022 Provider: LITA MELCHOR MD Diagnosis: Last Documented On 3 10:25AM By Chris Love ; [facility] Famotidine 20 MG Oral Tablet 04/23/2022 Provider: LITA MELCHOR MD Diagnosis: Last Documented On 3 10:25AM By Chris Love ; [facility], [facility] buPROPion HCl ER (SR) 200 MG Oral Tablet Extended Release Hour 04/14/2022 Provider: LITA MELCHOR MD Diagnosis: Last Documented On 3 10:26AM By Chris Love ; [facility], [facility] Past Medications on file Gabapentin 300 MG Oral Capsule 09/13/2022 - 10/13/2022 Provider: Chris Mims MD Diagnosis: Take 1 capsule PO up to thre e times a day, NEEDED Last Documented On 3 5:22PM By Chris Love ; [facility], [facility] Voltaren 1% External Gel 01/27/2022 - 02/26/2022 Provi vincent: Roman Spears MD Diagnosis: use as directed APPLY 1-2 GR AMS TO THE AFFECTED AREA PRN Last Documented On 2 9:04AM By Eliane Joaquin ; [facility], [facility] Mobic 15 MG Oral Tablet 01/27/2022 - 02/26/2022 Provid er: Roman Spears MD Diagnosis: once a day 1 TABLET BY MOUTH ONCE A DAY Last Documented On 2 9:04AM By Eliane Joaquin ; [facility], [facility] Ondansetron HCl 4 MG Oral Tablet 06/19/2021 - 06/29/2021 Provider: Roman escalante MD Diagnosis: 1 q 8 hours prn post op nausea Last Documented On 2 8:29AM By Roman Spears ; [facility], [facility] oxyCODONE HCl 5 MG Oral Tablet 06/19/2021 - 06/24/2021 Provider: Roman escalante MD Diagnosis: 1-2 po q 4-6h prn post op pain Last Documented On 2 8:29AM By Roman Spears ; [facility], [facility] Ondansetron HCl 4 MG Oral Tablet 06/11/2021 - 06/21/2021 Provider: Roman escalante MD Diagnosis: 1 q 8 hours prn post op nausea Last Documented On 2 8:05AM By Roman Spears ; [facility], [facility] oxyCODONE HCl 5 MG Oral Tablet 06/11/2021 - 06/16/2021 Provider: Roman escalante MD Diagnosis: 1-2 po q 4-6h prn post op pain Last Documented On 2 8:05AM By Roman Spears ; [facility], [facility] Medrol 4 MG Oral Tablet Therapy Pack 04/08/2021 - 04/15/2021 Provider: Roman escalante MD Diagnosis: take as directed Last Documented On 1 3:40PM By Elsy Mcgowan ; [facility], [facility] Medications Administered Includes: Administered Medications from this encounter No Administered Medications Recorded Vital Signs Includes: Vital Signs from this encounter Vital Name 11/22/2022 10:55A Height (in) 71 Weight (lb) 174 Body Mass Index 24.3 Body Surface Area 2 Note: bb Last Documented: On 11/22/2022 10:55A M ; [facility], [facility] Results Includes: Results discussed during this encounter [...] Documented On 3 10:42AM ; [facility], [facility] No recent change in diet 04/05/2022 Last Documented On 3 10:42AM ; [facility], [facility] Not a current smoker. 04/05/2022 Last Documented On 3 10:42AM ; [facility], [facility] Caffeine use 03/18/2021 Last Documented On 3 10:42AM ; [facility], [facility] Exercising regularly 03/18/2021 Last Documented On 3 10:42AM ; [facility], [facility] Not using alcohol 03/18/2021 Last Documented On 3 10:42AM ; [facility], [facility] Not using drugs 03/18/2021 Last Documented On 3 10:42AM ; [facility], [facility] Smoking Status Unknown Procedures and Surgical History Includes: Procedures from this encounter Procedures Code Diagnosis Performing Provider Service L ocation Service Date use of tobacco assessment performed 1000F Last Documented On 3 10:42AM ; [facility], [facility] an X-ray was performed 04/05 Neck @ [facility] ~10/11/2022 Neck @ [facility] ~11/22/2022 [place] @ [facility] [id number] Last Documented On 3 10:43AM ; [facility], [facility] an MRI was performed 06/15/2022 CSpine @ [facility] [id number] Last Documented On 3 10:42AM ; [facility], [facility] Surgical History Last Updated Past Surgical History: 09/03/2022 C3-5 A CDF @ [facility] ~ 09/16/2022 Last Documented On 3 10:42AM ; [facility], [facility] Medical History Includes: Medical History addressed during this encounter Description Last Updated Past medical history non-contributory Last Documented On 3 10:42AM ; [facility], [facility] Recent immunization for flu 03/22/2022 1 06/05/2021 Last Documented On 3 10:42AM ; [facility], [facility] No recent immunization for pneumococcal pneumonia 03/18/2021 Last Documented On 3 10:42AM ; [facility], [facility] Previous Fractures 03/18/2021 Last Documented On 3 10:42AM ; [facility] Family History Includes: Family History addressed during this encounter Description Last Updated No significant family history 03/18/2021 Last Documented On 3 10:42AM ; [facility] Review of Systems [...] Time Diagnosis Post Op Chris ricardo MD [facility] 3 10:40AM 12:04PM Insurance Includes: Active Insurance Policies Plan Name Member ID Group # Subscriber Relationship Effect mita Dates 1 - [facility] [id number] Royal Khan 05/09/2022 - Unknown Clinical Notes Includes: Clinical Notes from this encounter * Progress note Date Encounter Last Documented by 11/22/2022 Post Op Last documented on 12/05/2022; 3:36 PM, Chris Farfan MD; [facility], [facility] Active Problems & Conditions - Neck Pain [...] An MRI was performed 06/15/2022 Mary @ [facility]. Counseling/Education - Lose weight Practice Management Use of tobacco assessment performed. Care Team - LITA MELCHOR MD - DRIVE THRU ORDER TAKER Notes This dictation was done with voice recognition software and may contain errors and omissions.
--- NOTE | 2024-09-01 05:03 | XR_ITS ---
PROCEDURE INFORMATION: Exam: XR Chest Exam date and time: 09/01/2024 5:11 AM Age: 59 years old Clinical indication: Pain; Shortness of breath; Other: Cp TECHNIQUE: Imaging protocol: Radiologic exam of the chest. Views: 1 view. COMPARISON: CT LUNG SCREENING 07/05/2024 3:43 PM FINDINGS: Lungs: Unremarkable. No consolidation. Pleural spaces: Unremarkable. No pleural effusion. No pneumothorax. Heart/Mediastinum: Unremarkable. No cardiomegaly. Bones/joints: Unremarkable. Spinal stimulators noted at the lower cervical levels. Implanted device left chest wall. IMPRESSION: No acute findings.
[2024-09-01 05:09] LABS: Basophils # 0.1 K/mm3 (0-0.2); Basophils % 0.7 % (0.1-2.0); Eosinophils # 0.1 Kmm3 (0.0-0.4); Eosinophils % 1.4 % (0.1-12.0); Hematocrit 40.2 % (42.0-52.0); Lymphocytes # 1.7 K/mm3 (0.7-4.5); Lymphocytes % 17.4 % (10-50); Mean Corpuscular HGB Conc 32.3 g/dL (31.8-35.4); Mean Corpuscular Hemoglobin 28.1 pg (27.0-31.2); Mean Corpuscular Volume 86.8 fl (80-94); Mean Platelet Volume 8.8 fl (7.4-10.4); Monocytes # 0.6 K/mm3 (0.1-1.0); Monocytes % 6.2 % (1.7-9.3); Neutrophils # 7.2 K/mm3 (1.8-7.8); Neutrophils % 74.1 % (37.0-80.0); Nucleated Red Blood Cells # 0 10^3/uL; Nucleated Red Blood Cells % 0 %; Platelet Count 345 K/mm3 (142-424); Red Blood Count 4.63 M/mm3 (4.60-6.20); Red Cell Distribution Width 13.4 % (11.5-17.5); Red Cell Distribution Width-SD 42.1 fL; White Blood Count 9.8 K/mm3 (4.8-10.8)
[2024-09-01 05:19] LABS: Albumin Level 4.6 g/dl (3.5-5.0); Chloride 108 mmol/L (98-107); Potassium 3.7 mmoL/L (3.5-5.1); Sodium 141 mmol/L (136-145)
[2024-09-01] MEDS: BELLADONNA ALKALOIDS 60 ML ML PO (05:20)
[2024-09-01] MEDS: ONDANSETRON 4MG/2ML VIAL 4 MG IV (05:20)
[2024-09-01 05:21] LABS: Alanine Aminotransferase 26 U/L (12-78); Anion Gap 11.7 mEq/L (5-15); Aspartate Amino Transferase 37 U/L (17-59); Blood Urea Nitrogen 20 mg/dl (9-20); Carbon Dioxide 25 mmol/L (22.0-30.0); Creatinine Clearance Estimated 93 mL/min (50-200); Estimated Glomerular Filt Rate 77 ml/min (>60); GFR (African American) 93 ML/MIN (>60)
[2024-09-01 05:22] LABS: Albumin/Globulin Ratio 1.6 (1.1-1.8); Alkaline Phosphatase 90 U/L (38-126); Bilirubin,Total 0.6 mg/dl (0.2-1.3); Calcium 8.9 mg/dl (8.4-10.2); Globulin 2.9 g/dL (1.3-3.2); Glucose 111 mg/dl (74-100); Total Protein,Serum 7.5 g/dl (6.3-8.2)
[2024-09-01 05:29] LABS: Activated Partial Thrombo Time 27.1 seconds (22.8-30.6); INR 0.95 (0.9-1.1); Prothrombin Time 10.7 seconds (10.1-12.5)
[2024-09-01 05:34] LABS: D-Dimer 0.77 ug/mL (0.0-0.5); Troponin I 0.14 ng/ml (0.00-0.034)
--- NOTE | 2024-09-01 05:53 | CT_ITS ---
PROCEDURE INFORMATION: Exam: CTA Chest With Contrast Exam date and time: 09/01/2024 6:12 AM Age: 59 years old Clinical indication: Other: Chest pain, elevated dimer, recent heart cath; Prior surgery; Surgery date: 3-7 days post-operative TECHNIQUE: Imaging protocol: Computed tomographic angiography of the chest with contrast. Exam focused on the arteries. 3D rendering (Not supervised by radiologist): MIP and/or 3D reconstructed images were created by the technologist. Radiation optimization: All CT scans at this facility use at least one of these dose optimization techniques: automated exposure control; mA and/or kV adjustment per patient size (includes targeted exams where dose is matched to clinical indication); or iterative reconstruction. Contrast material: ISOVUE; Contrast volume: 70 ml; Contrast route: INTRAVENOUS (IV); COMPARISON: CT LUNG SCREENING 07/05/2024 3:43 PM FINDINGS: Pulmonary arteries: Normal. No pulmonary emboli. Aorta: Unremarkable. No aortic aneurysm. No aortic dissection. Lungs: Extensive upper lobe predominant centrilobular emphysema is noted. Right-sided granuloma. Pleural spaces: Unremarkable. No pneumothorax. No pleural effusion. Heart: Unremarkable. No cardiomegaly. No pericardial effusion. Coronary arteries: Coronary atherosclerosis. Lymph nodes: Unremarkable. No enlarged lymph nodes. Bones/joints: Unremarkable. No acute fracture. Soft tissues: Unremarkable. IMPRESSION: 1. No evidence of pulmonary embolism or other acute process. 2. Coronary atherosclerosis. COMMENTS: The presence of pulmonary emphysema on CT is an independent risk factor for lung cancer. In the absence of a history or active diagnosis of lung cancer, it is recommended that this patient with emphysema be evaluated for enrollment in a low dose CT lung cancer screening program.
--- NOTE | 2024-09-01 05:57 | ECG_ITS ---
APPROVED REPORT Exam: Resting ECG HR:89 bpm ECG Measurements Heart Rate 89 AXES NH 144 P 70 QRSd 90 QRS 53 QT 333 T 71 QTc 380 Conclusion SINUS RHYTHM LOW QRS VOLTAGE IN PRECORDIAL LEADS [QRS DEFLECTION < 1.0 mV IN CHEST LEADS] POSSIBLE ANTERIOR MYOCARDIAL INFARCTION , OF INDETERMINATE AGE [30 ms Q WAVE IN V3/V4, OR R < 0.2 mV IN V4] ABNORMAL ECG UNCONFIRMED REPORT Electronically signed by : MARCIA ALEJANDRO, 09/03/2024 03:46:41
[2024-09-01] MEDS: ASPIRIN 81MG CHEWABLE TABLET 324 MG PO (06:12)
[2024-09-01] MEDS: IOPAMIDOL-370 (76%);100ML BOTTLE 70 ML IV (06:16)
[2024-09-01] MEDS: 0.9 % SODIUM CHLORIDE 50 ML VIAL IV (06:16)
[2024-09-01 06:51] LABS: NT Pro Brain Natriuretic Pep. 40.5 pg/mL (0-125)
--- NOTE | 2024-09-01 07:10 | PC.NURSE ---
ROUNDED ON PT, UPDATED ON POC. CALL LIGHT WITHIN REACH. AT BEDSIDE. QUESTIONS ENCOURAGED AND ANSWERED. DRINK PROVIDED PER PT REQUEST
[2024-09-01 07:34] LABS: HIV Combo NEGATIVE (Negative)
[2024-09-01 07:41] LABS: Hepatitis C Ab Qual. W/ RFX NEGATIVE (Negative)
--- NOTE | 2024-09-01 07:53 | PC.NURSE ---
pulled second trop and sent to lab
[2024-09-01 08:18] LABS: Troponin I 0.11 ng/ml (0.00-0.034)
--- NOTE | 2024-09-01 08:35 | PC.NURSE ---
DR SYED SPEAKING WITH DR TORRES
--- NOTE | 2024-09-01 08:41 | PC.NURSE ---
DR SYED AT BEDSIDE TO UPDATE PT AND FAMILY
== END 2024-09-01 09:00 | disposition home or self-care (01) ==
PROVIDERS: Emergency Provider Emergency Medicine; PCP Internal Medicine
DX: R07.89 Other chest pain (principal); I5A Non-ischemic myocardial injury (non-traumatic); R06.02 Shortness of breath; Z11.59 Encounter for screening for other viral diseases; Z11.4 Encounter for screening for human immunodeficiency virus [HIV]
CPT/HCPCS: 71045; 71275; 80053; 83880; 84484; 85025; 85378; 85610; 85730; 86803; 87389; 93005; 96374; 99291; J2405; Q9967

== ENCOUNTER 2024-09-17 07:43 | Outpatient (CLI) | payer OTHER, SELFPAY ==
--- NOTE | 2024-09-17 08:00 | CA_ITS ---
APPROVED REPORT EXAM: Limited 2D Echocardiogram Labor Operator: Cele Goyal RVT Ht: 5 ft 11 in Wt: 182lbs BSA: 2.03 BP: 114/76 mmHg Indications: EF CHECK,DYSPENA,LVF,COPD,CAD,EX SMOKER,CAMACHO M-Mode Dimensions RVDd 2.99 cm (0.9-2.6) LA Diam 4.00 cm (1.9-4.0) LVDd 5.37 cm (3.5-5.7) LVDs 3.71 cm (3.5-5.7) IVSd 0.91 cm (0.6-1.1) PWd 0.57 cm (0.6-1.1) EF (Teich) 58.10% FS 30.90% EDV (Teich) 139.50 mL ESV (Teich) 58.50 mL Other Information Study Quality: Fair Conclusion This is a limited TTE to evaluate for LV systolic function. Limited windows are obtained. The left ventricle is normal in size. There is increased LV wall thickness. There is low-normal global LV systolic function. No regional wall motion normalities are noted. LVEF is 50%. Electronically signed by : Zandra Dubon MD 09/17/2024 12:36:28
== END 2024-09-17 23:59 | disposition home or self-care (01) ==
LOC: RT 07:43
PROVIDERS: PCP Internal Medicine; Visit Provider Physician Assistant
DX: I25.118 Atherosclerotic heart disease of native coronary artery with other forms of angina pectoris (principal); J44.9 Chronic obstructive pulmonary disease, unspecified; G47.33 Obstructive sleep apnea (adult) (pediatric); Z87.891 Personal history of nicotine dependence
CPT/HCPCS: 93308

== ENCOUNTER 2024-09-18 09:44 | Outpatient (RCR) | payer OTHER, SELFPAY | END 2024-11-05 10:30 | disposition home or self-care (01) | LOC: CR 09:44 | PROVIDERS: Visit Provider Internal Medicine | DX: I25.10 Atherosclerotic heart disease of native coronary artery without angina pectoris (principal) | CPT/HCPCS: 93798 ==

== ENCOUNTER → 2024-09-20 07:04 | Outpatient (CLI) | payer OTHER, SELFPAY | LOC: SL 07:04 | PROVIDERS: PCP Nurse Practitioner; Visit Provider Nurse Practitioner | DX: G47.33 Obstructive sleep apnea (adult) (pediatric) (principal); R06.83 Snoring | CPT/HCPCS: G0399 ==

== ENCOUNTER 2024-10-02 06:17 | Outpatient (CLI) | payer OTHER, SELFPAY ==
--- NOTE | 2024-10-02 | CA_ITS ---
APPROVED REPORT Exam: Pharmacologic Technologist: Vivienne Martinez Ht: 5 ft 11 in Wt: 179 lbs BSA: 2.01 m2 HR: 76 bpm BP: 157/88 mmHg Stress Test Details Test: Lexiscan HR Resting HR: 76 bpm Max Heart Rate (APMHR): 163.645412 bpm Max HR Achieved: 114 bpm Target HR (85% APMHR): 138.509465 bpm % of APMHR: 69.94 Recovery HR: 81 bpm BP Resting BP: 157.0/88.0 mmHg Max BP: 157.0/88.0 mmHg Recovery BP: 152.0/80.0 mmHg ECG Resting ECG: Sinus rhythm Stress ECG Conclusion Symptoms: Dyspnea, chest pressure Arrhythmias/Ectopy: - ST-T Changes: Less than [address] depression Conclusion: EKG unremarkable due to Lexiscan infusion. Electronically signed by : Zandra Dubon MD 10/03/2024 23:31:17
--- NOTE | 2024-10-02 06:30 | NM_ITS ---
APPROVED REPORT Exam: Nuclear Stress Test Indication: Chest pain, SOB, HTN, High cholesterol, CAD Patient Location: Outpatient Stress Tech: Vivienne Martinez [place] Tech:Rosmery Oneill, ARRT, RT (R)(N) Ht: 5 ft 11 in Wt: 180 lbs HR: 82 bpm BP: 157/88 mmHg BSA: 2.02 m2 TID: 1.13 BMI: 25.1 History: Chest pain, SOB, HTN, High cholesterol, CAD Procedure: Patient received 0.4 mg of intravenous Lexiscan, resting heart rate 82 bpm, resting blood pressure 157/88 mmHg, with Lexiscan maximum heart rate achieved was 120 bpm which is % of the maximum predicted heart rate and blood pressure was 154/88 mmHg. With Lexiscan, patient denied any complaint of chest pain. Cardiac Stress and Resting SPECT Images: Cardiac Stress and Resting SPECT images were obtained using technetium 99m Myoview 31.7 mCi stress and 10.44 mCi at rest. Technically difficult study. Raw images demonstrate significant soft tissue overlap with the cardiac borders. This may affect the diagnostic interpretation of the study findings. Resting and stress imaging in supine and prone positions demonstrate an medium sized, moderate, fixed perfusion defect in the inferior and inferoseptal LV farrell. Gated imaging demonstrates normal global and regional LV systolic function. LVEF is calculated at 58%. Conclusion: Technically difficult study. Medium sized, moderate, fixed perfusion defect in the inferior and inferoseptal LV farrell. No evidence of reversible ischemia. Gated imaging demonstrates normal global and regional LV systolic function. LVEF is calculated at 58%. Electronically signed by : Zandra Dubon MD 10/02/2024 11:43:20
[2024-10-02] MEDS: SODIUM CHLORIDE 0.9% 10ML SYR (RAD ONLY) 10 ML IV ×2 (08:21)
[2024-10-02] MEDS: ISOTOPE MYOVIEW (PER STUDY) 1 DOSE IV (08:21)
[2024-10-02] MEDS: REGADENOSON 0.4MG/5ML SYRINGE 0.4 MG IV (08:21)
== END 2024-10-02 23:59 | disposition home or self-care (01) ==
LOC: RAD 06:18
PROVIDERS: PCP Internal Medicine; Visit Provider Physician Assistant
DX: R94.39 Abnormal result of other cardiovascular function study (principal); I25.118 Atherosclerotic heart disease of native coronary artery with other forms of angina pectoris; I10 Essential (primary) hypertension; E78.00 Pure hypercholesterolemia, unspecified; R55 Syncope and collapse
CPT/HCPCS: 78452; 93017; 93018; A9502; J2785

== ENCOUNTER 2024-10-15 12:51 | Outpatient (CLI) | payer OTHER, SELFPAY ==
--- OUTSIDE RECORDS SUMMARY | 2024-10-15 12:59 | XMS_ITS | Encounter Summary ---
Author Organization [employer] Address [address] [place] [address] Care Team Providers Care Core Java Engineer Name Role Phone Emanuel Vital MD Primary Care Provider [phone] Encounter Details Date Type Department Care Team (Late st Contact Info) Description 06/10/2021 Transcribed Document [facility] [place] Family [place] [facility] [place] [address] ProviderSaran MD [address] [place] [address] Social History Tobacco Use Types Packs/Day Years Used Date Smoking Tobacco: Never Assessed Sex and Gender Information Value Date Recorded Sex Assigned at Male 11/03/2021 9:02 PM CDT Legal Sex Male 9:02 PM CDT Gender Identity Male 11/03/2021 9:02 PM CDT Sexual Orientation Not on file documented as of this encounter Miscellaneous Notes * Cerner Conversion Note - Saran ProviderMD - 06/10/2021 3:17 PM ZOO KEEPER PAT Adult Entered On: 06/10/2021 15:24 EST Performed On: 06/10/2021 15:17 EST by Sofie Fernandez Rn Vital Measurements Temperature Source : Tympanic Temperature Mode : Fahrenheit Temperature, Fahrenheit : 97.8 Deg F Clinical Temperature, C : 36.6 Deg C Peripheral Pulse Rate : 95 bpm Pulse Rhythm : Regular Respiratory Rate : 18 Breaths/Min Systolic Blood Pressure : 150 mmHg (HI) Diastolic Blood Pressure : 89 mmHg Oxygen Saturation : 98 % Oxygen Therapy Mode : Room air Sofie Fernandez Rn - 06/10/2021 15:17 EST Height and Weight, Clinical Dosing Height Source : Stated Height Entry Format : [place] Height, Feet : 5 ft(Converted to: 152 cm, 60 Inch) Height, Inches : 11 Inch(Converted to: 0 ft 11 Inch, 27.94 cm) Clinical Height : 180.34 cm Weight Source : Standing scale Weight Entry Format : [place] Clinical Dosing Weight : 80 kg Weight, Pounds : 176 lb Body Surface Area (BSA) : 2 m2 Body Mass Index : 24.6 kg/m2 (HI) [place] Body Weight : 74 kg Sofie Fernandez Rn - 06/10/2021 15:17 EST Health Histories Smoking Status : Former smoker, quit more than 30 days ago Smokeless Tobacco Status : Never Sofie Fernandez Rn - 06/10/2021 15:17 EST Social History (As Of: 06/10/2021 15:24:15 EST) Tobacco: Former smoker, quit more than 30 days ago Smoking Status. Never Smokeless Tobacco Status. Last Used: quit 12 days ago, using nicotine patch. (Last Updated: 06/10/2021 15:17:32 EST by Sofie Fernandez Rn) Alcohol: Alcohol Use History No. (Last Updated: 06/10/2021 15:17:32 EST by Sofie Fernandez, Rn) Substance Abuse: Drug Use Hx: No. (Last Updated: 06/10/2021 15:17:32 EST by Sofie Fernandez, Rn) Infectious Disease History Does patient have symptoms of COVID-19? : No Has the Patient Been Tested for COVID-19 in the last 14 days? : PreProcedure/NON-PUI COVID-19 Testing Does the Patient state known exposure to a COVID-19 positive case in the last 14 days? : No Patient Vaccinated for COVID-19 : Fully vaccinated Sofie Fernandez Rn - 06/10/2021 15:17 EST Infectious Disease Risk Screening Grid Cough < 2 wks of unknown origin : NO Cough > 2 weeks : NO Blood in Sputum : NO Fever or self-reported Fever : NO Rash of unknown origin : NO Headache : NO Stiff neck : NO Night Sweats : NO Unexplained Weight Loss : NO Diarrhea (3 episode per day) : NO Sofie Fernandez Rn - 06/10/2021 15:17 EST Patient Masked? : Yes Physical contact outside [place] in the last 30 days : No Hospitalized in Foreign Country : No Infectious Disease History : Chicken pox/Shingles INF Disease TB Screening Calc : 0 INF Disease Recent Travel Calc : 0 Sofie Fernandez Rn - 06/10/2021 15:17 EST COVID19 PreProcedure Screening Is this an Emergent or Add on Procedure? : No Date PreProcedure COVID-19 test known? : No Has patient been isolated since the test : N/A - PreProcedure, in-person visit Exposed to COVID19 symptoms since test? : N/A - PreProcedure, in-person visit Sofie Fernandez Rn - 06/10/2021 15:17 EST Anesthesia/Transfusion History Family History of Anesthesia Reaction : No prior transfusion(s) Transfusion History : No prior anesthesia Family History of Anesthesia Reaction : None, Unknown Sofie Fernandez Rn - 06/10/2021 15:17 EST Functional Assessment Functional ADL Evaluation Index EBN Bathing : Independent (2) Dressing : Independent (2) Toileting : Independent (2) Transferring Bed or Chair : Independent (2) Continence : Independent (2) Feeding : Independent (2) Sofie Fernandez Rn - 06/10/2021 15:17 EST ADL Index Score : 12 Sofie Fernandez Rn - 06/10/2021 15:17 EST Advance Directive Patient has Advance Directive *Q : No, patient refuses Advance Directive information Sofie Fernandez Rn - 06/10/2021 15:17 EST [place] Suicide Severity Rating Scale (C-SSRS) CSSRS Past Month Wish to be : No CSSRS Past Month Suicidal Thoughts : No CSSRS Lifetime Suicide Behavior : No Suicide Severity Rating Score : 0 Suicide Severity Rating : No Additional Care Required at this time Sofie Fernandez Rn - 06/10/2021 15:17 EST Psychosocial History Do You Have a History of the Following? : Depression Currently in Unsafe Situation : No Sofie Fernandez Rn - 06/10/2021 15:17 EST Teaching/Learning Assessment Individuals Taught : Patient Readiness to Learn : Cooperative Readiness to Learn : Explanation, Printed materials Sofie Fernandez Rn - 06/10/2021 15:17 EST Education Topics, Periop Preadmission Perioperative Education Grid Arrival Time/Place : Verbalizes understanding Infection Control : Verbalizes understanding Preprocedure Preparations : Verbalizes understanding Preprocedure Tests/Labs : Verbalizes understanding Remove Body Piercings : Verbalizes understanding Responsible Adult : Verbalizes understanding Take/Hold Medications Pre-Procedure : Verbalizes understanding Sofie Fernandez, Rn - 06/10/2021 15:17 EST General Info Want Family/Rep/Phys Notified of Admit : No Emergency Contact #1 : Lissy Emergency Contact #1 Emergency Contact #1 Relationship : Emergency Contact #2 : . Emergency Contact #2 Phone Number : . Emergency Contact #2 Relationship : . Primary Language : Niuean Communication Barrier : None Consulting Sales Manager Needed : No Sofie Fernandez Rn - 06/10/2021 15:17 EST Jd Scale Jd Sensory Perception : No impairment Jd Moisture : Rarely moist Jd Activity : Walks frequently Jd Mobility : No limitation Jd Nutrition : Excellent Jd Friction and Shear : No apparent problem Jd Score : 23 Sofie Fernandez Rn - 06/10/2021 15:17 EST Sleep Apnea Risk Assmt Hx of Obstructive Sleep Apnea Diagnosis : No Snore Loudly : No Tired, Fatigued, or Sleepy During Day : No Observed Stopping Breathing During Sleep : No Have/Are Being Treated for Hypertension : No BMI Greater Than 35 kg/m2 : No Age over 50 Years Old : Yes Neck Circumference Greater Than 40 cm : No Gender Male : Yes STOP-BANG Sleep Apnea Risk Level Score : 2 Sofie Fernandez Rn - 06/10/2021 15:17 EST Electronically signed by Gonzalo [facility] Conversion Celery Tier Cerner at 08/26/2022 12:20 AM CDT documented in this encounter Plan of Treatment Not on file documented as of this encounter Visit Diagnoses Not on filedocumented in this encounter Care Teams Core Java Engineer Relationship Specialty Start Date End Date Emanuel Vital MD [address] [place] [id number] PCP - General General Internal Medicine 09/03/22 documented as of this encounter
--- OUTSIDE RECORDS SUMMARY | 2024-10-15 12:59 | XMS_ITS | Encounter Summary ---
Author Organization [email or web address] Address [address] [place] [address] Care Team Providers Care Rn Stars Name Role Phone Emanuel Vital MD Primary Care Provider [phone] Encounter Details Date Type Department Care Team (Late st Contact Info) Description 06/10/2021 Transcribed Document [facility] [place] Family Medicine [facility] [place] [address] ProviderSaran MD [address] [place] [id number] Social History Tobacco Use Types Packs/Day Years Used Date Smoking Tobacco: Never Assessed Sex and Gender Information Value Date Recorded Sex Assigned at Male 11/03/2021 9:02 PM CDT Legal Sex Male 9:02 PM CDT Gender Identity Male 11/03/2021 9:02 PM CDT Sexual Orientation Not on file documented as of this encounter Miscellaneous Notes * Cerner Conversion Note - Historical ProviderMD - 06/10/2021 2:09 PM ENGLISH TEACHER Patient: ALYSSA GLEASON Age: 56 Years Sex: Male : 1965 Chief Complaint Left Arm Pain with Decreased ROM Primary Care Provider LEILANIY, NOT LISTED History of Present Illness This patient is a pleasant 56 yo WM who presents with left arm pain. The pain has been going on for 3 months but has gotten progressively worse. He describes it as a sharp pain. It is now to the point that it is affecting his ADLs. He has tried NSAIDs without relief of his pain. He was seen at Dr Spears's office and evaluated and he was offered a Left Distal Bicep Repair and agreed to the procedure. Pt denies a h/o DVT/PE. No trouble with anesthesia in the past. No respiratory conditions including COPD/CAMACHO/asthma. Review of Systems Constitutional: Neg for fevers or chills. Eyes: Neg for blurry vision or change in vision. ENT: Neg for sore throat, ear pain, or dizziness. Cardiac: Neg for chest pain or dyspnea on exertion. Respiratory: Neg for shortness of breath. Gastrointestinal: Neg for nausea, vomiting, diarrhea, or constipation. Musculoskeletal: Pos for left shoulder pain. Neurologic: Neg for headaches or seizures. Psychiatric: Neg for anxiety and depression. Integumentary: Neg for rash. Vital Signs T: 36.6 ??C HR: 95(Peripheral) RR: 18 BP: 150/89 SpO2: 98% HT: 180.34 cm WT: 80 kg BMI: 24.6 Oxygen Settings (Last) Oxygen Therapy Mode: Room air (06/10/21 15:17:00) Physical Exam Constitutional: This is a pleasant 56 yo WM in no acute distress. HEENT: Normocephalic, atraumatic. PEERLA. Extraocular muscles intact. Conjunctiva pink without exudate. Oropharynx pink and moist. Neck supple. No JVD. Cardiac: SI, S2. RRR. No M/R/G. Respiratory: Lungs CTA bilaterally. No wheezes, rales, or rhonchi. Abdomen: Soft, nontender, nondistended. Active bowel sounds. No visible masses. Musculoskeletal: Bilateral LE without clubbing, cyanosis or edema. Integumentary: Skin is pink, warm and dry. No rashes. Neurologic: CN II-XII grossly intact. Psychiatric: Judgment and affect appropriate. Assessment/Plan 1. Preoperative Evaluation- Pt underwent preoperative laboratory workup and diagnostic studies. 2. Recent Oral Surgery- Continue Augmentin. 3. Depression- Continue Bupropion. 4. Left Shoulder Pain- Proceed with surgery as scheduled with Dr Spears on 06/11/2021. Problem List/Past Medical History Ongoing At risk for sleep apnea Depression Procedure/Surgical History Oral surgery. Home Medications (8) Active amoxicillin-clavulanate 875 mg-125 mg oral tablet 1 Tab, Oral, Q12H buPROPion 200 mg, Oral, BID ibuprofen 200 mg, Oral, Q6H naproxen 500 mg, Oral, BID PreserVision See Instructions traZODone 100 mg, Oral, Daily Tylenol 500 mg, Oral, Q6H Allergies No Known Allergies No Known Medication Allergies Social History Alcohol Alcohol Use History No. Substance Abuse Drug Use Hx: No. Tobacco Former smoker, quit more than 30 days ago Smoking Status. Never Smokeless Tobacco Status. Last Used: quit 12 days ago, using nicotine patch. Family History Pt is adopted. Diagnostic Results EKG- NSR, 93 CXR- NAD Lab Results Test Name Test Result Date/Time Sodium Level 136 mmol/L 06/10/2021 15:32 EST Potassium Level 4.4 mmol/L 06/10/2021 15:32 EST Chloride Level 104 mmol/L 06/10/2021 15:32 EST Carbon Dioxide Level 29 mmol/L 06/10/2021 15:32 EST Anion Gap 7 (Low) 06/10/2021 15:32 EST Glucose Level 94 mg/dL 06/10/2021 15:32 EST Blood Urea Nitrogen 20 mg/dL 06/10/2021 15:32 EST Creatinine Level 0.92 mg/dL 06/10/2021 15:32 EST eGFR >60 mL/min/1.73m2 06/10/2021 15:32 EST eGFR NonAfrican >60 mL/min/1.73m2 06/10/2021 15:32 EST Bun/Creatinine 21.7 (High) 06/10/2021 15:32 EST Calcium Level 9.0 mg/dL 06/10/2021 15:32 EST Protein Total 7.4 Gram/dL 06/10/2021 15:32 EST Albumin Level 3.7 Gram/dL 06/10/2021 15:32 EST Globulin 3.7 Gram/dL 06/10/2021 15:32 EST A/G Ratio 1.0 (Low) 06/10/2021 15:32 EST Bilirubin Total 0.4 mg/dL 06/10/2021 15:32 EST Alk Phos 113 Units/Liter 06/10/2021 15:32 EST AST 98 Units/Liter (High) 06/10/2021 15:32 EST ALT 172 Units/Liter (High) 06/10/2021 15:32 EST Hgb A1C 5.50 % 06/10/2021 15:32 EST eAVG Glucose 111 mg/dL 06/10/2021 15:32 EST WBC 9.4 K/uL 06/10/2021 15:32 EST RBC 4.93 Million/uL 06/10/2021 15:32 EST Hgb 15.0 Gram/dL 06/10/2021 15:32 EST Hct 45.2 % 06/10/2021 15:32 EST MCV 91.7 fL 06/10/2021 15:32 EST MCH 30.4 pg 06/10/2021 15:32 EST MCHC 33.2 Gram/dL 06/10/2021 15:32 EST Platelet Count 358 K/uL 06/10/2021 15:32 EST MPV 8.7 fL (Low) 06/10/2021 15:32 EST RDW 13.2 % 06/10/2021 15:32 EST Neut % 65.5 % 06/10/2021 15:32 EST Neut # 6.15 K/uL (High) 06/10/2021 15:32 EST Lymph % 20.0 % 06/10/2021 15:32 EST Lymph # 1.88 K/uL 06/10/2021 15:32 EST [place] % 8.0 % 06/10/2021 15:32 EST [place] # 0.75 K/uL 06/10/2021 15:32 EST Eos % 5.0 % 06/10/2021 15:32 EST Eos # 0.47 K/uL 06/10/2021 15:32 EST Baso % 0.9 % 06/10/2021 15:32 EST Baso # 0.08 K/uL 06/10/2021 15:32 EST Slide Review No 06/10/2021 15:32 EST IG# 0 x10(3)/uL 06/10/2021 15:32 EST IG% 1 % 06/10/2021 15:32 EST PT 10.0 Second(s) 06/10/2021 15:32 EST INR 1.0 06/10/2021 15:32 EST PTT 28.9 Second(s) 06/10/2021 15:32 EST Urine Type. U CleanCatch 06/10/2021 15:32 EST Urine Color YELLOW2 06/10/2021 15:32 EST Urine Appearance CLEAR2 06/10/2021 15:32 EST Urine Specific [place] 1.024 06/10/2021 15:32 EST Urine pH Dipstick *5.0 06/10/2021 15:32 EST Urine Leukocyte Esterase NEGATIVE2 06/10/2021 15:32 EST Urine Nitrite NEGATIVE2 06/10/2021 15:32 EST Urine Protein Dipstick NEGATIVE2 06/10/2021 15:32 EST Urine Glucose Dipstick NEGATIVE2 06/10/2021 15:32 EST Urine Ketones Dipstick NEGATIVE2 06/10/2021 15:32 EST Urine Urobilinogen Dipstick 0.2 06/10/2021 15:32 EST Urine Bilirubin Dipstick NEGATIVE2 06/10/2021 15:32 EST Urine Blood Dipstick NEGATIVE2 06/10/2021 15:32 EST Urine Culture if Indicated Not Indicated 06/10/2021 15:32 EST SARS-CoV-2 (COVID19 PCR) NEGATIVE2 06/10/2021 15:32 EST Electronically signed by [facility] Conversion Big Data Engineer Cerner at 08/26/2022 12:28 AM CDT documented in this encounter Plan of Treatment Not on file documented as of this encounter Visit Diagnoses Not on filedocumented in this encounter Care Teams Rn Stars Relationship Specialty Start Date End Date Emanuel Vital MD [address] [place] [id number] PCP - General General Internal Medicine 09/03/22 documented as of this encounter
--- OUTSIDE RECORDS SUMMARY | 2024-10-15 12:59 | XMS_ITS | Encounter Summary ---
Author Organization [employer] Address [address] [place] [address] Care Team Providers Care Elevated Guard Name Role Phone Emanuel Vital MD Primary Care Provider [phone] Encounter Details Date Type Department Care Team (Late st Contact Info) Description 06/19/2021 Transcribed Document [facility] [place] Medicine [facility] [place] [address] ProviderSaran MD [address] [place] [address] Social History Tobacco Use Types Packs/Day Years Used Date Smoking Tobacco: Never Assessed Sex and Gender Information Value Date Recorded Sex Assigned at Male 11/03/2021 9:02 PM CDT Legal Sex Male 9:02 PM CDT Gender Identity Male 11/03/2021 9:02 PM CDT Sexual Orientation Not on file documented as of this encounter Miscellaneous Notes * Cerner Conversion Note - Saran ProviderMD - 06/19/2021 2:31 PM ASSOCIATE PROFESSOR OF VIOLIN RENETTA Main OR IntraOp Summary Primary Physician: SEAN CARMEN MD-SUR Finalized Date/Time: 06/22/21 10:51:39 Pt. Name: ALYSSA CABRALES /Sex: 1965 Male Med Rec #: [id number] Physician: SEAN CARMEN MD-SUR Financial #: [id number] Pt. Type: O Room/Bed: [facility]/6 Admit/Disch: 06/19/21 06:27:00 - 06/19/21 16:50:00 Institution: [facility] IntraOp Case Attendance Entry 1 Entry 2 Entry 3 Case Attendee SEAN CARMEN ARVIN, CHRIS L, KEVIN FORMAN CRNA MD-SUR Role Performed Surgeon/Proceduralist, Physician virtual assistant MULTIPLEX OPERATOR/Nurse Spindle Tester First Time In 06/19/21 14:07:00 06/19/21 14:07:00 06/19/21 14:07:00 Time Out 06/19/21 15:43:00 06/19/21 15:43:00 06/19/21 14:47:00 Procedure Biceps Distal Tendon Biceps Distal Tendon Biceps Distal Tendon Repair Open Repair Open Repair Open Other Attendee Superficial Wound Closed By: Last Modified By: CRUZ DOOLEY RN WESSEL, JULIANA, CRUZ TUCKER, KARUNA 06/19/21 15:43:49 06/19/21 15:43:49 06/19/21 14:48:53 Entry 4 Entry 5 Entry 6 Case Attendee CRUZ DOOLEY, SUKHWINDER ABEBE, OTHER, ATTENDEE #1 Electrifier Operator Role Performed Director Of Sports Medicine, First Scrub, First Vendor Time In 06/19/21 14:07:00 06/19/21 14:07:00 06/19/21 14:07:00 Time Out 06/19/21 15:43:00 06/19/21 15:43:00 06/19/21 15:43:00 Procedure Biceps Distal Tendon Biceps Distal Tendon Biceps Distal Tendon Repair Open Repair Open Repair Open Other Attendee [facility] Superficial Wound Closed By: Last Modified By: CRUZ DOOLEY RN WESSEL, JULIANA, RN WESSEL, JULIANA, RN 06/19/21 15:43:49 06/19/21 15:43:49 06/19/21 14:41:18 Entry 7 Case Attendee MILTON FOSTER CRNA Role Performed MULTIPLEX OPERATOR/Nurse Spindle Tester Time In 06/19/21 14:47:00 Time Out 06/19/21 15:43:00 Procedure Biceps Distal Tendon Repair Open Other Attendee Superficial Wound Closed By: Last Modified By: CRUZ DOOLEY RN 06/19/21 15:43:49 [facility] Intra[facility] Case Attendance Audit 06/19/21 15:43:49 Track Layer Head: [email or web address] Modifier: [email or web address] 1 <+> Time Out 1 <*> Procedure Biceps Distal Tendon Repair Open 2 <+> Time Out 2 <*> Procedure Biceps Distal Tendon Repair Open 3 <*> Procedure Biceps Distal Tendon Repair Open 4 <+> Time Out 4 <*> Procedure Biceps Distal Tendon Repair Open 5 <+> Time Out 5 <*> Procedure Biceps Distal Tendon Repair Open 6 <+> Time Out 6 <*> Procedure Biceps Distal Tendon Repair Open 7 <+> Time Out 7 <*> Procedure Biceps Distal Tendon Repair Open 06/19/21 14:48:53 Track Layer Head: [email or web address] Modifier: [email or web address] 1 <*> Procedure Biceps Distal Tendon Repair Open 2 <+> Time In 2 <*> Procedure Biceps Distal Tendon Repair Open 3 <+> Time In 3 <+> Time Out 3 <*> Procedure Biceps Distal Tendon Repair Open 4 <+> Time In 4 <*> Procedure Biceps Distal Tendon Repair Open 5 <+> Time In 5 <*> Procedure Biceps Distal Tendon Repair Open 6 <+> Time In 6 <*> Procedure Biceps Distal Tendon Repair Open <+> 7 Case Attendee <+> 7 Role Performed <+> 7 Time In <+> 7 Procedure 06/19/21 14:41:18 Track Layer Head: RUSS Modifier: [email or web address] 1 <*> Case Attendee SEAN CARMEN MD-LESLIE 1 <*> Role Performed Surgeon/Proceduralist, First 1 <+> Time In 1 <*> Procedure Biceps Distal Tendon Repair Open Entry 2 was deleted. Higher numbered entries shifted one position to fill the gap. <-> 2 Case Attendee Christina Calvillo, Non Emp Student Nurse Spindle Tester <-> 2 Role Performed MULTIPLEX OPERATOR/Nurse Spindle Tester <-> 2 Procedure Biceps Distal Tendon Repair Open Entry 3 was deleted. Higher numbered entries shifted one position to fill the gap. <-> 3 Case Attendee LIBBY OROSCO CRNA <-> 3 Role Performed MULTIPLEX OPERATOR/Nurse Spindle Tester <-> 3 Procedure Biceps Distal Tendon Repair Open Entry 4 was deleted. Higher numbered entries shifted one position to fill the gap. <-> 4 Case Attendee MAGGIE GOODRICH PA <-> 4 Role Performed Physician virtual assistant <-> 4 Procedure Biceps Distal Tendon Repair Open 06/19/21 11:41:50 Track Layer Head: LONGGA Modifier: LONGGA 1 <*> Case Attendee SEAN CARMEN MD-LESLIE 1 <*> Role Performed Surgeon/Proceduralist, First 1 <*> Procedure Biceps Distal Tendon Repair Open 2 <*> Case Attendee Christina Calvillo, Non Emp Student Nurse Spindle Tester 2 <*> Role Performed MULTIPLEX OPERATOR/Nurse Spindle Tester 2 <*> Procedure Biceps Distal Tendon Repair Open 3 <*> Case Attendee LIBBY OROSCO, MULTIPLEX OPERATOR 3 <*> Role Performed MULTIPLEX OPERATOR/Nurse Spindle Tester 3 <*> Procedure Biceps Distal Tendon Repair Open Entry 4 was deleted. Higher numbered entries shifted one position to fill the gap. <-> 4 Case Attendee IRMA MCNALLY RN <-> 4 Role Performed Director Of Sports Medicine, First <-> 4 Procedure Biceps Distal Tendon Repair Open Entry 5 was deleted. Higher numbered entries shifted one position to fill the gap. <-> 5 Case Attendee Jolynn Arvizu CST <-> 5 Role Performed Scrub, First <-> 5 Procedure Biceps Distal Tendon Repair Open [facility] Intra[facility] Case Times Entry 1 Patient In Room Time 06/19/21 14:07:00 Out Room Time 06/19/21 15:43:00 Anesthesia Start Time 06/19/21 14:07:00 Stop Time 06/19/21 15:43:00 Anesthesia Ready 06/19/21 14:07:00 Surgery / Procedure Times Start Time 06/19/21 14:31:00 Stop Time 06/19/21 15:35:00 Last Modified By: CRUZ DOOLEY RN 06/19/21 14:31:44 [facility] Intra[facility] Case Times Audit 06/19/21 15:43:45 Track Layer Head: [email or web address] Modifier: [email or web address] <+> 1 Out Room Time <+> 1 Stop Time 06/19/21 15:35:20 Track Layer Head: [email or web address] Modifier: [email or web address] <+> 1 Stop Time 06/19/21 14:40:06 Track Layer Head: [email or web address] Modifier: [email or web address] <+> 1 Start Time [facility] Cautery Entry 1 ESU Identification Cautery Type BiPolar ESU Cautery Type bipolar Comments ID Number [id number] ID Type Hospital Number Cautery Settings Cut Setting 30 Coag Setting 30 ESU Grounding Pad Ground Pad Type Adult Grounding Pad Site Left thigh Grounding Pad CRUZ DOOLEY RN Applied By Grounding Pad Site Warm, dry and intact Skin Condition Before Cautery Site Skin Condition pt leg was shaved prior Before Comment to OR entry Grounding Pad Site Unchanged Skin Condition After Cautery Last Modified By: CRUZ DOOLEY RN 06/19/21 14:41:59 [facility] IntraOp Communication Entry 1 Communication To Family/Significant other Comment start Communication By KEVIN LEIGH CRNA Date and Time 06/19/21 14:32:00 Last Modified By: CRUZ DOOLEY RN 06/19/21 14:42:09 [facility] Counts Verification Entry 1 Procedure Biceps Distal Tendon Repair Open Count Info Count Type Sponge, Sharps, Miscellaneous Counts Verification Baseline/pre-procedure Sequence Count Results Correct, surgeon notified Counts Performed By Count Performed By SUKHWINDER KANG, (Scrub) Electrifier Operator Count Performed By CRUZ DOOLEY RN (RN) Last Modified By: CRUZ DOOLEY RN 06/19/21 14:42:23 [facility] Intra[facility] Counts Verification Audit 06/19/21 14:42:23 Track Layer Head: LONGGA Modifier: [email or web address] <+> 1 Procedure <+> 1 Count Type <+> 1 Counts Verification Sequence <+> 1 Count Results <+> 1 Count Performed By (Scrub) <+> 1 Count Performed By (RN) 06/19/21 11:41:06 Track Layer Head: LONGGA Modifier: LONGGA Entry 1 was deleted. Higher numbered entries shifted one position to fill the gap. <-> 1 Procedure Biceps Distal Tendon Repair Open <-> 1 Count Type Sponge, Sharps <-> 1 Counts Verification Sequence Baseline/pre-procedure <-> 1 Count Results Correct, surgeon notified <-> 1 Count Performed By (Scrub) Jolynn Arvizu CST <-> 1 Count Performed By (RN) IRMA MCNALLY RN [facility] Counts Final Entry 1 Procedure Biceps Distal Tendon Repair Open Final Count Info Count Type Sponge, Sharps, Miscellaneous Counts Verification Skin Closure/end of Sequence procedure Count Results Correct, surgeon notified Counts Performed By Count Performed By SUKHWINDER KANG, (Scrub) Electrifier Operator Count Performed By CRUZ DOOLEY RN (RN) Last Modified By: CRUZ DOOLEY RN 06/19/21 15:35:59 [facility] Intra[facility] Counts Final Audit 06/19/21 15:35:59 Track Layer Head: [email or web address] Modifier: [email or web address] 1 <*> Procedure Biceps Distal Tendon Repair Open 1 <+> Counts Verification Sequence [facility] Departure from OR Entry 1 Integumentary Assessment Integumentary WDL Assessment WDL Transfer/Handoff Transfer to PACU Phase I Handoff Method Bedside/Face to face Post-op Transport Stretcher/Gurney Via Patient Transport CRUZ DOOLEY RN, Accompanied by KEVIN LEIGH CRNA Last Modified By: CRUZ DOOLEY RN 06/19/21 14:42:45 [facility] Intra[facility] Dressing and Packing Entry 1 Type Dressing Location OP SITE Wound Dressing Item 4x4's, Adaptic, Webril, Coban Supplemental Splint Applications Applied By SEAN CARMEN MD-SUR Last Modified By: CRUZ DOOLEY RN 06/19/21 14:42:53 [facility] Intra[facility] Fire Risk Assessment Entry 1 Fire Info Surgical Site or 0- No Incision Above the Xyphoid Open O2 Source 1- Yes (Mask or Cannula) Available Ignition 1- Yes (ESU, Laser, Light Source) Fire Risk 2 Assessment Score Fire Score Fire Risk Yes Assessment Complete Fire Risk CRUZ DOOLEY RN Assessment Verified By Fire Risk 06/19/21 14:07:00 Assessment Verified Date/Time Fire Risk High Risk Protocol Yes Implemented Standard Fire Yes Safety Precautions Followed Last Modified By: IRMA MCNALLY RN 06/19/21 11:31:41 [facility] IntraOp Fire Risk Assessment Audit 06/19/21 14:43:06 Track Layer Head: RUSS Modifier: [email or web address] 1 <*> Fire Risk Assessment Verified By SEAN CARMEN MD-LESLIE 1 <*> Fire Risk Assessment Verified 06/19/21 11:31:00 Date/Time 06/19/21 11:41:17 Track Layer Head: RUSS Modifier: RUSS 1 <*> Fire Risk Assessment Verified By IRMA MCNALLY RN [facility] Intra[facility] General Case Chief Commercial Officer 1 Case Information OR OR 05 [facility] Case Level 1 Room Verified Yes Wound Class 1 - Clean Specialty Orthopedic Anesthesia Type General ASA Class 2 Diagnosis Preop Diagnosis LEFT DISTAL BICEPS RUPTURE Postop Same As Preop Yes Postop Diagnosis LEFT DISTAL BICEPS RUPTURE Wound Class Definitions Last Modified By: IRMA MCNALLY RN 06/19/21 11:32:28 [facility] General Case Data Audit 06/19/21 11:41:31 Track Layer Head: LONGGA Modifier: LONGGA 1 <*> ASA Class 3 06/19/21 11:32:28 Track Layer Head: LONGGA Modifier: LONGGA <+> 1 ASA Class <+> 1 Wound Class <+> 1 Anesthesia Type <+> 1 Postop Same As Preop <+> 1 Preop Diagnosis <+> 1 Postop Diagnosis <+> 1 Room Verified [facility] Intra[facility] Implant Log Entry 1 Type Implant (Synthetic) Implant Log Implant Type Hardware Implant IMP SYS DEL BIOCOMP DST Identification [id number] Description Implant Quantity 1 Implant Site left bicep Implant [id number] Identification Lot Number Implant Ar[employer]rex Identification Block Bolter Mule Operator Name: Implant [id number] Identification Catalog Number Implant Has an Yes Expiration Date Implant Expiration 05/08/23 Date Tissue Implant Last Modified By: CRUZ DOOLEY RN 06/19/21 14:43:50 [facility]Op Implant Log Audit 06/22/21 10:51:05 Track Layer Head: LONG Modifier: MELLINR 1 <*> Implant Identification Description IMP SYS DEL BIOCOMP DST [id number] <*> Implant Quantity 2 [facility] Intraoperative Assessment Entry 1 Handoff Method Bedside/Face to face Valid History / Yes Physical in Chart Preoperative Yes Checklist Reviewed/Evaluated Allergies Reviewed Yes Patient is Latex No Sensitive Isolation Not applicable Precautions Noted Level of WDL Consciousness (WDL = Alert, Oriented to Person, Place, and Time) Skin Assessment Yes Verified Present Upon IVs Arrival to OR Last Modified By: CRUZ DOOLEY RN 06/19/21 14:43:56 [facility] Intraoperative Equipment Entry 1 Type Equipment Equipment Equipment Saravanan Suction System Intraop Monitoring Antiembolic Devices Antiembolic Devices Sequential compression device, knee high Antiembolic Device Bilateral Location Scopes Photo/Video Documentation Last Modified By: CRUZ DOOLEY RN 06/19/21 14:44:07 [facility] Intra[facility] Medication Admin Entry 1 Medication/Irrigant vancomycin 1Gm vial - [id number] Route of in wound before closure Administration Dose Dose 1 Unit of Measure gram Administered By SEAN CARMEN MD-SUR Procedure Irrigation Last Modified By: CRUZ DOOLEY RN 06/19/21 15:25:55 [facility] IntraOp Patient Positioning Entry 1 Procedure Biceps Distal Tendon Repair Open Body Position Supine Left Arm Position Extended on hand table Right Arm Position Resting at side Left Leg Position Uncrossed, parallel Right Leg Position Uncrossed, parallel Feet Uncrossed Yes Pressure Points Yes Checked Positioning Devices Pillows, Table, Hand Device Position OPERATIVE ARM PLACED ON HAND TABLE. PT. LEFT ON STRETCHER, PILLOWS UNDER HEAD. Positioned By CRUZ DOOLEY, KARUNA, KEVIN LEIGH CRNA, SEAN CARMEN MD-SUR, KIMBER SUAREZ PA-C Position Verified Positioning Yes Verified by Anesthesia Positioning Yes Verified by Surgeon Last Modified By: CRUZ DOOLEY RN 06/19/21 14:44:51 [facility] IntraOp Sign In Entry 1 Patient, Site, Yes Procedure Identified Surgical Consent Yes Confirmed Surgical Site Yes Marked by person performing procedure Anesthesia Machine Yes Check Completed Medication Checks Yes Completed Allergies Yes Airway Difficult Yes Airway/Aspiration Risk Difficult Yes Airway/Aspiration Intervention Equipment Available Blood Loss Risk Yes Blood Loss Yes Intervention Equipment Prepared and Ready Blood Identifiers Not applicable Verified Per Policy Hypothermia Risk Yes Warming Measures Yes Taken Last Modified By: CRUZ DOOLEY RN 06/19/21 14:45:00 [facility] Intra Op Sign Out Entry 1 RN Confirmation Surgical Yes Procedure(s) Identified Instrument, Sponge Yes and Sharps Counts Correct/Documented Specimen Labeled N/A Correctly Urinary Catheter N/A Documented in IView Wound Yes classification reviewed, verified and updated post case in both the General Case Data and Procedure segments Sánchez Patient Yes Recovery Concerns Reviewed with Anesthesia Provider, Surgeon and RN Sánchez Patient Yes Management Concerns Reviewed with Anesthesia Provider, Surgeon and RN Safety Checklist Yes Elements Complete? RN Sign Out CRUZ DOOLEY RN Signature RN Sign Out 06/19/21 15:43:00 Signature Date/Time Plan of Care Outcome - Fire Risk OUTCOME STATEMENT: Goal met Patient is free from injury related to surgical fire Plan of Care Outcome - Pt Positioning OUTCOME STATEMENT: Goal met Absence of signs and symptoms of positioning injury. Plan of Care Outcome - Skin Prep OUTCOME STATEMENT: Goal met Intraoperative care is consistent with measures to prevent infection Plan of Care Outcome - Xray/Images OUTCOME STATEMENT: N/A Absence of observable signs or symptoms of radiation injury Plan of Care Outcome - Counts OUTCOME STATEMENT: Goal met Absence of signs and symptoms of injury related to extraneous objects Last Modified By: CRUZ DOOLEY RN 06/19/21 15:35:32 [facility] Intra Op Sign Out Audit 06/19/21 15:44:01 Track Layer Head: [email or web address] Modifier: [email or web address] <+> 1 OUTCOME STATEMENT: Intraoperative care is consistent with measures to prevent infection 06/19/21 15:43:48 Track Layer Head: LONG Modifier: [email or web address] <+> 1 RN Sign Out Signature Date/Time 06/19/21 15:35:32 Track Layer Head: LONG Modifier: [email or web address] <+> 1 Sánchez Patient Recovery Concerns Reviewed with Anesthesia Provider, Surgeon and RN <+> 1 Sánchez Patient Management Concerns Reviewed with Anesthesia Provider, Surgeon and RN <+> 1 Urinary Catheter Documented in IView <+> 1 Wound classification reviewed, verified and updated post case in both the General Case Data and Procedure segments [facility] Skin Prep Entry 1 Procedure Biceps Distal Tendon Repair Open Prescribed Yes Pre-Surgical Prep Completed Prep Area OP SITE; left arm Intraop Prep Integumentary WDL Assessment WDL Prep Agents Chloraprep Prep by CRUZ DOOLEY RN Hair Removal Methods No hair removal performed Last Modified By: CRUZ DOOLEY RN 06/19/21 14:45:35 [facility]Op Surgical Procedures Entry 1 Procedure Biceps Distal Tendon Repair Open Additional LEFT DISTAL BICEPS Procedure REPAIR Description Primary Procedure Yes Primary Surgeon SEAN CARMEN MD-LESLIE Start 06/19/21 14:31:00 Stop 06/19/21 15:35:00 Anesthesia Type General Specialty Orthopedic Wound Class 1 - Clean Last Modified By: IRMA MCNALLY RN 06/19/21 11:32:51 [facility]Op Surgical Procedures Audit 06/19/21 15:35:24 Track Layer Head: LONG Modifier: LONG <+> 1 Stop 06/19/21 14:45:15 Track Layer Head: RUSS Modifier: LONG <+> 1 Start [facility]Op Temp Regulation Devices Entry 1 Temp Regulation Temperature Forced Air Warming Regulation Device device Temperature Lower body Regulation Site Temperature KEVIN LEIGH CRNA Regulation Device Applied by Last Modified By: CRUZ DOOLEY RN 06/19/21 14:45:47 [facility] Time Out Entry 1 Procedure to be Biceps Distal Tendon Performed Repair Open Time Out Time Out Pause Time 06/19/21 14:30:00 All activity Yes suspended (unless life threatening emergency) Team Verbally Correct patient Confirms Information identity, Correct side and site are marked, Consent form is present and accurate, Agreement on the procedure to be done, Correct patient position, Relevant images/results properly labeled/appropriately displayed, Confirm antibiotics have been administered, Confirm the skin prep has dried, Confirm prosthesis/implant/devic e is present, Performed in location of procedure after prepped/draped Antibiotic Yes Prophylaxis Administered Or In Progress Within the Last 60 Minutes Beta Yoseph N/A Administered Venous Yes Thromboembolism Prophylaxis Required Anticipated Critical Events Surgeon None expected Nursing Assures Sterility of instruments, Implant Availability Essential Imaging N/A Labeled and Displayed Last Modified By: CRUZ DOOLEY RN 06/19/21 14:46:05 [facility] Time Out Audit 06/19/21 14:46:05 Track Layer Head: LONG Modifier: LONG 1 <+> Beta Yoseph Administered 1 <+> Venous Thromboembolism Prophylaxis Required 1 <+> Antibiotic Prophylaxis Administered Or In Progress Within the Last 60 Minutes 1 <+> Surgeon 1 <+> Nursing Assures 1 <+> Essential Imaging Labeled and Displayed 1 <*> Procedure to be Performed Biceps Distal Tendon Repair Open [facility]Op Tourniquet Entry 1 Type Pneumatic Serial/Unit Number [id number] Setting 250 mmHg Pheumatic Yes Tourniquet Checked Per Protocol Size 18 inches Skin Protection - Yes Padded Under Cuff Applied By SEAN CARMEN MD-LESLIE Removed By SEAN CARMEN MD-LESLIE Times Start Time 06/19/21 14:31:00 Stop Time 06/19/21 15:33:00 Last Modified By: CRUZ DOOLEY RN 06/19/21 15:35:38 [facility]Op Tourniquet Audit 06/19/21 15:35:38 Track Layer Head: [email or web address] Modifier: [email or web address] <+> 1 Stop Time Case Comments <None> Finalized By: Kathy Burgess RN Document Signatures Signed By: CRUZ DOOLEY RN 06/19/21 15:44 Kathy Burgess RN 06/22/21 10:51 Unfinalized History Date/Time Username Reason for Unfinalizing Freetext Reason for Unfinalizing 06/22/21 10:50 IKE Correct Billing documented in this encounter Plan of Treatment Not on file documented as of this encounter Visit Diagnoses Not on filedocumented in this encounter Care Teams Elevated Guard Relationship Specialty Start Date End Date Emanuel Vital MD [address] [place] [address] PCP - General General Internal Medicine 09/03/22 documented as of this encounter
--- OUTSIDE RECORDS SUMMARY | 2024-10-15 12:59 | XMS_ITS | Encounter Summary ---
Author Organization [employer] Address [address] [place] [address] Care Team Providers Care Field Secretary Name Role Phone Emanuel Vital MD Primary Care Provider [phone] Encounter Details Date Type Department Care Team (Late st Contact Info) Description 06/19/2021 Transcribed Document [facility] [place] [address] ProviderSaran MD [address] [place] [address] Social History Tobacco Use Types [...] Conversion Note - Saran ProviderMD - 06/19/2021 1:15 PM REVENUE AUDIT CLERK RENETTA Main OR PreOp Summary Primary Physician: SEAN CARMEN MD-SUR Finalized Date/Time: 06/19/21 14:07:03 Pt. Name: ALYSSA GLEASON /Sex: 1965 Male Med Rec #: [id number] Physician: SEAN CARMEN MD-SUR Financial #: [id number] Pt. Type: O Room/Bed: [facility]/6 Admit/Disch: 06/19/21 06:27:00 - Institution: [facility] PreOp Case Times Entry 1 In Preop 06/19/21 11:07:00 Ready for Holding n/a Room Patient Ready for 06/19/21 11:44:00 Surgery Patient Out of Preop 06/19/21 14:03:00 Patient Out of n/a Holding Room Last Modified By: Teresa Pathak RN 06/19/21 14:07:01 SJPeter PreOp Case Times Audit 06/19/21 14:07:01 Surface Lay Out Technician: HUNTER Modifier: MAYNARL <+> 1 Patient Out of Preop 06/19/21 12:17:14 Surface Lay Out Technician: HUNTER Modifier: MAYNARL <+> 1 Patient Ready for Surgery Finalized By: Teresa Pathak, RN Document Signatures Signed By: Teresa Pathak RN 06/19/21 14:07 documented in this encounter Plan of Treatment Not on file documented as of this encounter Visit Diagnoses Not on filedocumented in this encounter Care Teams Field Secretary Relationship Specialty Start Date End Date Emanuel Vital MD [address] [place] [phone] PCP - General General Internal Medicine 09/03/22 documented as of this encounter
--- OUTSIDE RECORDS SUMMARY | 2024-10-15 12:59 | XMS_ITS | Encounter Summary ---
Author Organization [employer] Address [address] [place] [address] Care Team Providers Care Accounting System Expert Name Role Phone Emanuel Vital MD Primary Care Provider [phone] Encounter Details Date Type Department Care Team (Late st Contact Info) Description 06/19/2021 Transcribed Document [facility] [place] [facility] [place] [address] ProviderSaran MD [address] [place] [address] Social History Tobacco Use Types [...] Conversion Note - Saran ProviderMD - 06/19/2021 1:51 PM PERFORMANCE IMPROVEMENT ANALYST Peripheral Nerve Block Entered On: 06/19/2021 13:54 EST Performed On: 06/19/2021 13:51 EST by Teresa Pathak RN Peripheral Nerve Block Peripheral Nerve Block Start Date/Time : 06/19/2021 13:52 EST Verbally Confirm Pt, Site, and Procedure : Yes Time Out Pause Time : 06/19/2021 13:51 EST Site Marked and Visible : Yes Site Preparation : Chlorhexidine (Hibiclens) Peripheral Nerve Block : Supraclavicular Laterality : Left Peripheral Nerve Block Performed by : LUIS CANTU MD Medication Delivery Method : Single Shot Peripheral Nerve Block Assisted by : NISHANT FUNG, RN Ultra sound used during insertion : Yes Nerve Block Activity, Patient Tolerance : Good Peripheral Nerve Block End Date/Time : 06/19/2021 13:54 EST Teresa Pathak, RN - 06/19/2021 13:51 EST Electronically signed by [facility], [facility] Conversion Biology Professor Cerner at 08/26/2022 12:15 AM CDT documented in this encounter Plan of Treatment Not on file documented as of this encounter Visit Diagnoses Not on filedocumented in this encounter Care Teams Accounting System Expert Relationship Specialty Start Date End Date Emanuel Vital MD [address] [place] [phone] PCP - General General Internal Medicine 09/03/22 documented as of this encounter
--- OUTSIDE RECORDS SUMMARY | 2024-10-15 12:59 | XMS_ITS | Clinical Summary ---
Author Organization [employer] [facility] [employer] Address [address] [place] [address] Care Team Providers Care Manager Neonatal Name Role Phone Emanuel Vital MD Primary Care Provider [phone] Allergies No known active allergies Medications bisoprolol (ZEBETA) 5 MG tablet Take 1 tablet (5 mg total) by mouth in the morning. 3 Active buPROPion (WELLBUTRIN SR) 200 MG 12 hr tablet Take 1 tablet (200 mg total) by mouth in the morning and 1 tablet (200 mg total) before bedtime. 1 Active traZODone (DESYREL) 100 MG tablet Take 2 tablets (200 mg total) by mouth nightly. 3 Active famotidine (PEPCID) 20 MG tablet Take 1 tablet (20 mg total) by mouth nightly. 3 Active escitalopram oxalate (LEXAPRO) 10 MG tablet Take 1 tablet (10 mg total) by mouth in the morning. 3 Active cyclobenzaprine (FLEXERIL) 5 MG tablet Take 1 tablet (5 mg total) by mouth 3 (three) times daily as needed. 3 Active aspirin 81 MG EC tablet Take 1 tablet (81 mg total) by mouth in the morning. You may resume your home aspirin on Tuesday, September 06, 2022. 0 3 Active naproxen (NAPROSYN) 500 MG tablet Take 1 tablet (500 mg total) by mouth in the morning and 1 tablet (500 mg total) before bedtime. DO NOT TAKE ANTI-INFLAMMATOR Y MEDICATIONS FOR THE FIRST 90 DAYS (3 MONTHS) FOLLOWING YOUR SURGERY.. 0 3 Active HYDROcodone-rafael taminophen (NORCO 5-325) 5-325 mg per tablet Take 1 tablet by mouth every 4 (four) hours as needed for Pain (as needed for moderate pain). Max Daily Amount: 6 tablets 42 tablet 3 Active docusate sodium (COLACE) 100 MG capsule Take 1 capsule (100 mg total) by mouth in the morning and 1 capsule (100 mg total) before bedtime. 20 capsule 3 Active Active Problems Problem Noted Date Diagnosed Date Post-operative state 09/03/2022 Social History Tobacco Use Types Packs/Day Years Used Date Smoking Tobacco: Former Cigarettes Q uit: 2021 Smokeless Tobacco: Never Alcohol Use Standard Drinks/Week Comments Never 0 (1 standard drink = 0.6 oz pur e alcohol) PRAPARE - Transportation Answer Date Re corded In the past 12 months, has l ack of transportation kept you from medical appointments or from getting medications? No 09/04/2022 Lack of Transportation (Non-Medical) Not on file 09/04/2022 Housing Stability Vital Sign Answer Severiano e Recorded In the last 12 months, was t here a time when you were not able to pay the mortgage or rent on time? No 09/04/2022 In the last 12 months, how many places have you lived? 1 09/04/2022 In the last 12 months, was t here a time when you did not have a steady place to sleep or slept in a snf (including now)? No 09/04/2022 Interpersonal Safety Answer Date Record ed Family or friends hurt you Not on file 05/27 Family or friends insult you Not on file Family or friends threaten you Not on file 0 05/27/2023 Family or friends scream or curse at you Not on file 05/27/2023 Housing Stability Answer Date Recorded Living situation today Not on file Living situation problems Not on file 2023 Food Insecurity Answer Date Recorded Food run out past 12 months Not on file 05/09 Food did not last past 12 months Not on file 05/27/2023 Employment Answer Date Recorded Help finding and keeping a job Not on file 0 05/27/2023 Family and Community Support Answer Severiano e Recorded Help with Day to Day Activities Not on file 05/27/2023 Feeling Lonely or Isolated Not on file 05/27 Educational Attainment Answer Date Tejinder rded Speak language other than Qatari at home Not on file 05/27/2023 Want help with school or training Not on file 05/27/2023 Depression Answer Date Recorded PHQ-2 Risk Not on file 05/27/2023 Disabilities Answer Date Recorded Difficulty concentrating Not on file 024 Difficulty doing errands alone Not on file 0 05/27/2023 Substance Use Answer Date Recorded Used prescription meds for non-medical reasons N ot on file 05/27/2023 Used illegal drugs past 12 months Not on file 05/27/2023 Sex and Gender Information Value Date Recorded Sex Assigned at Male 11/03/2021 9:02 PM CDT Legal Sex Male 9:02 PM CDT Gender Identity Male 11/03/2021 9:02 PM CDT Sexual Orientation Not on file Last Filed Vital Signs Vital Sign Reading Time Taken Comments Blood Pressure 134/87 09/04/2022 10:40 AM EDT Pulse 87 09/04/2022 10:40 AM EDT Temperature 37 C (98.6 F) 09/04/2022 10:40 AM EDT Respiratory Rate 16 09/04/2022 10:40 AM EDT Oxygen Saturation 98% 09/04/2022 10:40 AM EDT Inhaled Oxygen Concentration - - Weight 83.2 kg (183 lb 6.4 oz) 09/03/2022 5:00 A M EDT Height 180.3 cm (5' 11 ) 09/03/2022 5:00 AM EDT Body Mass Index 25.58 09/03/2022 5:00 AM EDT Plan of Treatment Health Maintenance Due Date Last Done Comments CT Colonography 1967 Colonoscopy 1967 Colorectal Cancer Screening 1967 FOBT/FIT 1967 Fit-DNA (Cologuard) 1967 Sigmoidoscopy 1967 Depression Screening (12+) 1979 HIV Screening 08/29/1982 Hepatitis C Screening 08/29/1985 DTAP/TDAP/TD VACCINES (1 - Tdap) 08/29/1986 Lipid Panel 08/29/2002 Shingles Vaccine (Zoster) (1 of 2) 08/29/2017 Pneumococcal 50+ years (2 of 2 - PCV) 03/22/2023 03/22/2022, 02/06/2021 Tobacco Cessation Counseling and Screening (12+) 09/04/2023 09/03/2022 COVID-19 VACCINE (5 - 2023-2 5 season) 2024 03/24/2022, 03/18/2021, 08/02/2020, Additional history exists Influenza Vaccine (Season Ended) 2025 Medical Devices Implanted Type Area Sales And Marketing Professional Device Identifier Shelf Expiration Date Model / Serial / Lot Grft Bone Preservon 5.75x7.22 [id number] - [id number] Implanted:Qty : 1 on 09/03/2022 by Chris Talley MD at [facility] IMPLANTS N/A: Spine Cervical LIFENET:LIFENET TRANSPLANT SRV 09/16/2026 [id number] / [id number] / Grft Bone Preservon 4.75x6.22 [id number] - [id number] Implanted:Qty : 1 on 09/03/2022 by Chris Talley MD at [facility] IMPLANTS N/A: Spine Cervical LIFENET:LIFENET TRANSPLANT SRV 01/03/2027 [id number] / [id number] / Pin Compr [place] 14mm 2749-03-014 - [id number] Implanted:Qty : 2 on 09/03/2022 by Chris Talley MD at [facility] IMPLANTS N/A: Spine Cervical J &J:DEPUY:DEPUY SPINE 9-03-0 14 / 2748-07-0 14 / Plt Ant Skyln Hybrd Lvl2 32mm 186--032 - [id number] Implanted:Qty : 1 on 09/03/2022 by Chris Talley MD at [facility] IMPLANTS N/A: Spine Cervical J &J:DEPUY:DEPUY SPINE 02-0 32 / 1868-02-0 32 / Scr Skyln Vari Sd 14mm 1867-50-014 - [id number] Implanted:Qty : 4 on 09/03/2022 by Chris Talley MD at [facility] IMPLANTS N/A: Spine Cervical J &J:DEPUY:DEPUY SPINE 186850-0 14 / 50-0 14 / Scr Skyln Vari Sd 12mm 50012 - [id number] Implanted:Qty : 1 on 09/03/2022 by Chris Talley MD at [facility] IMPLANTS N/A: Spine Cervical J &J:DEPUY:DEPUY SPINE 50-0 12 / 50-0 12 / Scr Skyln Vari-Ovsz 12mm 54-012 - [id number] Implanted:Qty : 1 on 09/03/2022 by Chris Talley MD at [facility] IMPLANTS N/A: Spine Cervical J &J:DEPUY:DEPUY SPINE 54-0 12 / 54-0 12 / Explanted Type Area Sales And Marketing Professional Device Identifier Shelf Expiration Date Model / Serial / Lot Scr Skyln Vari Sd 12mm -012 - [id number] Explanted:Qty : 1 on 09/03/2022 at [facility] IMPLANTS N/A: Spine Cervical J &J:DEPUY:DEPUY SPINE 50-0 12 / 50-0 12 / Insurance [facility] [employer] Advance Directives For more information, please contact: [phone] * Full Code (Latest Code Status on File) Date Activated Date Inactivated Comments 09/03/2022 11:41 AM 09/04/2022 5:47 PM Care Teams Manager Neonatal Relationship Specialty Start Date End Date Emanuel Vital MD [address] [place] [phone] PCP - General General Internal Medicine 09/03/22
--- OUTSIDE RECORDS SUMMARY | 2024-10-15 12:59 | XMS_ITS | Encounter Summary ---
Author Organization [employer] [facility] [employer] Address [address] [place] [address] Care Team Providers Care Complaint Adjuster Name Role Phone Emanuel Vital MD Primary Care Provider [phone] Encounter Details Date Type Department Care Team (Late st Contact Info) Description 06/19/2021 Transcribed Document [facility] [place] [facility] [place] [address] ProviderSaran MD [address] [place] [address] Social History Tobacco Use Types [...] Conversion Note - Saran ProviderMD - 06/19/2021 1:50 PM UNBUNDLER Time Out Documentation Entered On: 06/19/2021 13:51 EST Performed On: 06/19/2021 13:50 EST by Teresa Pathak, RN Time Out Documentation Procedure to be Performed : left supra clavicular block Time Out Pause Time : 06/19/2021 13:51 EST All Activity Suspended : Yes Team Verbally Confirms Information : Correct patient identity, Correct side and site are marked, Consent form is present and accurate, Agreement on the procedure to be done, Correct patient position, Confirm the skin prep has dried, Performed in location of procedure after prepped/draped, Performed before each procedure if multiple procedures Teresa Pathak RN - 06/19/2021 13:50 EST Electronically signed by Gonzalo [facility] Conversion Kiln Cleaner Cerner at 08/26/2022 12:24 AM CDT documented in this encounter Plan of Treatment Not on file documented as of this encounter Visit Diagnoses Not on filedocumented in this encounter Care Teams Complaint Adjuster Relationship Specialty Start Date End Date Emanuel Vital MD [address] [place] [phone] PCP - General General Internal Medicine 09/03/22 documented as of this encounter
--- OUTSIDE RECORDS SUMMARY | 2024-10-15 12:59 | XMS_ITS | Encounter Summary ---
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 Name Role Phone Emanuel Vital MD Primary Care Provider [phone] Encounter Details Date Type Department Care Team (Late st Contact Info) Description 06/19/2021 Transcribed Document [facility] [place] [facility] [place] [address] ProviderSaran MD [address] [place] [id number] Social History Tobacco Use Types Packs/Day Years Used Date Smoking Tobacco: Never Assessed Sex and Gender Information Value Date Recorded Sex Assigned at Male 11/03/2021 9:02 PM CDT Legal Sex Male 9:02 PM CDT Gender Identity Male 11/03/2021 9:02 PM CDT Sexual Orientation Not on file documented as of this encounter Miscellaneous Notes * Cerner Conversion Note - Saran ProviderMD - 06/19/2021 4:24 PM GRANT WRITER [place] [id number] ALYSSA GLEASON :1965 Visit Time:06/19/2021 What to do next Instructions From Your Care Team LEAVE ARM IN SLING UNTIL NERVE BLOCK WEARS OFF. Nerve Block: You will not have control over your arm until the block has warn off. You must protect you arm by leaving the arm in the sling. You may develop some tenderness at the block site in the neck area. It okay to use warm moist heat to soothe this area. When you begin to have feeling return to your arm it is a good idea to take a pain pill. KEEP SPLINT CLEAN AND DRY UNTIL FOLLOW UP APPOINTMENT. MAY SHOWER TUESDAY- COVER WITH SARAN WRAP. Use over the counter stool softener, increase fluids and fiber in you diet to help prevent constipation. Refer to Dr. Spears's specific post op teaching sheets or call the office for further instructions or questions. Call [facility] on Tuesday to schedule follow-up appt. Follow-Up Appointments Follow Up with SEAN SPEARS MD-LESLIE When Where: [address] [facility] [address] [place] [address]- Medications What How Much When Instructions Next Dose acetaminophen (Tylenol) 500 Milligram(s) Oral Every 6 Hours amoxicillin 500 Milligram(s) Oral Every 8 Hours amoxicillin-clavulanate (amoxicillin-clavulanate 875 mg-125 mg oral tablet) 1 Tablet(s) Oral Every 12 hours buPROPion 200 Milligram(s) Oral Two Times A Day ibuprofen 200 Milligram(s) Oral Every 6 Hours multivitamin with minerals (PreserVision) See instructions 2 tabs daily naproxen 500 Milligram(s) Oral Two Times A Day traZODone 100 Milligram(s) Oral Every Day Take your medications faithfully. Do NOT skip medication. Do NOT stop taking medications without the direction of a physician. Carry a list of your medications with you at all times, and take this medication list with you to your first follow up visit. Report any side effects. Avoid herbal remedies unless discussed with your physician. As part of your treatment plan, your physician may have prescribed a limited course of a controlled substance. This medication may be given to help people with moderate or severe pain or for other medical conditions, but there are risks involved with treatment. Common side effects may include nausea, constipation, drowsiness, sweating, itching, dry mouth, and rash. More serious side effects may include cognitive and motor impairment, like problems with thinking, concentrating, alertness, and movement (e.g. slowed reflexes), and driving and operating heavy machinery can be dangerous. It is important for you to talk to your physician if you have these side effects or questions. These controlled substances can produce physical dependence and be habit-forming if taken for an extended period of time, which means that the body has gotten used to them and may experience withdrawal symptoms if they are abruptly stopped. Withdrawal symptoms can include runny nose, sweating, goose bumps, diarrhea, abdominal cramping, rapid heartbeat, difficulty sleeping, and nervousness. Please dispose of unused and medications per pharmacy guidance. Education Materials Peripheral Nerve Block Peripheral nerve block is an injection of numbing medicine (regional anesthetic) near a nerve. The regional anesthetic numbs everything below the injection site. This provides pain relief during and after a medical procedure. Generally, you will be awake while a peripheral nerve block is performed. You also may receive medicines to help you feel relaxed and comfortable during the procedure (sedatives). When you have a peripheral nerve block, you are not exposed to the risks associated with medicine that makes you fall asleep (general anesthetic). You may also: ??? Need less pain medicine after your procedure. ??? Have a lower risk of blood clots. ??? Recover sooner. Tell a health care provider about: ??? Any allergies you have. ??? All medicines you are taking, including vitamins, herbs, eye drops, creams, and txfe-rvg-bnkcfps medicines. ??? Any problems you or family members have had with anesthetic medicines. ??? Any blood disorders you have. ??? Any surgeries you have. ??? Any medical conditions you have. ??? Whether you are or may be . What are the risks? Generally, this is a safe procedure. However, problems may occur, including: ??? Infection. ??? Bleeding. ??? Allergic reactions to medicines. ??? Damage to other structures or organs, such as temporary or permanent nerve damage. What happens before the procedure? Staying hydrated Follow instructions from your health care provider about hydration, which may include: ??? Up to 2 hours before the procedure ??? you may continue to drink clear liquids, such as water, clear fruit juice, black coffee, and plain tea. Eating and drinking restrictions Follow instructions from your health care provider about eating and drinking, which may include: ??? 8 hours before the procedure ??? stop eating heavy meals or foods such as meat, fried foods, or fatty foods. ??? 6 hours before the procedure ??? stop eating light meals or foods, such as toast or cereal. ??? 6 hours before the procedure ??? stop drinking milk or drinks that contain milk. ??? 2 hours before the procedure ??? stop drinking clear liquids. General instructions ??? Ask your health care provider about: ? Changing or stopping your regular medicines. This is especially important if you are taking diabetes medicines or blood thinners. ? Taking medicines such as aspirin and ibuprofen. These medicines can thin your blood. Do not take these medicines unless your health care provider tells you to take them. ? Taking xdqh-nbh-hznkoap medicines, vitamins, herbs, and supplements. ??? Plan to have someone take you home from the hospital or clinic. ??? Plan to have a responsible adult care for you for at least 24 hours after you leave the hospital or clinic. This is important. What happens during the procedure? An IV will be inserted into one of your veins. ??? You may be given a sedative. ??? Your nerve may be located by using: ? Sound waves that create images of the area (ultrasound). ? A device that activates the nerve and causes your muscles to twitch (nerve stimulator). ??? The skin around your injection site will be cleaned with a germ-killing solution. ??? Medicine to numb your injection site (local anesthetic) may be injected into the tissue above your nerve. ??? Regional anesthetic will be injected into the area near your nerve. ? The medicine will be injected around the nerve, not into it. ? You should not feel any pain. The area of your peripheral nerve block will begin to feel warm and numb. ??? A thin, flexible tube (catheter) may be inserted near your nerve. The catheter may remain there to continue delivering the regional anesthetic during and after your medical procedure. ??? When the area of your peripheral nerve block is completely numb, the medical procedure can be performed. ??? Your injection site may be covered with a bandage (dressing) when your medical procedure is done. The procedure may vary among health care providers and hospitals. What can I expect after the procedure? If you do not have a catheter, you may continue to be numb for up to 36 hours. The length of this time depends on how much anesthetic was injected. ??? If you have a catheter, you will continue to be numb until the catheter is removed. ??? To reduce your risk of injury: ? Do not expose the numb area to heat or cold. ? Do not stand up or try to walk without help if you have a nerve block in one or both legs. Get help and limit your activity as told by your health care provider. ??? As the medicine wears off, you will have a gradual return of feeling in the area that is supplied by the nerve. ??? Your blood pressure, heart rate, breathing rate, and blood oxygen level will be monitored until the medicines you were given have worn off. Follow these instructions at home: Activity ??? Do not drive or use heavy machinery until your health care provider approves. ??? Do not lift anything that is heavier than 10 lb (4.5 kg), or the limit that you are told, until your health care provider says that it is safe. Injection site care ??? If you have a dressing, remove it 24 hours after your procedure, or as told by your health care provider. ??? Check your injection site every day for signs of infection. Check for: ? Redness, swelling, or pain. ? Warmth. ? Fluid or blood. ? Pus or a bad smell. General instructions ??? Take drma-jgr-vugyehm and prescription medicines only as told by your health care provider. ??? Do not take showers or baths, swim, or use a hot tub until your health care provider approves. ??? Keep all follow-up visits as told by your health care provider. This is important. Contact a health care provider if: ??? You continue to have numbness, weakness, or tingling after your medicine has worn off. ??? You have a fever. ??? You have redness, swelling, or pain around your injection site. Get help right away if: ??? You have trouble breathing. Summary ??? Peripheral nerve block is an injection of numbing medicine (regional anesthetic) near a nerve. This provides pain relief during and after a medical procedure. ??? Feeling will gradually return to the area that is supplied by the nerve. ??? A catheter may be inserted to continue to provide medicine for up to several days. This information is not intended to replace advice given to you by your health care provider. Make sure you discuss any questions you have with your health care provider. Document Revised: 06/11/2019 Document Reviewed: 02/15/2018 [employer] Patient Education ?? 2020 [employer] General Anesthesia, Adult, Care After This sheet gives you information about how to care for yourself after your procedure. Your health care provider may also give you more specific instructions. If you have problems or questions, contact your health care provider. What can I expect after the procedure? After the procedure, the following side effects are common: ??? Pain or discomfort at the IV site. ??? Nausea. ??? Vomiting. ??? Sore throat. ??? Trouble concentrating. ??? Feeling cold or chills. ??? Feeling weak or tired. ??? Sleepiness and fatigue. ??? Soreness and body aches. These side effects can affect parts of the body that were not involved in surgery. Follow these instructions at home: For the time period you were told by your health care provider: ??? Rest. ??? Do not participate in activities where you could fall or become injured. ??? Do not drive or use machinery. ??? Do not drink alcohol. ??? Do not take sleeping pills or medicines that cause drowsiness. ??? Do not make important decisions or sign legal documents. ??? Do not take care of children on your own. Eating and drinking ??? Follow any instructions from your health care provider about eating or drinking restrictions. ??? When you feel hungry, start by eating small amounts of foods that are soft and easy to digest (bland), such as toast. Gradually return to your regular diet. ??? Drink enough fluid to keep your urine pale yellow. ??? If you vomit, rehydrate by drinking water, juice, or clear broth. General instructions ??? If you have sleep apnea, surgery and certain medicines can increase your risk for breathing problems. Follow instructions from your health care provider about wearing your sleep device: ? Anytime you are sleeping, including during daytime naps. ? While taking prescription pain medicines, sleeping medicines, or medicines that make you drowsy. ??? Have a responsible adult stay with you for the time you are told. It is important to have someone help care for you until you are awake and alert. ??? Return to your normal activities as told by your health care provider. Ask your health care provider what activities are safe for you. ??? Take qprw-whc-bobvxqq and prescription medicines only as told by your health care provider. ??? If you smoke, do not smoke without supervision. ??? Keep all follow-up visits as told by your health care provider. This is important. Contact a health care provider if: ??? You have nausea or vomiting that does not get better with medicine. ??? You cannot eat or drink without vomiting. ??? You have pain that does not get better with medicine. ??? You are unable to pass urine. ??? You develop a skin rash. ??? You have a fever. ??? You have redness around your IV site that gets worse. Get help right away if: ??? You have difficulty breathing. ??? You have chest pain. ??? You have blood in your urine or stool, or you vomit blood. Summary ??? After the procedure, it is common to have a sore throat or nausea. It is also common to feel tired. ??? Have a responsible adult stay with you for the time you are told. It is important to have someone help care for you until you are awake and alert. ??? When you feel hungry, start by eating small amounts of foods that are soft and easy to digest (bland), such as toast. Gradually return to your regular diet. ??? Drink enough fluid to keep your urine pale yellow. ??? Return to your normal activities as told by your health care provider. Ask your health care provider what activities are safe for you. This information is not intended to replace advice given to you by your health care provider. Make sure you discuss any questions you have with your health care provider. Document Revised: 01/08/2021 Document Reviewed: 08/07/2020 [employer] Patient Education ?? 2020 [employer] Tendon Repair, Care After This sheet gives you information about how to care for yourself after your procedure. Your health care provider may also give you more specific instructions. If you have problems or questions, contact your health care provider. What can I expect after the procedure? After the procedure, it is common to have: ??? Soreness or pain. ??? Stiffness. ??? Limited range of motion in the joint where the tendon is repaired. Follow these instructions at home: If you have a splint or brace: ??? Wear the splint or brace as told by your health care provider. Remove it only as told by your health care provider. ??? Loosen the splint or brace if your fingers or toes tingle, become numb, or turn cold and blue. ??? Keep the splint or brace clean and dry. If you have a cast: ??? Do not stick anything inside the cast to scratch your skin. Doing that increases your risk of infection. ??? Check the skin around the cast every day. Tell your health care provider about any concerns. ??? You may put lotion on dry skin around the edges of the cast. Do not put lotion on the skin underneath the cast. ??? Keep the cast clean and dry. Bathing ??? Do not take baths, swim, or use a hot tub until your health care provider approves. Ask your health care provider if you may take showers. You may only be allowed to take sponge baths. ??? If your splint, brace, or cast is not waterproof: ? Do not let it get wet. ? Cover it with a watertight covering when you take a bath or a shower. ??? Keep the bandage (dressing) dry until your health care provider says it can be removed. Medicines ??? Take jcxe-qae-glkutok and prescription medicines only as told by your health care provider. ??? Do not drive or use heavy machinery while taking prescription pain medicine. Incision care ??? Follow instructions from your health care provider about how to take care of your incision. Make sure you: ? Wash your hands with soap and water before you change your dressing. If soap and water are not available, use hand meat dresser. ? Change your dressing as told by your health care provider. ? Leave stitches (sutures), skin glue, or adhesive strips in place. These skin closures may need to stay in place for 2 weeks or longer. If adhesive strip edges start to loosen and curl up, you may trim the loose edges. Do not remove adhesive strips completely unless your health care provider tells you to do that. ??? Check your incision area every day for signs of infection. Check for: ? Redness, swelling, or pain. ? Fluid or blood. ? Warmth. ? Pus or a bad smell. Managing pain, stiffness, and swelling ??? If directed, put ice on the affected area. ? If you have a removable splint or brace, remove it as told by your health care provider. ? Put ice in a plastic bag. ? Place a towel between your skin and the bag, or between your cast and the bag. ? Leave the ice on for 20 minutes, 2???3 times a day. ??? Move your fingers or toes often to avoid stiffness and to lessen swelling. ??? Raise (elevate) the injured area above the level of your heart while you are sitting or lying down. Activity ??? Rest as told by your health care provider. ??? Ask your health care provider what activities are safe for you during recovery, and ask what activities you need to avoid. ??? Do not lift anything that is heavier than 10 lb (4.5 kg), or the limit that you are told, until your health care provider says that it is safe. ??? Do not use the injured limb to support your body weight until your health care provider says that you can. ??? If physical therapy was prescribed, do exercises as directed. Doing exercises may help to improve movement and flexibility (range of motion). General instructions ??? Do not put pressure on any part of the cast or splint until it is fully hardened. This may take several hours. ??? Do not use any products that contain nicotine or tobacco, such as cigarettes and e-cigarettes. These can delay tendon healing. If you need help quitting, ask your health care provider. ??? Ask your health care provider when it is safe to drive if you have a splint, brace, sling, or cast on your arm or leg. ??? If you are taking prescription pain medicine, take actions to prevent or treat constipation. Your health care provider may recommend that you: ? Drink enough fluid to keep your urine pale yellow. ? Eat foods that are high in fiber, such as fresh fruits and vegetables, whole grains, and beans. ? Limit foods that are high in fat and processed sugars, such as fried or sweet foods. ? Take an eaow-kop-hajvxyv or prescription medicine for constipation. ??? Keep all follow-up visits as told by your health care provider. This is important. Contact a health care provider if: ??? You have redness, swelling, or pain at your incision site. ??? You have fluid or blood coming from your incision site. ??? Your incision feels warm to the touch. ??? You have pus coming from your incision site. ??? You have a bad smell coming from: ? The incision site or dressing. ? Underneath your cast or splint. ??? You have a fever. ??? Your stiffness or movement is not improving. Get help right away if: ??? You have trouble breathing. ??? You have chest pain. ??? Your heart beats more quickly than normal, or you feel it skipping beats. ??? You have severe pain. Summary ??? After the procedure, it is common to have pain, stiffness, and limited range of motion. ??? If your splint, brace, or cast is not waterproof, do not let it get wet. ??? Contact your health care provider if you have blood, fluid, or pus coming from your incision site. This information is not intended to replace advice given to you by your health care provider. Make sure you discuss any questions you have with your health care provider. Document Revised: 04/19/2018 Document Reviewed: 04/19/2018 [employer] Patient Education ?? 2020 [employer] Emergency Awareness and Preventative Care STROKE is an EMERGENCY Every Minute Counts Act FAST and Check for these signs: FACE Does the face look uneven? ARM Does one arm drift down? SPEECH Does their speech sound strange? TIME Call at any sign of stroke Stroke Risk Factors Atrial Fibrillation (irregular heartbeat) Diabetes Family history of stroke Heart Disease Heavy alcohol use High Blood Pressure High Cholesterol Physical inactivity and obesity Smoking Cigarette Smoking The facts are clear, cigarette smoking will shorten your life. Smoking can cause many illnesses along the way. As a healthcare provider, we recommend that you stop smoking. Assistance with quitting is available by contacting 1-858-QNCP-NOW. This is a free resource providing counseling, support, and referral. Or you may contact your personal physician. National Suicide Prevention Lifeline: The National Suicide Prevention Lifeline is a national network of local crisis centers that provides free and confidential emotional support to people in suicidal crisis or emotional distress 24 hours a day, 7 days a week. Don't Wait! Stop a Heart Attack Before it Starts What is a heart attack? A heart attack is damage or to a part of the heart from severely decreased or lack of blood flow to the heart. Over time, arteries can become narrow from the buildup of fat and cholesterol, which is called plaque. The plaque can rupture causing a blood clot to form. When the blood clot forms, the artery can become severely narrowed or completely blocked, causing a heart attack. Heart attack is the leading cause of in the [place]. 85% of muscle damage occurs within the first 2 hours. Delay in the recognition of heart attack symptoms increases the chances of . Know the early symptoms of a heart attack: Nausea Feeling of fullness in chest Jaw Pain Pain that travels down one or both arms Fatigue/being tired Anxiety Back Pain Chest pressure, squeezing, or discomfort Shortness of breath Sweating, or a cold sweat Feeling of impending doom There are unusual signs of a heart attack, too! Women, the elderly, and diabetics may present with atypical symptoms: Fainting/dizziness Weakness Confusion Risk Factors for a Heart Attack Some heart disease risk factors, such as age and family history, cannot be changed. Others, like smoking and lack of exercise, can be changed. Smoking High Cholesterol High Blood Pressure Family History Obesity Age Gender (Males are at higher risk) Lack of Exercise Diabetes Diet Stress Excessive Alcohol Intake If you or someone you know is experiencing the signs and symptoms of a heart attack, DON???T DELAY. Call immediately and seek help. If someone collapses, perform CPR! Do not attempt to drive if you are having symptoms of heart attack. Hands-Only CPR Why Hands-Only CPR? Hands-Only CPR has been shown to be as effective as conventional CPR for cardiac arrests that occur outside of a hospital. Survival depends on immediately receiving CPR from someone nearby. How do you perform Hands-Only CPR? There are two easy steps: Call if you see a teen or adult collapse Push hard and fast in the center of the chest at a beat of 100 beats per minute. Save a life! 4 WAYS TO GET AHEAD OF SEPSIS SEPSIS is a MEDICAL EMERGENCY. Time matters! Infections put you and your family at risk for a life-threatening condition called sepsis. Sepsis is the body's extreme response to an infection. It is life-threatening, and without timely treatment, sepsis can rapidly lead to tissue damage, organ failure, and . Sepsis happens when an infection you already have-in your skin, lungs, urinary tract or somewhere else-triggers a chain reaction throughout your body. 1 PREVENT INFECTIONS Take good care of chronic conditions. Talk to your doctor about getting the recommended vaccines. 2 PRACTICE GOOD HYGIENE Wash your hands frequently. Keep cuts or open sores clean and covered until they are healed. 3 KNOW THE SYMPTOMS Confusion or disorientation Shortness of breath High heart rate Fever, shivering, or feeling very cold Extreme pain or discomfort Clammy or sweaty skin 4 ACT FAST Get medical care IMMEDIATELY if you suspect sepsis or if you have an infection that is not getting better or is getting worse. To learn more about sepsis and how to prevent infections, visit www.cdc.gov/sepsis. Test Results Laboratory or Other Results This Visit (last charted value for your 06/19/2021 visit) No Laboratory or Other Results This Visit Patient Name:ALYSSA GLEASON I have received this information and was given the opportunity to ask questions. Patient/Nut Picker Name: Patient/Nut Picker Signature: Relationship to Patient: Clinician/Hospital Nut Picker Signature: Date: Electronically signed by Gonzalo, [facility] Conversion Levelman Cerner at 08/26/2022 12:09 AM CDT documented in this encounter Plan of Treatment Not on file documented as of this encounter Visit Diagnoses Not on filedocumented in this encounter Care Teams Acoustical Logging Engineer Relationship Specialty Start Date End Date Emanuel Vital MD [address] [place] [address] PCP - General General Internal Medicine 09/03/22 documented as of this encounter
--- OUTSIDE RECORDS SUMMARY | 2024-10-15 12:59 | XMS_ITS | Encounter Summary ---
Author Organization [employer] In [employer] Address [address] [place] [address] Care Team Providers Care Head Cashier Name Role Phone Emanuel Vital MD Primary Care Provider [phone] Encounter Details Date Type Department Care Team (Late st Contact Info) Description 06/19/2021 Transcribed Document [facility] [place] Family Medicine [facility] [place] [address] ProviderSaran MD [address] [place] [address] Social History Tobacco Use Types Packs/Day Years Used Date Smoking Tobacco: Never Assessed Sex and Gender Information Value Date Recorded Sex Assigned at Male 11/03/2021 9:02 PM CDT Legal Sex Male 9:02 PM CDT Gender Identity Male 11/03/2021 9:02 PM CDT Sexual Orientation Not on file documented as of this encounter Miscellaneous Notes * Cerner Conversion Note - Saran ProviderMD - 06/19/2021 3:22 PM BROKER Patient: ALYSSA GLEASON Age: 55 years Sex: Male : 1965 Associated Diagnoses: None Author: SEAN SPEARS MD-LESLIE Preop Diagnosis: Left distal biceps tear Postop diagnosis: Same Procedure: Left distal biceps tendon repair Surgeon: Sean Spears MD County Records Management Officer: Bryant Andrea PA-C please note the physician general office assistant was medically necessary for completing, positioning, prepping, draping, care of soft tissues and closure EBL: 10cc Tourniquet Time: 1 hour at 250mm Hg Implants: Arthrex distal biceps endobutton kit Indications: 55 yo male with Left distal biceps tear, operative and nonop treatment discussed, informed consent obtained Description of procedure: Patient identified, cleared by anesthesia for surgery. Regional anesthetic administered. Patient brought back to operating room suite, positioned supine on OR table Patient had smooth induction with GETA. Patient Left upper extremity prepped and draped sterile fashion. Antibiotics administered and time out observed. We then exsanguinated the arm and brought tourniquet up to 250mm Hg. We made approx 5cm skin incision just distal to the anterior flexion crease of the elbow.We identified and protected the LABC. We exposed the biceps tendon and then whipstiched with a fiberloop in a running locking Krackow fashion. We then exposed the biceps footprint and we prepped for an 8mm tunnel and placed our suture loops through our endobutton. We then placed our endobutton bicortically and flipped it on the posterior aspect of the radius. We then docked our biceps into our tunnel with the arm in full flexion. We then tied our sutures, locking the button and tendon in place. We then placed our 7mm biotenodesis screw compressing the tendon into the tunnel. We then irrigated with sterile saline. We then placed Vancomycin powder in the wound. We then closed the dermis with 2-0 vicryl and the skin with 3-0 nylon. Sterile dressing applied.. We then placed the patient in a long arm posterior splint in 80 degrees of flexion. Patient was extubated and brought back to recovery in stable condition Plan: fu in 2 weeks for suture removal. Start hinged brace 30-full flexion done via AAROM, lock brace at approx 50 degrees inbetween these ROM sessions. May increase extension by10 degrees per week and dc brace at approx 5 weeks postop. documented in this encounter Plan of Treatment Not on file documented as of this encounter Visit Diagnoses Not on filedocumented in this encounter Care Teams Head Cashier Relationship Specialty Start Date End Date Emanuel Vital MD [address] [place] [address] PCP - General General Internal Medicine 09/03/22 documented as of this encounter
--- OUTSIDE RECORDS SUMMARY | 2024-10-15 12:59 | XMS_ITS | Encounter Summary ---
Author Organization [employer] In [employer] Address [address] [place] [address] Care Team Providers Care Tooth Cutter Clutch Name Role Phone Emanuel Vital MD Primary Care Provider [phone] Encounter Details Date Type Department Care Team (Late st Contact Info) Description 06/19/2021 Transcribed Document [facility] [place] Family Medicine [facility] [place] [address] ProviderSaran MD [address] [place] [address] Social History Tobacco Use Types [...] - Saran ProviderMD - 06/19/2021 2:31 PM ACCOUNT MANAGER EDUCATION E Main OR PACU Summary Primary Physician: SEAN CARMEN MD-SUR Finalized Date/Time: 06/19/21 16:08:22 Pt. Name: ALYSSA GLEASON /Sex: 1965 Male Med Rec #: [id number] Physician: SEAN CARMEN MD-SUR Financial #: [id number] Pt. Type: O Room/Bed: [facility]/6 Admit/Disch: 06/19/21 06:27:00 - Institution: [facility] Main OR PACU Case Times Entry 1 In PACU I 06/19/21 15:45:00 Ready for PACU 06/19/21 16:15:00 Discharge Discharge from PACU 06/19/21 16:15:00 I Last Modified By: GONSALO SANDERS, ELT-RE-[id number]-OP CAR 06/19/21 16:08:13 Finalized By: GONSALO SANDERS, [id number]-OP CAR Document Signatures Signed By: GONSALO SANDERS, [id number]-TM-[id number]-OP CAR 06/19/21 16:08 documented in this encounter Plan of Treatment Not on file documented as of this encounter Visit Diagnoses Not on filedocumented in this encounter Care Teams Tooth Cutter Clutch Relationship Specialty Start Date End Date Emanuel Vital MD [address] [place] [id number] PCP - General General Internal Medicine 09/03/22 documented as of this encounter
--- OUTSIDE RECORDS SUMMARY | 2024-10-15 12:59 | XMS_ITS | Encounter Summary ---
Author Organization [employer] In [employer] Address [address] [place] [address] Care Team Providers Care Search Engine Optimizer Name Role Phone Emanuel Vital MD Primary Care Provider [phone] Encounter Details Date Type Department Care Team (Late st Contact Info) Description 06/19/2021 Transcribed Document [facility] [place] [facility] [place] [address] ProviderSaran MD [address] [place] [address] Social History Tobacco Use Types [...] - Saran ProviderMD - 06/19/2021 2:31 PM BENCH MECHANIC [facility] Main OR PostOp Summary Primary Physician: SEAN CARMEN MD-SUR Finalized Date/Time: 06/19/21 17:08:51 Pt. Name: ALYSSA GLEASON /Sex: 1965 Male Med Rec #: [id number] Physician: SEAN CARMEN MD-SUR Financial #: [id number] Pt. Type: O Room/Bed: [facility]/6 Admit/Disch: 06/19/21 06:27:00 - Institution: [facility] Main OR PostOp Case Times Entry 1 In PACU II 06/19/21 16:20:00 Ready for PACU II 06/19/21 16:50:00 Discharge Discharge from PACU 06/19/21 16:50:00 II Last Modified By: Christina Licona Rn 06/19/21 17:08:50 [facility] Main OR PostOp Case Times Audit 06/19/21 17:08:50 Legal Stenographer: [id number] Modifier: [id number] <+> 1 Ready for PACU II Discharge <+> 1 Discharge from PACU II Finalized By: Christina Licona, Rn Document Signatures Signed By: Christina Licona Rn 06/19/21 17:08 documented in this encounter Plan of Treatment Not on file documented as of this encounter Visit Diagnoses Not on filedocumented in this encounter Care Teams Search Engine Optimizer Relationship Specialty Start Date End Date Emanuel Vital MD [address] [place] [address] PCP - General General Internal Medicine 09/03/22 documented as of this encounter
--- OUTSIDE RECORDS SUMMARY | 2024-10-15 12:59 | XMS_ITS | Encounter Summary ---
Author Organization [employer] In [employer] Address [address] [place] [address] Care Team Providers Care Commercial Credit Officer Name Role Phone Emanuel Vital MD Primary Care Provider [phone] Encounter Details Date Type Department Care Team (Late st Contact Info) Description 06/19/2021 Transcribed Document [facility] [place] Family Medicine [facility] [place] [address] ProviderSaran MD [address] [place] [address] Social History Tobacco Use Types [...] Conversion Note - Saran ProviderMD - 06/19/2021 11:38 AM TECHNICAL OPERATIONS VICE PRESIDENT PAT Adult Entered On: 06/19/2021 11:42 EST Performed On: 06/19/2021 11:38 EST by Teresa Pathak RN Vital Measurements Temperature Source : Oral Temperature Mode : Fahrenheit Temperature, Fahrenheit : 97.7 Deg F Clinical Temperature, C : 36.5 Deg C Pulse Method : Pulse Oximetry Peripheral Pulse Rate : 102 bpm (HI) Pulse Rhythm : Regular Respiratory Rate : 16 Breaths/Min Blood Pressure Location : Arm, left upper Blood Pressure Source : Non-Invasive BP Device Blood Pressure Position : Sitting Systolic Blood Pressure : 139 mmHg Diastolic Blood Pressure : 91 mmHg (HI) Oxygen Saturation : 99 % Oxygen Therapy Mode : Room air Teresa Pathak RN - 06/19/2021 11:38 EST Pain Assessment Pain Assessment : Initial assessment Pain Scale Goal : 4 Pain Scale Used : 0-10 Scale Teresa Pathak RN - 06/19/2021 11:38 EST Height and Weight, Clinical Dosing Height Source : Stated Height Entry Format : [place] Height, Feet : 5 ft(Converted to: 152 cm, 60 Inch) Height, Inches : 11 Inch(Converted to: 0 ft 11 Inch, 27.94 cm) Clinical Height : 180.34 cm Weight Source : Standing scale Weight Entry Format : [place] Clinical Dosing Weight : 79.09 kg Weight, Pounds : 174 lb Body Surface Area (BSA) : 1.99 m2 Body Mass Index : 24.3 kg/m2 (HI) [place] Body Weight : 74 kg Teresa Pathak RN - 06/19/2021 11:38 EST Health Histories Smoking Status : 10 or more cigarettes (1/2 pack or more)/day in last 30 days Smokeless Tobacco Status : Never Desires Tobacco Cessation Medication : Yes Teresa Pathak RN - 06/19/2021 11:38 EST Social History (As Of: 06/19/2021 11:42:16 EST) Tobacco: Former smoker, quit more than 30 days ago Smoking Status. Never Smokeless Tobacco Status. Last Used: quit 12 days ago, using nicotine patch. (Last Updated: 06/10/2021 15:17:32 EST by Sofie Fernandez Rn) Alcohol: Alcohol Use History No. (Last Updated: 06/10/2021 15:17:32 EST by Sofie Fernandez Rn) Substance Abuse: Drug Use Hx: No. (Last Updated: 06/10/2021 15:17:32 EST by Sofie Fernandez, Rn) Infectious Disease History Does patient have symptoms of COVID-19? : No Has the Patient Been Tested for COVID-19 in the last 14 days? : Yes, Patient stated results Negative Does the Patient state known exposure to a COVID-19 positive case in the last 14 days? : No Patient Vaccinated for COVID-19 : Fully vaccinated Teresa Pathak RN - 06/19/2021 11:38 EST Infectious Disease Risk Screening Grid Cough < 2 wks of unknown origin : NO Cough > 2 weeks : NO Blood in Sputum : NO Fever or self-reported Fever : NO Rash of unknown origin : NO Headache : NO Stiff neck : NO Night Sweats : NO Unexplained Weight Loss : NO Diarrhea (3 episode per day) : NO Teresa Pathak RN - 06/19/2021 11:38 EST Patient Masked? : Yes Physical contact outside [place] in the last 30 days : No Hospitalized in Foreign Country : No Infectious Disease History : Chicken pox/Shingles INF Disease TB Screening Calc : 0 INF Disease Recent Travel Calc : 0 Teresa Pathak RN - 06/19/2021 11:38 EST COVID19 PreProcedure Screening Is this an Emergent or Add on Procedure? : No Date PreProcedure COVID-19 test known? : Yes Date of PreProcedure COVID-19 : 06/17/2021 EST Has patient been isolated since the test : Yes Exposed to COVID19 symptoms since test? : No Teresa Pathak RN - 06/19/2021 11:38 EST Anesthesia/Transfusion History Family History of Anesthesia Reaction : No prior transfusion(s) Transfusion History : No prior anesthesia Family History of Anesthesia Reaction : None, Unknown Teresa Pathak RN - 06/19/2021 11:38 EST Advance Directive Patient has Advance Directive *Q : No, patient refuses Advance Directive information Teresa Pathak RN - 06/19/2021 11:38 EST Spiritual/Cultural Needs Any Spiritual/Cultural Needs or Requests : No Teresa Pathak RN - 06/19/2021 11:38 EST [place] Suicide Severity Rating Scale (C-SSRS) CSSRS Past Month Wish to be : No CSSRS Past Month Suicidal Thoughts : No CSSRS Lifetime Suicide Behavior : No Suicide Severity Rating Score : 0 Suicide Severity Rating : No Additional Care Required at this time Teresa Pathak RN - 06/19/2021 11:38 EST Psychosocial History Do You Have a History of the Following? : Depression Teresa Pathak RN - 06/19/2021 11:45 EST Currently in Unsafe Situation : No Teresa Pathak RN - 06/19/2021 11:38 EST Teaching/Learning Assessment Barriers To Learning : None evident Individuals Taught : Patient Readiness to Learn : Cooperative Baseline Knowledge of Topic : Good Readiness to Learn : Explanation, Printed materials Learning Style Preferences Patient : Printed materials, Verbal explanation Learning Style Preferences Family : Printed materials, Verbal explanation Teresa Pathak RN - 06/19/2021 11:38 EST Education Topics, Periop Preadmission Perioperative Education Grid IV's : Verbalizes understanding NPO Status/Directions : Verbalizes understanding Pain Management : Verbalizes understanding Responsible Adult : Verbalizes understanding Teresa Pathak RN - 06/19/2021 11:38 EST General Info Preferred Name : Hola Arrived From : Home Mode of Arrival on Unit : Ambulatory Patient Arrival Date/Time : 06/19/2021 11:07 EST Legal Guardian : Unaccompanied Want Family/Rep/Phys Notified of Admit : No Emergency Contact #1 : Lissy Emergency Contact #1 Emergency Contact #1 Relationship : Emergency Contact #2 : . Emergency Contact #2 Phone Number : . Emergency Contact #2 Relationship : . Information Obtained From : Patient Primary Language : Angolan Communication Barrier : None Advertising Campaign Manager Needed : No Clinical Trials Participant *Q : None CTP, None *Q : Yes Teresa Pathak RN - 06/19/2021 11:38 EST Jd Scale Jd Sensory Perception : No impairment Jd Moisture : Rarely moist Jd Activity : Walks frequently Jd Mobility : No limitation Jd Nutrition : Adequate Jd Friction and Shear : No apparent problem Jd Score : 22 Teresa Pathak RN - 06/19/2021 11:38 EST Sleep Apnea Risk Assmt Hx of [...] Sleep Apnea Risk Level Score : 2 Teresa Pathak RN - 06/19/2021 11:38 EST Pain Scale Intensity : 0 Teresa Pathak RN - 06/19/2021 11:38 EST Image 4 - Images currently included in the form version of this document have not been included in the text rendition version of the form. documented in this encounter Plan of Treatment Not on file documented as of this encounter Visit Diagnoses Not on filedocumented in this encounter Care Teams Commercial Credit Officer Relationship Specialty Start Date End Date Emanuel Vital MD [address] [place] [phone] PCP - General General Internal Medicine 09/03/22 documented as of this encounter
--- OUTSIDE RECORDS SUMMARY | 2024-10-15 12:59 | XMS_ITS | Encounter Summary ---
Author Organization [employer] Address [address] [place] [address] Care Team Providers Care Watchmaking Teacher Name Role Phone Emanuel Vital MD Primary Care Provider [phone] Encounter Details Date Type Department Care Team (Late st Contact Info) Description 06/19/2021 Transcribed Document [facility] [place] Medicine [facility] [place] [address] ProviderSaran MD [address] [place] [address] Social History Tobacco Use Types Packs/Day Years Used Date Smoking Tobacco: Never Assessed Sex and Gender Information Value Date Recorded Sex Assigned at Male 11/03/2021 9:02 PM CDT Legal Sex Male 9:02 PM CDT Gender Identity Male 11/03/2021 9:02 PM CDT Sexual Orientation Not on file documented as of this encounter Miscellaneous Notes * Cerner Conversion Note - Saran Thomas MD - 06/19/2021 4:07 PM TITLE CHECKER Patient Education Materials Follows: Tendon Repair, Care After This sheet gives [...] it can be removed. Medicines ??? Take zdfb-jyk-mhfupbq and prescription medicines only as told by [...] and water are not available, use hand experience designer. ? Change your dressing as told by [...] Leave the ice on for 20 minutes, 2?3 times a day. ??? Move your fingers [...] fried or sweet foods. ? Take an iwwa-wav-aukcnda or prescription medicine for constipation. ??? Keep [...] provider. Document Revised: 04/19/2018 Document Reviewed: 04/19/2018 [email or web address] Patient Education ? 2020 [employer]. Pharmacology Peripheral Nerve Block Peripheral nerve block is [...] including vitamins, herbs, eye drops, creams, and nobt-coa-aviibkv medicines. ??? Any problems you or family [...] Up to 2 hours before the procedure ? you may continue to drink clear liquids, such as water, clear fruit juice, black coffee, and plain tea. Eating and drinking restrictions Follow instructions from your health care provider about eating and drinking, which may include: ??? 8 hours before the procedure ? stop eating heavy meals or foods such as meat, fried foods, or fatty foods. ??? 6 hours before the procedure ? stop eating light meals or foods, such as toast or cereal. ??? 6 hours before the procedure ? stop drinking milk or drinks that contain milk. ??? 2 hours before the procedure ? stop drinking clear liquids. General instructions ??? [...] tells you to take them. ? Taking bsvs-yxt-zqqqqjq medicines, vitamins, herbs, and supplements. ??? Plan [...] a bad smell. General instructions ??? Take pytu-ecd-ayolcpo and prescription medicines only as told by [...] provider. Document Revised: 06/11/2019 Document Reviewed: 02/15/2018 [email or web address] Patient Education ? 2020 [employer]. General Anesthesia, Adult, Care After This sheet [...] activities are safe for you. ??? Take cdan-rdc-lhisfix and prescription medicines only as told by [...] provider. Document Revised: 01/08/2021 Document Reviewed: 08/07/2020 [employer] Patient Education ? 2020 [employer]. documented in this encounter Plan of Treatment Not on file documented as of this encounter Visit Diagnoses Not on filedocumented in this encounter Care Teams Watchmaking Teacher Relationship Specialty Start Date End Date Emanuel Vital MD [address] [place] [phone] PCP - General General Internal Medicine 09/03/22 documented as of this encounter
--- OUTSIDE RECORDS SUMMARY | 2024-10-15 12:59 | XMS_ITS | Referral Summary ---
Author Organization [email or web address] Address [address] [place] [address] Care Team Providers Care Diamond Powder Mixer Name Role Phone Emanuel Vital MD Primary Care Provider [phone] Allergies No known active allergies Medications bisoprolol [...] place to sleep or slept in a jail (including now)? No 09/04/2022 Interpersonal Safety Answer [...] Date Tejinder rded Speak language other than Dominican at home Not on file 05/27/2023 Want [...] 09/03/2022 5:00 AM EDT Plan of Treatment Not on file Medical Devices Implanted Type Area Stadium Manager Device Identifier Shelf Expiration Date Model / Serial / Lot Kenan Bone Preservon 5.75x7.22 [id number] - [id number] Implanted:Qty : 1 on 09/03/2022 by Chris Talley MD at [facility] IMPLANTS N/A: Spine Cervical LIFENET:LIFENET TRANSPLANT SRV 09/16/2026 [id number] / [id number] / Grft Bone Preservon 4.75x6.22 [id number] - [id number] Implanted:Qty : 1 on 09/03/2022 by Chris Talley MD at [facility] IMPLANTS N/A: Spine Cervical LIFENET:LIFENET TRANSPLANT SRV 01/03/2027 [id number] / [id number] / Pin Compr Peak Pa 14mm 014 - [id number] Implanted:Qty : 2 on 09/03/2022 by Chris Talley MD at [facility] IMPLANTS N/A: Spine Cervical J &J:DEPUY:DEPUY SPINE 2748-07-0 14 / 2748-07-0 14 / Plt Ant Skyln Hybrd Lvl2 32mm 1867-06-032 - [id number] Implanted:Qty : 1 on 09/03/2022 by Chris Talley MD at [facility] IMPLANTS N/A: Spine Cervical J &J:DEPUY:DEPUY SPINE 802-0 32 / 1867-06-0 32 / Scr Skyln Vari Sd 14mm -014 - [id number] Implanted:Qty : 4 on 09/03/2022 by Chris Talley MD at [facility] IMPLANTS N/A: Spine Cervical J &J:DEPUY:DEPUY SPINE 850-0 14 / 50-0 14 / Scr Skyln Vari Sd 12mm 50-012 - [id number] Implanted:Qty : 1 on 09/03/2022 by Chris Talley MD at [facility] IMPLANTS N/A: Spine Cervical J &J:DEPUY:DEPUY SPINE 1868-50-0 12 / 50-0 12 / Scr Skyln Vari-Ovsz 12mm 54-012 - [id number] Implanted:Qty : 1 on 09/03/2022 by Chris Talley MD at [facility] IMPLANTS N/A: Spine Cervical J &J:DEPUY:DEPUY SPINE 54-0 / 0 12 / Explanted Type Area Stadium Manager Device Identifier Shelf Expiration Date Model / Serial / Lot Scr Zee Carver Sd 12mm 1868-50-012 - [id number] Explanted:Qty : 1 on 09/03/2022 at [facility] IMPLANTS N/A: Spine Cervical J &J:DEPUY:DEPUY SPINE 50-0 / 12 / Insurance [facility] [employer] Advance Directives For more information, please contact: [phone] * Full Code (Latest Code Status on File) Date Activated Date Inactivated Comments 09/03/2022 11:41 AM 09/04/2022 5:47 PM Care Teams Diamond Powder Mixer Relationship Specialty Start Date End Date Emanuel Vital MD [address] [place] [phone] PCP - General General Internal Medicine 09/03/22
[2024-10-15 13:35] VITALS: PULSE 93; PULSE 96
[2024-10-15] MEDS: ALBUTEROL 0.083% 2.5 MG/3 ML NEB IH (13:35)
== END 2024-10-15 23:59 | disposition home or self-care (01) ==
LOC: RT 12:52
PROVIDERS: PCP Internal Medicine; Visit Provider Internal Medicine Pulmonary Disease
DX: J44.9 Chronic obstructive pulmonary disease, unspecified (principal)
CPT/HCPCS: 94060; 94618; 94640

== ENCOUNTER 2024-11-28 08:47 | Outpatient (POV) | payer OTHER, SELFPAY ==
--- OUTSIDE RECORDS SUMMARY | 2024-11-28 08:54 | XMS_ITS | Encounter Summary ---
Author Organization [employer] ([place], [place], [place], [place]) Address [address] [place] [address] Care Team Providers Care Cupola Mechanic Name Role Phone Emanuel Vital MD Primary Care Provider [phone] Encounter Details Date Type Department Care Team (Late st Contact Info) Description 06/10/2021 Transcribed Document [facility] [place] [address] [place] [address] ProviderSaran MD [address] [place] [address] Social History Tobacco Use Types Packs/Day Years Used Date Smoking Tobacco: Never Assessed PRAPARE - Transportation Answer Date Re corded In the past 12 months, has l ack of transportation kept you from medical appointments or from getting medications? No 09/04/2022 Lack of Transportation (Non-Medical) Not on file 09/04/2022 Food Insecurity Answer Date Recorded Food run [...] Date Tejinder rded Speak language other than Pashto at home Not on file 05/27/2023 Want help with school or training Not on file 05/27/2023 Substance Use Answer Date Recorded Used prescription meds for non-medical reasons N ot on file 05/27/2023 Used illegal drugs past 12 months Not on file 05/27/2023 Sex and Gender Information Value Date Recorded Sex Assigned at Male 11/03/2021 9:02 PM CDT Legal Sex Male 9:02 PM CDT Gender Identity Male 11/03/2021 9:02 PM CDT Sexual Orientation Not on file COVID-19 Exposure Response Date Recorded In the last 10 days, have yo u been in contact with someone who was confirmed or suspected to have Coronavirus/COVID-19? No / Unsure 09/03/2022 5:18 AM EDT documented as of this encounter Miscellaneous Notes * Cerner Conversion Note - Historical Provider, MD - 06/10/2021 2:09 PM POWER SWITCHBOARD OPERATOR Patient: ALYSSA GLEASON Age: 56 Years Sex: Male : 1965 Chief Complaint Left Arm Pain with Decreased ROM Primary Care Provider MARKEL, NOT LISTED History of Present Illness This [...] Lymph # 1.88 K/uL 06/10/2021 15:32 EST [place] % 8.0 % 06/10/2021 15:32 EST [place] # 0.75 K/uL 06/10/2021 15:32 EST Eos [...] Appearance CLEAR2 06/10/2021 15:32 EST Urine Specific [place] 1.024 06/10/2021 15:32 EST Urine pH Dipstick [...] SARS-CoV-2 (COVID19 PCR) NEGATIVE2 06/10/2021 15:32 EST documented in this encounter Plan of Treatment Not on file documented as of this encounter Visit Diagnoses Not on filedocumented in this encounter Care Teams Cupola Mechanic Relationship Specialty Start Date End Date Emanuel Vital MD [address] [place] [id number] PCP - General General Internal Medicine 09/03/22 documented as of this encounter
--- OUTSIDE RECORDS SUMMARY | 2024-11-28 08:54 | XMS_ITS | Encounter Summary ---
Author Organization [employer] ([place], [place], [place], [place]) Address [address] [place] [address] Care Team Providers Care Screw Down Name Role Phone Emanuel Vital MD Primary Care Provider [phone] Encounter Details Date Type Department Care Team (Late st Contact Info) Description 06/10/2021 Transcribed Document [facility] [place] [address] [place] [address] ProviderSaran MD [address] [place] [address] Social History Tobacco Use Types [...] Date Tejinder rded Speak language other than Afghan at home Not on file 05/27/2023 Want [...] * Cerner Conversion Note - Historical Provider, - 06/10/2021 3:17 PM 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 (Last Updated: 06/10/2021 15:17:32 EST by Sofei Fernandez, Rn) Substance Abuse: Drug Use Hx: [...] Sofie Fernandez Rn - 06/10/2021 15:17 EST [place] Suicide Severity Rating Scale (C-SSRS) CSSRS Past [...] Take/Hold Medications Pre-Procedure : Verbalizes understanding Sofie Fernandez Rn - 06/10/2021 15:17 EST General Info Want Family/Rep/Phys Notified of Admit : No Emergency Contact #1 : Lissy Emergency Contact #1 Emergency Contact #1 Relationship : Emergency Contact #2 : . Emergency Contact #2 Phone Number : . Emergency Contact #2 Relationship : . Primary Language : Afghan Communication Barrier : None Commissioned Sales Associate Needed : No Sofie Fernandez Rn - [...] - 06/10/2021 15:17 EST Electronically signed by Gonzalo, [facility] Conversion Event Specialist Product Demonstrator Cerner at 08/26/2022 12:20 AM CDT documented in this encounter Plan of Treatment Not on file documented as of this encounter Visit Diagnoses Not on filedocumented in this encounter Care Teams Screw Down Relationship Specialty Start Date End Date Emanuel Vital MD [address] [place] [phone] PCP - General General Internal Medicine 09/03/22 documented as of this encounter
--- OUTSIDE RECORDS SUMMARY | 2024-11-28 08:54 | XMS_ITS | Referral Summary ---
Author Organization [employer] ([place], [place], [place], [place]) Address [address] [place] [address] Care Team Providers Care Lockstitch Front Maker Name Role Phone Emanuel Vital MD Primary Care Provider [phone] Allergies No known active allergies Medications bisoprolol [...] Date Tejinder rded Speak language other than Lao at home Not on file 05/27/2023 Want [...] on file Medical Devices Implanted Type Area Warranty Administrator Device Identifier Shelf Expiration Date Model / Serial / Lot Grft Bone Preservon 5.75x7.22 [id number] - [id number] Implanted:Qty : 1 on 09/03/2022 by Chris Talley MD at [facility] IMPLANTS N/A: Spine Cervical LIFENET:LIFENET TRANSPLANT SRV 09/16/2026 [id number] / [id number] / Grft Bone Preservon 4.75x6.22 [id number] - [id number] Implanted:Qty : 1 on 09/03/2022 by Chris Talley MD at [facility] IMPLANTS N/A: Spine Cervical LIFENET:LIFENET TRANSPLANT SRV 01/03/2027 [id number] / [id number] / Pin Compr Peak Pa 14mm [id number] - [id number] Implanted:Qty : 2 on 09/03/2022 by Chris Talley MD at [facility] IMPLANTS N/A: Spine Cervical J &J:DEPUY:DEPUY SPINE 03-0 14 / 27403-0 14 / Plt Ant Skyln Hybrd Lvl2 32mm 1868-02-032 - [id number] Implanted:Qty : 1 on 09/03/2022 by Chris Talley MD at [facility] IMPLANTS N/A: Spine Cervical J &J:DEPUY:DEPUY SPINE 02-0 32 / 1867-06-0 32 / Scr Skyln Vari Sd 14mm 50-014 - [id number] Implanted:Qty : 4 on 09/03/2022 by Chris Talley MD at [facility] IMPLANTS N/A: Spine Cervical J &J:DEPUY:DEPUY SPINE 50-0 14 / 50-0 14 / Scr Skyln Vari Sd 12mm 50012 - [id number] Implanted:Qty : 1 on 09/03/2022 by Chris Talley MD at [facility] IMPLANTS N/A: Spine Cervical J &J:DEPUY:DEPUY SPINE 50-0 12 / 0 12 / Scr Skyln Vari-Ovsz 12mm 54- - [id number] Implanted:Qty : 1 on 09/03/2022 by Chris Talley MD at [facility] IMPLANTS N/A: Spine Cervical J &J:DEPUY:DEPUY SPINE 54-0 12 / 54-0 12 / Explanted Type Area Warranty Administrator Device Identifier Shelf Expiration Date Model / Serial / Lot Scr Skyln Vari Sd 12mm -012 - [id number] Explanted:Qty : 1 on 09/03/2022 at [facility] IMPLANTS N/A: Spine Cervical J &J:DEPUY:DEPUY SPINE 50-0 12 / 50-0 12 / Insurance [address] [place] [id number] [facility] [employer] Advance Directives For more information, please contact: [phone] * Full Code (Latest Code Status on File) Date Activated Date Inactivated Comments 09/03/2022 11:41 AM 09/04/2022 5:47 PM Care Teams Lockstitch Front Maker Relationship Specialty Start Date End Date Emanuel Vital MD [address] [place] [phone] PCP - General General Internal Medicine 09/03/22
--- OUTSIDE RECORDS SUMMARY | 2024-11-28 08:54 | XMS_ITS | Encounter Summary ---
Author Organization [employer] ([place], [place], [place], [place]) Address [address] [place] [address] Care Team Providers Care Comber Operator Name Role Phone Emanuel Vital MD Primary Care Provider [phone] Encounter Details Date Type Department Care Team (Late st Contact Info) Description 06/19/2021 Transcribed Document [facility] [place] [address] [place] [address] ProviderSaran MD [address] [place] [address] Social History Tobacco Use Types [...] Date Tejinder rded Speak language other than Icelandic at home Not on file 05/27/2023 Want [...] Cerner Conversion Note - Historical Provider, - 06/19/2021 1:50 PM PROCUREMENT ENGINEER Time Out Documentation Entered On: 06/19/2021 13:51 EST Performed On: 06/19/2021 13:50 EST by Teresa Pathak RN Time Out Documentation Procedure to be [...] before each procedure if multiple procedures Teresa Pathak, KARUNA - 06/19/2021 13:50 EST Electronically signed by [facility] Conversion Bindery Helper Cerner at 08/26/2022 12:24 AM CDT documented in this encounter Plan of Treatment Not on file documented as of this encounter Visit Diagnoses Not on filedocumented in this encounter Care Teams Comber Operator Relationship Specialty Start Date End Date Emanuel Vital MD [address] [place] [phone] PCP - General General Internal Medicine 09/03/22 documented as of this encounter
--- OUTSIDE RECORDS SUMMARY | 2024-11-28 08:54 | XMS_ITS | Encounter Summary ---
Author Organization [employer] ([place], [place], [place], [place]) Address [address] [place] [address] Care Team Providers Care Nurse First Assist Name Role Phone Emanuel Vital MD Primary Care Provider [phone] Encounter Details Date Type Department Care Team (Late st Contact Info) Description 06/19/2021 Transcribed Document [facility] [place] [address] [place] [address] ProviderSaran MD [address] [place] [address] Social History Tobacco Use Types [...] Date Tejinder rded Speak language other than Indonesian at home Not on file 05/27/2023 Want [...] Conversion Note - Historical Provider, - 06/19/2021 4:07 PM VULCAN CREWMEMBER Patient Education Materials Follows: Tendon Repair, Care [...] it can be removed. Medicines ??? Take foug-mht-otqtpgh and prescription medicines only as told by [...] and water are not available, use hand shirt operator. ? Change your dressing as told by [...] fried or sweet foods. ? Take an sfam-jwb-tduguna or prescription medicine for constipation. ??? Keep [...] provider. Document Revised: 04/19/2018 Document Reviewed: 04/19/2018 [employer] Patient Education ? 2020 [employer] Pharmacology Peripheral Nerve Block Peripheral nerve block [...] including vitamins, herbs, eye drops, creams, and lnfu-fha-zrtqreu medicines. ??? Any problems you or family [...] tells you to take them. ? Taking shlu-eyf-bnhfdqo medicines, vitamins, herbs, and supplements. ??? Plan [...] a bad smell. General instructions ??? Take mvck-xmk-qhpcuoo and prescription medicines only as told by [...] provider. Document Revised: 06/11/2019 Document Reviewed: 02/15/2018 [employer] Patient Education ? 2020 [employer] General Anesthesia, Adult, Care After This [...] activities are safe for you. ??? Take gonv-enc-sddpocb and prescription medicines only as told by [...] provider. Document Revised: 01/08/2021 Document Reviewed: 08/07/2020 [employer] Patient Education ? 2020 [employer] documented in this encounter Plan of Treatment Not on file documented as of this encounter Visit Diagnoses Not on filedocumented in this encounter Care Teams Nurse First Assist Relationship Specialty Start Date End Date Emanuel Vital MD [address] [place] [address] PCP - General General Internal Medicine 09/03/22 documented as of this encounter
--- OUTSIDE RECORDS SUMMARY | 2024-11-28 08:54 | XMS_ITS | Clinical Summary ---
Author Organization [employer] ([place], [place], [place], [place]) Address [address] [place] [address] Care Team Providers Care Fbi Investigator Name Role Phone Emanuel Vital MD Primary Care Provider [phone] Allergies No known active allergies Medications bisoprolol [...] Date Tejinder rded Speak language other than Scottish at home Not on file 05/27/2023 Want [...] 03/18/2021, 08/02/2020, Additional history exists Influenza Vaccine (#1) 2025 Medical Devices Implanted Type Area Machine Woodworking Sander Device Identifier Shelf Expiration Date Model / Serial / Lot Grft Bone Preservon 5.75x7.22 [id number] - [id number] Implanted:Qty : 1 on 09/03/2022 by Chris Talley MD at [facility] IMPLANTS N/A: Spine Cervical LIFENET:LIFENET TRANSPLANT SRV 09/16/2026 [id number] / [id number] / Grft Bone Preservon 4.75x6.22 [id number] - [id number] Implanted:Qty : 1 on 09/03/2022 by Chris Talley MD at [facility] IMPLANTS N/A: Spine Cervical LIFENET:LIFENET TRANSPLANT SRV 01/03/2027 [id number] / [id number] / Pin Compr [place] 14mm 014 - [id number] Implanted:Qty : 2 on 09/03/2022 by Chris Talley MD at [facility] IMPLANTS N/A: Spine Cervical J &J:DEPUY:DEPUY SPINE 2748-07-0 14 / 2748-07-0 14 / Plt Ant Skyln Hybrd Lvl2 32mm 032 - [id number] Implanted:Qty : 1 on 09/03/2022 by Chris Talley MD at [facility] IMPLANTS N/A: Spine Cervical J &J:DEPUY:DEPUY SPINE 02-0 32 / 1867-06-0 32 / Scr Skyln Vari Sd 14mm 014 - [id number] Implanted:Qty : 4 on 09/03/2022 by Chris Talley MD at [facility] IMPLANTS N/A: Spine Cervical J &J:DEPUY:DEPUY SPINE 50-0 14 / 50-0 14 / Scr Skyln Vari Sd 12mm 012 - [id number] Implanted:Qty : 1 on 09/03/2022 by Chris Talley MD at [facility] IMPLANTS N/A: Spine Cervical J &J:DEPUY:DEPUY SPINE 850-0 12 / 50-0 12 / Scr Skyln Vari-Ovsz 12mm -012 - [id number] Implanted:Qty : 1 on 09/03/2022 by Chris Talley MD at [facility] IMPLANTS N/A: Spine Cervical J &J:DEPUY:DEPUY SPINE -0 12 / Explanted Type Area Machine Woodworking Sander Device Identifier Shelf Expiration Date Model / Serial / Lot Scr Skyln Vari Sd 12mm 1867-50-012 - [id number] Explanted:Qty : 1 on 09/03/2022 at [facility] IMPLANTS N/A: Spine Cervical J &J:DEPUY:DEPUY SPINE -0 12 / Insurance [facility] [employer] Advance Directives For more information, please contact: [phone] * Full Code (Latest Code Status on File) Date Activated Date Inactivated Comments 09/03/2022 11:41 AM 09/04/2022 5:47 PM Care Teams Fbi Investigator Relationship Specialty Start Date End Date Emanuel Vital MD [address] [place] [phone] PCP - General General Internal Medicine 09/03/22
--- OUTSIDE RECORDS SUMMARY | 2024-11-28 08:54 | XMS_ITS | Clinical Summary ---
[facility] Address [address] [place] [id number] Care Team Providers Care Gel Coater Name Role Phone Unavailable Primary Care Provider Unavailabl e Social History Tobacco Use Types Packs/Day Years Used Date Smoking Tobacco: Never Assessed Abuse Screen Answer Date Recorded Unsafe at Home or Work/School Not on file Feels Threatened by Someone? Not on file Does Anyone Keep You from Co ntacting Others or Doint Things Outside the Home? Not on file 02/18/2023 Physical Sign of Abuse Present Not on file 1 Housing Stability Answer Date Recorded Current Living Arrangements Not on file 02/06 Potentially Unsafe Housing Conditions Not on ricarda e 02/18/2023 Family and Community Support Answer Severiano e Recorded Help with Day-to-Day Activities Not on file 02/18/2023 Lonely or Isolated Not on file 02/18/2023 Employment Answer Date Recorded Do you want help finding or keeping work or a douglas b? Not on file 02/18/2023 Disabilities Answer Date Recorded Concentrating, Remembering, or Making Decisions Difficulty Not on file 02/18/2023 Doing Errands Independently Difficulty Not on fi le 02/18/2023 Education Answer Date Recorded Help with school or training? Not on file Preferred Language Not on file 02/18/2023 Sex and Gender Information Value Date Recorded Sex Assigned at Not on file Legal Sex Male 10:25 AM EST Gender Identity Not on file Sexual Orientation Not on file Plan of Treatment Health Maintenance Due Date Last Done Comments TDAP/TD VACCINES (1 - Tdap) 08/29/1986 COLOGUARD 08/29/2012 COLON CANCER SCREENING 5 YEAR SIGMOIDOSCOPY 08/29/2012 COLONOSCOPY 08/29/2012 COLORECTAL CANCER SCREENING 08/29/2012 CT COLONOGRAPHY 08/29/2012 FECAL OCCULT BLOOD TEST 08/29/2012 FIT Testing (1 year) 08/29/2012 Pneumococcal Vaccine 50+ (1 of 1 - PCV) 08/29/2017 ZOSTER VACCINE (1 of 2) 08/29/2017 ANNUAL PHYSICAL 05/26/2021 HEPATITIS C SCREENING 05/26/2021 COVID-19 Vaccine ( - 2023- season) 2024 INFLUENZA VACCINE 02/06/2025 Insurance [facility]
--- OUTSIDE RECORDS SUMMARY | 2024-11-28 08:55 | XMS_ITS | Encounter Summary ---
Author Organization [employer] ([place], [place], [place], [place]) Address [address] [place] [address] Care Team Providers Care Binder And Wrapper Packer Name Role Phone Emanuel Vital MD Primary Care Provider [phone] Encounter Details Date Type Department Care Team (Late st Contact Info) Description 06/19/2021 Transcribed Document [facility] Family Medicine [address] [place] [address] ProviderSaran MD [address] [place] [address] Social History Tobacco Use Types [...] Date Tejinder rded Speak language other than Spanish at home Not on file 05/27/2023 Want [...] Conversion Note - Historical Provider, MD - 06/19/2021 2:31 PM SENIOR LOGISTICS MANAGER [facility] Main OR IntraOp Summary Primary Physician: SEAN CARMEN MD-SUR Finalized Date/Time: 06/22/21 10:51:39 Pt. Name: ALYSSA CABRALES LEXI /Sex: 1965 Male Med Rec #: [id number] Physician: SEAN CARMEN MD-SUR Financial #: [id number] Pt. Type: O [facility] Admit/Disch: 06/19/21 06:27:00 - 06/19/21 16:50:00 Institution: [facility] IntraOp Case Attendance Entry 1 Entry 2 Entry 3 Case Attendee SEAN CARMEN ARVIN, CHRIS L, PA-C KAISER, BRITTANY, CRNA MD-SUR Role Performed Surgeon/Proceduralist, Physician nurse's assistant VEGETABLE WASHING MACHINE OPERATOR/Nurse Transition Assistant First Time In 06/19/21 14:07:00 06/19/21 14:07:00 06/19/21 14:07:00 Time Out 06/19/21 15:43:00 06/19/21 15:43:00 06/19/21 14:47:00 Procedure Biceps Distal Tendon Biceps Distal Tendon Biceps Distal Tendon Repair Open Repair Open Repair Open Other Attendee Superficial Wound Closed By: Last Modified By: CRUZ DOOLEY, CRUZ TUCKER, CRUZ TUCKER RN 06/19/21 15:43:49 06/19/21 15:43:49 06/19/21 14:48:53 Entry 4 Entry 5 Entry 6 Case Attendee CRUZ DOOLEY, SUKHWINDER ABEBE, OTHER, ATTENDEE #1 Pelletising Extruder Operator Role Performed Patrol Community Service Officer, First Scrub, First Vendor Time In 06/19/21 14:07:00 06/19/21 14:07:00 06/19/21 14:07:00 Time Out 06/19/21 15:43:00 06/19/21 15:43:00 06/19/21 15:43:00 Procedure Biceps Distal Tendon Biceps Distal Tendon Biceps Distal Tendon Repair Open Repair Open Repair Open Other Attendee [facility] Superficial Wound Closed By: Last Modified By: CRUZ DOOLEY, CRUZ TUCKER, CURZ TUCKER, KARUNA 06/19/21 15:43:49 06/19/21 15:43:49 06/19/21 14:41:18 Entry 7 Case Attendee MILTON FOSTER VEGETABLE WASHING MACHINE OPERATOR Role Performed VEGETABLE WASHING MACHINE OPERATOR/Nurse Transition Assistant Time In 06/19/21 14:47:00 Time Out 06/19/21 15:43:00 Procedure Biceps Distal Tendon Repair Open Other Attendee Superficial Wound Closed By: Last Modified By: CRUZ DOOLEY RN 06/19/21 15:43:49 [facility] IntraOp Case Attendance Audit 06/19/21 15:43:49 Director Of Radio Services: [email or web address] Modifier: [email or web address] 1 <+> Time Out 1 [...] Biceps Distal Tendon Repair Open 06/19/21 14:48:53 Director Of Radio Services: [email or web address] Modifier: [email or web address] 1 <*> Procedure Biceps Distal [...] Time In <+> 7 Procedure 06/19/21 14:41:18 Director Of Radio Services: ERICGA Modifier: [email or web address] 1 <*> Case Attendee SEAN CARMEN MD-SUR 1 <*> Role Performed Surgeon/Proceduralist, First 1 <+> Time In 1 <*> Procedure Biceps Distal Tendon Repair Open Entry 2 was deleted. Higher numbered entries shifted one position to fill the gap. <-> 2 Case Attendee Christina Calvillo, Non Emp Student Nurse Transition Assistant <-> 2 Role Performed VEGETABLE WASHING MACHINE OPERATOR/Nurse Transition Assistant <-> 2 Procedure Biceps Distal Tendon Repair Open Entry 3 was deleted. Higher numbered entries shifted one position to fill the gap. <-> 3 Case Attendee LIBBY OROSCO, VEGETABLE WASHING MACHINE OPERATOR <-> 3 Role Performed VEGETABLE WASHING MACHINE OPERATOR/Nurse Transition Assistant <-> 3 Procedure Biceps Distal Tendon Repair Open Entry 4 was deleted. Higher numbered entries shifted one position to fill the gap. <-> 4 Case Attendee MAGGIE GOODRICH PA <-> 4 Role Performed Physician nurse's assistant <-> 4 Procedure Biceps Distal Tendon Repair Open 06/19/21 11:41:50 Director Of Radio Services: LONGGA Modifier: LONGGA 1 <*> Case Attendee SEAN CARMEN MD-SUR 1 <*> Role Performed Surgeon/Proceduralist, First 1 <*> Procedure Biceps Distal Tendon Repair Open 2 <*> Case Attendee Christina Calvillo, Non Emp Student Nurse Transition Assistant 2 <*> Role Performed VEGETABLE WASHING MACHINE OPERATOR/Nurse Transition Assistant 2 <*> Procedure Biceps Distal Tendon Repair Open 3 <*> Case Attendee LIBBY OROSCO, VEGETABLE WASHING MACHINE OPERATOR 3 <*> Role Performed VEGETABLE WASHING MACHINE OPERATOR/Nurse Transition Assistant 3 <*> Procedure Biceps Distal Tendon Repair Open Entry 4 was deleted. Higher numbered entries shifted one position to fill the gap. <-> 4 Case Attendee IRMA MCNALLY, KARUNA <-> 4 Role Performed Patrol Community Service Officer, First <-> 4 Procedure Biceps Distal Tendon Repair Open Entry 5 was deleted. Higher numbered entries shifted one position to fill the gap. <-> 5 Case Attendee Jolynn Arvizu, CASEY <-> 5 Role Performed Scrub, First <-> [...] [facility] IntraOp Case Times Audit 06/19/21 15:43:45 Director Of Radio Services: [email or web address] Modifier: [email or web address] <+> 1 Out Room Time <+> 1 Stop Time 06/19/21 15:35:20 Director Of Radio Services: [email or web address] Modifier: [email or web address] <+> 1 Stop Time 06/19/21 14:40:06 Director Of Radio Services: [email or web address] Modifier: [email or web address] <+> 1 Start Time [facility] [...] By Count Performed By SUKHWINDER KANG, (Scrub) Pelletising Extruder Operator Count Performed By CRUZ DOOLEY, RN (RN) Last Modified By: CRUZ DOOLEY RN 06/19/21 14:42:23 [facility] IntraOp Counts Verification Audit 06/19/21 14:42:23 Director Of Radio Services: RUSS Modifier: [email or web address] <+> 1 Procedure <+> 1 Count Type <+> 1 Counts Verification Sequence <+> 1 Count Results <+> 1 Count Performed By (Scrub) <+> 1 Count Performed By (RN) 06/19/21 11:41:06 Director Of Radio Services: RUSS Modifier: LONGGA Entry 1 was deleted. Higher [...] Counts Performed By Count Performed By SUKHWINDER KANG (Scrub) Pelletising Extruder Operator Count Performed By CRUZ DOOLEY RN (RN) Last Modified By: CRUZ ODOLEY RN 06/19/21 15:35:59 [facility] IntraOp Counts Final Audit 06/19/21 15:35:59 Director Of Radio Services: [email or web address] Modifier: [email or web address] 1 <*> Procedure Biceps Distal [...] Supplemental Splint Applications Applied By SEAN CARMEN MD-LESLIE Last Modified By: CRUZ DOOLEY RN 06/19/21 [...] IntraOp Fire Risk Assessment Audit 06/19/21 14:43:06 Director Of Radio Services: LONGGA Modifier: [email or web address] 1 <*> Fire Risk Assessment Verified By SEAN CARMEN MD-SUR 1 <*> Fire Risk Assessment Verified 06/19/21 11:31:00 Date/Time 06/19/21 11:41:17 Director Of Radio Services: LONGGA Modifier: LONGGA 1 <*> Fire Risk Assessment Verified By IRMA MCNALLY RN [facility] IntraOp General Case Ton Container Filler 1 Case Information OR OR 05 [facility] Case Level 1 Room Verified Yes Wound Class 1 - Clean Specialty Orthopedic Anesthesia Type General ASA Class 2 Diagnosis Preop Diagnosis LEFT DISTAL BICEPS RUPTURE Postop Same As Preop Yes Postop Diagnosis LEFT DISTAL BICEPS RUPTURE Wound Class Definitions Last Modified By: IRMA MCNALLY RN 06/19/21 11:32:28 [facility] IntraOp General Case Data Audit 06/19/21 11:41:31 Director Of Radio Services: LONGGA Modifier: LONGGA 1 <*> ASA Class 3 06/19/21 11:32:28 Director Of Radio Services: LONGGA Modifier: LONGGA <+> 1 ASA Class <+> 1 Wound Class <+> 1 Anesthesia Type <+> 1 Postop Same As Preop <+> 1 Preop Diagnosis <+> 1 Postop Diagnosis <+> 1 Room Verified E IntraOp Implant Log Entry 1 Type Implant (Synthetic) Implant Log Implant Type Hardware Implant IMP SYS DEL BIOCOMP DST Identification [id number] Description Implant Quantity 1 Implant Site left bicep Implant [id number] Identification Lot Number Implant Arthrex Identification Volcanology Teacher Name: Implant [id number] Identification Catalog Number Implant Has an Yes Expiration Date Implant Expiration 12/31/23 Date Tissue Implant Last Modified By: CRUZ DOOLEY RN 06/19/21 14:43:50 [facility] IntraOp Implant Log Audit 06/22/21 10:51:05 Director Of Radio Services: LONG Modifier: IKE 1 <*> Implant Identification Description [facility] [id number] <*> Implant Quantity 2 [facility] IntraOp [...] Entry 1 Medication/Irrigant vancomycin 1Gm vial - [id number] Route of in wound before closure Administration [...] STRETCHER, PILLOWS UNDER HEAD. Positioned By CRUZ DOOLEY RN, KEVIN LEIGH CRNA, SEAN CARMEN MD-SUR, KIMBER [...] Intra Op Sign Out Audit 06/19/21 15:44:01 Director Of Radio Services: LONG Modifier: [email or web address] <+> 1 OUTCOME STATEMENT: Intraoperative care is consistent with measures to prevent infection 06/19/21 15:43:48 Director Of Radio Services: LONG Modifier: [email or web address] <+> 1 RN Sign Out Signature Date/Time 06/19/21 15:35:32 Director Of Radio Services: LONG Modifier: [email or web address] <+> 1 Sánchez Patient Recovery Concerns Reviewed [...] hair removal performed Last Modified By: CRUZ DOOLYE RN 06/19/21 14:45:35 [facility] IntraOp Surgical Procedures Entry 1 Procedure Biceps Distal Tendon Repair Open Additional LEFT DISTAL BICEPS Procedure REPAIR Description Primary Procedure Yes Primary Surgeon SEAN CARMEN MD-LESLIE Start 06/19/21 14:31:00 Stop 06/19/21 15:35:00 Anesthesia Type General Specialty Orthopedic Wound Class 1 - Clean Last Modified By: IRMA MCNALLY RN 06/19/21 11:32:51 [facility] IntraOp Surgical Procedures Audit 06/19/21 15:35:24 Director Of Radio Services: [email or web address] Modifier: [email or web address] <+> 1 Stop 06/19/21 14:45:15 Director Of Radio Services: RUSS Modifier: [email or web address] <+> 1 Start [facility] IntraOp Temp Regulation Devices Entry 1 Temp Regulation Temperature Forced Air Warming Regulation Device device Temperature Lower body Regulation Site Temperature KEVIN LEIGH, KOSTAS Regulation Device Applied by Last Modified By: [...] [facility] IntraOp Time Out Audit 06/19/21 14:46:05 Director Of Radio Services: LONG Modifier: LONG 1 <+> Beta Yoseph [...] 15:35:38 [facility] IntraOp Tourniquet Audit 06/19/21 15:35:38 Director Of Radio Services: FREDATINOJUNisha Modifier: [email or web address] <+> 1 Stop Time Case Comments <None> Finalized By: Kathy Burgess, RN Document Signatures Signed By: CRUZ DOOLEY RN 06/19/21 15:44 Kathy Burgess RN 06/22/21 10:51 Unfinalized History Date/Time Username Reason for Unfinalizing Freetext Reason for Unfinalizing 06/22/21 10:50 IKE Correct Billing Electronically signed by Gonzalo [facility] Conversion Torch Straightener Cerner at 08/26/2022 12:06 AM CDT documented in this encounter Plan of Treatment Not on file documented as of this encounter Visit Diagnoses Not on filedocumented in this encounter Care Teams Binder And Wrapper Packer Relationship Specialty Start Date End Date Emanuel Vital MD [address] [place] [address] PCP - General General Internal Medicine 09/03/22 documented as of this encounter
--- OUTSIDE RECORDS SUMMARY | 2024-11-28 08:55 | XMS_ITS | Encounter Summary ---
Author Organization [employer] ([place], [place], [place], [place]) Address [address] [place] [address] Care Team Providers Care Bi Analyst Name Role Phone Emanuel Vital MD Primary Care Provider [phone] Encounter Details Date Type Department Care Team (Late st Contact Info) Description 06/19/2021 Transcribed Document [facility] [place] Medicine [address] [place] [address] ProviderSaran MD [address] [place] [address] Social History Tobacco Use Types [...] Note - Historical Provider, MD - 06/19/2021 4:24 PM GARAGE DOOR TECHNICIAN [address] [address] ALYSSA GLEASON :1965 Visit Time:06/19/2021 What to [...] with SEAN SPEARS MD-LESLIE When Where: [address] [facility] [address] [place] [address]- Medications What How Much When Instructions Next [...] including vitamins, herbs, eye drops, creams, and ajca-nzl-qyhhbmy medicines. ??? Any problems you or family [...] tells you to take them. ? Taking xrib-szq-kshdzxj medicines, vitamins, herbs, and supplements. ??? Plan [...] a bad smell. General instructions ??? Take bgif-ccg-uqunxqk and prescription medicines only as told by [...] provider. Document Revised: 06/11/2019 Document Reviewed: 02/15/2018 [email or web address] Patient Education ?? 2020 [employer] General Anesthesia, Adult, Care After This [...] activities are safe for you. ??? Take ixsy-bmb-xvrplzk and prescription medicines only as told by [...] provider. Document Revised: 01/08/2021 Document Reviewed: 08/07/2020 [employer] Patient Education ?? 2020 [employer] Tendon Repair, Care After This sheet [...] it can be removed. Medicines ??? Take nrjp-jmk-vphuzrs and prescription medicines only as told by [...] and water are not available, use hand facilities painter. ? Change your dressing as told by [...] fried or sweet foods. ? Take an qhtq-hif-xzvpkrw or prescription medicine for constipation. ??? Keep [...] provider. Document Revised: 04/19/2018 Document Reviewed: 04/19/2018 [email or web address] Patient Education ?? 2020 [employer]. Emergency Awareness and Preventative Care STROKE is [...] Assistance with quitting is available by contacting 0-223-RGZL-NOW. This is a free resource providing counseling, [...] was given the opportunity to ask questions. Patient/Medical Records Library Professor Name: Patient/Medical Records Library Professor Signature: Relationship to Patient: Clinician/Hospital Medical Records Library Professor Signature: Date: Electronically signed by Gonzalo [facility] Conversion Sheet Metal Lay Out Worker Cerner at 08/26/2022 12:09 AM CDT documented in this encounter Plan of Treatment Not on file documented as of this encounter Visit Diagnoses Not on filedocumented in this encounter Care Teams Bi Analyst Relationship Specialty Start Date End Date Emanuel Vital MD [address] [place] [address] PCP - General General Internal Medicine 09/03/22 documented as of this encounter
--- OUTSIDE RECORDS SUMMARY | 2024-11-28 08:55 | XMS_ITS | Encounter Summary ---
Author Organization [employer] ([place], [place], [place], [place]) Address [address] [place] [address] Care Team Providers Care Technical Services Librarian Name Role Phone Emanuel Vital MD Primary Care Provider [phone] Encounter Details Date Type Department Care Team (Late st Contact Info) Description 06/19/2021 Transcribed Document [facility] Family Medicine [address] [place] [address] ProviderSaran MD [address] [place] [address] Social History Tobacco Use Types [...] Date Tejinder rded Speak language other than Urdu at home Not on file 05/27/2023 Want [...] Note - Historical Provider, MD - 06/19/2021 1:15 PM OXYHYDROGEN WELDER [facility] Main OR PreOp Summary Primary Physician: SEAN CARMEN MD-SUR Finalized Date/Time: 06/19/21 14:07:03 Pt. Name: ALYSSA GLEASON LEXI [place]./Sex: 1965 Male Med Rec #: [id number] Physician: SEAN CARMEN MD-SUR Financial #: [id number] Pt. Type: O Room/Bed: [facility] Admit/Disch: 06/19/21 06:27:00 - Institution: [facility] PreOp Case Times Entry 1 In Preop 06/19/21 11:07:00 Ready for Holding n/a Room Patient Ready for 06/19/21 11:44:00 Surgery Patient Out of Preop 06/19/21 14:03:00 Patient Out of n/a Holding Room Last Modified By: Teresa Pathak RN 06/19/21 14:07:01 [facility] PreOp Case Times Audit 06/19/21 14:07:01 Lockstitch Waistband Setter: HUNTER Modifier: MAYNARL <+> 1 Patient Out of Preop 06/19/21 12:17:14 Lockstitch Waistband Setter: HUNTER Modifier: MAYNARL <+> 1 Patient Ready for Surgery Finalized By: Teresa Pathak, RN Document Signatures Signed By: Teresa Pathak RN 06/19/21 14:07 Electronically signed by Gonzalo [facility] Conversion Restaurant Mgr Cerner at 08/26/2022 12:02 AM CDT documented in this encounter Plan of Treatment Not on file documented as of this encounter Visit Diagnoses Not on filedocumented in this encounter Care Teams Technical Services Librarian Relationship Specialty Start Date End Date Emanuel Vital MD [address] [place] [address] PCP - General General Internal Medicine 09/03/22 documented as of this encounter
--- OUTSIDE RECORDS SUMMARY | 2024-11-28 08:55 | XMS_ITS | Encounter Summary ---
Author Organization [employer] ([place], [place], [place], [place]) Address [address] [place] [address] Care Team Providers Care Contract Negotiation Specialist Name Role Phone Emanuel Vital MD Primary Care Provider [phone] Encounter Details Date Type Department Care Team (Late st Contact Info) Description 06/19/2021 Transcribed Document [facility] Family Medicine [address] [place] [address] ProviderSaran MD [address] [place] [address] Social History Tobacco Use Types [...] Date Tejinder rded Speak language other than Kazakh at home Not on file 05/27/2023 Want [...] Conversion Note - Historical Provider, - 06/19/2021 1:51 PM SOFTWARE DEVELOPMENT MANAGER Peripheral Nerve Block Entered On: 06/19/2021 13:54 [...] Peripheral Nerve Block Assisted by : NISHANT FUNG RN Ultra sound used during insertion : Yes Nerve Block Activity, Patient Tolerance : Good Peripheral Nerve Block End Date/Time : 06/19/2021 13:54 EST Teresa Pathak RN - 06/19/2021 13:51 EST Electronically signed by [facility] Conversion Freelance Director Cerner at 08/26/2022 12:15 AM CDT documented in this encounter Plan of Treatment Not on file documented as of this encounter Visit Diagnoses Not on filedocumented in this encounter Care Teams Contract Negotiation Specialist Relationship Specialty Start Date End Date Emanuel Vital MD [address] [place] [address] PCP - General General Internal Medicine 09/03/22 documented as of this encounter
--- OUTSIDE RECORDS SUMMARY | 2024-11-28 08:55 | XMS_ITS | Encounter Summary ---
Author Organization [employer] ([place], [place], [place], [place]) Address [address] [place] [address] Care Team Providers Care Maintenance Parts Technician Name Role Phone Emanuel Vital MD Primary Care Provider [phone] Encounter Details Date Type Department Care Team (Late st Contact Info) Description 06/19/2021 Transcribed Document [facility] Family Medicine [address] [place] [address] ProviderSaran MD [address] [place] [address] Social History Tobacco Use Types [...] Date Tejinder rded Speak language other than Armenian at home Not on file 05/27/2023 Want [...] Note - Historical Provider, MD - 06/19/2021 3:22 PM GUARD DRIVER Patient: ALYSSA GLEASON Age: 55 years Sex: Male : 1965 Associated Diagnoses: None Author: SEAN SPEARS MD-LESLIE Preop Diagnosis: Left distal biceps tear Postop diagnosis: Same Procedure: Left distal biceps tendon repair Surgeon: Sean Spears MD American Indian Studies Professor: Bryant Andrea PA-C please note the physician religious assistant was medically necessary for completing, positioning, [...] on filedocumented in this encounter Care Teams Maintenance Parts Technician Relationship Specialty Start Date End Date Emanuel Vital MD [address] [place] [id number] PCP - General General Internal Medicine 09/03/22 documented as of this encounter
--- OUTSIDE RECORDS SUMMARY | 2024-11-28 08:55 | XMS_ITS | Encounter Summary ---
Author Organization [employer] ([place], [place], [place], [place]) Address [address] [place] [address] Care Team Providers Care Rating Officer Name Role Phone Emanuel Vital MD Primary Care Provider Encounter Details Date Type Department Care Team (Late st Contact Info) Description 06/19/2021 Transcribed Document [facility] [place] [place] Family Medicine [address] [place] [address] ProviderSaran MD [address] [place] [address] Social History Tobacco Use Types [...] Date Tejinder rded Speak language other than Faroese at home Not on file 05/27/2023 Want [...] Conversion Note - Historical Provider, - 06/19/2021 2:31 PM SERVICE STATION HELPER [facility] Main OR PACU Summary Primary Physician: SEAN CARMEN MD-SUR Finalized Date/Time: 06/19/21 16:08:22 Pt. Name: ALYSSA GLEASON /Sex: 1965 Male Med Rec #: [id number] Physician: SEAN CARMEN MD-SUR Financial #: [id number] Pt. Type: O Room/Bed: [facility] Admit/Disch: 06/19/21 06:27:00 - Institution: [facility] [place] PACU Case Times Entry 1 In PACU I 06/19/21 15:45:00 Ready for PACU 06/19/21 16:15:00 Discharge Discharge from PACU 06/19/21 16:15:00 I Last Modified By: GONSALO SANDERS [id number] CAR 06/19/21 16:08:13 Finalized By: GONSALO SANDERS [id number] CAR Document Signatures Signed By: GONSALO SANDERS [id number] CAR 06/19/21 16:08 documented in this encounter Plan of Treatment Not on file documented as of this encounter Visit Diagnoses Not on filedocumented in this encounter Care Teams Rating Officer Relationship Specialty Start Date End Date Emanuel Vital MD [address] [place] [address] PCP - General General Internal Medicine 09/03/22 documented as of this encounter
--- OUTSIDE RECORDS SUMMARY | 2024-11-28 08:55 | XMS_ITS | Encounter Summary ---
Author Organization [employer] ([place], [place], [place], [place]) Address [address] [place] [address] Care Team Providers Care Box Truck Washer Name Role Phone Emanuel Vital MD Primary Care Provider [phone] Encounter Details Date Type Department Care Team (Late st Contact Info) Description 06/19/2021 Transcribed Document [facility] [place] [address] [place] [address] ProviderSaran MD [address] [place] [address] Social History Tobacco Use Types [...] Date Tejinder rded Speak language other than Kyrgyz at home Not on file 05/27/2023 Want [...] Historical Provider, MD - 06/19/2021 2:31 PM FINGER COBBLER [facility] Main OR PostOp Summary Primary Physician: SEAN CARMEN MD-SUR Finalized Date/Time: 06/19/21 17:08:51 Pt. Name: ALYSSA GLEASON /Sex: 1965 Male Med Rec #: [id number] Physician: SEAN CARMEN MD-SUR Financial #: [id number] Pt. Type: O Room/Bed: [facility] Admit/Disch: 06/19/21 06:27:00 - Institution: [facility] Main OR PostOp Case Times Entry 1 In PACU II 06/19/21 16:20:00 Ready for PACU II 06/19/21 16:50:00 Discharge Discharge from PACU 06/19/21 16:50:00 II Last Modified By: Christina Licona Rn 06/19/21 17:08:50 [facility] Main OR PostOp Case Times Audit 06/19/21 17:08:50 Applications Sales Representative: [id number] Modifier: [id number] <+> 1 Ready for PACU II Discharge <+> 1 Discharge from PACU II Finalized By: Christina Licona, Rn Document Signatures Signed By: Christina Licona Rn 06/19/21 17:08 Electronically signed by Gonzalo [facility] Conversion Sample Checker Cerner at 08/26/2022 12:16 AM CDT documented in this encounter Plan of Treatment Not on file documented as of this encounter Visit Diagnoses Not on filedocumented in this encounter Care Teams Box Truck Washer Relationship Specialty Start Date End Date Emanuel Vital MD [address] [place] [phone] PCP - General General Internal Medicine 09/03/22 documented as of this encounter
--- OUTSIDE RECORDS SUMMARY | 2024-11-28 08:55 | XMS_ITS | Encounter Summary ---
Author Organization [employer] ([place], [place], [place], [place]) Address [address] [place] [address] Care Team Providers Care Telecommunications Professional Name Role Phone Emanuel Vital MD Primary Care Provider [phone] Encounter Details Date Type Department Care Team (Late st Contact Info) Description 06/19/2021 Transcribed Document [facility] [place] [address] [place] [address] ProviderSaran MD [address] [place] [address] Social History Tobacco Use Types [...] Date Tejinder rded Speak language other than Hong Konger at home Not on file 05/27/2023 Want [...] Conversion Note - Historical Provider, - 06/19/2021 11:38 AM HEAD CAGER PAT Adult Entered On: 06/19/2021 11:42 EST [...] Source : Stated Height Entry Format : [place] Height, Feet : 5 ft(Converted to: 152 cm, 60 Inch) Height, Inches : 11 Inch(Converted to: 0 ft 11 Inch, 27.94 cm) Clinical Height : 180.34 cm Weight Source : Standing scale Weight Entry Format : [place] Clinical Dosing Weight : 79.09 kg Weight, Pounds : 174 lb Body Surface Area (BSA) : 1.99 m2 Body Mass Index : 24.3 kg/m2 (HI) [place] Body Weight : 74 kg Teresa Pathak [...] 06/10/2021 15:17:32 EST by Sofie Fernandez Rn) Infectious Disease History Does patient have [...] Teresa Pathak RN - 06/19/2021 11:38 EST [place] Suicide Severity Rating Scale (C-SSRS) CSSRS Past [...] Obtained From : Patient Primary Language : Hong Konger Communication Barrier : None Metal Buildings Assembler Needed : No Clinical Trials Participant *Q [...] the text rendition version of the form. Electronically signed by Zachary Sánchez Conversion Engineering Manager Electronics Cerner at 08/26/2022 12:04 AM CDT documented in this encounter Plan of Treatment Not on file documented as of this encounter Visit Diagnoses Not on filedocumented in this encounter Care Teams Telecommunications Professional Relationship Specialty Start Date End Date Emanuel Vital MD [address] [place] [address] PCP - General General Internal Medicine 09/03/22 documented as of this encounter
--- NOTE | 2024-11-28 08:59 | EXP.PAIN.SOA ---
[facility] Disclaimer: The information contained in this section may have been updated after the patient was seen, as this information can be updated by other users. Medical History Other forms of dyspnea Abnormal nuclear cardiac imaging test Asthma Dizziness Difficulty swallowing Hyperlipidemia Hypertension COPD (chronic obstructive pulmonary disease) Multiple lung nodules on CT Dyspnea on exertion History of smoking 30 or more pack years Pulmonary emphysema Analgesic overuse headache Headache Transformed migraine. Fixation hardware in spine Frozen shoulder History of arterial dissection GERD (gastroesophageal reflux disease) Depression Heart palpitations Heart attack Anxiety Cervical radiculopathy Osteoarthritis Surgical History History of heart artery stent S/P cardiac cath History of back surgery History of surgery on arm History of loop recorder History of cervical discectomy Family History Other No significant family history Social History Smoking Status: Former smoker smoking status stop date: 08/27/2022 alcohol intake: never substance use type: denies use current occupational status: other Travel in the last 8 weeks?: None household members: spouse housing: house marital status: caffeine: Yes PM Subjective & Objective Subjective Subjective:: Patient is a pleasant 59-year-old male who presents today for 3-month follow-up. Patient does have a [employer] stimulator that is still work for him. He states this is still doing wonderful and he is not having the headaches at all. He does rated his pain a 5 out of 10. Patient at our last visit was having some elevated heart rate and states that he has been back to see cardiology for this. Patient did just recently have a loop recorder placed and ultimately ended up having to have a cardiac stent as well. He is still having episodes of SVT that they are still trying to monitor. Patient does have several appointments coming up related to this. His Car has been reviewed and is appropriate. Review of Systems: General: No recent weight changes, no fever, no sleep disturbances Respiratory: No cough, no shortness of air, no recurring pulmonary infections Cardiovascular/peripheral vascular: No chest pain, no palpitations, no edema, no shortness of breath Gastrointestinal: No new onset incontinence, normal bowel movements reported Genitourinary: No new onset incontinence Musculoskeletal: Neck pain Psychiatric: [Normal mood/affect] Neurological: [Denies weakness in extremities], [denies balance issues] Pain at rest (0-10 scale): 5 Objective Objective:: Physical Exam: General: Alert and oriented x3, no acute distress, pleasant and cooperative Lungs: Respirations even and unlabored, symmetrical chest expansion Eyes: PERRL Musculoskeletal: Flexion and extension of cervical [spine] somewhat guarded secondary to pain, [antalgic gait noted] Neurological: Speech clear, no gross sensory deficit Has patient had previous pain injection?: No Conservative treatment options previously tried: Home exercise plan Length of treatment: Longer than 12 weeks Meds Home Medications and Allergies Home Medications ?Medication ?Instructions ?Recorded ?Confirmed ?Type famotidine 20 mg tablet 20 mg PO DAILY 05/18/23 11/15/24 History omeprazole 40 mg capsule,delayed 40 mg PO DAILY #30 caps 02/14/24 11/15/24 Rx release aspirin 81 mg tablet,delayed 81 mg PO DAILY 06/25/24 11/15/24 History release escitalopram oxalate 10 mg tablet 10 mg PO DAILY 06/25/24 11/15/24 History rosuvastatin 40 mg tablet 40 mg PO DAILY 06/25/24 11/15/24 History spironolactone 25 mg tablet 25 mg PO DAILY 06/25/24 11/15/24 History bisoprolol fumarate 5 mg tablet 5 mg PO DAILY #90 tabs 08/29/24 11/15/24 Rx prasugrel HCl 10 mg tablet 10 mg PO DAILY 30 days #30 tabs 08/29/24 11/15/24 Rx (Effient) bupropion HCl 200 mg tablet,12 hr See Rx Instructions .Route 09/14/24 11/15/24 Rx sustained-release .COMPLEX #180 tabs albuterol sulfate 90 mcg/actuation See Rx Instructions .Route 09/26/24 11/15/24 Rx aerosol inhaler (Ventolin HFA) .COMPLEX #18 grams budesonide-formoterol HFA 160 See Rx Instructions .Route 10/02/24 11/15/24 Rx mcg-4.5 mcg/actuation aerosol .COMPLEX #10.2 grams inhaler (Symbicort) cetirizine 10 mg tablet See Rx Instructions .Route 10/09/24 11/15/24 Rx .COMPLEX #90 tabs trazodone 100 mg tablet See Rx Instructions .Route 10/09/24 11/15/24 Rx .COMPLEX #60 tabs ramipril 2.5 mg capsule (Altace) 2.5 mg PO BID #60 caps 10/11/24 11/15/24 Rx montelukast 10 mg tablet 10 mg PO DAILY #90 tabs 11/02/24 11/15/24 Rx (Singulair) doxycycline hyclate 100 mg capsule 100 mg PO BID #20 caps 11/15/24 11/15/24 Rx sildenafil 100 mg tablet See Rx Instructions .Route 11/15/24 11/15/24 Rx .COMPLEX #10 tabs New Prescriptions to Start Prescriptions: Allergies Allergy/AdvReac Type Severity Reaction Status Date / Time No Known Allergies Allergy Verified 11/15/24 10:01 Assessment and Plan *Assessment and plan (1) Cervical spondylosis without myelopathy: Status: Chronic Category: Medical Code(s): M47.812 - Spondylosis without myelopathy or radiculopathy, cervical region (2) Degenerative disc disease, cervical: Status: Chronic Category: Medical Code(s): M50.30 - Other cervical disc degeneration, unspecified cervical region (3) Occipital neuralgia: Status: Chronic Qualifiers: Laterality: left Qualified Code(s): M54.81 - Occipital neuralgia Category: Medical Code(s): M54.81 - Occipital neuralgia Plan Patient is doing well with his [employer] stimulator and does not require additional reprogramming. We will follow-up with him in 6 months for reevaluation of symptoms and plan of care. Patient has been instructed to contact the clinic with any concerns before the next appointment. Dr. Michaels has reviewed this note and agrees with this plan of care. This note was dictated using voice recognition software and make contain errors or omissions. All injections are used with Lidocaine, Bupivacaine and dexamethasone. Occasionally urine drug screen is needed to verify patient's compliance with our office pain contract. This is ordered based off specific treatments related to chronic pain with the potential to abuse certain medications.
[2024-11-28 09:24] VITALS: BP 140/75; PULSE 75; RESP 14; O2SAT 100; BMI 23.0
== END 2024-11-28 23:59 | disposition home or self-care (01) ==
LOC: SC.PAIN 08:47
PROVIDERS: PCP Internal Medicine; Visit Provider Nurse Practitioner Family
DX: M47.812 Spondylosis without myelopathy or radiculopathy, cervical region (principal); M50.30 Other cervical disc degeneration, unspecified cervical region; M54.81 Occipital neuralgia
CPT/HCPCS: 99212; G0463

== ENCOUNTER 2024-12-06 18:04 | Emergency (ER) | payer OTHER, SELFPAY ==
[2024-12-06] VITALS (8 sets, daily range): BP systolic 115–148; BP diastolic 70–90; PULSE 75–92; RESP 16–22; TEMP 36.8–37.1; O2SAT 98–100; BMI 23.7
--- OUTSIDE RECORDS SUMMARY | 2024-12-06 18:38 | XMS_ITS | Encounter Summary ---
Author Organization [employer] ([place], [place], [place], [place]) Address [address] [place] [address] Care Team Providers Care Packager And Strapper Name Role Phone Emanuel Vital MD Primary Care Provider [phone] Encounter Details Date Type Department Care Team (Late st Contact Info) Description 06/19/2021 Transcribed Document [facility] [place] Medicine [address] [place] [address] ProviderSaran MD [address] [place] [address] Social History Tobacco Use Types [...] Date Tejinder rded Speak language other than Thai at home Not on file 05/27/2023 Want [...] Historical Provider, MD - 06/19/2021 2:31 PM CONCERT MANAGER [facility] PostOp Summary Primary Physician: SEAN CARMEN MD-SUR Finalized Date/Time: 06/19/21 17:08:51 Pt. Name: ALYSSA GLEASON /Sex: 1965 Male Med Rec #: [id number] Physician: SEAN CARMEN MD-SUR Financial #: [id number] Pt. Type: O Room/Bed: [facility] Admit/Disch: 06/19/21 06:27:00 - Institution: [facility] PostOp Case Times Entry 1 In PACU II 06/19/21 16:20:00 Ready for PACU II 06/19/21 16:50:00 Discharge Discharge from PACU 06/19/21 16:50:00 II Last Modified By: Christina Licona Rn 06/19/21 17:08:50 [facility] PostOp Case Times Audit 06/19/21 17:08:50 Telephone Clerks Supervisor: [id number] Modifier: [id number] <+> 1 Ready for PACU II Discharge <+> 1 Discharge from PACU II Finalized By: Christina Licona, Rn Document Signatures Signed By: Christina Licona Rn 06/19/21 17:08 Electronically signed by [facility] Conversion Phone Circuit Operator Cerner at 08/26/2022 12:16 AM CDT documented in this encounter Plan of Treatment Not on file documented as of this encounter Visit Diagnoses Not on filedocumented in this encounter Care Teams Packager And Strapper Relationship Specialty Start Date End Date Emanuel Vital MD [address] [place] [address] PCP - General General Internal Medicine 09/03/22 documented as of this encounter
--- OUTSIDE RECORDS SUMMARY | 2024-12-06 18:38 | XMS_ITS | Referral Summary ---
Author Organization [employer] ([place], [place], [place], [place]) Address [address] [place] [address] Care Team Providers Care Supervisor Receiving And Processing Name Role Phone Emanuel Vital MD Primary Care Provider [phone] Allergies No known active allergies Medications bisoprolol [...] Date Tejinder rded Speak language other than Malaysian at home Not on file 05/27/2023 Want [...] on file Medical Devices Implanted Type Area Records Administrator Device Identifier Shelf Expiration Date Model / Serial / Lot Grft Bone Preservon 5.75x7.22 [id number] - [id number] Implanted:Qty : 1 on 09/03/2022 by Chris Talley MD at [facility] IMPLANTS N/A: Spine Cervical LIFENET:LIFENET TRANSPLANT SRV 09/16/2026 [id number] / [id number] / Grft Bone Preservon 4.75x6.22 [id number] - [id number] Implanted:Qty : 1 on 09/03/2022 by Chris Talley MD at [facility] IMPLANTS N/A: Spine Cervical LIFENET:LIFENET TRANSPLANT SRV 01/03/2027 [id number] / [id number] / Pin Compr [place] 14mm [id number] - [id number] Implanted:Qty : 2 on 09/03/2022 by Chris Talley MD at [facility] IMPLANTS N/A: Spine Cervical J &J:DEPUY:DEPUY SPINE 03-0 14 / [id number] 14 / Plt Ant Skyln Hybrd Lvl2 32mm 1868-02-032 - [id number] Implanted:Qty : 1 on 09/03/2022 by Chris Talley MD at [facility] IMPLANTS N/A: Spine Cervical J &J:DEPUY:DEPUY SPINE 02-0 32 / 1867-06-0 32 / Scr Skyln Vari Sd 14mm 50-014 - [id number] Implanted:Qty : 4 on 09/03/2022 by Chris Talley MD at [facility] IMPLANTS N/A: Spine Cervical J &J:DEPUY:DEPUY SPINE 50-0 14 / 50-0 14 / Scr Skyln Vari Sd 12mm 50012 - [id number] Implanted:Qty : 1 on 09/03/2022 by Chris Talley MD at [facility] IMPLANTS N/A: Spine Cervical J &J:DEPUY:DEPUY SPINE 50-0 12 / 0 12 / Scr Skyln Vari-Ovsz 12mm 54- - [id number] Implanted:Qty : 1 on 09/03/2022 by Chris Talley MD at [facility] IMPLANTS N/A: Spine Cervical J &J:DEPUY:DEPUY SPINE 54-0 12 / 54-0 12 / Explanted Type Area Records Administrator Device Identifier Shelf Expiration Date Model / Serial / Lot Scr Skyln Vari Sd 12mm -012 - [id number] Explanted:Qty : 1 on 09/03/2022 at [facility] IMPLANTS N/A: Spine Cervical J &J:DEPUY:DEPUY SPINE 50-0 12 / 50-0 12 / Insurance [address] [place] [address] [facility] [employer] Advance Directives For more information, please contact: [phone] * Full Code (Latest Code Status on File) Date Activated Date Inactivated Comments 09/03/2022 11:41 AM 09/04/2022 5:47 PM Care Teams Supervisor Receiving And Processing Relationship Specialty Start Date End Date Emanuel Vital MD [address] [place] [address] PCP - General General Internal Medicine 09/03/22
--- OUTSIDE RECORDS SUMMARY | 2024-12-06 18:38 | XMS_ITS | Encounter Summary ---
Author Organization [employer] ([place], [place], [place], [place]) Address [address] [place] [address] Care Team Providers Care Stage Director Name Role Phone Emanuel Vital MD Primary Care Provider [phone] Encounter Details Date Type Department Care Team (Late st Contact Info) Description 06/10/2021 Transcribed Document [facility] [place] Family Medicine [address] [place] [address] ProviderSaran MD [address] [place] [address] Social History Tobacco Use Types [...] Date Tejinder rded Speak language other than Panamanian at home Not on file 05/27/2023 Want [...] - Historical Provider, - 06/10/2021 3:17 PM HELPDESK SPECIALIST PAT Adult Entered On: 06/10/2021 15:24 EST [...] Source : Stated Height Entry Format : [place] Height, Feet : 5 ft(Converted to: 152 cm, 60 Inch) Height, Inches : 11 Inch(Converted to: 0 ft 11 Inch, 27.94 cm) Clinical Height : 180.34 cm Weight Source : Standing scale Weight Entry Format : [place] Clinical Dosing Weight : 80 kg Weight, Pounds : 176 lb Body Surface Area (BSA) : 2 m2 Body Mass Index : 24.6 kg/m2 (HI) [place] Body Weight : 74 kg Sofie Fernandez [...] Sofie Fernandez Rn - 06/10/2021 15:17 EST [place] Suicide Severity Rating Scale (C-SSRS) CSSRS Past [...] #2 Relationship : . Primary Language : Panamanian Communication Barrier : None Senior Strategy Analyst Needed : No Sofie Fernandez Rn - [...] 06/10/2021 15:17 EST Electronically signed by Gonzalo, [facility] Conversion [employer] Data Entry Cerner at 08/26/2022 12:20 AM CDT documented in this encounter Plan of Treatment Not on file documented as of this encounter Visit Diagnoses Not on filedocumented in this encounter Care Teams Stage Director Relationship Specialty Start Date End Date Emanuel Vital MD [address] [place] [address] PCP - General General Internal Medicine 09/03/22 documented as of this encounter
--- OUTSIDE RECORDS SUMMARY | 2024-12-06 18:38 | XMS_ITS | Encounter Summary ---
Author Organization [employer] ([place], [place], [place], [place]) Address [address] [place] [address] Care Team Providers Care Lung Gun Operator Name Role Phone Emanuel Vital MD Primary Care Provider [phone] Encounter Details Date Type Department Care Team (Late st Contact Info) Description 06/19/2021 Transcribed Document [facility] [place] [address] [place] [address] ProviderSaran MD [address] [place] [address] Social History Tobacco Use Types [...] Date Tejinder rded Speak language other than Nepali at home Not on file 05/27/2023 Want [...] - Historical Provider, - 06/19/2021 1:51 PM VICE PRESIDENT PLANNING Peripheral Nerve Block Entered On: 06/19/2021 13:54 [...] - 06/19/2021 13:51 EST Electronically signed by [facility] Conversion Leg Assembler Cerner at 08/26/2022 12:15 AM CDT documented in this encounter Plan of Treatment Not on file documented as of this encounter Visit Diagnoses Not on filedocumented in this encounter Care Teams Lung Gun Operator Relationship Specialty Start Date End Date Emanuel Vital MD [address] [place] [address] PCP - General General Internal Medicine 09/03/22 documented as of this encounter
--- OUTSIDE RECORDS SUMMARY | 2024-12-06 18:38 | XMS_ITS | Encounter Summary ---
Author Organization [employer] ([place], [place], [place], [place]) Address [address] [place] [address] Care Team Providers Care Liver Trimmer Name Role Phone Emanuel Vital MD Primary Care Provider Encounter Details Date Type Department Care Team (Late st Contact Info) Description 06/19/[address] [facility] [place] Family Medicine [address] [place] [address] ProviderSaran MD [address] [place] [address] Social History Tobacco Use Types [...] Date Tejinder rded Speak language other than American at home Not on file 05/27/2023 Want [...] - Historical Provider, - 06/19/2021 11:38 AM WATER SYSTEMS ENGINEER PAT Adult Entered On: 06/19/2021 11:42 EST [...] Source : Stated Height Entry Format : [place] Height, Feet : 5 ft(Converted to: 152 cm, 60 Inch) Height, Inches : 11 Inch(Converted to: 0 ft 11 Inch, 27.94 cm) Clinical Height : 180.34 cm Weight Source : Standing scale Weight Entry Format : [place] Clinical Dosing Weight : 79.09 kg Weight, Pounds : 174 lb Body Surface Area (BSA) : 1.99 m2 Body Mass Index : 24.3 kg/m2 (HI) [place] Body Weight : 74 kg Teresa Pathak [...] Teresa Pathak RN - 06/19/2021 11:38 EST [place] Suicide Severity Rating Scale (C-SSRS) CSSRS Past [...] Verbalizes understanding Responsible Adult : Verbalizes understanding Treesa Pathak RN - 06/19/2021 11:38 EST General [...] Obtained From : Patient Primary Language : American Communication Barrier : None Hand Bender Needed : No Clinical Trials Participant *Q [...] on filedocumented in this encounter Care Teams Liver Trimmer Relationship Specialty Start Date End Date Emanuel Vital MD [address] [place] [address] PCP - General General Internal Medicine 09/03/22 documented as of this encounter
--- OUTSIDE RECORDS SUMMARY | 2024-12-06 18:38 | XMS_ITS | Clinical Summary ---
[facility] Organization [facility] Address [address] [place] [id number] Care Team Providers Care Information Coder Name Role Phone Unavailable Primary Care Provider [...] 2023- season) 2024 INFLUENZA VACCINE 02/06/2025 Insurance [facility]
--- OUTSIDE RECORDS SUMMARY | 2024-12-06 18:38 | XMS_ITS | Encounter Summary ---
Author Organization [employer] ([place], [place], [place], [place]) Address [address] [place] [address] Care Team Providers Care All Round Butcher Name Role Phone Emanuel Vital MD Primary Care Provider Encounter Details Date Type Department Care Team (Late st Contact Info) Description 06/19/2021 Transcribed Document [facility] [place] [address] [place] [address] ProviderSaran MD [address] [place] [address] Social History Tobacco Use Types [...] Date Tejinder rded Speak language other than Polish at home Not on file 05/27/2023 Want [...] Historical Provider, MD - 06/19/2021 2:31 PM ELECTRONIC ENGINEERING DRAFTSPERSON [facility] Main OR IntraOp Summary Primary Physician: SEAN CARMEN MD-SUR Finalized Date/Time: 06/22/21 10:51:39 Pt. Name: ALYSSA CABRALES LEXI /Sex: 1965 Male Med Rec #: [id number] Physician: SEAN CARMEN MD-SUR Financial #: [id number] Pt. Type: O Room/Bed: [facility] Admit/Disch: 06/19/21 06:27:00 - 06/19/21 16:50:00 Institution: [facility] IntraOp Case Attendance Entry 1 Entry 2 Entry 3 Case Attendee SEAN CARMEN ARVIN, CHRIS L, PA-C KAISER, BRITTANY, CRNA MD-SUR Role Performed Surgeon/Proceduralist, Physician environmental emergencies assistant SIGNAL MAINTAINER HELPER/Nurse Fixed Income Trading Vice President First Time In 06/19/21 14:07:00 06/19/21 14:07:00 [...] CRUZ DOOLEY, SUKHWINDER ABEBE, OTHER, ATTENDEE #1 Gymnastics Instructor Role Performed Shoe Fitter, First Scrub, First Vendor Time In 06/19/21 14:07:00 06/19/21 14:07:00 06/19/21 14:07:00 Time Out 06/19/21 15:43:00 06/19/21 15:43:00 06/19/21 15:43:00 Procedure Biceps Distal Tendon Biceps Distal Tendon Biceps Distal Tendon Repair Open Repair Open Repair Open Other Attendee [facility] Superficial Wound Closed By: Last Modified By: CRUZ DOOLEY, CRUZ TUCKER, CRUZ TUCKER, KARUNA 06/19/21 15:43:49 06/19/21 15:43:49 06/19/21 14:41:18 Entry 7 Case Attendee MILTON FOSTER SIGNAL MAINTAINER HELPER Role Performed SIGNAL MAINTAINER HELPER/Nurse Fixed Income Trading Vice President Time In 06/19/21 14:47:00 Time Out 06/19/21 15:43:00 Procedure Biceps Distal Tendon Repair Open Other Attendee Superficial Wound Closed By: Last Modified By: CRUZ DOOLEY RN 06/19/21 15:43:49 [facility] IntraOp Case Attendance Audit 06/19/21 15:43:49 Anodizing Line Operator: [email or web address] Modifier: [email or web address] 1 <+> Time Out [...] Biceps Distal Tendon Repair Open 06/19/21 14:48:53 Anodizing Line Operator: [email or web address] Modifier: [email or web address] 1 <*> Procedure Biceps [...] Time In <+> 7 Procedure 06/19/21 14:41:18 Anodizing Line Operator: ERICGA Modifier: FLYNNJU 1 <*> Case Attendee SEAN CARMEN MD-SUR 1 <*> Role Performed Surgeon/Proceduralist, First 1 <+> Time In 1 <*> Procedure Biceps Distal Tendon Repair Open Entry 2 was deleted. Higher numbered entries shifted one position to fill the gap. <-> 2 Case Attendee Christina Calvillo, Non Emp Student Nurse Fixed Income Trading Vice President <-> 2 Role Performed SIGNAL MAINTAINER HELPER/Nurse Fixed Income Trading Vice President <-> 2 Procedure Biceps Distal Tendon Repair Open Entry 3 was deleted. Higher numbered entries shifted one position to fill the gap. <-> 3 Case Attendee LIBBY OROSCO, SIGNAL MAINTAINER HELPER <-> 3 Role Performed SIGNAL MAINTAINER HELPER/Nurse Fixed Income Trading Vice President <-> 3 Procedure Biceps Distal Tendon Repair Open Entry 4 was deleted. Higher numbered entries shifted one position to fill the gap. <-> 4 Case Attendee MAGGIE GOODRICH PA <-> 4 Role Performed Physician environmental emergencies assistant <-> 4 Procedure Biceps Distal Tendon Repair Open 06/19/21 11:41:50 Anodizing Line Operator: LONGGA Modifier: LONGGA 1 <*> Case Attendee SEAN CARMEN MD-SUR 1 <*> Role Performed Surgeon/Proceduralist, First 1 <*> Procedure Biceps Distal Tendon Repair Open 2 <*> Case Attendee Christina Calvillo, Non Emp Student Nurse Fixed Income Trading Vice President 2 <*> Role Performed SIGNAL MAINTAINER HELPER/Nurse Fixed Income Trading Vice President 2 <*> Procedure Biceps Distal Tendon Repair Open 3 <*> Case Attendee LIBBY OROSCO, SIGNAL MAINTAINER HELPER 3 <*> Role Performed SIGNAL MAINTAINER HELPER/Nurse Fixed Income Trading Vice President 3 <*> Procedure Biceps Distal Tendon Repair Open Entry 4 was deleted. Higher numbered entries shifted one position to fill the gap. <-> 4 Case Attendee IRMA MCNALLY, KARUNA <-> 4 Role Performed Shoe Fitter, First <-> 4 Procedure Biceps Distal Tendon [...] [facility] IntraOp Case Times Audit 06/19/21 15:43:45 Anodizing Line Operator: [email or web address] Modifier: [email or web address] <+> 1 Out Room Time <+> 1 Stop Time 06/19/21 15:35:20 Anodizing Line Operator: [email or web address] Modifier: [email or web address] <+> 1 Stop Time 06/19/21 14:40:06 Anodizing Line Operator: [email or web address] Modifier: [email or web address] <+> 1 Start Time [...] By Count Performed By SUKHWINDER KANG, (Scrub) Gymnastics Instructor Count Performed By CRUZ DOOLEY, RN (RN) Last Modified By: CRUZ DOOLEY RN 06/19/21 14:42:23 [facility] IntraOp Counts Verification Audit 06/19/21 14:42:23 Anodizing Line Operator: RUSS Modifier: [email or web address] <+> 1 Procedure <+> 1 Count Type <+> 1 Counts Verification Sequence <+> 1 Count Results <+> 1 Count Performed By (Scrub) <+> 1 Count Performed By (RN) 06/19/21 11:41:06 Anodizing Line Operator: RUSS Modifier: LONGGA Entry 1 was deleted. [...] By Count Performed By SUKHWINDER KANG (Scrub) Gymnastics Instructor Count Performed By CRUZ DOOLEY RN (RN) Last Modified By: CRUZ DOOLEY RN 06/19/21 15:35:59 [facility] IntraOp Counts Final Audit 06/19/21 15:35:59 Anodizing Line Operator: [email or web address] Modifier: [email or web address] 1 <*> Procedure Biceps Distal Tendon Repair Open 1 <+> Counts Verification Sequence [facility] IntraOp Departure from OR Entry 1 Integumentary Assessment Integumentary WDL Assessment WDL Transfer/Handoff Transfer to PACU Phase I Handoff Method Bedside/Face to face Post-op Transport Stretcher/Gurney Via Patient Transport CRUZ DOOLEY RN, Accompanied by KEVIN LEIGH CRNA Last Modified By: CURZ DOOLEY RN 06/19/21 14:42:45 [facility] IntraOp Dressing [...] IntraOp Fire Risk Assessment Audit 06/19/21 14:43:06 Anodizing Line Operator: LONGGA Modifier: [email or web address] 1 <*> Fire Risk Assessment Verified By SEAN CARMEN MD-SUR 1 <*> Fire Risk Assessment Verified 06/19/21 11:31:00 Date/Time 06/19/21 11:41:17 Anodizing Line Operator: LONGGA Modifier: LONGGA 1 <*> Fire Risk Assessment Verified By IRMA MCNALLY RN [facility] IntraOp General Case Ice Cream Shop Associate 1 Case Information OR OR 05 [facility] Case Level 1 Room Verified Yes Wound Class 1 - Clean Specialty Orthopedic Anesthesia Type General ASA Class 2 Diagnosis Preop Diagnosis LEFT DISTAL BICEPS RUPTURE Postop Same As Preop Yes Postop Diagnosis LEFT DISTAL BICEPS RUPTURE Wound Class Definitions Last Modified By: IRMA MCNALLY RN 06/19/21 11:32:28 [facility] IntraOp General Case Data Audit 06/19/21 11:41:31 Anodizing Line Operator: LONGGA Modifier: LONGGA 1 <*> ASA Class 3 06/19/21 11:32:28 Anodizing Line Operator: LONGGA Modifier: LONGGA <+> 1 ASA Class <+> 1 Wound Class <+> 1 Anesthesia Type <+> 1 Postop Same As Preop <+> 1 Preop Diagnosis <+> 1 Postop Diagnosis <+> 1 Room Verified E IntraOp Implant Log Entry 1 Type Implant (Synthetic) Implant Log Implant Type Hardware Implant IMP SYS DEL BIOCOMP DST Identification [id number] Description Implant Quantity 1 Implant Site left bicep Implant [id number] Identification Lot Number Implant Arthrex Identification Sqe Name: Implant [id number] Identification Catalog Number Implant Has an Yes Expiration Date Implant Expiration 12/31/23 Date Tissue Implant Last Modified By: CRUZ DOOLEY RN 06/19/21 14:43:50 [facility] IntraOp Implant Log Audit 06/22/21 10:51:05 Anodizing Line Operator: LONG Modifier: IKE 1 <*> Implant Identification Description [facility] [id number] 1 <*> Implant Quantity 2 [facility] IntraOp [...] Entry 1 Medication/Irrigant vancomycin 1Gm vial - [id number] Route of in wound before closure Administration [...] Intra Op Sign Out Audit 06/19/21 15:44:01 Anodizing Line Operator: LONG Modifier: [email or web address] <+> 1 OUTCOME STATEMENT: Intraoperative care is consistent with measures to prevent infection 06/19/21 15:43:48 Anodizing Line Operator: LONG Modifier: [email or web address] <+> 1 RN Sign Out Signature Date/Time 06/19/21 15:35:32 Anodizing Line Operator: LONG Modifier: [email or web address] <+> 1 Sánchez Patient [...] [facility] IntraOp Surgical Procedures Audit 06/19/21 15:35:24 Anodizing Line Operator: [email or web address] Modifier: [email or web address] <+> 1 Stop 06/19/21 14:45:15 Anodizing Line Operator: RUSS Modifier: [email or web address] <+> 1 Start S[facility] [...] [facility] IntraOp Time Out Audit 06/19/21 14:46:05 Anodizing Line Operator: LONG Modifier: LONG 1 <+> Beta Yoseph [...] 15:35:38 [facility] IntraOp Tourniquet Audit 06/19/21 15:35:38 Anodizing Line Operator: FREDATINOJUNisha Modifier: [email or web address] <+> 1 Stop Time Case Comments <None> Finalized By: Kathy Burgess, RN Document Signatures Signed By: CRUZ DOOLEY RN 06/19/21 15:44 Kathy Burgess RN 06/22/21 10:51 Unfinalized History Date/Time Username Reason for Unfinalizing Freetext Reason for Unfinalizing 06/22/21 10:50 IKE Correct Billing Electronically signed by Gonzalo [facility] Conversion Scales Inspector Cerner at 08/26/2022 12:06 AM CDT documented in this encounter Plan of Treatment Not on file documented as of this encounter Visit Diagnoses Not on filedocumented in this encounter Care Teams All Round Butcher Relationship Specialty Start Date End Date Emanuel Vital MD [address] [place] [address] PCP - General General Internal Medicine 09/03/22 documented as of this encounter
--- OUTSIDE RECORDS SUMMARY | 2024-12-06 18:38 | XMS_ITS | Encounter Summary ---
Author Organization [employer] ([place], [place], [place], [place]) Address [address] [place] [address] Care Team Providers Care Library Clerk Name Role Phone Emanuel Vital MD Primary Care Provider [phone] Encounter Details Date Type Department Care Team (Late st Contact Info) Description 06/19/2021 Transcribed Document [facility] Family Medicine [address] [place] [address] ProviderSaran MD [address] [place] [address] Social History Tobacco Use Types [...] Date Tejinder rded Speak language other than German at home Not on file 05/27/2023 Want [...] Historical Provider, MD - 06/19/2021 4:24 PM TIMBER APPRAISER [address] [address] ALYSSA GLEASON :1965 Visit Time:06/19/2021 [...] office for further instructions or questions. Call [facility] on Tuesday to schedule follow-up appt. Follow-Up Appointments Follow Up with SEAN SPEARS MD-LESLIE When Where: [address] [facility] [address] [place] [address]- Medications What How Much When Instructions Next [...] including vitamins, herbs, eye drops, creams, and wrff-bot-yaxormf medicines. ??? Any problems you or family [...] tells you to take them. ? Taking uwbo-lgs-zmdvfih medicines, vitamins, herbs, and supplements. ??? Plan [...] a bad smell. General instructions ??? Take jryz-wbo-xpkitno and prescription medicines only as told by [...] provider. Document Revised: 06/11/2019 Document Reviewed: 02/15/2018 rumr: turn off the lights Patient Education ?? 2020 [employer] General Anesthesia, Adult, Care After This [...] activities are safe for you. ??? Take xokz-kxi-bklsjkz and prescription medicines only as told by [...] Reviewed: 08/07/2020 [employer] Patient Education ?? 2020 [employer]r: turn off the lights Inc. Tendon Repair, Care After This sheet [...] it can be removed. Medicines ??? Take frhf-jcr-yltceao and prescription medicines only as told by [...] and water are not available, use hand director of group counseling program. ? Change your dressing as told by [...] fried or sweet foods. ? Take an lbfc-yof-aijukbu or prescription medicine for constipation. ??? Keep [...] provider. Document Revised: 04/19/2018 Document Reviewed: 04/19/2018 rumr: turn off the lights Patient Education ?? 2020 [employer]. Emergency Awareness and Preventative Care STROKE is [...] Assistance with quitting is available by contacting 2-085-HPFT-NOW. This is a free resource providing counseling, [...] was given the opportunity to ask questions. Patient/Material Requirements Worker Name: Patient/Material Requirements Worker Signature: Relationship to Patient: Clinician/Hospital Material Requirements Worker Signature: Date: Electronically signed by Gonzalo [facility] Conversion Aeronautical Test Engineer Cerner at 08/26/2022 12:09 AM CDT documented in this encounter Plan of Treatment Not on file documented as of this encounter Visit Diagnoses Not on filedocumented in this encounter Care Teams Library Clerk Relationship Specialty Start Date End Date Emanuel Vital MD [address] [place] [address] PCP - General General Internal Medicine 09/03/22 documented as of this encounter
--- OUTSIDE RECORDS SUMMARY | 2024-12-06 18:38 | XMS_ITS | Encounter Summary ---
Author Organization [employer] ([place], [place], [place], [place]) Address [address] [place] [address] Care Team Providers Care Methodologist Name Role Phone Emanuel Vital MD Primary Care Provider [phone] Encounter Details Date Type Department Care Team (Late st Contact Info) Description 06/19/2021 Transcribed Document [facility] [place] Family Medicine [address] [place] [address] ProviderSaran MD [address] [place] [address] Social History Tobacco Use Types [...] Date Tejinder rded Speak language other than Korean at home Not on file 05/27/2023 Want [...] Historical Provider, MD - 06/19/2021 3:22 PM VALVE LINER RUBBER Patient: ALYSSA GLEASON Age: 55 years Sex: Male : 1965 Associated Diagnoses: None Author: SEAN SPEARS MD-LESLIE Preop Diagnosis: Left distal biceps tear Postop diagnosis: Same Procedure: Left distal biceps tendon repair Surgeon: Sean Spears MD Informatica Developer: Bryant Andrea PA-C please note the physician automotive service assistant was medically necessary for completing, positioning, [...] on filedocumented in this encounter Care Teams Methodologist Relationship Specialty Start Date End Date Emanuel Vital MD [address] [place] [phone] PCP - General General Internal Medicine 09/03/22 documented as of this encounter
--- OUTSIDE RECORDS SUMMARY | 2024-12-06 18:38 | XMS_ITS | Encounter Summary ---
Author Organization [employer] ([place], [place], [place], [place]) Address [address] [place] [address] Care Team Providers Care Plastic Roller Name Role Phone Emanuel Vital MD Primary Care Provider [phone] Encounter Details Date Type Department Care Team (Late st Contact Info) Description 06/19/2021 Transcribed Document [facility] [place] Family Medicine [address] [place] [address] ProviderSaran MD [address] [place] [address] Social History Tobacco Use Types [...] Date Tejinder rded Speak language other than Wolof at home Not on file 05/27/2023 Want [...] - Historical Provider, - 06/19/2021 4:07 PM FIRST AID TRAINER Patient Education Materials Follows: Tendon Repair, Care [...] it can be removed. Medicines ??? Take zxvk-ras-cqqkelu and prescription medicines only as told by [...] and water are not available, use hand maintenance supervisor mechanical. ? Change your dressing as told by [...] fried or sweet foods. ? Take an zndo-lmo-gdfyzzo or prescription medicine for constipation. ??? Keep [...] provider. Document Revised: 04/19/2018 Document Reviewed: 04/19/2018 [employer] Patient Education ? 2020 [employer] Pharmacology Peripheral Nerve Block Peripheral nerve [...] including vitamins, herbs, eye drops, creams, and qnec-vim-ykntjll medicines. ??? Any problems you or family [...] tells you to take them. ? Taking nfqz-oym-pgkmhpy medicines, vitamins, herbs, and supplements. ??? Plan [...] a bad smell. General instructions ??? Take qnah-blv-ouwsnhs and prescription medicines only as told by [...] provider. Document Revised: 06/11/2019 Document Reviewed: 02/15/2018 [employer] Patient Education ? 2020 [employer] Inc. General [...] activities are safe for you. ??? Take vtud-ilh-urusvql and prescription medicines only as told by [...] provider. Document Revised: 01/08/2021 Document Reviewed: 08/07/2020 [employer] Patient Education ? 2020 [employer]. documented in this encounter Plan of Treatment Not on file documented as of this encounter Visit Diagnoses Not on filedocumented in this encounter Care Teams Plastic Roller Relationship Specialty Start Date End Date Emanuel Vital MD [address] [place] [address] PCP - General General Internal Medicine 09/03/22 documented as of this encounter
--- OUTSIDE RECORDS SUMMARY | 2024-12-06 18:38 | XMS_ITS | Encounter Summary ---
Author Organization [employer] ([place], [place], [place], [place]) Address [address] [place] [address] Care Team Providers Care Timber Feller Name Role Phone Emanuel Vital MD Primary Care Provider [phone] Encounter Details Date Type Department Care Team (Late st Contact Info) Description 06/19/2021 Transcribed Document [facility] [place] [address] [place] [address] ProviderSaran MD [address] [place] [address] Social History Tobacco Use Types [...] Date Tejinder rded Speak language other than Sinhala at home Not on file 05/27/2023 Want [...] - Historical Provider, - 06/19/2021 2:31 PM MANAGER OF CARE Peter Main OR PACU Summary Primary Physician: SEAN CARMEN MD-SUR Finalized Date/Time: 06/19/21 16:08:22 Pt. Name: ALYSSA GLEASON /Sex: 1965 Male Med Rec #: [id number] Physician: SEAN CARMEN MD-SUR Financial #: [id number] Pt. Type: O Room/Bed: [facility] Admit/Disch: 06/19/21 06:27:00 - Institution: [facility] Main OR PACU Case Times Entry 1 In PACU I 06/19/21 15:45:00 Ready for PACU 06/19/21 16:15:00 Discharge Discharge from PACU 06/19/21 16:15:00 I Last Modified By: GONSALO SANDERS TOU-ZZ-[id number]-OP CAR 06/19/21 16:08:13 Finalized By: GONSALO SANDERS [id number]-[id number]-OP CAR Document Signatures Signed By: GONSALO SANDERS WUR-WV-[id number]-OP CAR 06/19/21 16:08 documented in this encounter Plan of Treatment Not on file documented as of this encounter Visit Diagnoses Not on filedocumented in this encounter Care Teams Timber Feller Relationship Specialty Start Date End Date Emanuel Vital MD [address] [place] [address] PCP - General General Internal Medicine 09/03/22 documented as of this encounter
--- OUTSIDE RECORDS SUMMARY | 2024-12-06 18:38 | XMS_ITS | Clinical Summary ---
Author Organization [employer] ([place], [place], [place], [place]) Address [address] [place] [address] Care Team Providers Care Knockout Worker Name Role Phone Emanuel Vital MD Primary Care Provider [phone] Allergies No known active allergies Medications bisoprolol [...] Date Tejinder rded Speak language other than South Korean at home Not on file 05/27/2023 [...] (#1) 2025 Medical Devices Implanted Type Area Investment Counselor Device Identifier Shelf Expiration Date Model / Serial / Lot Grft Bone Preservon 5.75x7.22 [id number] - [id number] Implanted:Qty : 1 on 09/03/2022 by Chris Talley MD at [facility] IMPLANTS N/A: Spine Cervical LIFENET:LIFENET TRANSPLANT SRV 09/16/2026 [id number] / [id number] / Grft Bone Preservon 4.75x6.22 [id number] - [id number] Implanted:Qty : 1 on 09/03/2022 by Chris Talley MD at [facility] IMPLANTS N/A: Spine Cervical LIFENET:LIFENET TRANSPLANT SRV 01/03/2027 [id number] / [id number] / Pin Compr [place] 14mm 014 - [id number] Implanted:Qty : 2 on 09/03/2022 by Chris Talley MD at [facility] IMPLANTS N/A: Spine Cervical J &J:DEPUY:DEPUY SPINE 2748-07-0 14 / 2748-07-0 14 / Plt Ant Skyln Hybrd Lvl2 32mm 032 - [id number] Implanted:Qty : 1 on 09/03/2022 by Chris Talley MD at [facility] IMPLANTS N/A: Spine Cervical J &J:DEPUY:DEPUY SPINE 02-0 32 / 1867-06-0 32 / Scr Skyln Vari Sd 14mm 014 - [id number] Implanted:Qty : 4 on 09/03/2022 by Chris Talley MD at [facility] IMPLANTS N/A: Spine Cervical J &J:DEPUY:DEPUY SPINE 50-0 14 / 50-0 14 / Scr Skyln Vari Sd 12mm 012 - [id number] Implanted:Qty : 1 on 09/03/2022 by Chris Talley MD at [facility] IMPLANTS N/A: Spine Cervical J &J:DEPUY:DEPUY SPINE 850-0 12 / 50-0 12 / Scr Skyln Vari-Ovsz 12mm -012 - [id number] Implanted:Qty : 1 on 09/03/2022 by Chris Talley MD at [facility] IMPLANTS N/A: Spine Cervical J &J:DEPUY:DEPUY SPINE -0 12 / Explanted Type Area Investment Counselor Device Identifier Shelf Expiration Date Model / Serial / Lot Scr Skyln Vari Sd 12mm 1867-50-012 - [id number] Explanted:Qty : 1 on 09/03/2022 at [facility] IMPLANTS N/A: Spine Cervical J &J:DEPUY:DEPUY SPINE -0 12 / Insurance [employer] Advance Directives For more information, please contact: [phone] * Full Code (Latest Code Status on File) Date Activated Date Inactivated Comments 09/03/2022 11:41 AM 09/04/2022 5:47 PM Care Teams Knockout Worker Relationship Specialty Start Date End Date Emanuel Vital MD [address] [place] [address] PCP - General General Internal Medicine 09/03/22
--- OUTSIDE RECORDS SUMMARY | 2024-12-06 18:38 | XMS_ITS | Encounter Summary ---
Author Organization [employer] ([place], [place], [place], [place]) Address [address] [place] [address] Care Team Providers Care Regional Dedicated Truck Driver Name Role Phone Emanuel Vital MD Primary Care Provider [phone] Encounter Details Date Type Department Care Team (Late st Contact Info) Description 06/19/2021 Transcribed Document [facility] [place] [address] [place] [address] ProviderSaran MD [address] [place] [address] Social History Tobacco Use Types [...] Date Tejinder rded Speak language other than Swedish at home Not on file 05/27/2023 Want [...] Historical Provider, MD - 06/19/2021 1:15 PM LAWN CARE SPECIALIST RENETTA Main OR PreOp Summary Primary Physician: SEAN CARMEN MD-SUR Finalized Date/Time: 06/19/21 14:07:03 Pt. Name: ALYSSA GLEASON LEXI [place]./Sex: 1965 Male Med Rec #: [id number] Physician: SEAN CARMEN MD-SUR Financial #: [id number] Pt. Type: O Room/Bed: [facility] Admit/Disch: 06/19/21 06:27:00 - Institution: [facility] PreOp Case Times Entry 1 In Preop 06/19/21 11:07:00 Ready for Holding n/a Room Patient Ready for 06/19/21 11:44:00 Surgery Patient Out of Preop 06/19/21 14:03:00 Patient Out of n/a Holding Room Last Modified By: Teresa Pathak RN 06/19/21 14:07:01 [facility] PreOp Case Times Audit 06/19/21 14:07:01 Cement Kiln Operator: HUNTER Modifier: MAYNARL <+> 1 Patient Out of Preop 06/19/21 12:17:14 Cement Kiln Operator: HUNTER Modifier: MAYNARL <+> 1 Patient Ready for Surgery Finalized By: Teresa Pathak, RN Document Signatures Signed By: Teresa Pathak RN 06/19/21 14:07 Electronically signed by Gonzalo [facility] Conversion Handicapped Teacher Cerner at 08/26/2022 12:02 AM CDT documented in this encounter Plan of Treatment Not on file documented as of this encounter Visit Diagnoses Not on filedocumented in this encounter Care Teams Regional Dedicated Truck Driver Relationship Specialty Start Date End Date Emanuel Vital MD [address] [place] [phone] PCP - General General Internal Medicine 09/03/22 documented as of this encounter
--- OUTSIDE RECORDS SUMMARY | 2024-12-06 18:38 | XMS_ITS | Encounter Summary ---
Author Organization [employer] ([place], [place], [place], [place]) Address [address] [place] [address] Care Team Providers Care Membership Manager Name Role Phone Emanuel Vital MD Primary Care Provider [phone] Encounter Details Date Type Department Care Team (Late st Contact Info) Description 06/19/2021 Transcribed Document [facility] [place] [address] [place] [address] ProviderSaran MD [address] [place] [address] Social History Tobacco Use Types [...] Date Tejinder rded Speak language other than [place] at home Not on file 05/27/2023 Want [...] - Historical Provider, - 06/19/2021 1:50 PM WOOD CARVING LATHE OPERATOR Time Out Documentation Entered On: 06/19/2021 13:51 [...] - 06/19/2021 13:50 EST Electronically signed by [facility] Conversion Doctor Of Chiropractic Cerner at 08/26/2022 12:24 AM CDT documented in this encounter Plan of Treatment Not on file documented as of this encounter Visit Diagnoses Not on filedocumented in this encounter Care Teams Membership Manager Relationship Specialty Start Date End Date Emanuel Vital MD [address] [place] [id number] PCP - General General Internal Medicine 09/03/22 documented as of this encounter
--- OUTSIDE RECORDS SUMMARY | 2024-12-06 18:38 | XMS_ITS | Encounter Summary ---
Author Organization [employer] ([place], [place], [place], [place]) Address [address] [place] [address] Care Team Providers Care Well Reactivator Operator Name Role Phone Emanuel Vital MD Primary Care Provider Encounter Details Date Type Department Care Team (Late st Contact Info) Description 06/10/2021 Transcribed Document [facility] [place] [address] [place] [address] ProviderSaran MD [address] [place] [address] Social History Tobacco Use Types [...] Date Tejinder rded Speak language other than Maltese at home Not on file 05/27/2023 Want [...] Historical Provider, MD - 06/10/2021 2:09 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
--- NOTE | 2024-12-06 19:14 | ED_ITS ---
<Statement entered by Josie Whitten DO - 12/07/24 00:10> I was consulted by the PERLA, and we discussed the complexity of the problems being addressed. I approved the treatment and management plan for this patient's care in the emergency department, thus performing a substantive portion of the medical decision making. Josie Whitten DO Discharge Plan Disposition Patient Disposition: Home, Self-Care Condition: Good Prescriptions Prescriptions: No Action omeprazole 40 mg capsule,delayed release(DR/EC) 40 mg PO DAILY Qty: 30 12RF Rx Instructions: Please take 1 capsule daily 30 minutes prior to evening meal/dinner montelukast [Singulair] 10 mg tablet 10 mg PO DAILY Qty: 90 2RF ramipril [Altace] 2.5 mg capsule 2.5 mg PO BID Qty: 60 5RF doxycycline hyclate 100 mg capsule 100 mg PO BID Qty: 20 0RF famotidine 20 mg tablet 20 mg PO DAILY bisoprolol fumarate 5 mg tablet 5 mg PO DAILY Qty: 90 3RF Rx Instructions: TAKE ONE TABLET BY MOUTH ONCE DAILY FOR heart beat AND anxiety bupropion HCl 200 mg tablet sustained-release 12 hr See Rx Instructions .ROUTE .COMPLEX Qty: 180 1RF Dose Instruction: TAKE ONE TABLET BY MOUTH TWICE DAILY Rx Instructions: TAKE ONE TABLET BY MOUTH TWICE DAILY albuterol sulfate [Ventolin HFA] 90 mcg/actuation HFA aerosol inhaler See Rx Instructions .ROUTE .COMPLEX Qty: 18 2RF Dose Instruction: INHALE TWO PUFFS BY MOUTH FOUR TIMES DAILY NEEDED FOR SHORTNESS OF BREATH OR wheezing Rx Instructions: INHALE TWO PUFFS BY MOUTH FOUR TIMES DAILY NEEDED FOR SHORTNESS OF BREATH OR wheezing budesonide-formoterol [Symbicort] 160-4.5 mcg/actuation HFA aerosol inhaler See Rx Instructions .ROUTE .COMPLEX Qty: 10.2 2RF Dose Instruction: INHALE TWO PUFFS BY MOUTH TWICE DAILY Rx Instructions: INHALE TWO PUFFS BY MOUTH TWICE DAILY trazodone 100 mg tablet See Rx Instructions .ROUTE .COMPLEX Qty: 60 2RF Dose Instruction: TAKE 1 TO 2 TABLET(S) BY MOUTH EVERY DAY AT BEDTIME FOR SLEEP Rx Instructions: TAKE 1 TO 2 TABLET(S) BY MOUTH EVERY DAY AT BEDTIME FOR SLEEP cetirizine 10 mg tablet See Rx Instructions .ROUTE .COMPLEX Qty: 90 1RF Dose Instruction: TAKE ONE TABLET BY MOUTH EVERY DAY NEEDED FOR allergies. Rx Instructions: TAKE ONE TABLET BY MOUTH EVERY DAY NEEDED FOR allergies. sildenafil 100 mg tablet See Rx Instructions .ROUTE .COMPLEX Qty: 10 2RF Dose Instruction: TAKE ONE TABLET BY MOUTH EVERY DAY NEEDED - take 30 minutes TO 4 hours prior TO sexual activity Rx Instructions: TAKE ONE TABLET BY MOUTH EVERY DAY NEEDED - take 30 minutes TO 4 hours prior TO sexual activity aspirin 81 mg tablet,delayed release (DR/EC) 81 mg PO DAILY Rx Instructions: TAKE ONE TABLET BY MOUTH EVERY DAY escitalopram oxalate 10 mg tablet 10 mg PO DAILY Rx Instructions: TAKE ONE TABLET BY MOUTH ONCE DAILY rosuvastatin 40 mg tablet 40 mg PO DAILY Rx Instructions: TAKE ONE TABLET BY MOUTH EVERY DAY spironolactone 25 mg Tablet 25 mg PO DAILY prasugrel HCl [Effient] 10 mg Tablet 10 mg PO DAILY 30 Days Qty: 30 3RF Referrals Follow up/Referrals: Emanuel Vital MD [Primary Care Provider, Medical] - See instructions Medhat Davis DO [Staff Physician, Orthopedics] - See instructions Fernie Jama MD [Staff Physician, Cardiology] - See instructions Activity Restrictions/Add. Instructions Additional Instructions/Restrictions: Please return to the emergency department with any worsening signs or symptoms, please follow-up with your family doctor and geoint analyst with orthopedic doctor in the upcoming days/weeks, recommend rest ice Tylenol and ibuprofen for both your skeletal chest pain as well as your triceps/arm pain. Clinical Impressions Clinical Impression: Triceps strain, Chest pain, musculoskeletal, Frozen shoulder Instructions Patient Instructions: DI for Atypical Chest Pain, DI for Costochondritis Print Language Print Language: Setswana Discharge ED Provider: Josie Whitten General Adult HPI <HELENA Tirado - Last Filed: 12/06/24 22:02> General Chief complaint: PAIN Stated complaint: AO 12/04/24 1000 injury right rib cage Time Seen by Provider: 12/06/24 18:38 Mode of Arrival: Ambulatory Source of Information: Patient Description of Symptoms (Recalled from ER Triage Doc. by RN): patient states on tuesday he was helping son work on car when he felt a pop in his right chest having pain with movement inspirtations sneezing and coughing that is stabbing also thinks he has a broke tendon in his right bicep has brusing on posterior side of bicep History of Present Illness HPI narrative: 59-year-old male presents to the emergency department with right sided rib/chest pain that occurred on 12/03/2024, patient states that he was laying on the ground , when he heard a pop , he has had some pleuritic type chest pain, worse with inspiration on the right side, nonradiating, patient also endorses history/other remote injury of his right arm, on 12/02/2024, he has significant bruising to that area along the posterior humeral region/triceps region, he believes that he may have torn something . 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 Patient denies any fever or chills, denies any overt chest pain, does have shortness of breath at baseline, denies any abdominal pain nausea vomiting constipation diarrhea, no urinary type symptomatology, patient is a current everyday smoker, denies any alcohol or drug use, also of note, patient has implantable loop recorder, and states that on Tuesday and Tuesday he got notifications , from his loop recorder that he had an abnormal/high heart rate. He does have slated follow-up with cardiology next week. Other past medical history is consistent with CAMACHO, CAD status post 1 stent placement, COPD, adjustment disorder, anxiety disorder, GERD, MDD, cervical degenerative disc disease status post what sounds like ACDF, patient is on dual antiplatelet therapy with aspirin and Effient. Initial triage vitals unremarkable. Please note that above description of symptoms, in this electronic medical record under categorization of recalled from ER triage doctor by RN are reflective of an initial nursing assessment, however, is not reflective of my full history and physical exam that was personally taken and clarified. Consequentially, this preceding description of symptoms, which may include the patient's categorized chief complaint in the EMR, do not reflect my personal clinical impression, and the ultimate description of history of present illness and patient stated complaints should be deferred to this section of the note. Unless stated otherwise or congruent with this section of the note, additional signs, symptoms, or incongruence should be interpreted as inaccurate with my clinical impression. Onset (ago): day(s) Related Data Home Medications ?Medication ?Instructions ?Recorded ?Confirmed famotidine 20 mg tablet 20 mg PO DAILY 05/18/2311/07 aspirin 81 mg tablet,delayed 81 mg PO DAILY 06/25/24 0 11/28/24 release escitalopram oxalate 10 mg tablet 10 mg PO DAILY 06/2511/28/24 rosuvastatin 40 mg tablet 40 mg PO DAILY 06/25/2411/07 spironolactone 25 mg tablet 25 mg PO DAILY 06/25/24 Previous Rx's ?Medication ?Instructions ?Recorded omeprazole 40 mg capsule,delayed 40 mg PO DAILY #30 ca ps 02/14/24 release bisoprolol fumarate 5 mg tablet 5 mg PO DAILY #90 tabs 08/29/24 prasugrel HCl 10 mg tablet 10 mg PO DAILY 30 days #30 tabs 08/29/24 (Effient) bupropion HCl 200 mg tablet,12 hr See Rx Instructions .Route 09/14/24 sustained-release .COMPLEX #180 tabs albuterol sulfate 90 mcg/actuation See Rx Instructions .Route 09/26/24 aerosol inhaler (Ventolin HFA) .COMPLEX #18 grams budesonide-formoterol HFA 160 See Rx Instructions .Rou te 10/02/24 mcg-4.5 mcg/actuation aerosol .COMPLEX #10.2 grams inhaler (Symbicort) cetirizine 10 mg tablet See Rx Instructions .Route 0 10/09/24 .COMPLEX #90 tabs trazodone 100 mg tablet See Rx Instructions .Route 0 10/09/24 .COMPLEX #60 tabs ramipril 2.5 mg capsule (Altace) 2.5 mg PO BID #60 cap s 10/11/24 montelukast 10 mg tablet 10 mg PO DAILY #90 tabs 10/08 11/30 (Singulair) doxycycline hyclate 100 mg capsule 100 mg PO BID #20 c aps 11/15/24 sildenafil 100 mg tablet See Rx Instructions .Route 0 11/15/24 .COMPLEX #10 tabs Allergies Allergy/AdvReac Type Severity Reaction Status Date / Time No Known Allergies Allergy Verified 11/15/24 10:01 [facility] <HELENA Tirado - Last Filed: 12/06/24 22:02> [facility] Disclaimer: The information contained in this section may have been updated after the patient was seen, as this information can be updated by other users. Medical History Other forms of dyspnea Abnormal nuclear cardiac imaging test Asthma Dizziness Difficulty swallowing Hyperlipidemia Hypertension COPD (chronic obstructive pulmonary disease) Multiple lung nodules on CT Dyspnea on exertion History of smoking 30 or more pack years Pulmonary emphysema Analgesic overuse headache Headache Transformed migraine. Fixation hardware in spine Frozen shoulder History of arterial dissection GERD (gastroesophageal reflux disease) Depression Heart palpitations Heart attack Anxiety Cervical radiculopathy Osteoarthritis Surgical History History of heart artery stent S/P cardiac cath History of back surgery History of surgery on arm History of loop recorder History of cervical discectomy Family History Other No significant family history Social History Smoking Status: Never smoker smoking status stop date: 08/27/2022 alcohol intake: never substance use type: denies use current occupational status: other Travel in the last 8 weeks?: None household members: spouse housing: house marital status: caffeine: Yes Have you lived/traveled outside US in past 30 days?: No Contact w/someone who lives/traveled outside US past 30 days?: No Exposure to someone with infectious disease in past 14 days?: No Do you have a fever (greater than 100.4 F or 38 C)?: No Have you tested positive for COVID-19?: No Exposed to someone with COVID-19 in past 14 days?: No Do you have a sore throat?: No Do you have a cough?: No Do you have any weakness?: No Do you have any diarrhea?: No Are you experiencing any unusual bleeding?: No Do you have any muscle aches/pain?: No Do you have any abdominal pain?: No Are you experiencing loss of taste or smell?: No Other Medical History Have you received the Flu Vaccine for this season: Yes Have you received the Pneumonia Vaccine: No <HELENA Tirado - Last Filed: 12/06/24 22:02> ROS Obtained: Yes All systems reviewed & no additional complaints except as documented Physical Exam <HELENA Tirado - Last Filed: 12/06/24 22:02> General General appearance: alert and in no apparent distress Head Head exam: atraumatic and normocephalic Eye Eye exam: Present normal appearance, PERRL and EOMI Neck Neck exam: Present full ROM; Absent meningismus Chest Chest inspection: Present normal inspection, tenderness and other (Tenderness over the anterior aspect of the right chest no obvious injury) Respiratory Respiratory exam: Absent respiratory distress, wheezes, stridor, accessory muscle use or prolonged expiratory phase Cardiovascular Cardiovascular exam: Present normal rhythm and other (Pulses equal and symmetric in bilateral upper and lower extremities) Abdominal Exam Abdominal exam: Absent distention Extremities Exam Extremities exam: Present normal inspection, tenderness and other (Tenderness and ecchymoses along the right mid humeral region/triceps region, difficulty with extension and flexion, no Yung sign, otherwise neurovascular intact.); Absent edema Neurological Exam Neurological exam: Present alert Psychiatric Psychiatric exam: Present normal affect Skin Skin exam: Present warm and dry Medical Decision Making <HELENA Tirado - Last Filed: 12/06/24 22:02> Medical Records Medical records reviewed: Yes I reviewed the patient's medical records. Screening: Per USPSTF and CDC recommendations, given the prevalence of disease in our region, it is our hospital?s policy to screen for HIV and viral Hepatitis for all patients aged 18 and over and those with ongoing risk factors. Car Inquiry Pt receiving controlled substance: No Car was queried for this patient: No Vital Signs: 12/06/24 18:36 12/06/24 18:42 12/06/24 19:00 Temperature 98.7 F Temperature Source Oral Pulse Rate 92 H 91 H Pulse Rate [Right Radial] 91 H Respiratory Rate 16 Blood Pressure 115/90 129/87 Blood Pressure [Right Arm] 115/90 Blood Pressure Mean [Right Arm] 98 Blood Pressure Source [Right Arm] Automatic Cuff Blood Pressure Position [Right Arm] Supine 02 Sat by Pulse Oximetry 99 99 98 Oxygen Delivery Method Room Air Room Air 12/06/24 19:30 12/06/24 20:00 12/06/24 20:32 Temperature Temperature Source Pulse Rate 80 82 78 Pulse Rate [Right Radial] Respiratory Rate Blood Pressure 127/72 148/78 H 125/70 Blood Pressure [Right Arm] Blood Pressure Mean [Right Arm] Blood Pressure Source [Right Arm] Blood Pressure Position [Right Arm] 02 Sat by Pulse Oximetry 98 99 98 Oxygen Delivery Method Room Air 12/06/24 21:27 12/06/24 22:05 Temperature 98.2 F Temperature Source Pulse Rate 75 77 Pulse Rate [Right Radial] Respiratory Rate 22 Blood Pressure 121/72 117/79 Blood Pressure [Right Arm] Blood Pressure Mean [Right Arm] Blood Pressure Source [Right Arm] Blood Pressure Position [Right Arm] 02 Sat by Pulse Oximetry 99 Oxygen Delivery Method Room Air Lab Data Lab results reviewed: Yes I reviewed the patient's lab results. Lab Results 12/06/24 20:24: WBC 9.2, RBC 4.21 L, Hgb 11.6 L, Hct 36.2 L, MCV 86.0, MCH 27.6, MCHC 32.0, RDW 14.5, Plt Count 302, MPV 9.1, Neut % (Auto) 71.5, Lymph % (Auto) 15.6, Rice % (Auto) 9.3, Eos % (Auto) 2.7, Baso % (Auto) 0.7, Neut # (Auto) 6.6, Lymph # (Auto) 1.4, Rice # (Auto) 0.9, Eos # (Auto) 0.3, Baso # (Auto) 0.1, PT 10.7, INR 0.96, Sodium 136, Potassium 3.4 L, Chloride 102, Carbon Dioxide 26, Anion Gap 11.4, BUN 31 H, Creatinine 1.00, Estimated Creat Clear 89, Estimated GFR 77, Est GFR ( Amer) 93, Glucose 100, Calcium 9.3, Total Bilirubin 0.4, AST 49, ALT 29, Alkaline Phosphatase 98, Troponin I < 0.01, NT-Pro-B Natriuret Pep 90.4, Total Protein 7.6, Albumin 4.0, Globulin 3.6 H, Albumin/Globulin Ratio 1.1 12/06/24 20:24 12/06/24 20:24 Orders (Tests/Meds): ED MEDICATIONS Discontinued Medications Generic Name Dose Route Start Last Admin Trade Name Freq PRN Reason Stop Dose Admin Iopamidol 70 ml 12/06/24 21:04 12/06/24 21:05 Iopamidol-370 (76%);100ml Bottle IV 12/06/24 21:05 70 ml ONCE ONE Administration Sodium Chloride 50 ml 12/06/24 21:04 12/06/24 21:05 0.9 % Sodium Chloride 50 Ml Vial IV 12/06/24 21:05 50 ml ONCE ONE Administration Sodium Chloride 10 ml 12/06/24 21:04 12/06/24 21:05 Sodium Chloride 0.9% 10ml Syr (Rad Only) IV 01/05/25 21:03 10 ml NEEDED PRN Administration Maintain IV Site ORDERS Category Date Time Status CT angio chest PE protocol Stat Cat Scan 12/06/24 19:23 Completed Complete Blood Count Auto Diff Stat Lab 12/06/24 20:24 Completed Comprehensive Metabolic Panel Stat Lab 12/06/24 20:24 Completed NT Pro Brain Natriuretic Pep. Stat Lab 12/06/24 20:24 Completed PT INR [Prothrombin Time INR] Stat Lab 12/06/24 20:24 Completed Troponin I Stat Lab 12/06/24 20:24 Completed Medical Decision Narrative: 59-year-old male presents the emergency department with right-sided pleuritic chest pain, right arm pain, for several days, differential diagnose include but not limited to pneumonia, ACS, cardiac arrhythmia, electrolyte disturbance, triceps rupture, biceps rupture, rib fracture, costochondritis, PE, other musculoskeletal chest pain among others. I discussed this patient's case with the attending physician Dr. Whitten Will obtain basic laboratory studies, proBNP PT/INR, troponin, EKG, will obtain CT a chest without contrast PE protocol to evaluate for the bony window as well as for pulmonary embolism. CBC unremarkable Coags within normal limits CMP is notable for minimal hypokalemia at 3.4, mild BUN elevation 31, otherwise unremarkable CMP Troponin is less than 0.01, proBNP within normal I reviewed the patient's CTA chest without contrast PE protocol, no central segmental pulmonary artery intraluminal filling emboli identified, emphysematous changes. I discussed the results with the patient over the bedside patient family agreed with the current plan/discharge planning, I think a musculoskeletal pain/costochondritis, as patient has no acute fracture, patient also most likely has a tricep strain/sprain or rupture due to the ecchymosis around the triceps area with recent traumatic injury. Recommend follow-up with orthopedic provider for this, recommend return to the emergency department with any worsening signs or symptoms, I recommend rest ice, ibuprofen and Tylenol as needed for symptomatic leaf of both costochondritis and tricep sprain/strain. Patient and family voiced understanding and agreed with the current treatment plan/discharge plan. <Josie Whitten, DO - Last Filed: 12/06/24 22:16> Vital Signs: 12/06/24 18:36 12/06/24 18:42 12/06/24 19:00 Temperature 98.7 F Temperature Source Oral Pulse Rate 92 H 91 H Pulse Rate [Right Radial] 91 H Respiratory Rate 16 Blood Pressure 115/90 129/87 Blood Pressure [Right Arm] 115/90 Blood Pressure Mean [Right Arm] 98 Blood Pressure Source [Right Arm] Automatic Cuff Blood Pressure Position [Right Arm] Supine 02 Sat by Pulse Oximetry 99 99 98 Oxygen Delivery Method Room Air Room Air 12/06/24 19:30 12/06/24 20:00 12/06/24 20:32 Temperature Temperature Source Pulse Rate 80 82 78 Pulse Rate [Right Radial] Respiratory Rate Blood Pressure 127/72 148/78 H 125/70 Blood Pressure [Right Arm] Blood Pressure Mean [Right Arm] Blood Pressure Source [Right Arm] Blood Pressure Position [Right Arm] 02 Sat by Pulse Oximetry 98 99 98 Oxygen Delivery Method Room Air 12/06/24 21:27 12/06/24 22:05 Temperature 98.2 F Temperature Source Pulse Rate 75 77 Pulse Rate [Right Radial] Respiratory Rate 22 Blood Pressure 121/72 117/79 Blood Pressure [Right Arm] Blood Pressure Mean [Right Arm] Blood Pressure Source [Right Arm] Blood Pressure Position [Right Arm] 02 Sat by Pulse Oximetry 99 Oxygen Delivery Method Room Air Lab Data Lab Results 12/06/24 20:24: WBC 9.2, RBC 4.21 L, Hgb 11.6 L, Hct 36.2 L, MCV 86.0, MCH 27.6, MCHC 32.0, RDW 14.5, Plt Count 302, MPV 9.1, Neut % (Auto) 71.5, Lymph % (Auto) 15.6, Rice % (Auto) 9.3, Eos % (Auto) 2.7, Baso % (Auto) 0.7, Neut # (Auto) 6.6, Lymph # (Auto) 1.4, Rice # (Auto) 0.9, Eos # (Auto) 0.3, Baso # (Auto) 0.1, PT 10.7, INR 0.96, Sodium 136, Potassium 3.4 L, Chloride 102, Carbon Dioxide 26, Anion Gap 11.4, BUN 31 H, Creatinine 1.00, Estimated Creat Clear 89, Estimated GFR 77, Est GFR ( Amer) 93, Glucose 100, Calcium 9.3, Total Bilirubin 0.4, AST 49, ALT 29, Alkaline Phosphatase 98, Troponin I < 0.01, NT-Pro-B Natriuret Pep 90.4, Total Protein 7.6, Albumin 4.0, Globulin 3.6 H, Albumin/Globulin Ratio 1.1 Orders (Tests/Meds): ED MEDICATIONS Discontinued Medications Generic Name Dose Route Start Last Admin Trade Name Freq PRN Reason Stop Dose Admin Iopamidol 70 ml 12/06/24 21:04 12/06/24 21:05 Iopamidol-370 (76%);100ml Bottle IV 12/06/24 21:05 70 ml ONCE ONE Administration Sodium Chloride 50 ml 12/06/24 21:04 12/06/24 21:05 0.9 % Sodium Chloride 50 Ml Vial IV 12/06/24 21:05 50 ml ONCE ONE Administration Sodium Chloride 10 ml 12/06/24 21:04 12/06/24 21:05 Sodium Chloride 0.9% 10ml Syr (Rad Only) IV 01/05/25 21:03 10 ml NEEDED PRN Administration Maintain IV Site ORDERS Category Date Time Status CT angio chest PE protocol Stat Cat Scan 12/06/24 19:23 Completed Complete Blood Count Auto Diff Stat Lab 12/06/24 20:24 Completed Comprehensive Metabolic Panel Stat Lab 12/06/24 20:24 Completed NT Pro Brain Natriuretic Pep. Stat Lab 12/06/24 20:24 Completed PT INR [Prothrombin Time INR] Stat Lab 12/06/24 20:24 Completed Troponin I Stat Lab 12/06/24 20:24 Completed ECG Data Tracing #1: I reviewed this ECG and interpreted as documented below: Sinus rhythm with a ventricular rate of [address] changes concerning for STEMI. Normal intervals ECG initial impression date: 12/06/24 ECG initial impression time: 19:47 Critical Care <HELENA Tirado - Last Filed: 12/06/24 22:02> Critical Care Time Critical Care Time: No
--- NOTE | 2024-12-06 19:23 | CT_ITS ---
PROCEDURE INFORMATION: Exam: CTA Chest With Contrast Exam date and time: 12/06/2024 9:03 PM Age: 59 years old Clinical indication: Shortness of breath; Additional info: SOA, right-sided chest pain, injury. TECHNIQUE: Imaging protocol: Computed tomographic angiography of the chest with contrast. Exam focused on the arteries. 3D rendering (Not supervised by radiologist): MIP and/or 3D reconstructed images were created by the technologist. Radiation optimization: All CT scans at this facility use at least one of these dose optimization techniques: automated exposure control; mA and/or kV adjustment per patient size (includes targeted exams where dose is matched to clinical indication); or iterative reconstruction. Contrast material: ISOVUE; Contrast volume: 70 ml; Contrast route: INTRAVENOUS (IV); COMPARISON: CT ANGIO CHEST PE PROTOCOL 09/01/2024 6:12 AM FINDINGS: Pulmonary arteries: No pulmonary emboli. Aorta: Unremarkable. No aortic aneurysm. No aortic dissection. Lungs: Underlying paraseptal emphysematous changes. Air trapping. Pleural spaces: Unremarkable. No pneumothorax. No pleural effusion. Heart: Unremarkable. No cardiomegaly. No pericardial effusion. Lymph nodes: Unremarkable. No enlarged lymph nodes. Bones/joints: Unremarkable. No acute fracture. Soft tissues: Unremarkable. IMPRESSION: 1. No central or segmental pulmonary arterial intraluminal filling emboli identified. 2. Emphysematous changes. COMMENTS: The presence of pulmonary emphysema on CT is an independent risk factor for lung cancer. In the absence of a history or active diagnosis of lung cancer, it is recommended that this patient with emphysema be evaluated for enrollment in a low dose CT lung cancer screening program.
--- NOTE | 2024-12-06 19:45 | ECG_ITS ---
APPROVED REPORT Exam: Resting ECG HR:80 bpm ECG Measurements Heart Rate 80 AXES MN 366 P -89 QRSd 102 QRS 61 QT 369 T 64 QTc 405 Conclusion ELECTRONIC ATRIAL PACEMAKER MINIMAL VOLTAGE CRITERIA FOR LVH, CONSIDER NORMAL VARIANT [MEETS CRITERIA IN ONE OF: R(aVL), S(V1), R(V5), R(V5/V6)+S(V1)] No STEMI Electronically signed by : ROSSANA HAYES, 12/08/2024 06:41:23
[2024-12-06 20:40] LABS: Hematocrit 36.2 % (42.0-52.0); Hemoglobin 11.6 g/dL (14.1-18.0); Immature Granulocytes % 0.2 %; Mean Corpuscular HGB Conc 32.0 g/dL (31.8-35.4); Mean Corpuscular Hemoglobin 27.6 pg (27.0-31.2); Mean Corpuscular Volume 86.0 fl (80-94); Nucleated Red Blood Cells % 0 %; Platelet Count 302 K/mm3 (142-424); Red Blood Count 4.21 M/mm3 (4.60-6.20); Red Cell Distribution Width-SD 45.2 fL; White Blood Count 9.2 K/mm3 (4.8-10.8)
[2024-12-06 20:44] LABS: Albumin Level 4.0 g/dl (3.5-5.0); Chloride 102 mmol/L (98-107); Potassium 3.4 mmoL/L (3.5-5.1); Sodium 136 mmol/L (136-145)
[2024-12-06 20:47] LABS: Alanine Aminotransferase 29 U/L (12-78); Albumin/Globulin Ratio 1.1 (1.1-1.8); Alkaline Phosphatase 98 U/L (38-126); Anion Gap 11.4 mEq/L (5-15); Aspartate Amino Transferase 49 U/L (17-59); Bilirubin,Total 0.4 mg/dl (0.2-1.3); Blood Urea Nitrogen 31 mg/dl (9-20); Calcium 9.3 mg/dl (8.4-10.2); Carbon Dioxide 26 mmol/L (22.0-30.0); Creatinine Clearance Estimated 89 mL/min (50-200); Creatinine,Serum 1.00 mg/dl (0.66-1.25); Estimated Glomerular Filt Rate 77 ml/min (>60); GFR (African American) 93 ML/MIN (>60); Globulin 3.6 g/dL (1.3-3.2); Glucose 100 mg/dl (74-100); Total Protein,Serum 7.6 g/dl (6.3-8.2)
[2024-12-06 20:48] LABS: INR 0.96 (0.9-1.1); Prothrombin Time 10.7 seconds (10.1-12.5)
[2024-12-06 20:58] LABS: NT Pro Brain Natriuretic Pep. 90.4 pg/mL (0-125)
[2024-12-06 21:05] LABS: Troponin I < 0.01 ng/ml (0.00-0.034)
[2024-12-06] MEDS: 0.9 % SODIUM CHLORIDE 50 ML VIAL IV (21:05)
[2024-12-06] MEDS: SODIUM CHLORIDE 0.9% 10ML SYR (RAD ONLY) 10 ML IV (21:05)
[2024-12-06] MEDS: IOPAMIDOL-370 (76%);100ML BOTTLE 70 ML IV (21:05)
== END 2024-12-06 22:10 | disposition home or self-care (01) ==
PROVIDERS: Physician Assistant; Emergency Provider Emergency Medicine; PCP Internal Medicine
DX: R07.89 Other chest pain (principal); S46.311A Strain of muscle, fascia and tendon of triceps, right arm, initial encounter; M75.01 Adhesive capsulitis of right shoulder; I47.10 Supraventricular tachycardia, unspecified; J44.9 Chronic obstructive pulmonary disease, unspecified; E78.5 Hyperlipidemia, unspecified; I25.10 Atherosclerotic heart disease of native coronary artery without angina pectoris; I10 Essential (primary) hypertension
CPT/HCPCS: 71275; 80053; 83880; 84484; 85025; 85610; 93005; 99285; Q9967

== ENCOUNTER 2025-01-14 11:25 | Outpatient (CLI) | payer OTHER, SELFPAY ==
[2025-01-14 16:06] LABS: Hematocrit 42.7 % (42.0-52.0); Hemoglobin 13.3 g/dL (14.1-18.0); Immature Granulocytes % 0.3 %; Mean Corpuscular HGB Conc 31.1 g/dL (31.8-35.4); Mean Corpuscular Hemoglobin 27.0 pg (27.0-31.2); Mean Corpuscular Volume 86.6 fl (80-94); Nucleated Red Blood Cells % 0 %; Platelet Count 381 K/mm3 (142-424); Red Blood Count 4.93 M/mm3 (4.60-6.20); Red Cell Distribution Width-SD 45.1 fL; Reticulocyte % (Auto) 1.1 % (0.9-3.2); White Blood Count 7.6 K/mm3 (4.8-10.8)
[2025-01-14 16:33] LABS: Albumin Level 4.8 g/dl (3.5-5.0); Chloride 104 mmol/L (98-107); Sodium 139 mmol/L (136-145)
[2025-01-14 16:34] LABS: Potassium 4.7 mmoL/L (3.5-5.1)
[2025-01-14 16:36] LABS: Alanine Aminotransferase 19 U/L (12-78); Albumin/Globulin Ratio 1.7 (1.1-1.8); Alkaline Phosphatase 96 U/L (38-126); Anion Gap 12.7 mEq/L (5-15); Aspartate Amino Transferase 30 U/L (17-59); Bilirubin,Total 0.2 mg/dl (0.2-1.3); Blood Urea Nitrogen 22 mg/dl (9-20); Carbon Dioxide 27 mmol/L (22.0-30.0); Cholesterol 207 mg/dl (140-200); Creatinine,Serum 0.90 mg/dl (0.66-1.25); Estimated Glomerular Filt Rate 87 ml/min (>60); GFR (African American) 105 ML/MIN (>60); Globulin 2.8 g/dL (1.3-3.2); Iron 40 ug/dL (49-181); Total Protein,Serum 7.6 g/dl (6.3-8.2); Triglycerides 328 mg/dl (30-150)
[2025-01-14 16:37] LABS: Calcium 9.8 mg/dl (8.4-10.2); Glucose 91 mg/dl (74-100); HDL Cholesterol 43 mg/dl (40-60)
[2025-01-14 16:47] LABS: Total Iron Binding Capacity 467 ug/dL (261-462)
[2025-01-14 17:40] LABS: Vitamin B12 651 pg/mL (239-931)
--- OUTSIDE RECORDS SUMMARY | 2025-01-15 10:22 | XMS_ITS | Clinical Summary ---
Author Organization [employer] ([place], [place], [place], [place]) Address [address] [place] [address] Care Team Providers Care Fiberglass Fabricator Name Role Phone Emanuel Vital MD Primary Care Provider [phone] Allergies No known active allergies Medications bisoprolol [...] Date Tejinder rded Speak language other than Turkmen at home Not on file 05/27/2023 Want [...] (12+) 09/04/2023 09/03/2022 COVID-19 VACCINE (5 - 2024-2 6 season) 2025 03/24/2022, 03/18/2021, 08/02/2020, Additional history exists Influenza Vaccine (#1) 2025 Medical Devices Implanted Type Area Dry Roaster Device Identifier Shelf Expiration Date Model / Serial / Lot Grft Bone Preservon 5.75x7.22 [id number] - [id number] Implanted:Qty : 1 on 09/03/2022 by Chris Talley MD at [facility] IMPLANTS N/A: Spine Cervical LIFENET:LIFENET TRANSPLANT SRV 09/16/2026 [id number] / [id number] / Grft Bone Preservon 4.75x6.22 [id number] - [id number] Implanted:Qty : 1 on 09/03/2022 by Chris Talley MD at [facility] IMPLANTS N/A: Spine Cervical LIFENET:LIFENET TRANSPLANT SRV 01/03/2027 [id number] / [id number] / Pin Compr Peak Pa 14mm 014 - [id number] Implanted:Qty : 2 on 09/03/2022 by Chris Talley MD at [facility] IMPLANTS N/A: Spine Cervical J &J:DEPUY:DEPUY SPINE 2748-07-0 14 / 2748-07-0 14 / Plt Ant Skyln Hybrd Lvl2 32mm 032 - [id number] Implanted:Qty : 1 on 09/03/2022 by Chris Talley MD at [facility] IMPLANTS N/A: Spine Cervical J &J:DEPUY:DEPUY SPINE 02-0 32 / 1867-06-0 32 / Scr Skyln Vari Sd 14mm 014 - [id number] Implanted:Qty : 4 on 09/03/2022 by Chris Talley MD at [facility] IMPLANTS N/A: Spine Cervical J &J:DEPUY:DEPUY SPINE 50-0 14 / 50-0 14 / Scr Skyln Vari Sd 12mm 012 - [id number] Implanted:Qty : 1 on 09/03/2022 by Chris Talley MD at [facility] IMPLANTS N/A: Spine Cervical J &J:DEPUY:DEPUY SPINE 850-0 12 / 50-0 12 / Scr Skyln Vari-Ovsz 12mm -012 - [id number] Implanted:Qty : 1 on 09/03/2022 by Chris Talley MD at [facility] IMPLANTS N/A: Spine Cervical J &J:DEPUY:DEPUY SPINE -0 12 / Explanted Type Area Dry Roaster Device Identifier Shelf Expiration Date Model / Serial / Lot Scr Skyln Vari Sd 12mm 1867-50-012 - [id number] Explanted:Qty : 1 on 09/03/2022 at [facility] IMPLANTS N/A: Spine Cervical J &J:DEPUY:DEPUY SPINE -0 12 / Insurance [facility] [employer] Advance Directives For more information, please contact: [phone] * Full Code (Latest Code Status on File) Date Activated Date Inactivated Comments 09/03/2022 11:41 AM 09/04/2022 5:47 PM Care Teams Fiberglass Fabricator Relationship Specialty Start Date End Date Emanuel Vital MD [address] [place] [address] [place] [phone] PCP - General General Internal Medicine 09/03/22
--- OUTSIDE RECORDS SUMMARY | 2025-01-15 10:22 | XMS_ITS | Referral Summary ---
Author Organization [employer] ([place], [place], [place], [place]) Address [address] [place] [address] Care Team Providers Care Utilities Estimator And Drafter Name Role Phone Emanuel Vital MD Primary Care Provider [phone] Allergies No known active allergies Medications bisoprolol [...] Date Tejinder rded Speak language other than [place]de[place] at home Not on file 05/27/2023 Want [...] on file Medical Devices Implanted Type Area Machine Operations Supervisor Device Identifier Shelf Expiration Date Model / Serial / Lot Grft Bone Preservon 5.75x7.22 [id number] - [id number] Implanted:Qty : 1 on 09/03/2022 by Chris Talley MD at [facility] IMPLANTS N/A: Spine Cervical LIFENET:LIFENET TRANSPLANT SRV 09/16/2026 [id number] / [id number] / Grft Bone Preservon 4.75x6.22 [id number] - [id number] Implanted:Qty : 1 on 09/03/2022 by Chris Talley MD at [facility] IMPLANTS N/A: Spine Cervical LIFENET:LIFENET TRANSPLANT SRV 01/03/2027 [id number] / [id number] / Pin Compr Peak Pa 14mm [id number] - [id number] Implanted:Qty : 2 on 09/03/2022 by Chris Talley MD at [facility] IMPLANTS N/A: Spine Cervical J &J:DEPUY:DEPUY SPINE 03-0 14 / 27403-0 14 / Plt Ant Skyln Hybrd Lvl2 32mm 1868-02-032 - [id number] Implanted:Qty : 1 on 09/03/2022 by Chris Talley MD at [facility] IMPLANTS N/A: Spine Cervical J &J:DEPUY:DEPUY SPINE 02-0 32 / 1867-06-0 32 / Scr Skyln Vari Sd 14mm 50-014 - [id number] Implanted:Qty : 4 on 09/03/2022 by Chris Talley MD at [facility] IMPLANTS N/A: Spine Cervical J &J:DEPUY:DEPUY SPINE 50-0 14 / 50-0 14 / Scr Skyln Vari Sd 12mm 50012 - [id number] Implanted:Qty : 1 on 09/03/2022 by Chris Talley MD at [facility] IMPLANTS N/A: Spine Cervical J &J:DEPUY:DEPUY SPINE 50-0 12 / 0 12 / Scr Skyln Vari-Ovsz 12mm 54- - [id number] Implanted:Qty : 1 on 09/03/2022 by Chris Talley MD at [facility] IMPLANTS N/A: Spine Cervical J &J:DEPUY:DEPUY SPINE 54-0 12 / 54-0 12 / Explanted Type Area Machine Operations Supervisor Device Identifier Shelf Expiration Date Model / Serial / Lot Scr Skyln Vari Sd 12mm -012 - [id number] Explanted:Qty : 1 on 09/03/2022 at [facility] IMPLANTS N/A: Spine Cervical J &J:DEPUY:DEPUY SPINE 50-0 12 / 50-0 12 / Insurance [id number] [place] [address] [facility] [employer] Advance Directives For more information, please contact: [phone] * Full Code (Latest Code Status on File) Date Activated Date Inactivated Comments 09/03/2022 11:41 AM 09/04/2022 5:47 PM Care Teams Utilities Estimator And Drafter Relationship Specialty Start Date End Date Emanuel Vital MD [address] [place] [phone] PCP - General General Internal Medicine 09/03/22
--- OUTSIDE RECORDS SUMMARY | 2025-01-15 10:22 | XMS_ITS | Clinical Summary ---
[facility] Address [address] [place] [id number] Care Team Providers Care Concrete Precast [place] Name Role Phone Unavailable Primary Care Provider [...] 05/26/2021 COVID-19 Vaccine ( - 2023- season) 2025 INFLUENZA VACCINE 02/06/2025 Insurance [facility]
== END 2025-01-14 23:59 ==
LOC: LAB.DROPOF 01-15 10:12
PROVIDERS: PCP Internal Medicine; Visit Provider Internal Medicine
DX: I25.10 Atherosclerotic heart disease of native coronary artery without angina pectoris (principal); D64.9 Anemia, unspecified; E78.5 Hyperlipidemia, unspecified; I47.10 Supraventricular tachycardia, unspecified
CPT/HCPCS: 80053; 80061; 82607; 83540; 83550; 85025; 85044